=== PATIENT | male | born 1940 | race Caucasian/White ===

== ENCOUNTER 2016-09-08 11:00 | Outpatient (RCR) ==
[2013-07-25 18:13] VITALS: BMI 25.0
--- NOTE | 2016-08-26 10:54 | RS.OTEVAL ---
Subjective Date of Note: 08/26/16 Visit #: 1 Date of Evaluation: 08/26/16 Payer Source: MEDICARE Treatment Diagnosis: Left shoulder pain Treatment Side (optional): Left *Precautions: At risk for frozen shoulder Prior Level of Function.....Patient was independent with: ADL's, Self Care, Work /Vocation, Caregiving, Ambulation/Mobility, Community Integration/Access History of Condition/Mechanism of Injury: Pt reported he has been hurting since last November of 2015. He has had pain since November and was trying to play golf. Pt now has difficulty sleeping, getting in a comfortable position, and has difficulty with donning and doffing shirts, coats and carrying objects. Level of Function: Pt has difficulty due to pain and limits his activity at this time. Functional Limitations: Sleep, Self Care, ADL's, Reaching, Pushing, Pulling, Lifting, Carrying, Sitting, Community Access/Integration (Pt is in pain all of the time right now.) Medical History Smoking Status: Never smoker Pain Assessment - Pain Description Pain Description: Radiating, Sharp, Aching, Acute, Chronic Pain Location: Left shoulder: subscapularis, supraspinatus, posterior scapula, anterior humerus, pain from shoulder to elbow, Pain with external and internal rotation. Pain Description: aches, sharp, radiates Current Pain Intensity: 4 Worst Pain Intensity: 9 Functional Outcome Measures UE Functional Index: 36 - G Codes & Severity Modifier G Codes: Carrying moving and Handling objects. Patient rated himself at CJ however therapist believes patient presents with more impairments following evaluation. OT rates patient at CL Level at 60% Impaired. Source of G Code score: Current is CL By therapist 60% Impaired. Goal is CH Observation - Observation Inspection: Milde inflamation of posterior scapula Posture: Forward Head, Rounded Shoulders Handedness: Right Shoulder ROM: Right WFL's Shoulder Muscle Strength: Right WFL's - Left Shoulder ROM Left Shoulder Flexion: 80 (in supine) Left Shoulder Extension: 35 Left Shoulder Abduction: 30 (in supine) Left Shoulder Internal Rotation: 0 Left Shoulder External Rotation: 15 (Pain in anterior shoulder) Left Shoulder ROM Limitations: Soft Tissue Tightness, Muscle Weakness, Pain - Left Shoulder Strength Left Shoulder Flexion: 3- Fair- Left Shoulder Extension: 3- Fair- Left Shoulder Abduction: 2+ Poor+ Left Shoulder Adduction: 2+ Poor+ Left Shoulder External Rotation: 2+ Poor+ Left Shoulder Internal Rotation: 2 Poor Elbow ROM: Bilaterally WFL's Elbow Muscle Strength: Bilaterally WFL's - Left Elbow Strength Left Elbow Extension: 4 Good Left Elbow Flexion: 4 Good Left Forearm Pronation: 4- Good- Left Forearm Supination: 4- Good- - Right Elbow Strength Right Elbow Extension: 4+ Good + Right Elbow Flexion: 4+ Good + Right Forearm Pronation: 4+ Good + Right Forearm Supination: 4+ Good + Wrist ROM: Bilaterally WFL's Wrist Muscle Strength: Bilaterally WFL's Business Services Tech Strength Left Hand Business Services Tech Strength: 19 Right Hand Business Services Tech Strength: 51 Dynamometer Testing Position: 2nd Position Palpation Palpation Findings: Tenderness, Trigger Point, Muscle Guarding Sensation Right Upper Extremity: Intact/Normal Right Lower Extremity: Intact/Normal Additional Comments Additional Comments: Therapist not able to complete special testing for LUE shoulder due to the Lack of AROM and increased pain with movement. Modalities - Hot Pack/Cryotherapy Treatment: Cryotherapy Comments:: Ice massage to anterior shoulder placing patient in the beginning position of External rotation. Interventions - Exercise/Activities Exercise/Activities/Manual Therapy: Manual therapy 30 minutes, ice massage for 10 minutes HOME EXERCISE PROGRAM: ice massage to LUE shoulder, rest, and prednisone pack - Objective Findings Objective Findings:: Painful LUE shoulder limiting his AROM of LUE. - Charges Total Direct Minutes: 60 Total Treatment Time: 30 Procedures billed for this date of service:: Jinny mnea [place] 30 Assessment Assessment: Pt has symptoms of adhesive capsulitis. Pt is very limited in ext. Rotation and Int. Rotation and Abduction. Pt has pain with all positions. Patient Education: Education of diagnosis, Body/Joint mechanics, Home Exercise Program, Home Safety, Education of Plan of Care Rehab Potential: Good Problems/Comments: Increased pain and inflammation. Decreased AROM. Not always paying attention to his pain and limitations. Short Term Goals Goal #1: Pt to increase AROM of LUE by 50% Goal to be met by: 09/09/16 Goal #2: Pt to be independent with HEP. Goal to be met by: 09/09/16 Goal #3: Pt pain to decrease from 9 to 3 with AROM. Goal to be met by: 09/09/16 Goal #4: Pt to increase LUE shoulder flexion to 110 deg. Goal to be met by: 09/09/16 After School Driver Goals Goal #1: Pt to increase LUE AROM to be WFL. Goal to be met by: 10/14/16 Goal #2: Pt pain in LUE shoulder to be 0-1. Goal to be met by: 10/14/16 Goal #3: Pt to increase LUE shoulder flexion to be 140 deg. Goal to be met by: 10/14/16 Goal #4: Pt to be independent with HEP. Goal to be met by: 10/14/16 Plan - Treatment to be provided Procedures: Therapeutic Exercises, Therapeutic Activity, Neuromuscular Rehab, Manual Therapy, Massage, Patient Education Modalities: Cryotherapy Other:: Pt has a pacemaker. - Treatment Plan Frequency: 3 X week Duration: 6 weeks ORDER # VISITS AND/OR THROUGH DATE: October 14, 2016 - Treatment Code (1) Shoulder pain, left Comments: M25.512 (2) Stiffness of left shoulder joint Comments: M25.612 (3) Shoulder weakness Comments: M62.81
--- NOTE | 2016-08-27 15:52 | RS.OTDNOTE ---
Subjective Date of Note: 08/27/16 Visit #: 2 Date of Evaluation: 08/26/16 Payer Source: MEDICARE Treatment Diagnosis: Left shoulder pain Treatment Side (optional): Left *Precautions: At risk for frozen shoulder Prior Level of Function.....Patient was independent with: ADL's, Self Care, Work /Vocation, Caregiving, Ambulation/Mobility, Community Integration/Access History of Condition/Mechanism of Injury: Pt reported he has been hurting since last November of 2015. He has had pain since November and was trying to play golf. Pt now has difficulty sleeping, getting in a comfortable position, and has difficulty with donning and doffing shirts, coats and carrying objects. Level of Function: Pt has difficulty due to pain and limits his activity at this time. Functional Limitations: Sleep, Self Care, ADL's, Reaching, Pushing, Pulling, Lifting, Carrying, Sitting, Community Access/Integration (Pt is in pain all of the time right now.) Current Complaints/Gains: Pt states hx of UE pain/decreased ROM. States he enjoys playing golf but the pain limits his ability. Pain Assessment - Pain Description Pain Description: Radiating, Sharp, Aching, Acute, Chronic Pain Location: Left shoulder: subscapularis, supraspinatus, posterior scapula, anterior humerus, pain from shoulder to elbow, Pain with external and internal rotation. Pain Description: aches, sharp, radiates Modalities - Hot Pack/Cryotherapy Treatment: Cryotherapy (CP following therapy with pt ed on performing at home several times daily.) Interventions - Exercise/Activities Exercise/Activities/Manual Therapy: Manual therapy x 25+ mins in sitting and supine positions with PROM/gentle stretching. Pt ed and performed ISO x 4 directions, codmans ex (circles), and ed bar ex in supine position for shoulder flexion/extension, 10/ each. HOME EXERCISE PROGRAM: ice massage to LUE shoulder, rest, and prednisone pack - Objective Findings Objective Findings:: Painful LUE shoulder limiting his AROM of LUE. - Charges Total Direct Minutes: 52 Total Treatment Time: 62 Procedures billed for this date of service:: CP EX MT2 Assessment Patient Education: Education of diagnosis, Body/Joint mechanics, Home Exercise Program, Home Safety, Activity Modification, Education of Plan of Care Patient demonstrates compliance with HEP?: Yes Short Term Goals Goal #1: Pt to increase AROM of LUE by 50% Goal to be met by: 09/09/16 Progress towards goal: Progressing Goal #2: Pt to be independent with HEP. Goal to be met by: 09/09/16 Progress towards goal: Progressing Goal #3: Pt pain to decrease from 9 to 3 with AROM. Goal to be met by: 09/09/16 Progress towards goal: Progressing Goal #4: Pt to increase LUE shoulder flexion to 110 deg. Goal to be met by: 09/09/16 Progress towards goal: Progressing Penitentiary Goals Goal #1: Pt to increase LUE AROM to be WFL. Goal to be met by: 10/14/16 Progress towards goal: Progressing Goal #2: Pt pain in LUE shoulder to be 0-1. Goal to be met by: 10/14/16 Progress towards goal: Progressing Goal #3: Pt to increase LUE shoulder flexion to be 140 deg. Goal to be met by: 10/14/16 Progress towards goal: Progressing Goal #4: Pt to be independent with HEP. Goal to be met by: 10/14/16 Progress towards goal: Progressing Plan PLAN OF CARE EXPIRES ON:: 10/15/15 ORDER # VISITS AND/OR THROUGH DATE: October 14, 2016 PLAN: Continue Plan of Care Frequency: 3 X week Duration: 4 weeks
--- NOTE | 2016-08-30 14:01 | RS.OTDNOTE ---
Subjective Date of Note: 08/30/16 Visit #: 3 Date of Evaluation: 08/26/16 Payer Source: MEDICARE Surgery Performed?: No Treatment Diagnosis: Left shoulder pain Treatment Side (optional): Left *Precautions: At risk for frozen shoulder Prior Level of Function.....Patient was independent with: ADL's, Self Care, Work /Vocation, Caregiving, Ambulation/Mobility, Community Integration/Access History of Condition/Mechanism of Injury: Pt reported he has been hurting since last November of 2015. He has had pain since November and was trying to play golf. Pt now has difficulty sleeping, getting in a comfortable position, and has difficulty with donning and doffing shirts, coats and carrying objects. Level of Function: Pt has difficulty due to pain and limits his activity at this time. Functional Limitations: Sleep, Self Care, ADL's, Reaching, Pushing, Pulling, Lifting, Carrying, Sitting, Community Access/Integration (Pt is in pain all of the time right now.) Current Complaints/Gains: Pt reports good pain relief over the wknd and states good compliance with applying CP. Pain Assessment - Pain Description Pain Description: Radiating, Sharp, Aching, Acute, Chronic Pain Location: Left shoulder: subscapularis, supraspinatus, posterior scapula, anterior humerus, pain from shoulder to elbow, Pain with external and internal rotation. Pain Description: aches, sharp, radiates Current Pain Intensity: 2 Worst Pain Intensity: 5 Modalities - Hot Pack/Cryotherapy Treatment: Cryotherapy (CP following tx) Interventions - Exercise/Activities Exercise/Activities/Manual Therapy: Manual therapy x 20+ mins in sitting and supine positions with PROM/gentle stretching. Pt ed and performed ISO x 4 directions, codmans ex (circles), and ed bar ex in supine position for shoulder flexion/extension, 10/1 each. Green T-band ER/IR and retraction performed 10/1 each. HOME EXERCISE PROGRAM: ice massage to LUE shoulder, rest, and prednisone pack - Objective Findings Objective Findings:: Painful LUE shoulder limiting his AROM of LUE. - Charges Total Direct Minutes: 45 Total Treatment Time: 60 Procedures billed for this date of service:: CP EX2 MT Assessment Patient Education: Education of diagnosis, Body/Joint mechanics, Home Exercise Program, Home Safety, Activity Modification, Education of Plan of Care Patient demonstrates compliance with HEP?: Yes Short Term Goals Goal #1: Pt to increase AROM of LUE by 50% Goal to be met by: 09/09/16 Progress towards goal: Partially Met Goal #2: Pt to be independent with HEP. Goal to be met by: 09/09/16 Progress towards goal: Progressing Goal #3: Pt pain to decrease from 9 to 3 with AROM. Goal to be met by: 09/09/16 Progress towards goal: Partially Met Goal #4: Pt to increase LUE shoulder flexion to 110 deg. Goal to be met by: 09/09/16 Progress towards goal: Progressing Technical Consultant Goals Goal #1: Pt to increase LUE AROM to be WFL. Goal to be met by: 10/14/16 Progress towards goal: Progressing Goal #2: Pt pain in LUE shoulder to be 0-1. Goal to be met by: 10/14/16 Progress towards goal: Progressing Goal #3: Pt to increase LUE shoulder flexion to be 140 deg. Goal to be met by: 10/14/16 Progress towards goal: Progressing Goal #4: Pt to be independent with HEP. Goal to be met by: 10/14/16 Progress towards goal: Progressing Plan PLAN OF CARE EXPIRES ON:: 10/14/16 ORDER # VISITS AND/OR THROUGH DATE: October 14, 2016 PLAN: Continue Plan of Care Frequency: 3 X week Duration: 4 weeks
--- NOTE | 2016-09-01 11:06 | RS.OTDNOTE ---
Subjective Date of Note: 09/01/16 Visit #: 4 Date of Evaluation: 08/26/16 Payer Source: MEDICARE Surgery Performed?: No Treatment Diagnosis: Left shoulder pain Treatment Side (optional): Left *Precautions: At risk for frozen shoulder Prior Level of Function.....Patient was independent with: ADL's, Self Care, Work /Vocation, Caregiving, Ambulation/Mobility, Community Integration/Access History of Condition/Mechanism of Injury: Pt reported he has been hurting since last November of 2015. He has had pain since November and was trying to play golf. Pt now has difficulty sleeping, getting in a comfortable position, and has difficulty with donning and doffing shirts, coats and carrying objects. Level of Function: Pt has difficulty due to pain and limits his activity at this time. Functional Limitations: Sleep, Self Care, ADL's, Reaching, Pushing, Pulling, Lifting, Carrying, Sitting, Community Access/Integration (Pt is in pain all of the time right now.) Current Complaints/Gains: Pt states UE continues feeling better but has c/o increased pain in anterior shoulder with palpation/MT. States good compliance with HEP and applying CP. Pain Assessment - Pain Description Pain Description: Radiating, Sharp, Aching, Acute, Chronic Pain Location: Left shoulder: subscapularis, supraspinatus, posterior scapula, anterior humerus, pain from shoulder to elbow, Pain with external and internal rotation. Pain Description: aches, sharp, radiates Current Pain Intensity: 3 Worst Pain Intensity: 4 Modalities - Hot Pack/Cryotherapy Treatment: Cryotherapy (Ice massage performed along with MT to anterior shoulder ) Interventions - Exercise/Activities Exercise/Activities/Manual Therapy: Manual therapy x 20+ mins in sitting and supine positions with PROM/gentle stretching. Pt ed and performed ISO x 4 directions, codmans ex (circles), and ed bar ex in supine position for shoulder flexion/extension, 10/1 each. Green T-band ER/IR and retraction performed 10/1 each along with ball on the wall ex's. HOME EXERCISE PROGRAM: ice massage to LUE shoulder, codman's ex and A/AROM in supine position. - Objective Findings Objective Findings:: Painful LUE shoulder limiting his AROM of LUE. - Charges Total Direct Minutes: 50 Total Treatment Time: 50 Procedures billed for this date of service:: CP EX MT Assessment Patient Education: Education of diagnosis, Body/Joint mechanics, Home Exercise Program, Home Safety, Activity Modification, Education of Plan of Care Patient demonstrates compliance with HEP?: Yes Short Term Goals Goal #1: Pt to increase AROM of LUE by 50% Goal to be met by: 09/09/16 Progress towards goal: Partially Met Goal #2: Pt to be independent with HEP. Goal to be met by: 09/09/16 Progress towards goal: Partially Met Goal #3: Pt pain to decrease from 9 to 3 with AROM. Goal to be met by: 09/09/16 Progress towards goal: Partially Met Goal #4: Pt to increase LUE shoulder flexion to 110 deg. Goal to be met by: 09/09/16 Progress towards goal: Progressing Production Sampler Goals Goal #1: Pt to increase LUE AROM to be WFL. Goal to be met by: 10/14/16 Progress towards goal: Progressing Goal #2: Pt pain in LUE shoulder to be 0-1. Goal to be met by: 10/14/16 Progress towards goal: Progressing Goal #3: Pt to increase LUE shoulder flexion to be 140 deg. Goal to be met by: 10/14/16 Progress towards goal: Progressing Goal #4: Pt to be independent with HEP. Goal to be met by: 10/14/16 Progress towards goal: Progressing Plan PLAN OF CARE EXPIRES ON:: 10/14/16 ORDER # VISITS AND/OR THROUGH DATE: October 14, 2016 PLAN: Continue Plan of Care Frequency: 3 X week Duration: 3 weeks
--- NOTE | 2016-09-03 11:01 | RS.OTDNOTE ---
Subjective Date of Note: 09/03/16 Visit #: 5 Date of Evaluation: 08/26/16 Payer Source: MEDICARE Surgery Performed?: No Treatment Diagnosis: Left shoulder pain Treatment Side (optional): Left *Precautions: At risk for frozen shoulder Prior Level of Function.....Patient was independent with: ADL's, Self Care, Work /Vocation, Caregiving, Ambulation/Mobility, Community Integration/Access History of Condition/Mechanism of Injury: Pt reported he has been hurting since last November of 2015. He has had pain since November and was trying to play golf. Pt now has difficulty sleeping, getting in a comfortable position, and has difficulty with donning and doffing shirts, coats and carrying objects. Level of Function: Pt has difficulty due to pain and limits his activity at this time. Functional Limitations: Sleep, Self Care, ADL's, Reaching, Pushing, Pulling, Lifting, Carrying, Sitting, Community Access/Integration (Pt is in pain all of the time right now.) Current Complaints/Gains: Pt states UE "feeling good". States he was able to play golf yesterday and is hoping to play again. States pain with palpatation of anterior shoulder and during trigger point therapy. Pain Assessment - Pain Description Pain Description: Radiating, Sharp, Aching, Acute, Chronic Pain Location: Left shoulder: subscapularis, supraspinatus, posterior scapula, anterior humerus, pain from shoulder to elbow, Pain with external and internal rotation. Pain Description: aches, sharp, radiates Current Pain Intensity: 2 Worst Pain Intensity: 4-5 Modalities - Hot Pack/Cryotherapy Treatment: Cryotherapy Interventions - Exercise/Activities Exercise/Activities/Manual Therapy: Manual therapy x 20+ mins in sitting and supine positions with PROM/gentle stretching. Pt ed and performed ISO x 4 directions, codmans ex (circles), and ed bar ex in supine position for shoulder flexion/extension, 10/1 each. Green T-band ER/IR and retraction performed 10/1 each along with ball on the wall ex's. HOME EXERCISE PROGRAM: ice massage to LUE shoulder, codman's ex and A/AROM in supine position. - Objective Findings Objective Findings:: Painful LUE shoulder limiting his AROM of LUE. - Charges Total Direct Minutes: 50 Total Treatment Time: 60 Procedures billed for this date of service:: CP EX2 MT Assessment Patient Education: Education of diagnosis, Body/Joint mechanics, Home Exercise Program, Home Safety, Activity Modification, Education of Plan of Care Patient demonstrates compliance with HEP?: Yes Short Term Goals Goal #1: Pt to increase AROM of LUE by 50% Goal to be met by: 09/09/16 Progress towards goal: Met Goal #2: Pt to be independent with HEP. Goal to be met by: 09/09/16 Progress towards goal: Partially Met Goal #3: Pt pain to decrease from 9 to 3 with AROM. Goal to be met by: 09/09/16 Progress towards goal: Partially Met Goal #4: Pt to increase LUE shoulder flexion to 110 deg. Goal to be met by: 09/09/16 Progress towards goal: Met Senior Internal Auditor Goals Goal #1: Pt to increase LUE AROM to be WFL. Goal to be met by: 10/14/16 Progress towards goal: Progressing Goal #2: Pt pain in LUE shoulder to be 0-1. Goal to be met by: 10/14/16 Progress towards goal: Progressing Goal #3: Pt to increase LUE shoulder flexion to be 140 deg. Goal to be met by: 10/14/16 Progress towards goal: Progressing Goal #4: Pt to be independent with HEP. Goal to be met by: 10/14/16 Progress towards goal: Progressing Plan PLAN OF CARE EXPIRES ON:: 10/14/16 ORDER # VISITS AND/OR THROUGH DATE: October 14, 2016 PLAN: Continue Plan of Care Frequency: 3 X week Duration: 4 weeks
--- NOTE | 2016-09-06 09:29 | RS.OTDNOTE ---
Subjective Date of Note: 09/06/16 Visit #: 6 Date of Evaluation: 08/26/16 Payer Source: MEDICARE Surgery Performed?: No Treatment Diagnosis: Left shoulder pain Treatment Side (optional): Left *Precautions: At risk for frozen shoulder Prior Level of Function.....Patient was independent with: ADL's, Self Care, Work /Vocation, Caregiving, Ambulation/Mobility, Community Integration/Access History of Condition/Mechanism of Injury: Pt reported he has been hurting since last November of 2015. He has had pain since November and was trying to play golf. Pt now has difficulty sleeping, getting in a comfortable position, and has difficulty with donning and doffing shirts, coats and carrying objects. Level of Function: Pt has difficulty due to pain and limits his activity at this time. Functional Limitations: Sleep, Self Care, ADL's, Reaching, Pushing, Pulling, Lifting, Carrying, Sitting, Community Access/Integration (Pt is in pain all of the time right now.) Current Complaints/Gains: Pt reports increase of pain/stiffness and has several "tender points" to palpation this date. States he played golf Tue, Tue, and Tuesday this wknd. Pain Assessment - Pain Description Pain Description: Radiating, Sharp, Aching, Acute, Chronic Pain Location: Left shoulder: subscapularis, supraspinatus, posterior scapula, anterior humerus, pain from shoulder to elbow, Pain with external and internal rotation. Pain Description: aches, sharp, radiates Current Pain Intensity: 3-4 Worst Pain Intensity: 6+ Modalities - Hot Pack/Cryotherapy Treatment: Cryotherapy (Ice massage performed x 2 areas) Interventions - Exercise/Activities Exercise/Activities/Manual Therapy: Manual therapy x 20+ mins in sitting and supine positions with PROM/gentle stretching. Pt ed and performed ISO x 4 directions, codmans ex (circles), and ed bar ex in supine position for shoulder flexion/extension, 10/1 each. Green T-band ER/IR and retraction performed 10/1 each along with ball on the wall ex's. HOME EXERCISE PROGRAM: ice massage to LUE shoulder, codman's ex and A/AROM in supine position. - Objective Findings Objective Findings:: Painful LUE shoulder limiting his AROM of LUE. - Charges Total Direct Minutes: 50 Total Treatment Time: 50 Procedures billed for this date of service:: DAVID NESBITT MT Assessment Patient Education: Education of diagnosis, Body/Joint mechanics, Home Exercise Program, Home Safety, Activity Modification, Education of Plan of Care Patient demonstrates compliance with HEP?: Yes Short Term Goals Goal #1: Pt to increase AROM of LUE by 50% Goal to be met by: 09/09/16 Progress towards goal: Met Goal #2: Pt to be independent with HEP. Goal to be met by: 09/09/16 Progress towards goal: Partially Met Goal #3: Pt pain to decrease from 9 to 3 with AROM. Goal to be met by: 09/09/16 Progress towards goal: Partially Met Goal #4: Pt to increase LUE shoulder flexion to 110 deg. Goal to be met by: 09/09/16 Progress towards goal: Met Wall Taper Helper Goals Goal #1: Pt to increase LUE AROM to be WFL. Goal to be met by: 10/14/16 Progress towards goal: Progressing Goal #2: Pt pain in LUE shoulder to be 0-1. Goal to be met by: 10/14/16 Progress towards goal: Progressing Goal #3: Pt to increase LUE shoulder flexion to be 140 deg. Goal to be met by: 10/14/16 Progress towards goal: Progressing Goal #4: Pt to be independent with HEP. Goal to be met by: 10/14/16 Progress towards goal: Progressing Plan PLAN OF CARE EXPIRES ON:: 10/14/16 ORDER # VISITS AND/OR THROUGH DATE: October 14, 2016 PLAN: Continue Plan of Care Frequency: 3 X week Duration: 3 weeks
--- NOTE | 2016-09-08 15:47 | RS.OTDNOTE ---
Subjective Date of Note: 09/08/16 Visit #: 7 Date of Evaluation: 08/26/16 Payer Source: MEDICARE Surgery Performed?: No Treatment Diagnosis: Left shoulder pain Treatment Side (optional): Left *Precautions: At risk for frozen shoulder Prior Level of Function.....Patient was independent with: ADL's, Self Care, Work /Vocation, Caregiving, Ambulation/Mobility, Community Integration/Access History of Condition/Mechanism of Injury: Pt reported he has been hurting since last November of 2015. He has had pain since November and was trying to play golf. Pt now has difficulty sleeping, getting in a comfortable position, and has difficulty with donning and doffing shirts, coats and carrying objects. Level of Function: Pt has difficulty due to pain and limits his activity at this time. Functional Limitations: Sleep, Self Care, ADL's, Reaching, Pushing, Pulling, Lifting, Carrying, Sitting, Community Access/Integration (Pt is in pain all of the time right now.) Current Complaints/Gains: Pt reports increased pain and stiffness. States his rx of steroids is finished and believes that is the reason for increased pain. States pain and stiffness much better with theapy today and that the biofreeze helps. Pain Assessment - Pain Description Pain Description: Radiating, Sharp, Aching, Acute, Chronic Pain Location: Left shoulder: subscapularis, supraspinatus, posterior scapula, anterior humerus, pain from shoulder to elbow, Pain with external and internal rotation. Pain Description: aches, sharp, radiates Modalities - Hot Pack/Cryotherapy Treatment: Cryotherapy Interventions - Exercise/Activities Exercise/Activities/Manual Therapy: Manual therapy x 20+ mins in sitting and supine positions with PROM/gentle stretching. Pt ed and performed ISO x 4 directions, codmans ex (circles), and ed bar ex in supine position for shoulder flexion/extension, 10/1 each. Green T-band retraction performed / along with ball on the wall ex's and B UE blossom. HOME EXERCISE PROGRAM: ice massage to LUE shoulder, codman's ex and A/AROM in supine position. - Objective Findings Objective Findings:: Painful LUE shoulder limiting his AROM of LUE. - Charges Total Direct Minutes: 40 Total Treatment Time: 50 Procedures billed for this date of service:: PAULINA EX CP Assessment Patient Education: Education of diagnosis, Body/Joint mechanics, Home Exercise Program, Home Safety, Activity Modification, Education of Plan of Care Patient demonstrates compliance with HEP?: Yes Short Term Goals Goal #1: Pt to increase AROM of LUE by 50% Goal to be met by: 09/09/16 Progress towards goal: Met Goal #2: Pt to be independent with HEP. Goal to be met by: 09/09/16 Progress towards goal: Partially Met Goal #3: Pt pain to decrease from 9 to 3 with AROM. Goal to be met by: 09/09/16 Progress towards goal: Partially Met Goal #4: Pt to increase LUE shoulder flexion to 110 deg. Goal to be met by: 09/09/16 Progress towards goal: Met Chcf Goals Goal #1: Pt to increase LUE AROM to be WFL. Goal to be met by: 10/14/16 Progress towards goal: Progressing Goal #2: Pt pain in LUE shoulder to be 0-1. Goal to be met by: 10/14/16 Progress towards goal: Progressing Goal #3: Pt to increase LUE shoulder flexion to be 140 deg. Goal to be met by: 10/14/16 Progress towards goal: Progressing Goal #4: Pt to be independent with HEP. Goal to be met by: 10/14/16 Progress towards goal: Progressing Plan PLAN OF CARE EXPIRES ON:: 10/14/16 ORDER # VISITS AND/OR THROUGH DATE: October 14, 2016 PLAN: Continue Plan of Care Frequency: 3 X week Duration: 4 weeks
== END 2016-09-10 ==
PROVIDERS: ATTEND Internal Medicine
DX: M25.512 Pain in left shoulder (principal)

== ENCOUNTER 2016-10-05 08:15 | Outpatient (RCR) ==
[2013-07-25 18:13] VITALS: BMI 25.0
--- NOTE | 2016-09-20 11:26 | RS.OTDNOTE ---
Subjective Date of Note: 09/20/16 Visit #: 8 Date of Evaluation: 08/26/16 Payer Source: MEDICARE Surgery Performed?: No Treatment Diagnosis: Left shoulder pain Treatment Side (optional): Left *Precautions: At risk for frozen shoulder Prior Level of Function.....Patient was independent with: ADL's, Self Care, Work /Vocation, Caregiving, Ambulation/Mobility, Community Integration/Access History of Condition/Mechanism of Injury: Pt reported he has been hurting since last November of 2015. He has had pain since November and was trying to play golf. Pt now has difficulty sleeping, getting in a comfortable position, and has difficulty with donning and doffing shirts, coats and carrying objects. Level of Function: Pt has difficulty due to pain and limits his activity at this time. Functional Limitations: Sleep, Self Care, ADL's, Reaching, Pushing, Pulling, Lifting, Carrying, Sitting, Community Access/Integration (Pt is in pain all of the time right now.) Current Complaints/Gains: Pt reports increased c/o pain. States he was not able to swing his golf clubs well over the past wk (was out of town x 6 days for golf tournement). States he can tell his motion is decreased and has c/o "tender spots" with palpation. Pain Assessment - Pain Description Pain Location: Left shoulder: subscapularis, supraspinatus, posterior scapula, anterior humerus, pain from shoulder to elbow, Pain with external and internal rotation. Pain Description: aches, sharp, radiates Modalities - Hot Pack/Cryotherapy Treatment: Cryotherapy (CP x10 mins) Interventions - Exercise/Activities Exercise/Activities/Manual Therapy: Manual therapy x 20+ mins in sitting and supine positions with PROM/gentle stretching. Pt ed and performed ISO x 4 directions, codmans ex (circles), and ed bar ex in supine position for shoulder flexion/extension, 10/1 each. Green T-band retraction performed / along with ball on the wall ex's and B UE blossom. HOME EXERCISE PROGRAM: ice massage to LUE shoulder, codman's ex and A/AROM in supine position. - Objective Findings Objective Findings:: Painful LUE shoulder limiting his AROM of LUE. - Charges Total Direct Minutes: 50 Total Treatment Time: 60 Procedures billed for this date of service:: CP EX MT Assessment Patient Education: Education of diagnosis, Body/Joint mechanics, Home Exercise Program, Home Safety, Activity Modification, Education of Plan of Care Patient demonstrates compliance with HEP?: Yes Short Term Goals Goal #1: Pt to increase AROM of LUE by 50% Goal to be met by: 09/09/16 Progress towards goal: Met Goal #2: Pt to be independent with HEP. Goal to be met by: 09/09/16 Progress towards goal: Partially Met Goal #3: Pt pain to decrease from 9 to 3 with AROM. Goal to be met by: 09/09/16 Progress towards goal: Partially Met Goal #4: Pt to increase LUE shoulder flexion to 110 deg. Goal to be met by: 09/09/16 Progress towards goal: Met Vaccinator Goals Goal #1: Pt to increase LUE AROM to be WFL. Goal to be met by: 10/14/16 Progress towards goal: Progressing Goal #2: Pt pain in LUE shoulder to be 0-1. Goal to be met by: 10/14/16 Progress towards goal: Progressing Goal #3: Pt to increase LUE shoulder flexion to be 140 deg. Goal to be met by: 10/14/16 Progress towards goal: Progressing Goal #4: Pt to be independent with HEP. Goal to be met by: 10/14/16 Progress towards goal: Progressing Plan PLAN OF CARE EXPIRES ON:: 10/14/16 ORDER # VISITS AND/OR THROUGH DATE: October 14, 2016 PLAN: Continue Plan of Care Frequency: 3 X week Duration: 2 weeks
--- NOTE | 2016-09-21 09:34 | RS.OTPN ---
Subjective Date of Note: 09/21/16 Visit #: 9 Date of Evaluation: 08/26/16 Payer Source: MEDICARE Surgery Performed?: No Treatment Diagnosis: Left shoulder pain Treatment Side (optional): Left *Precautions: At risk for frozen shoulder Prior Level of Function.....Patient was independent with: ADL's, Self Care, Work /Vocation, Caregiving, Ambulation/Mobility, Community Integration/Access History of Condition/Mechanism of Injury: Pt reported he has been hurting since last November of 2015. He has had pain since November and was trying to play golf. Pt now has difficulty sleeping, getting in a comfortable position, and has difficulty with donning and doffing shirts, coats and carrying objects. Level of Function: Pt has difficulty due to pain and limits his activity at this time. Functional Limitations: Sleep, Self Care, ADL's, Reaching, Pushing, Pulling, Lifting, Carrying, Sitting, Community Access/Integration (Pt is in pain all of the time right now.) Current Complaints/Gains: Patient continues with pain in the LUE shoulder. Patient rates his pain at 7/10 when moving his LUE. At rest he does not have pain. Pain Assessment - Pain Description Pain Description: Burning, Aching Pain Location: Left shoulder: subscapularis, supraspinatus, posterior scapula, anterior humerus, pain from shoulder to elbow, Pain with external and internal rotation. Pain Description: aches, sharp, radiates Current Pain Intensity: 7/10 Worst Pain Intensity: 9/10 Functional Outcome Measures UE Functional Index: 65 - G Codes & Severity Modifier G Codes: CL current Impairment is 65% Source of G Code score: Carrying, Moving, and handling Observation - Observation Inspection: Patient's posture shows pain in the LUE shoulder. Patient has forward head and rounded shoulders. Posture: Forward Head, Rounded Shoulders Handedness: Right - Left Shoulder ROM Left Shoulder Flexion: 100 Left Shoulder Extension: 40 Left Shoulder Abduction: 45 Left Shoulder Horizontal Adduction: 20 (with pain) Left Shoulder Internal Rotation: 35 (with pain) Left Shoulder External Rotation: 30 (with pain) Left Shoulder ROM Limitations: Soft Tissue Tightness, Muscle Weakness, Pain - Left Shoulder Strength Left Shoulder Flexion: 3- Fair- Left Shoulder Extension: 3- Fair- Left Shoulder Abduction: 3- Fair- Left Shoulder Adduction: 3- Fair- Left Shoulder External Rotation: 3- Fair- Left Shoulder Internal Rotation: 3- Fair- Elbow ROM: Bilaterally WFL's Elbow Muscle Strength: Bilaterally WFL's Wrist ROM: Bilaterally WFL's Wrist Muscle Strength: Bilaterally WFL's Palpation Palpation Findings: Tenderness, Trigger Point, Muscle Guarding Sensation Right Upper Extremity: Intact/Normal Right Lower Extremity: Intact/Normal Modalities - Hot Pack/Cryotherapy Treatment: Cryotherapy Interventions - Exercise/Activities Exercise/Activities/Manual Therapy: OT assessing patients progress. Patient tolerated manual therapy to subscapularis, posterior scapula, teres minor/major , to decrease pain. Patient tolerate scapular release. Patient then tolerated 15 minutes of cold pack to LUE shoulder. HOME EXERCISE PROGRAM: Patient was educated regarding taking 3 weeks off of outside yard work, house work, and golfing due to increased symptoms of limited shoulder movement and increased pain. - Objective Findings Objective Findings:: Painful LUE shoulder limiting his AROM of LUE. - Charges Total Direct Minutes: 60 Total Treatment Time: 60 Procedures billed for this date of service:: EX, MT x 2, CP Short Term Goals Goal #1: Pt to increase AROM of LUE by 50% Goal to be met by: 09/09/16 Progress towards goal: Met Goal #2: Pt to be independent with HEP. Goal to be met by: 09/09/16 Progress towards goal: Partially Met Goal #3: Pt pain to decrease from 9 to 3 with AROM. Goal to be met by: 09/09/16 Progress towards goal: Partially Met Goal #4: Pt to increase LUE shoulder flexion to 110 deg. Goal to be met by: 09/09/16 Progress towards goal: Met Basket Filler Goals Goal #1: Pt to increase LUE AROM to be WFL. Goal to be met by: 10/14/16 Progress towards goal: Progressing Goal #2: Pt pain in LUE shoulder to be 0-1. Goal to be met by: 10/14/16 Progress towards goal: Progressing Goal #3: Pt to increase LUE shoulder flexion to be 140 deg. Goal to be met by: 10/14/16 Progress towards goal: Progressing Goal #4: Pt to be independent with HEP. Goal to be met by: 10/14/16 Progress towards goal: Progressing Plan PLAN OF CARE EXPIRES ON:: 10/14/16 ORDER # VISITS AND/OR THROUGH DATE: October 14, 2016 PLAN: Continue Plan of Care Frequency: 3 X week Duration: 4 weeks
--- NOTE | 2016-09-23 09:29 | RS.OTDNOTE ---
Subjective Date of Note: 09/23/16 Visit #: 10 Date of Evaluation: 08/26/16 Payer Source: MEDICARE Surgery Performed?: No Treatment Diagnosis: Left shoulder pain Treatment Side (optional): Left *Precautions: At risk for frozen shoulder Prior Level of Function.....Patient was independent with: ADL's, Self Care, Work /Vocation, Caregiving, Ambulation/Mobility, Community Integration/Access History of Condition/Mechanism of Injury: Pt reported he has been hurting since last November of 2015. He has had pain since November and was trying to play golf. Pt now has difficulty sleeping, getting in a comfortable position, and has difficulty with donning and doffing shirts, coats and carrying objects. Level of Function: Pt has difficulty due to pain and limits his activity at this time. Functional Limitations: Sleep, Self Care, ADL's, Reaching, Pushing, Pulling, Lifting, Carrying, Sitting, Community Access/Integration (Pt is in pain all of the time right now.) Current Complaints/Gains: Pt states he was able to get in to see Dr Win tinsley following OTR assessment and that he did get a cortisone shot. States good compliance with resting UE and placing thumb in pocket for protection. Pain Assessment - Pain Description Pain Description: Burning, Aching Pain Location: Left shoulder: subscapularis, supraspinatus, posterior scapula, anterior humerus, pain from shoulder to elbow, Pain with external and internal rotation. Pain Description: aches, sharp, radiates Current Pain Intensity: 0 Worst Pain Intensity: 7 Other comments regarding pain:: Pt has no c/o pain during rests. Modalities - Hot Pack/Cryotherapy Treatment: Cryotherapy (Ice massage performed along with MT) Interventions - Exercise/Activities Exercise/Activities/Manual Therapy: Pt in supine position for (L) UE PROM including shoulder flexion, add/abduction, scaption, and IR/ER. Pt also performed and ed on FF codmans ex for wknd along with alfonso CP several times daily. Manual therapy/trigger point therapy also performed to pt tolerance. HOME EXERCISE PROGRAM: Patient was educated regarding taking 3 weeks off of outside yard work, house work, and golfing due to increased symptoms of limited shoulder movement and increased pain. - Objective Findings Objective Findings:: Painful LUE shoulder limiting his AROM of LUE. - Charges Total Direct Minutes: 50 Total Treatment Time: 50 Procedures billed for this date of service:: EX MT CP Assessment Patient Education: Education of diagnosis, Body/Joint mechanics, Home Exercise Program, Home Safety, Activity Modification, Education of Plan of Care Patient demonstrates compliance with HEP?: Yes Short Term Goals Goal #1: Pt to increase AROM of LUE by 50% Goal to be met by: 09/09/16 Progress towards goal: Met Goal #2: Pt to be independent with HEP. Goal to be met by: 09/09/16 Progress towards goal: Partially Met Goal #3: Pt pain to decrease from 9 to 3 with AROM. Goal to be met by: 09/09/16 Progress towards goal: Partially Met Goal #4: Pt to increase LUE shoulder flexion to 110 deg. Goal to be met by: 09/09/16 Progress towards goal: Met Usp Goals Goal #1: Pt to increase LUE AROM to be WFL. Goal to be met by: 10/14/16 Progress towards goal: Progressing Goal #2: Pt pain in LUE shoulder to be 0-1. Goal to be met by: 10/14/16 Progress towards goal: Progressing Goal #3: Pt to increase LUE shoulder flexion to be 140 deg. Goal to be met by: 10/14/16 Progress towards goal: Progressing Goal #4: Pt to be independent with HEP. Goal to be met by: 10/14/16 Progress towards goal: Progressing Plan PLAN OF CARE EXPIRES ON:: 10/14/16 ORDER # VISITS AND/OR THROUGH DATE: October 14, 2016 Frequency: 2 X week Duration: 2 weeks
--- NOTE | 2016-09-28 08:57 | RS.OTDNOTE ---
Subjective Date of Note: 09/28/16 Visit #: 11 Date of Evaluation: 08/26/16 Payer Source: MEDICARE Surgery Performed?: No Treatment Diagnosis: Left shoulder pain Treatment Side (optional): Left *Precautions: At risk for frozen shoulder Prior Level of Function.....Patient was independent with: ADL's, Self Care, Work /Vocation, Caregiving, Ambulation/Mobility, Community Integration/Access History of Condition/Mechanism of Injury: Pt reported he has been hurting since last November of 2015. He has had pain since November and was trying to play golf. Pt now has difficulty sleeping, getting in a comfortable position, and has difficulty with donning and doffing shirts, coats and carrying objects. Level of Function: Pt has difficulty due to pain and limits his activity at this time. Functional Limitations: Sleep, Self Care, ADL's, Reaching, Pushing, Pulling, Lifting, Carrying, Sitting, Community Access/Integration (Pt is in pain all of the time right now.) Current Complaints/Gains: Pt states no c/o pain. States he feels he could do anything but states he knows to better. States he is going to purchase a B UE blossom today and he will perform at home. Pain Assessment - Pain Description Pain Location: Left shoulder: subscapularis, supraspinatus, posterior scapula, anterior humerus, pain from shoulder to elbow, Pain with external and internal rotation. Current Pain Intensity: 0 Worst Pain Intensity: 0 Other comments regarding pain:: Pt states 0 c/o pain following shot from MD last wk Modalities - Hot Pack/Cryotherapy Treatment: Hot Pack (HP x 15 mins), Cryotherapy Interventions - Exercise/Activities Exercise/Activities/Manual Therapy: Pt in supine position for (L) UE PROM including shoulder flexion, add/abduction, scaption, and IR/ER. Pt also performed and ed on FF codmans ex for wknd along with alfonso CP several times daily. Manual therapy/trigger point therapy also performed to pt tolerance and B UE blossom along with ISO 5/1 x 4 directions HOME EXERCISE PROGRAM: Patient was educated regarding taking 3 weeks off of outside yard work, house work, and golfing due to increased symptoms of limited shoulder movement and increased pain. - Objective Findings Objective Findings:: Painful LUE shoulder limiting his AROM of LUE. - Charges Total Direct Minutes: 20 Total Treatment Time: 58 Procedures billed for this date of service:: CP EX Assessment Patient Education: Education of diagnosis, Body/Joint mechanics, Home Exercise Program, Home Safety, Activity Modification, Education of Plan of Care Patient demonstrates compliance with HEP?: Yes Short Term Goals Goal #1: Pt to increase AROM of LUE by 50% Goal to be met by: 09/09/16 Progress towards goal: Met Goal #2: Pt to be independent with HEP. Goal to be met by: 09/09/16 Progress towards goal: Met Goal #3: Pt pain to decrease from 9 to 3 with AROM. Goal to be met by: 09/09/16 Progress towards goal: Met Goal #4: Pt to increase LUE shoulder flexion to 110 deg. Goal to be met by: 09/09/16 Progress towards goal: Met Certified Optician Goals Goal #1: Pt to increase LUE AROM to be WFL. Goal to be met by: 10/14/16 Progress towards goal: Partially Met Goal #2: Pt pain in LUE shoulder to be 0-1. Goal to be met by: 10/14/16 Progress towards goal: Partially Met Goal #3: Pt to increase LUE shoulder flexion to be 140 deg. Goal to be met by: 10/14/16 Progress towards goal: Partially Met Goal #4: Pt to be independent with HEP. Goal to be met by: 10/14/16 Progress towards goal: Partially Met Plan PLAN OF CARE EXPIRES ON:: 10/14/16 ORDER # VISITS AND/OR THROUGH DATE: October 14, 2016 PLAN: Plan for Discharge Frequency: 1 X week Duration: 1 week (Pt to return to therapy next wk to monitor pain/progress.)
--- NOTE | 2016-10-05 09:14 | RS.OTDNOTE ---
Subjective Date of Note: 10/05/16 Visit #: 12 Date of Evaluation: 08/26/16 Payer Source: MEDICARE Surgery Performed?: No Treatment Diagnosis: Left shoulder pain Treatment Side (optional): Left *Precautions: At risk for frozen shoulder Prior Level of Function.....Patient was independent with: ADL's, Self Care, Work /Vocation, Caregiving, Ambulation/Mobility, Community Integration/Access History of Condition/Mechanism of Injury: Pt reported he has been hurting since last November of 2015. He has had pain since November and was trying to play golf. Pt now has difficulty sleeping, getting in a comfortable position, and has difficulty with donning and doffing shirts, coats and carrying objects. Level of Function: Pt has difficulty due to pain and limits his activity at this time. Functional Limitations: Sleep, Self Care, ADL's, Reaching, Pushing, Pulling, Lifting, Carrying, Sitting, Community Access/Integration Current Complaints/Gains: Pt had been with-held from tx x 1 wk to see progress/ regression. Pt states good compliance with applying CP and performing codman's ex and B UE blossom system. Pt also reports he has played golf x 1 and along with landscaping tasks at home. Pain Assessment - Pain Description Pain Description: Burning, Aching Pain Location: Left shoulder: subscapularis, supraspinatus, posterior scapula, anterior humerus, pain from shoulder to elbow, Pain with external and internal rotation. Pain Description: aches, sharp, radiates Current Pain Intensity: 0 Worst Pain Intensity: 2-3 Modalities - Hot Pack/Cryotherapy Treatment: Hot Pack, Cryotherapy Interventions - Exercise/Activities Exercise/Activities/Manual Therapy: Pt in sitting position for (L) UE PROM including shoulder flexion, add/abduction, scaption, and IR/ER. Pt also performed and ed on FF codmans ex for HEP along with alfonso CP several times daily. Manual therapy/trigger point therapy also performed to pt tolerance with pt ed on use of tennis balls. B UE blossom along with ISO 10/1 x 4 directions. Pt progressed from yellow to red T-band for shoulder retraction ex' s. HOME EXERCISE PROGRAM: Patient was educated regarding taking 3 weeks off of outside yard work, house work, and golfing due to increased symptoms of limited shoulder movement and increased pain. - Objective Findings Objective Findings:: Pt pleased with progress. Agreeable to DC at this time. Pt I with HEP. - Charges Total Direct Minutes: 55 Total Treatment Time: 55 Procedures billed for this date of service:: CP EX2 Assessment Patient Education: Education of diagnosis, Body/Joint mechanics, Home Exercise Program, Home Safety, Activity Modification, Education of Plan of Care Patient demonstrates compliance with HEP?: Yes Short Term Goals Goal #1: Pt to increase AROM of LUE by 50% Goal to be met by: 09/09/16 Progress towards goal: Met Goal #2: Pt to be independent with HEP. Goal to be met by: 09/09/16 Progress towards goal: Met Goal #3: Pt pain to decrease from 9 to 3 with AROM. Goal to be met by: 09/09/16 Progress towards goal: Met Goal #4: Pt to increase LUE shoulder flexion to 110 deg. Goal to be met by: 09/09/16 Progress towards goal: Met Mcfp Goals Goal #1: Pt to increase LUE AROM to be WFL. Goal to be met by: 10/14/16 Progress towards goal: Met Goal #2: Pt pain in LUE shoulder to be 0-1. Goal to be met by: 10/14/16 Progress towards goal: Partially Met Comments: 0-3 Goal #3: Pt to increase LUE shoulder flexion to be 140 deg. Goal to be met by: 10/14/16 Progress towards goal: Met Goal #4: Pt to be independent with HEP. Goal to be met by: 10/14/16 Progress towards goal: Met Plan PLAN OF CARE EXPIRES ON:: 10/14/16 ORDER # VISITS AND/OR THROUGH DATE: October 14, 2016 PLAN: Plan for Discharge Frequency: DC Duration: DC
== END 2016-10-10 ==
PROVIDERS: ATTEND Internal Medicine
DX: M25.512 Pain in left shoulder (principal)

== ENCOUNTER 2017-12-27 06:25 | Outpatient (CLI) ==
[2013-07-25 18:13] VITALS: BMI 25.0
--- NOTE | 2017-12-27 09:18 | STRESSMOD ---
Date of Test: 12/27/17 Ordering Physician: DR. BASIA KILLIAN Occupation: RETIRED Reason for Exam: CAD W STENT, A-FIB, SOB, DYSLIPIDEMIA, PACEMAKER Height: 67" Weight: 162 LBS Current Medications: METOPROLOL, WARFARIN, CELEBREX, TEKTURNA, DEXILANT, ZETIA, CRESTOR, FLOMAX Resting EKG: PACEMAKER RHYTHM Target Heart Rate: 119/141 S-T SEGMENT STAGE MPH/GRADE HEART RATE BPM BLOOD PRESSURE mmhg RHYTHM +/- ELEVATION DEPRESSION SYMPTOMS,COMMENTS At Rest 60 122/80 PACEMAKER X NONE 1 1.7/0% 100 130/66 PACEMAKER X NONE 2 1.7/5% 100 138/60 PACEMAKER X NONE 3 1.7/10% 100 120/60 PACEMAKER X NONE 4 2.5/12% 5 3.4/14% Immediately After 100 PACEMAKER X FATIGUE Minutes Post Exercise 5:00 74 126/82 X FATIGUE Minutes Post Exercise DURATION OF EXERCISE: 10:01 MAXIMUM HEART RATE REACHED: 100 BPM REASON FOR TERMINATION: FATIGUE 98% OXYGEN SATURATION WITH EXERCISE ON ROOM AIR METS 7.0 INTERPRETATION: 1. INCONCLUSIVE FOR ISCHEMIC ST-T WAVE CHANGES 2. FEW PVC'S WITH EXERCISE 3. NO CHEST PAIN OR DISCOMFORT MTDD
--- NOTE | 2017-12-28 09:52 | ECHOSTRESS ---
Date of Exam: 12/27/17 Ordering Physician: DR. BASIA KILLIAN Reason for Echo: A-FIB, CAD WITH STENT, SOB, STRESS TEST--INCONCLUSIVE M-Mode Normal Adult Results LV Dimensions Normal Adult Results AoV Opening excursions >1.6 LVEDD-base- 3.5-5.8 Ao root dimensions 2.0-3.7 LVESD-base- 3.1-4.6 L. Atrium dimensions 1.9-3.8 Post. Wall thickness 0.8-1.1 IV septum (thickness) 0.7-1.2 Post. Wall excursion 0.72-1.3 Septal motion Systolic motion R. Ventricular cavity 1.5-2.0 LVEF 60% Paradoxical septal wall motion 2-D: NORMAL LEFT VENTRICULAR CONTRACTILITY--RESTING AND POST EXERCISE M-MODE: MV: AV: TV: PV: CHAMBER SIZE: WALL MOTION: NORMAL LEFT VENTRICULAR CONTRACTILITY--RESTING AND POST EXERCISE PERICARDIUM: INTERPRETATION: 1. NORMAL LEFT VENTRICULAR CONTRACTILITY--RESTING AND POST EXERCISE MTDD
--- NOTE | 2017-12-28 10:02 | ECHO2D ---
Date of Exam: 12/27/17 Ordering Physician: DR. BASIA KILLIAN Room #: OP Reason for Echo: A-FIB, DYSLIPIDEMIA, SOB, CAD WITH STENT M-Mode Normal Adult Results LV Dimensions Normal Adult Results AoV Opening excursions >1.6 >1.6 LVEDD-base- 3.5-5.8 5.0 Ao root dimensions 2.0-3.7 3.6 LVESD-base- 3.1-4.6 L. Atrium dimensions 1.9-3.8 6.0 Post. Wall thickness 0.8-1.1 1.5 IV septum (thickness) 0.7-1.2 1.5 Post. Wall excursion 0.72-1.3 NORMAL Septal motion NORMAL Systolic motion R. Ventricular cavity 1.5-2.0 NORMAL LVEF 60% 56% Paradoxical septal wall motion NORMAL 2-D : MITRAL VALVE ANNULUS CALCIFICATION--NORMAL LEFT VENTRICULAR CONTRACTILITY- -NO EFFUSION, NO THROMBUS--ENLARGED LEFT ATRIAL CAVITY COLOR FLOW: MODERATE MITRAL REGURGITATION/TRICUSPID REGURGITATION AND MILD AORTIC REGURGITATION M-MODE: MV: MITRAL VALVE ANNULUS CALCIFIED AV: NORMAL TV: NORMAL PV: CHAMBER SIZE: ENLARGED LEFT ATRIAL CAVITY WALL MOTION: NORMAL PERICARDIUM: NORMAL INTERPRETATION: 1. LEFT VENTRICULAR HYPERTROPHY WITH ENLARGED LEFT ATRIAL CAVITY 2. MODERATE MITRAL REGURGITATION/ TRICUSPID REGURGITATION AND MILD AORTIC REGURGITATION 3. NORMAL LEFT VENTRICULAR CONTRACTILITY 4. CALCIFIC MITRAL VALVE ANNULUS MTDD
== END 2017-12-27 06:26 | disposition home or self-care (01) ==
LOC: CAR 06:25
PROVIDERS: ATTEND Internal Medicine
DX: I48.91 Unspecified atrial fibrillation (principal); R06.02 Shortness of breath; I25.10 Atherosclerotic heart disease of native coronary artery without angina pectoris; Z95.5 Presence of coronary angioplasty implant and graft
CPT/HCPCS: 93005; 93010

== ENCOUNTER 2018-08-17 07:49 | Outpatient (CLI) ==
[2013-07-25 18:13] VITALS: BMI 25.0
--- NOTE | 2018-08-17 13:16 | CT ---
EXAM: CT lumbar spine without contrast. HISTORY: Back pain COMPARISON: CT lumbar spine 05/15/2014 TECHNIQUE: Serial axial images of the spine were obtained from the lower thoracic spine through the pelvis without contrast. These were viewed in multiple planes. FINDINGS: Vertebral bodies demonstrate no acute compression fracture. Scattered anterior and pressroom foreman ior disc osteophytes. There is moderate multilevel facet arthropathy. 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 The transverse and posterior processes are unremarkable. There is no lytic or blastic lesion. L1-L2: There is mild facet arthropathy and posterior disc osteophytes with no central or neural zehra inal narrowing. L2-L3: Posterior disc osteophyte and facet arthropathy with no central or neural foraminal narrowing. L3-L4: Posterior disc osteophyte and facet arthropathy with mild right neural foraminal narrowing. L4-L5: Broad-based disc bulge and facet arthropathy with moderate central and bilateral neural forami nal narrowing. L5-S1: Broad-based disc bulge and facet arthropathy with moderate bilateral neural foraminal narrowin g. Limited views of the soft tissues demonstrate diverticulosis. There is moderate to severe atheroscle rotic disease. There is low attenuation lesion in the left kidney measuring approximately 3 cm in di ameter with Hounsfield units suggestive of a cyst. IMPRESSION: 1. No acute compression fracture or subluxation. 2. Central and bilateral neural foraminal narrowing are noted at L4-L5 and L5-S1 which is not signif icantly changed from 2013 and are considered moderate. If further evaluation is clinically indicated , MRI may be obtained. 3. Diverticulosis without diverticulitis with severe atherosclerotic disease and low attenuation les ion in the left kidney suggestive of a cyst.
== END 2018-08-17 07:50 | disposition home or self-care (01) ==
LOC: RAD 07:49
PROVIDERS: ATTEND Internal Medicine
DX: M54.9 Dorsalgia, unspecified (principal)

== ENCOUNTER 2022-06-26 11:42 | Inpatient (IN) ==
[2022-06-26] MEDS ORDERED: ROCEPHIN 1 GM/50 ML D5W 1 GM/50 ML BAG IV ONE (11:55)
--- NOTE | 2022-06-26 12:20 | ED.PDOC ---
General ED Provider: Dr. LARRY RIVAS Chief Complaint: Weakness Stated Complaint: feeling weak since yesterday with chills Time Seen by Provider: 06/26/22 11:57 Mode of Arrival: Walk-In Information Source: Patient Exam Limitations: No limitations Primary Care Provider: BASIA ANDERSON MD Nursing and Triage Documentation Reviewed and Agree: Yes Does patient meet sepsis criteria?: No System Inflammatory Response Syndrome: Not Applicable Sepsis Protocol: For patient's 13 years and over: Temp is 96.8 and below OR 101 and greater Pulse >90 BPM Resp >20/minute Acutely Altered Mental Status Are patient's symptoms suggestive of a new infection, such as: -Pneumonia -Skin, Soft Tissue -Endocarditis -UTI -Bone, Joint Infection -Implantable Device -Acute Abdominal Infection -Wound Infection -Meningitis -Blood Stream Catheter Infection -Unknown Miscellaneous Complaint Exam Febrile Illness/Adult Complaint/Exam Onset/Duration: 24 hrfs Symptoms Are: Still present Timing: Constant Episodes Lasting: Hours Initial Severity: Mild Current Severity: Moderate Aggravating: Reports None Alleviating: Reports None Associated Signs and Symptoms: Reports Cough and Chills Current Antibiotic Use: No Differential Diagnoses: Bacteremia, Pneumonia, Sepsis and Viremia Quality Indicator For Non-Traumatic Chest Pain/Syncope: EKG Performed Review of Systems Review Of Systems Constitutional: Reports Chills and Weakness Eyes: Reports No symptoms Ears, Nose, Mouth, Throat: Reports No symptoms Respiratory: Reports No symptoms Cardiac: Reports No symptoms GI: Reports No symptoms : Reports No symptoms Musculoskeletal: Reports No symptoms Skin: Reports No symptoms Neurological: Reports No symptoms Endocrine: Reports No symptoms Hematologic/Lymphatic: Reports No symptoms All Other Systems: Reviewed and Negative [facility] Social History Smoking and tobacco status: Never smoker Physical Exam Physical Exam Appearance: Reports Ill-appearing Ill-appearing: Mild Pain Distress: None Eyes: Reports CHAYO, EOMI and Conjunctiva clear ENT: Reports Ears normal, Nose normal and Oropharynx normal Neck: Supple Respiratory: Reports Airway patent, Breath sounds clear and Breath sounds equal Cardiovascular: Reports RRR, Pulses normal, No rub and No murmur GI/: Reports Soft, Nontender, No masses and Bowel sounds normal Musculoskeletal: Reports Normal strength, ROM intact, No edema and No calf tenderness Skin: Reports Warm, Dry and Normal color Neurological: Reports Sensation intact, Motor intact, Reflexes intact, Cranial nerves intact, Alert and Oriented Psychiatric: Reports Affect appropriate, Mood appropriate and Anxious Interpretation Radiology Interpretation Radiology Interpretation By: Radiologist Radiology Results: Positive Exam Interpreted: CT Scan EKG Interpretation Time of EKG #1: 13:17 Rate: Normal Rhythm: Other Ectopy: None [place]: NL ST Segment: Normal Interpretation: paced rythym Physician Notification Case Discussed Physician Notified: dr anderson Time of Notification: 14:41 Critical Care Note Critical Care Note Total Critical Care Time (mins): 0 Course Course Hematology/Chemistry: 06/26/22 12:11 06/26/22 12:11 Orders, Labs, Meds: Lab Review 06/26/22 06/26/22 06/26/22 12:10 12:10 12:11 WBC 17.62 H RBC 4.50 L Hgb 14.2 Hct 43.0 MCV 95.6 H MCH 31.6 H MCHC 33.0 RDW Coeff of Bonnie 14.2 Plt Count 196 Immature Gran % (Auto) 0.6 Neut % (Auto) 90.1 H Lymph % (Auto) 3.9 L [place] % (Auto) 5.0 Eos % (Auto) 0.2 Baso % (Auto) 0.2 Neut # (Auto) 15.9 H Lymph # (Auto) 0.7 [place] # (Auto) 0.9 Eos # (Auto) 0.0 Baso # (Auto) 0.0 Immature Gran # (Auto) 0.1 ESR 12 PT INR Sodium Potassium Chloride Carbon Dioxide Anion Gap BUN Creatinine Estimated GFR (MDRD) BUN/Creatinine Ratio Glucose Lactic Acid Calcium Total Bilirubin AST ALT Alkaline Phosphatase Total Protein Albumin Globulin Albumin/Globulin Ratio Procalcitonin Urine Color Urine Clarity Urine pH Ur Specific [place] Urine Protein Urine Glucose (UA) Urine Ketones Urine Blood Urine Nitrite Urine Bilirubin Urine Urobilinogen Ur Leukocyte Esterase Urine Microscopic WBC Ur Squamous Epith Cells Urine Bacteria Influ A Molecular Assay Negative by naat Influ B Molecular Assay Negative by naat SARS CoV-2 RNA Rapid FAIZA Negative 06/26/22 06/26/22 06/26/22 12:11 12:11 12:11 WBC RBC Hgb Hct MCV MCH MCHC RDW Coeff of Bonnie Plt Count Immature Gran % (Auto) Neut % (Auto) Lymph % (Auto) [place] % (Auto) Eos % (Auto) Baso % (Auto) Neut # (Auto) Lymph # (Auto) [place] # (Auto) Eos # (Auto) Baso # (Auto) Immature Gran # (Auto) ESR PT INR Sodium 138.4 Potassium 4.00 Chloride 104.9 Carbon Dioxide 27.1 Anion Gap 10.40 BUN 14.2 Creatinine 0.92 Estimated GFR (MDRD) 79.00 BUN/Creatinine Ratio 15.43 Glucose 135.9 H Lactic Acid 1.96 Calcium 9.07 Total Bilirubin 1.24 AST 20.7 ALT 13.4 Alkaline Phosphatase 106.3 Total Protein 7.00 Albumin 3.87 Globulin 3.13 Albumin/Globulin Ratio 1.23 Procalcitonin 0.17 H Urine Color Urine Clarity Urine pH Ur Specific [place] Urine Protein Urine Glucose (UA) Urine Ketones Urine Blood Urine Nitrite Urine Bilirubin Urine Urobilinogen Ur Leukocyte Esterase Urine Microscopic WBC Ur Squamous Epith Cells Urine Bacteria Influ A Molecular Assay Influ B Molecular Assay SARS CoV-2 RNA Rapid FAIZA 06/26/22 06/26/22 12:11 14:25 WBC RBC Hgb Hct MCV MCH MCHC RDW Coeff of Bonnie Plt Count Immature Gran % (Auto) Neut % (Auto) Lymph % (Auto) [place] % (Auto) Eos % (Auto) Baso % (Auto) Neut # (Auto) Lymph # (Auto) [place] # (Auto) Eos # (Auto) Baso # (Auto) Immature Gran # (Auto) ESR PT 19.9 H INR 1.97 Sodium Potassium Chloride Carbon Dioxide Anion Gap BUN Creatinine Estimated GFR (MDRD) BUN/Creatinine Ratio Glucose Lactic Acid Calcium Total Bilirubin AST ALT Alkaline Phosphatase Total Protein Albumin Globulin Albumin/Globulin Ratio Procalcitonin Urine Color Yellow Urine Clarity Clear Urine pH 5.0 Ur Specific [place] >=1.030 Urine Protein 1+ H Urine Glucose (UA) Negative Urine Ketones Negative Urine Blood Negative Urine Nitrite Negative Urine Bilirubin 1+ H Urine Urobilinogen 2.0 H Ur Leukocyte Esterase Trace H Urine Microscopic WBC 5-10 Ur Squamous Epith Cells 2-5 Urine Bacteria Trace Influ A Molecular Assay Influ B Molecular Assay SARS CoV-2 RNA Rapid FAIZA Orders Category Date Time Status EKG-(ED ONLY) Stat CARDIO 06/26/22 11:53 Completed ED [employer] AUDITOR APPLIED .ONCE EMERGENCY 06/26/22 11:53 Active ED IV/MEDIPORT/POWERPORT .ONCE EMERGENCY 06/26/22 11:53 Active BLOOD CULTURE (ED ONLY) Stat LAB 06/26/22 12:11 Received CBC W/ AUTO DIFF Stat LAB 06/26/22 12:11 Completed COMPREHENSIVE METABOLIC PANEL Stat LAB 06/26/22 12:11 Completed ESR Stat LAB 06/26/22 12:11 Completed FLU A/B MOLECULAR Stat LAB 06/26/22 12:10 Completed LACTIC ACID Stat LAB 06/26/22 12:11 Completed MOLECULAR GROUP A STREP Stat LAB 06/26/22 12:10 Completed PROCALCITONIN Stat LAB 06/26/22 12:11 Completed PT WITH INR Stat LAB 06/26/22 12:11 Completed SARS COV-2 RNA RAPID FAIZA Stat LAB 06/26/22 12:10 Completed URINALYSIS C & S IF INDICATED Stat LAB 06/26/22 14:25 Completed URINE CULTURE Stat LAB 06/26/22 14:25 Received 0.9 % Sodium Chloride [Saline Flush] MEDS 06/26/22 11:53 Active 1 syr IVF PRN PRN Ceftriaxone/D5w 1 gm Premix [Rocephin 1 gm/50 ml D5w] MEDS 06/26/22 11:55 Discontinued 1 gm in [address] ABDOMEN/PELVIS WO CONTRAST Stat RADS 06/26/22 11:[address] CHEST W/O CONTRAST Stat RADS 06/26/22 11:53 Completed Medications Generic Name Dose Route Start Last Admin Trade Name Freq PRN Reason Stop Dose Admin Sodium Chloride 1 syr 06/26/22 11:53 06/26/22 12:27 0.9% Sodium Chloride 10 Ml Disp.Syrin IVF 1 syr PRN PRN Administration To flush IV Discontinued Medications Generic Name Dose Route Start Last Admin Trade Name Freq PRN Reason Stop Dose Admin CEFTRIAXONE/D5W 1 GM PREMIX 1 gm in 50 mls @ 75 mls/hr 06/26/22 11:55 06/26/22 12:27 Rocephin 1 Gm/50 Ml D5w IV 06/26/22 12:34 75 mls/hr ONCE ONE Administration Vital Signs: Temp Pulse Resp BP Pulse Ox 06/26/22 11:58 98.0 F 66 23 H 140/65 97 06/26/22 11:42 99 F 65 18 154/88 H 96 Discharge Plan Discharge Patient Disposition: ADMITTED INPATIENT Discharge Problem: Fever, Weakness Prescriptions: No Action celecoxib [Celebrex] 200 MG capsule 200 mg PO DAILY metoprolol succinate 100 MG tablet extended release 24 hr 100 mg PO DAILY ezetimibe [Zetia] 10 MG tablet 10 mg PO DAILY rosuvastatin [Crestor] 10 MG tablet 10 mg PO DAILY [place] HCT 1 EACH tablet 1 ea PO DAILY dexlansoprazole [Dexilant] 60 MG capsule,biphase delayed releas 60 mg PO DAILY oxycodone-acetaminophen 1 TAB tablet 1 tab PO Q6H PRN (Reason: PAIN) ferrous sulfate 324 MG tablet,delayed release (DR/EC) 65 mg PO DAILY ondansetron 4 mg tablet,disintegrating 4 mg PO Q8H PRN (Reason: nausea and vomiting) Qty: 10 0RF warfarin 4 mg Tablet 4 mg PO DAILY trazodone 50 mg tablet 50 mg PO BID tamsulosin 0.4 mg capsule 0.4 mg PO DAILY levocetirizine 5 mg tablet 5 mg PO DAILY Did you review [place] FREEZING MACHINE OPERATOR for ALL controlled substances?: Not Applicable ED Provider: LARRY PULIDO Condition: Stable Physician Progress Note: []
[2022-06-26 12:22] LABS: BASOPHILS % (AUTO) 0.2 % (0.0-3.0); EOSINOPHILS % (AUTO) 0.2 % (0.0-7.0); HEMOGLOBIN 14.2 g/dl (14.0-18.0); IMMATURE GRANULOCYTE # (AUTO) 0.1 (0.0-1.0); IMMATURE GRANULOCYTE % (AUTO) 0.6 % (0.0-5.0); LYMPHOCYTES # (AUTO) 0.7 K/uL (0.60-3.4); LYMPHOCYTES % (AUTO) 3.9 (10.0-50.0); MEAN CORPUSCULAR HEMOGLOBIN 31.6 pg (27.0-31.0); MEAN CORPUSCULAR VOLUME 95.6 fl (80.0-94.0); MONOCYTES # (AUTO) 0.9 K/uL (0.4-2.0); NEUTROPHILS # (AUTO) 15.9 K/ul (2.0-6.9); NEUTROPHILS % (AUTO) 90.1 % (42.2-75.2); PLATELET COUNT 196 10^3/uL (140-440); RDW COEFFICIENT OF VARIATION 14.2 % (11.6-14.8); WHITE BLOOD COUNT 17.62 K/ul (4.2-10.2)
[2022-06-26 12:42] LABS: MOLECULAR FLU A NEGATIVE BY NAAT (NEGATIVE); MOLECULAR FLU B NEGATIVE BY NAAT (NEGATIVE)
[2022-06-26 12:53] LABS: ALANINE AMINOTRANSFERASE 13.4 U/L (0-50); ALBUMIN 3.87 g/dL (3.5-5.0); ALKALINE PHOSPHATASE 106.3 U/L (56-119); ASPARTATE AMINO TRANSFERASE 20.7 U/L (17-59); BILIRUBIN,TOTAL 1.24 mg/dL (0.2-1.3); BLOOD UREA NITROGEN 14.2 mg/dL (9-20); CALCIUM 9.07 mg/dL (8.4-10.2); CARBON DIOXIDE 27.1 mmol/L (22-30.0); CHLORIDE 104.9 mmol/L (98-107); CREATININE 0.92 mg/dL (0.60-1.10); ERYTHROCYTE SEDIMENTATION RATE 12 mm/hr (0-15); GLUCOSE 135.9 mg/dL (74-106); SODIUM 138.4 mmol/L (134.5-145)
[2022-06-26 12:59] LABS: SARS COV-2 RNA RAPID NAAT NEGATIVE (NEGATIVE)
[2022-06-26 13:17] LABS: PROTHROMBIN TIME 19.9 SEC (9.3-11.0)
--- NOTE | 2022-06-26 14:14 | CT ---
EXAM: CT abdomen and pelvis without contrast. DATE: 06/26/2022 COMPARISON: 06/10/2022 HISTORY: Fever and chills. TECHNIQUE: A helical scan of the abdomen and pelvis was performed without IV contrast. FINDINGS: Lung bases: There are persistent moderate bilateral pleural effusions with dense consolidation involv ing dependent lower lobes bilaterally. Pleural-based calcifications are again noted. There is four- chamber cardiac enlargement but the organ is incompletely visualized. Musculoskeletal: There is a probable bone island in the lateral left sixth rib. Degenerative changes are present in the lumbar spine. No acute osseous abnormality. Abdomen/Pelvis: The spleen and liver have a uniform attenuation. The gallbladder is distended but wi thout calculi or visible inflammatory changes. The stomach, pancreas and adrenal glands are normal. The kidneys have a normal morphology within the fluid attenuation cyst in the upper pole left kidney . No calculi or hydronephrosis. There are subcentimeter retroperitoneal and mesenteric lymph nodes. There is heavy calcification of abdominal aorta with probable hemodynamically significant stenoses in the common iliac arterial systems bilaterally. The small bowel is normal. There is colonic diver ticulosis without visible inflammatory changes. Pelvic sidewall and bladder are normal. There are d ystrophic calcifications in the prostate gland. There is no free pelvic fluid. The rectum and ingui nal regions are normal. Impression: No acute findings and no significant change from 06/10/2022. Moderate bilateral pleural effusions with associated dense consolidation involving the dependent lower lobes bilaterally. Colonic diverticulosis without diverticulitis. Extensive ASVD with probable hemodynamically significant stenoses involving the common iliac arterial systems bilaterally. If further evaluation is needed then a CT abdominal aortic angiogram lower extremity ru noff could be performed. All CT scans are performed using dose optimization techniques as appropriate to the performed exam an d include at least one of the following: Automated exposure control, adjustment of the mA and/or kV according t o size, and the use of iterative reconstruction technique.
--- NOTE | 2022-06-26 14:22 | CT ---
EXAM: CT chest WITHOUT CONTRAST HISTORY: Cough TECHNIQUE: CT acquisition of the chest without IV contrast administration. CT dose reduction techniq ues performed: Yes. Coronal and sagittal reconstructions were performed. COMPARISON: CT chest 2013 FINDINGS: Mild cardiomegaly. Trace pericardial effusion.. Multivessel coronary artery calcific atherosclerosi s. Left-sided cardiac conduction device. 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 Large calcified plaque along the right diaphragmatic pleura which could be related to asbestos exposure or prior hemothorax. Multiple cysts in both lungs again demonstrated. Moderate size right greater than left pleural effusions. Bibasilar subsegmental atelectasis. Tracheobronchial tree is clear. Exaggerated kyphotic angulation of the thoracic spine. Prior cholecystectomy. Bilateral noé al cysts. Impression: Coronary artery disease and mild cardiomegaly. 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 Large calcified plaque along the right diaphragmatic pleura due to asbestos exposure or prior hemotho rax. Moderate right greater left pleural effusions which may be on the basis of asbestos exposure or reduc ed cardiac function. All CT scans are performed using dose optimization techniques as appropriate to the performed exam an d include at least one of the following: Automated exposure control, adjustment of the mA and/or kV according t o size, and the use of iterative reconstruction technique.
[2022-06-26 14:33] LABS: BILIRUBIN,URINE 1+ (NEGATIVE); CLARITY,URINE Clear (CLEAR); COLOR,URINE Yellow (YELLOW); GLUCOSE, URINE (UA) Negative (NEGATIVE); KETONES,URINE Negative (NEGATIVE); LEUKOCYTE ESTERASE ,URINE Trace (NEGATIVE); NITRITE,URINE Negative (NEGATIVE); PROTEIN,URINE 1+ (NEGATIVE); URINE, BLOOD Negative (NEGATIVE)
[2022-06-26 14:37] LABS: BACTERIA,URINE TRACE (NOT PRESENT)
[2022-06-26] MEDS ORDERED: TYLENOL PO PRN (14:43)
[2022-06-26] MEDS ORDERED: ZOFRAN ODT PO PRN (14:47)
[2022-06-26] MEDS ORDERED: PERCOCET 5-325 PO PRN (14:47)
[2022-06-26 15:39] VITALS: BMI 25.2
[2022-06-26] MEDS: DOXY-100 100 MG in SODIUM CHLORIDE 100ML 100 ML IV SCH (20:11)
[2022-06-26] MEDS: DESYREL PO SCH (20:11)
[2022-06-27 05:14] LABS: BASOPHILS % (AUTO) 0.2 % (0.0-3.0); EOSINOPHILS % (AUTO) 0.2 % (0.0-7.0); HEMATOCRIT 38.9 % (42.0-52.0); HEMOGLOBIN 12.8 g/dl (14.0-18.0); IMMATURE GRANULOCYTE % (AUTO) 0.2 % (0.0-5.0); LYMPHOCYTES % (AUTO) 10.7 (10.0-50.0); MEAN CORPUSCULAR HEMOGLOBIN 31.1 pg (27.0-31.0); MEAN CORPUSCULAR HGB CONC 32.9 (31.8-35.4); MEAN CORPUSCULAR VOLUME 94.6 fl (80.0-94.0); MONOCYTES # (AUTO) 0.9 K/uL (0.4-2.0); NEUTROPHILS # (AUTO) 7.4 K/ul (2.0-6.9); NEUTROPHILS % (AUTO) 78.7 % (42.2-75.2); PLATELET COUNT 160 10^3/uL (140-440); RDW COEFFICIENT OF VARIATION 14.2 % (11.6-14.8); RED BLOOD COUNT 4.11 10^6/ul (4.70-6.10); WHITE BLOOD COUNT 9.34 K/ul (4.2-10.2)
[2022-06-27 05:24] LABS: ALANINE AMINOTRANSFERASE 9.6 U/L (0-50); ALBUMIN 3.14 g/dL (3.5-5.0); ALKALINE PHOSPHATASE 93.3 U/L (56-119); BILIRUBIN,TOTAL 1.05 mg/dL (0.2-1.3); BLOOD UREA NITROGEN 13.1 mg/dL (9-20); CALCIUM 8.68 mg/dL (8.4-10.2); CHLORIDE 106.2 mmol/L (98-107); CREATININE 0.74 mg/dL (0.60-1.10); GLUCOSE 102.7 mg/dL (74-106); POTASSIUM 3.82 mmol/L (3.5-5.1); SODIUM 135.8 mmol/L (134.5-145); TOTAL PROTEIN 6.08 g/dL (6.3-8.2)
[2022-06-27] MEDS: PROTONIX PO SCH (06:09)
[2022-06-27] MEDS: DESYREL PO SCH ×2 (08:35→20:44)
[2022-06-27] MEDS: TOPROL XL PO SCH (08:35)
[2022-06-27] MEDS: ZETIA PO SCH (08:35)
[2022-06-27] MEDS: HYDROCHLOROTHIAZIDE PO SCH (08:36)
[2022-06-27] MEDS: FLOMAX PO SCH (08:36)
[2022-06-27] MEDS: ROCEPHIN 1 GM/50 ML D5W 1 GM/50 ML BAG IV SCH (08:36)
[2022-06-27] MEDS: CLARITIN PO SCH (08:37)
[2022-06-27] MEDS ORDERED: FERROUS SULFATE PO SCH (09:00)
[2022-06-27] MEDS ORDERED: CRESTOR PO SCH (09:00)
[2022-06-27] MEDS ORDERED: CELEBREX PO SCH (09:00)
[2022-06-27] MEDS: TEKTURNA PO SCH (09:29)
[2022-06-27] MEDS: DOXY-100 100 MG in SODIUM CHLORIDE 100ML 100 ML IV SCH ×2 (09:47→20:44)
[2022-06-27 15:11] LABS: PROTHROMBIN TIME 21.8 SEC (9.3-11.0)
[2022-06-27] MEDS: COUMADIN PO SCH (17:30)
[2022-06-28] MEDS: PROTONIX PO SCH (05:35)
[2022-06-28 05:38] LABS: BASOPHILS % (AUTO) 0.4 % (0.0-3.0); EOSINOPHILS # (AUTO) 0.1 K/ul (0.0-0.7); EOSINOPHILS % (AUTO) 0.9 % (0.0-7.0); HEMATOCRIT 38.2 % (42.0-52.0); HEMOGLOBIN 12.8 g/dl (14.0-18.0); IMMATURE GRANULOCYTE % (AUTO) 0.4 % (0.0-5.0); LYMPHOCYTES % (AUTO) 12.4 (10.0-50.0); MEAN CORPUSCULAR HEMOGLOBIN 31.8 pg (27.0-31.0); MEAN CORPUSCULAR HGB CONC 33.5 (31.8-35.4); MEAN CORPUSCULAR VOLUME 94.8 fl (80.0-94.0); MONOCYTES # (AUTO) 1.1 K/uL (0.4-2.0); MONOCYTES % (AUTO) 12.8 (0-10); NEUTROPHILS % (AUTO) 73.1 % (42.2-75.2); PLATELET COUNT 156 10^3/uL (140-440); RDW COEFFICIENT OF VARIATION 13.9 % (11.6-14.8); RED BLOOD COUNT 4.03 10^6/ul (4.70-6.10); WHITE BLOOD COUNT 8.23 K/ul (4.2-10.2)
[2022-06-28 05:56] LABS: ALANINE AMINOTRANSFERASE 9.9 U/L (0-50); ALBUMIN 3.1 g/dL (3.5-5.0); ALKALINE PHOSPHATASE 93.6 U/L (56-119); ASPARTATE AMINO TRANSFERASE 17.1 U/L (17-59); BILIRUBIN,TOTAL 0.87 mg/dL (0.2-1.3); BLOOD UREA NITROGEN 13.9 mg/dL (9-20); CALCIUM 8.5 mg/dL (8.4-10.2); CARBON DIOXIDE 27.3 mmol/L (22-30.0); CHLORIDE 103.2 mmol/L (98-107); CREATININE 0.81 mg/dL (0.60-1.10); GLUCOSE 102.4 mg/dL (74-106); POTASSIUM 3.63 mmol/L (3.5-5.1); SODIUM 136.1 mmol/L (134.5-145)
[2022-06-28 06:21] LABS: PROTHROMBIN TIME 18.9 SEC (9.3-11.0)
[2022-06-28] MEDS: HYDROCHLOROTHIAZIDE PO SCH (09:03)
[2022-06-28] MEDS: ZETIA PO SCH (09:04)
[2022-06-28] MEDS: FLOMAX PO SCH (09:04)
[2022-06-28] MEDS: TOPROL XL PO SCH (09:04)
[2022-06-28] MEDS: CLARITIN PO SCH (09:04)
[2022-06-28] MEDS: TEKTURNA PO SCH (09:05)
[2022-06-28] MEDS: ROCEPHIN 1 GM/50 ML D5W 1 GM/50 ML BAG IV SCH (09:06)
--- NOTE | 2022-06-28 10:00 | PCM.PROG ---
Attending Provider: ATTENDING PROVIDER: Dr. BASIA KILLIAN MD This patient is seen with Catrachita Menendez, Nurse Practitioner. DATE OF SERVICE: 06/28/22 SUBJECTIVE: This 81 year old /WHITE M was hospitalized 06/26/22. The patient is resting comfortably. He is alert but still with some slight confusion. He has been eating well. He is still having some incontinence. White count within normal limits today. REVIEW OF SYSTEMS: CONSTITUTIONAL: Weakness. No night sweats. No malaise, lethargy. No fever or chills. HEENT: Eyes: No visual changes. No eye pain. No eye discharge. ENT: No runny nose. No epistaxis. No sinus pain. No odynophagia. No congestion. RESPIRATORY: No cough, no congestion. No hemoptysis. No shortness of breath. CARDIOVASCULAR: No angina symptoms. No CHF symptoms. No atypical chest pain for CAD. No palpitations. No orthopnea.. GASTROINTESTINAL: No abdominal pain. No nausea or vomiting. No diarrhea or constipation. No hematemesis. No hematochezia. GENITOURINARY: No urgency. No frequency. No dysuria. No hematuria. No obstructive symptoms. No discharge. No pain. No significant abnormal bleeding. MUSCULOSKELETAL: No musculoskeletal pain; no joint swelling. NEUROLOGICAL: Awake, alert, some confusion. No headache. No neck pain. No syncope. No seizures. No dizziness. PSYCHIATRIC: Not anxious. No depression. No suicidal thoughts. No homicidal thoughts. SKIN: No rash. No lesions. No wounds. ENDOCRINE: No unexplained weight loss. No weight gain. HEMATOLOGIC/LYMPHATIC: No anemia. No purpura. No petechiae. No prolonged or excessive bleeding. No palpable lymph nodes. PHYSICAL EXAMINATION: GENERAL: The patient is awake, alert and oriented, lying/sitting in bed in no distress. VITAL SIGNS: Temperature 97.1 F, Pulse 75, Respiratory Rate 18, BP 142/80, Pulse Ox 96% HEENT: Head normocephalic, atraumatic. Eyes: Extraocular muscles are intact. Pupils are equal, round and reactive to light and accommodation. Ears: No lesions. Nose appeared normal. Throat: No exudate or erythema. NECK: Supple. No JVD, no carotid bruit. No lymphadenopathy or thyromegaly. LUNGS: Diminished breath sounds. Clear to auscultation. Percussion note normal. Chest symmetrical. HEART: S1, S2, no S3. Grade 1 murmur. No cyanosis or clubbing. No ascites. Pulses: Dorsalis pedis and posterior tibial pulses +1 to +2 both sides. ABDOMEN: Soft. Non-tender. Bowel sounds active. No CVA tenderness. No mass felt. EXTREMITIES: No edema. Full range of motion of all extremities, equal. NEUROLOGIC: No focal deficit. Cranial nerves II through XII are grossly intact. No headache. No double vision. SKIN: Not dry. Intact. Turgor-normal. LYMPHATIC: No palpable lymph nodes/no lymphedema. MUSCULOSKELETAL: Normal joints with no swelling. Muscle tone is normal. LAB REVIEW: 06/28/22 05:03 06/28/22 05:03 06/28/22 05:03: Sodium 136.1, Potassium 3.63, Chloride 103.2, Carbon Dioxide 27.3, Anion Gap 9.23, BUN 13.9, Creatinine 0.81, Estimated GFR (MDRD) 91.00, BUN/Creatinine Ratio 17.16, Glucose 102.4, Calcium 8.50, Total Bilirubin 0.87, AST 17.1, ALT 9.9, Alkaline Phosphatase 93.6, Total Protein 6.00 L, Albumin 3.10 L, Globulin 2.90, Albumin/Globulin Ratio 1.06 06/28/22 05:03: PT 18.9 H, INR 1.88 06/28/22 05:03: WBC 8.23, RBC 4.03 L, Hgb 12.8 L, Hct 38.2 L, MCV 94.8 H, MCH 31.8 H, MCHC 33.5, RDW Coeff of Bonnie 13.9, Plt Count 156, Immature Gran % (Auto) 0.4, Neut % (Auto) 73.1, Lymph % (Auto) 12.4, [place] % (Auto) 12.8 H, Eos % (Auto) 0.9, Baso % (Auto) 0.4, Neut # (Auto) 6.0, Lymph # (Auto) 1.0, [place] # (Auto) 1.1, Eos # (Auto) 0.1, Baso # (Auto) 0.0, Immature Gran # (Auto) 0.0 06/27/22 04:36: PT 21.8 H, INR 1.88 ASSESSMENT: Please see below. 1. Sepsis 2. Generalized weakness 3. Hypertension 4. History of recurrent falls PLAN: 1. Continue Doxycycline and Rocephin. 2. INR okay today. 3. Trazodone one at bedtime. Plan and coordination of the patient's care discussed in the presence of Crt and nurse. CONDITION: Stable SCRIBED BY: FIDEL ROMERO Supervisor Hard Candy scribed while in presence of service performed by Dr. Killian/Catrachita Menendez APRN on 06/28/22 ([id number])
[2022-06-28] MEDS: DOXY-100 100 MG in SODIUM CHLORIDE 100ML 100 ML IV SCH ×2 (10:23→20:18)
[2022-06-28] MEDS ORDERED: LASIX IVP ONE (12:33)
[2022-06-28] MEDS ORDERED: ZOFRAN 4 MG/2 ML IVP PRN (12:42)
--- NOTE | 2022-06-28 13:26 | CT ---
EXAM: CT Head with and without contrast. HISTORY: Dizziness, confusion. COMPARISON: None. TECHNIQUE: Multiple axial images of the brain were obtained from the skull base through the vertex p rior to and following intravenous administration of 100 mL Omnipaque 350, low osmolar. Multiplanar r eformats were provided. FINDINGS: There is no intracranial hemorrhage or extraaxial collection. The schultz-white differentiat ion is maintained without evidence for acute large vascular territory infarction. There are areas of periventricular and subcortical white matter low attenuation. No areas of abnormal enhancement are identified. The cortical sulci and cerebral ventricles are symmetrically enlarged. The basal cister ns are well visualized. There is no hydrocephalus, mass effect, or midline shift. The paranasal sin uses and mastoid air cells are clear. The calvarium is intact. IMPRESSION: 1. No acute intracranial abnormality. 2. Chronic small vessel ischemic changes and atrophy. All CT scans are performed using dose optimization techniques as appropriate to the performed exam an d include at least one of the following: Automated exposure control, adjustment of the mA and/or kV according t o size, and the use of iterative reconstruction technique.
--- NOTE | 2022-06-28 13:52 | US ---
EXAM: Carotid ultrasound HISTORY: Dizziness and confusion COMPARISON: None TECHNIQUE: Carotid ultrasound was performed using Duplex imaging with greyscale, color doppler, spec tral doppler imaging performed. FINDINGS: Right carotid: There is atherosclerotic plaque in the common carotid and bulb/internal carotid arter y. Peak systolic velocity measurement in the right internal carotid artery is 0.59 meters per second . End-diastolic velocity measurement in the right internal carotid artery is 0.13 meters per second. Right internal to common carotid artery peak systolic velocity ratio is 0.9. Flow in the right nathalia tebral artery is antegrade. Left carotid: There is atherosclerotic plaque in the common carotid and bulb/internal carotid artery . Peak systolic velocity measurement in the left internal carotid artery is 0.61 meters per second. End-diastolic velocity measurement in the left internal carotid artery is 0.12 meters per second. L eft internal to common carotid artery peak systolic velocity ratio measures 0.7. Flow in the left ve rtebral artery is antegrade. IMPRESSION: 1. Right internal carotid: Peak systolic velocity corresponds with mild (less than 50%) stenosis 2. Left internal carotid: Peak systolic velocity corresponds with mild (less than 50%) stenosis
--- NOTE | 2022-06-28 14:44 | PN ---
DATE OF SERVICE: 06/26/22 SUBJECTIVE: 81 year old white male hospitalized with complaints of having chills, fever, weakness, fatigue, tired feeling, confusion with progression of symptoms over 24 hours. The patient;s friend called me and patient was advised to go to the emergency room. for exam and he seemed to be dehydrated. and has systolic murmur as usual. Lungs has decreased breath sounds. Patient has 1-2+ pitting edema. S3 was noted and no JVD. No evidence of any CHF. No ascites. He was oriented to person and place and time. He was alert but sleepy. Vitals were stable. Patient's lab tests were negative except for WBC count of 17,000, UA is more or less negative with trace leukocyte esterace. REVIEW OF SYSTEMS: CONSTITUTIONAL: No night sweats. No fatigue, malaise, lethargy. No fever or chills. HEENT: Eyes: No visual changes. No eye pain. No eye discharge. ENT: No runny nose. No epistaxis. No sinus pain. No sore throat. No odynophagia. No congestion. RESPIRATORY: No cough, no congestion. No hemoptysis. No shortness of breath. CARDIOVASCULAR: No angina symptoms. No CHF symptoms. No atypical chest pain for CAD. No palpitations. No PND. No orthopnea. GASTROINTESTINAL: No abdominal pain. No nausea or vomiting. No diarrhea or constipation. No hematemesis. No hematochezia. GENITOURINARY: No urgency. No frequency. No dysuria. No hematuria. No obstructive symptoms. No discharge. No pain. No significant abnormal bleeding. MUSCULOSKELETAL: No musculoskeletal pain; no joint swelling. NEUROLOGICAL: Moves all extremities. No focal neurological deficit noted. No headache. No neck pain. No syncope. No seizures. No dizziness. PSYCHIATRIC: Not anxious. No depression. No suicidal thoughts. No homicidal thoughts. SKIN: No rash. No lesions. No wounds. ENDOCRINE: No unexplained weight loss. No weight gain. HEMATOLOGIC/LYMPHATIC: No anemia. No purpura. No petechiae. No prolonged or excessive bleeding. No palpable lymph nodes. PHYSICAL EXAMINATION: GENERAL: The patient is in no distress. HEENT: Head normocephalic, atraumatic. Eyes: Extraocular muscles are intact. Pupils are equal, round and reactive to light and accommodation. Ears: No lesions. Nose appeared normal. Throat: No exudate or erythema. NECK: Supple. No JVD, no carotid bruit. No lymphadenopathy or thyromegaly. LUNGS: Decreased breath sounds. Percussion note normal. Chest symmetrical. HEART: Noted S3. No murmurs. No cyanosis or clubbing. No ascites. Pulses: Dorsalis pedis and posterior tibial pulses +1 to +2 bilaterally. ABDOMEN: Soft. Nontender. Bowel sounds active. No CVA tenderness. No mass felt. EXTREMITIES: 1-2+ pitting edema. Full range of motion of all extremities, equal. NEUROLOGIC: No focal deficit. Cranial nerves II through XII are grossly intact. No headache. No double vision. SKIN: Not dry. Intact. Turgor - normal. LYMPHATIC: No palpable lymph nodes/no lymphedema. MUSCULOSKELETAL: Normal joints with no swelling. Muscle tone is normal. PLAN: Admit patient. Treat with Doxycycline and Rocephin. Sepsis work up is negative. TIME SPENT: More than 30 minutes. Plan and coordination of the patient's care discussed in the presence of nurse. CHRISS
[2022-06-28] MEDS: COUMADIN PO SCH (17:08)
[2022-06-28] MEDS ORDERED: DESYREL PO SCH (21:00)
[2022-06-29 05:04] VITALS: BP 151/84; TEMP 96.5
[2022-06-29 05:04] LABS: BASOPHILS % (AUTO) 0.4 % (0.0-3.0); EOSINOPHILS # (AUTO) 0.1 K/ul (0.0-0.7); HEMATOCRIT 41.4 % (42.0-52.0); IMMATURE GRANULOCYTE % (AUTO) 0.1 % (0.0-5.0); LYMPHOCYTES % (AUTO) 12.1 (10.0-50.0); MEAN CORPUSCULAR HEMOGLOBIN 31.5 pg (27.0-31.0); MEAN CORPUSCULAR HGB CONC 33.8 (31.8-35.4); MEAN CORPUSCULAR VOLUME 93.2 fl (80.0-94.0); MONOCYTES # (AUTO) 0.9 K/uL (0.4-2.0); MONOCYTES % (AUTO) 11.5 (0-10); NEUTROPHILS # (AUTO) 5.9 K/ul (2.0-6.9); NEUTROPHILS % (AUTO) 74.9 % (42.2-75.2); PLATELET COUNT 166 10^3/uL (140-440); RDW COEFFICIENT OF VARIATION 13.7 % (11.6-14.8); RED BLOOD COUNT 4.44 10^6/ul (4.70-6.10); WHITE BLOOD COUNT 7.82 K/ul (4.2-10.2)
[2022-06-29 05:15] LABS: ALBUMIN 3.37 g/dL (3.5-5.0); ALKALINE PHOSPHATASE 112.2 U/L (56-119); BILIRUBIN,TOTAL 0.66 mg/dL (0.2-1.3); BLOOD UREA NITROGEN 14.6 mg/dL (9-20); CALCIUM 8.64 mg/dL (8.4-10.2); CARBON DIOXIDE 28.4 mmol/L (22-30.0); CHLORIDE 99.2 mmol/L (98-107); CREATININE 0.86 mg/dL (0.60-1.10); GLUCOSE 101.9 mg/dL (74-106); POTASSIUM 3.4 mmol/L (3.5-5.1); SODIUM 134.9 mmol/L (134.5-145); TOTAL PROTEIN 6.32 g/dL (6.3-8.2)
[2022-06-29] MEDS: PROTONIX PO SCH (05:39)
[2022-06-29] MEDS ORDERED: DESYREL PO PRN (08:33)
[2022-06-29] MEDS ORDERED: ATIVAN PO ONE (08:34)
[2022-06-29] MEDS: CLARITIN PO SCH (08:46)
[2022-06-29] MEDS: HYDROCHLOROTHIAZIDE PO SCH (08:46)
[2022-06-29] MEDS: FLOMAX PO SCH (08:46)
[2022-06-29] MEDS: TOPROL XL PO SCH (08:46)
[2022-06-29] MEDS: ZETIA PO SCH (08:47)
[2022-06-29 08:48] LABS: PROTHROMBIN TIME 17.9 SEC (9.3-11.0)
[2022-06-29] MEDS: TEKTURNA PO SCH (08:48)
[2022-06-29] MEDS ORDERED: K-DUR PO SCH (09:00)
[2022-06-29] MEDS ORDERED: LIBRAX 5/2.5 MG PO SCH (09:00)
[2022-06-29] MEDS: ROCEPHIN 1 GM/50 ML D5W 1 GM/50 ML BAG IV SCH (09:20)
--- NOTE | 2022-06-29 09:35 | PCM.PROG ---
Attending Provider: ATTENDING PROVIDER: Dr. BASIA KILLIAN MD This patient is seen with Catrachita Menendez, Nurse Practitioner. DATE OF SERVICE: 06/29/22 SUBJECTIVE: This 81 year old /WHITE M was hospitalized 06/26/22. The patient is resting comfortably. He is still somewhat confused and is adamant about going home today. He doesn't understand the severity of his condition. Sensitivity of blood culture pending. He did not sleep well but improved after holding Trazodone, will allow him 50 mg tonight 1-2 tabs. REVIEW OF SYSTEMS: CONSTITUTIONAL: Weakness. No night sweats. No fatigue, malaise, lethargy. No fever or chills. HEENT: Eyes: No visual changes. No eye pain. No eye discharge. ENT: No runny nose. No epistaxis. No sinus pain. No odynophagia. No congestion. RESPIRATORY: No cough, no congestion. No hemoptysis. No shortness of breath. CARDIOVASCULAR: No angina symptoms. No CHF symptoms. No atypical chest pain for CAD. No palpitations. No orthopnea.. GASTROINTESTINAL: No abdominal pain. No nausea or vomiting. No diarrhea or constipation. No hematemesis. No hematochezia. GENITOURINARY: No urgency. No frequency. No dysuria. No hematuria. No obstructive symptoms. No discharge. No pain. No significant abnormal bleeding. MUSCULOSKELETAL: No musculoskeletal pain; no joint swelling. NEUROLOGICAL: Awake, alert, confused. No headache. No neck pain. No syncope. No seizures. No dizziness. PSYCHIATRIC: Not anxious. No depression. No suicidal thoughts. No homicidal thoughts. SKIN: No rash. No lesions. No wounds. ENDOCRINE: No unexplained weight loss. No weight gain. HEMATOLOGIC/LYMPHATIC: No anemia. No purpura. No petechiae. No prolonged or excessive bleeding. No palpable lymph nodes. PHYSICAL EXAMINATION: GENERAL: The patient is awake, alert and oriented to person and place - not time, lying/sitting in bed in no distress. VITAL SIGNS: Temperature 96.5 F, Pulse 63, Respiratory Rate 18, BP 151/84, Pulse Ox 96% HEENT: Head normocephalic, atraumatic. Eyes: Extraocular muscles are intact. Pupils are equal, round and reactive to light and accommodation. Ears: No lesions. Nose appeared normal. Throat: No exudate or erythema. NECK: Supple. No JVD, no carotid bruit. No lymphadenopathy or thyromegaly. LUNGS: Clear to auscultation. Percussion note normal. Chest symmetrical. HEART: S1, S2, no S3. Grade 1 murmur. Regular rhythm. No cyanosis or clubbing. No ascites. Pulses: Dorsalis pedis and posterior tibial pulses +1 to +2 both sides. ABDOMEN: Soft. Non-tender. Bowel sounds active. No CVA tenderness. No mass felt. EXTREMITIES: No edema. Full range of motion of all extremities, equal. NEUROLOGIC: No focal deficit. Cranial nerves II through XII are grossly intact. No headache. No double vision. SKIN: Not dry. Intact. Turgor-normal. LYMPHATIC: No palpable lymph nodes/no lymphedema. MUSCULOSKELETAL: Normal joints with no swelling. Muscle tone is normal. LAB REVIEW: 06/29/22 04:47 06/29/22 04:47 06/29/22 04:47: Sodium 134.9, Potassium 3.40 L, Chloride 99.2, Carbon Dioxide 28.4, Anion Gap 10.70, BUN 14.6, Creatinine 0.86, Estimated GFR (MDRD) 85.00, BUN/Creatinine Ratio 16.97, Glucose 101.9, Calcium 8.64, Total Bilirubin 0.66, AST 22.0, ALT 12.0, Alkaline Phosphatase 112.2, Total Protein 6.32, Albumin 3.37 L, Globulin 2.95, Albumin/Globulin Ratio 1.14 06/29/22 04:47: WBC 7.82, RBC 4.44 L, Hgb 14.0, Hct 41.4 L, MCV 93.2, MCH 31.5 H , MCHC 33.8, RDW Coeff of Bonnie 13.7, Plt Count 166, Immature Gran % (Auto) 0.1, Neut % (Auto) 74.9, Lymph % (Auto) 12.1, Dickinson % (Auto) 11.5 H, Eos % (Auto) 1.0, Baso % (Auto) 0.4, Neut # (Auto) 5.9, Lymph # (Auto) 1.0, Dickinson # (Auto) 0.9, Eos # (Auto) 0.1, Baso # (Auto) 0.0, Immature Gran # (Auto) 0.0 ASSESSMENT: Please see below. 1. Sepsis 2. Gram positive cocci 3. Confusion 4. CT of brain and carotids normal 5. Anxiety 6. Generalized weakness 7. Hypokalemia 8. Underlying atrial fibrillation PLAN: 1. Potassium 20 mg daily. 2. Ativan 0.5 mg this morning and may repeat if needed. 3. Daily INR. Plan and coordination of the patient's care discussed in the presence of Gas Plant Specialist and nurse. CONDITION: Stable SCRIBED BY: FIDEL ROMERO [employer] scribed while in presence of service performed by Dr. Killian/Catrachita Menendez APRN on 06/29/22 ([id number])
--- NOTE | 2022-06-29 09:52 | PN ---
DATE OF SERVICE: 06/27/22 SUBJECTIVE: 81-year-old white male hospitalized with fever, weakness. The patient's condition has improved. He is feeling better. He seems to be more alert, still confused at times. REVIEW OF SYSTEMS: CONSTITUTIONAL: Mild weakness. No night sweats. No fatigue, malaise, lethargy. No fever or chills. HEENT: Eyes: No visual changes. No eye pain. No eye discharge. ENT: No runny nose. No epistaxis. No sinus pain. No sore throat. No odynophagia. No congestion. RESPIRATORY: No cough, no congestion. No hemoptysis. No shortness of breath. CARDIOVASCULAR: No angina symptoms. No CHF symptoms. No atypical chest pain for CAD. No palpitations. No PND. No orthopnea. GASTROINTESTINAL: Improved appetite. No abdominal pain. No nausea or vomiting. No diarrhea or constipation. No hematemesis. No hematochezia. GENITOURINARY: No urgency. No frequency. No dysuria. No hematuria. No obstructive symptoms. No discharge. No pain. No significant abnormal bleeding. MUSCULOSKELETAL: Weakness. NEUROLOGICAL: No headache. No neck pain. No syncope. No seizures. No dizziness. PSYCHIATRIC: Not anxious. No depression. No suicidal thoughts. No homicidal thoughts. SKIN: No rash. No lesions. No wounds. ENDOCRINE: No unexplained weight loss. No weight gain. HEMATOLOGIC/LYMPHATIC: No anemia. No purpura. No petechiae. No prolonged or excessive bleeding. No palpable lymph nodes. PHYSICAL EXAMINATION: VITAL SIGNS: Temperature 97.7, pulse 62, respiratory rate 18, blood pressure 128/65, pulse ox 98%. HEENT: Head normocephalic, atraumatic. Eyes: Extraocular muscles are intact. Pupils are equal, round and reactive to light and accommodation. Ears: No lesions. Nose appeared normal. Throat: No exudate or erythema. NECK: Supple. No JVD, no carotid bruit. No lymphadenopathy or thyromegaly. LUNGS: Decreased breath sounds. Clear to auscultation. Percussion note normal. Chest symmetrical. HEART: S1, S2, no S3. No murmurs. No cyanosis or clubbing. No ascites. Pulses: Dorsalis pedis and posterior tibial pulses +1 to +2 bilaterally. ABDOMEN: Soft. Nontender. Bowel sounds active. No CVA tenderness. No mass felt. EXTREMITIES: No edema. Full range of motion of all extremities, equal. NEUROLOGIC: No focal deficit. Cranial nerves II through XII are grossly intact. No headache. No double vision. SKIN: Not dry. Intact. Turgor - normal. LYMPHATIC: No palpable lymph nodes/no lymphedema. MUSCULOSKELETAL: Normal joints with no swelling. Muscle tone is normal. LABS: Hemoglobin 7.8, hematocrit 38, WBC 9,300, normal differential. Creatinine 0.7, BUN 13, potassium 3.8. ASSESSMENT: 1. Fever, weakness, possible septicemia with blood cultures growing unidentified organism yet. 2. Confusion likely from fever and septicemia. 3. Dehydration. PLAN: 1. Continue IV antibiotics 2. Continue telemetry. Condition improving. Hydration status is improved. Mental status somewhat better. TIME SPENT: More than 30 minutes. Plan and coordination of the patient's care discussed in the presence of nurse. CHRISS
[2022-06-29] MEDS: DOXY-100 100 MG in SODIUM CHLORIDE 100ML 100 ML IV SCH (10:19)
--- NOTE | 2022-06-29 14:44 | HP ---
DATE OF SERVICE: 06/26/22 REASON FOR HOSPITALIZATION/HISTORY OF PRESENT ILLNESS: 81-year-old white male seen in the emergency room. The patient's neighbor called and said the patient has been confused, weak, unable to eat and maybe running fever. Condition has been like this for the past few days and he hasn't been well and hasn't been eating much at all. The patient in the emergency room was somewhat confused, unable to answer the question in detail but denied any chest pain. PAST MEDICAL/SURGICAL HISTORY: History of pacemaker Atrial fibrillation Coronary artery disease with sent Status post gastrectomy History of reflux Hypertension Dyslipidemia DJD spine management with pain management REVIEW OF SYSTEMS: CONSTITUTIONAL: Weakness and fatigue. No night sweats. No malaise, lethargy. No fever or chills. HEENT: Eyes: No visual changes. No eye pain. No eye discharge. ENT: No runny nose. No epistaxis. No sinus pain. No sore throat. No odynophagia. No ear pain. No congestion. RESPIRATORY: No cough, no congestion. No hemoptysis. No shortness of breath. CARDIOVASCULAR: No angina symptoms. No CHF symptoms. No atypical chest pain for CAD. No palpitations. No PND. No orthopnea. GASTROINTESTINAL: Appetite hasn't been that good, maybe mild nausea. No abdominal pain. No vomiting. No diarrhea or constipation. No hematemesis. No hematochezia. GENITOURINARY: No urgency. No frequency. No dysuria. No hematuria. No obstructive symptoms. No discharge. No pain. No significant abnormal bleeding. MUSCULOSKELETAL: Weakness. Able to ambulate. No musculoskeletal pain. No joint swelling. No arthritis. NEUROLOGICAL: No headache. No neck pain. No syncope. No seizures. No dizziness. PSYCHIATRIC: Not anxious. No depression. No suicidal thoughts. No homicidal thoughts. SKIN: No rash. No lesions. No wounds. ENDOCRINE: No unexplained weight loss. No weight gain. HEMATOLOGIC/LYMPHATIC: No anemia. No purpura. No petechiae. No prolonged or excessive bleeding. No palpable lymph nodes. PERSONAL/FAMILY/SOCIAL HISTORY: The patient lives alone, . Nonsmoker. He chews tobacco. No alcohol abuse. Does activities of daily living, drives car. MEDICATIONS: Ferrous Sulfate 324 mg p.o. daily Celebrex one daily Dexilant one daily Zetia 10 mg daily Metoprolol 100 mg daily Rosuvastatin 10 mg p.o. daily Oxycodone 5/325 q.6 p.r.n. Zofran for vomiting Tamsulosin 0.4 p.o. daily Trazodone 50 mg 1 to 2 tablet at night Warfarin 4 mg p.o. daily ALLERGIES: NKDA PHYSICAL EXAMINATION: GENERAL: The patient seems to be alert, but confused, sleepy. Recognized me. Not oriented to place or time. VITAL SIGNS: Temperature 97, pulse 64, respiratory rate 18, BP 130/70, pulse ox 98% on room air. HEENT: Head normocephalic, atraumatic. Eyes: Extraocular muscles are intact. Pupils are equal, round and reactive to light and accommodation. Ears: No lesions. Nose appeared normal. Throat: No exudate or erythema. NECK: Supple. No JVD, no carotid bruit. No lymphadenopathy or thyromegaly. LUNGS: Seems to be clear with a few dry crepitation at the bases. Percussion note normal. Chest symmetrical. HEART: S1, S2, no S3. Grade 2 to 3/6 systolic murmur at the apex going to the axilla, seems to be going to left sternal border. No cyanosis or clubbing. No ascites. Pulses: Dorsalis pedis and posterior tibial pulses +1 bilaterally. ABDOMEN: Soft. Nontender. Bowel sounds active. No CVA tenderness. No mass felt. EXTREMITIES: +1 to +2 pitting edema. Full range of motion of all extremities, equal. NEUROLOGIC: No focal deficit. Cranial nerves II through XII are grossly intact. No headache, no double vision or headache. SKIN: Looks dry. Intact. Turgor - normal. LYMPHATIC: No palpable lymph nodes/no lymphedema. MUSCULOSKELETAL: Normal joints with no swelling. Muscle tone is normal. LABS: ESR normal. GFR 79 cc/min, hemoglobin 14, hematocrit 43, WBC 17,000 with shift to the left. Calcitonin 0.17. INR 1.97. Protime 19. EKG pacemaker rhythm. ASSESSMENT: 1. History of fever, confusion, leukocytosis likely urinary tract infection or could be septicemia. 2. Dehydration. 3. Atrial fibrillation with pacemaker. 4. Coronary artery disease with stent. 5. Status post gastrectomy with chronic anemia. 6. Generalized osteoarthritis. 7. DJD spine with pain management. 8. Mental status - rule out CVA. PLAN: 1. Admit the patient. 2. Routine telemetry orders. 3. Continue pain medications. The patient has never had any history of drug abuse or taking the medication if it is not needed. He has been followed by Pain Management for a number of years with frequent blood check up. 4. Will start the patient on Rocephin and Doxycycline. 5. IV fluids - watch for fluid overload. CONDITION: Stable. Prognosis guarded. The patient is DNR. TIME SPENT: More than 70 minutes. MTDD
--- NOTE | 2022-06-30 14:41 | PN ---
DATE OF SERVICE: 06/29/22 SUBJECTIVE: The patient was seen and examined after the nurse practitioner had seen him. He insists on going home. He had an echocardiogram done which showed moderate mitral regurgitation, moderate aortic regurgitation and LV contracility, LVH, enlarged LA cavity. No thrombus/thrombi noted. No echogenic areas or endocarditis noted. No effusion. The patient has called me two to three times in the morning and says he has to go home. He is oriented to time, place and person. He talked about the game between [employer] and [employer] that was played and he enjoyed it, talked about me moving to the new office and what I am going to like about it. Discussed a lot of other matters pertaining to the present tense. The patient was very pleasant but insisted that he is going to sign out AMA - against medical advice. He is not discharged. Explained to him about the need to stay in the hospital for getting strength, able to walk. His nutrition needs to be improved. He needs some more antibiotics, possibility of septicemia that probably has come either from urinary tract infection and/or unknown source. His WBC count close to normal. He is febrile. There is no PND, no orthopnea. No palpitation. He is otherwise stable. The patient has total of 6 to 7 cats and dogs. Immediately after long discussion he decided to sign out against medical advice. The patient is given instructions not to take Tekturna for his blood pressure, don't take Celebrex antiinflammatory and don't take Trazodone for sleep. He is advised not to take Oxycodone if it is not needed. I will see him back on morning, that is the day after tomorrow at 10 a.m. Tuesday my office is closed. PROGNOSIS: Guarded. TIME SPENT: More than 30 minutes. Plan and coordination of the patient's care discussed in the presence of nurse. CHRISS
--- NOTE | 2022-06-30 14:48 | PN ---
DATE OF SERVICE: 06/28/22 SUBJECTIVE: 81-year-old white male hospitalized with fever, septicemia. The patient's condition has improved. He is still confused but is alert. He is up and about with some help. CT scan negative for acute event. Carotid scan less than 50%. Condition is stable. The patient was seen and examined with the nurse practitioner. Continue Rocephin and Doxycycline. TIME SPENT: More than 30 minutes. Plan and coordination of the patient's care discussed in the presence of nurse. CHRISS
--- NOTE | 2022-07-01 07:16 | ECHO2D ---
Date of Exam: 06/29/2022 Ordering Physician: DR. BASIA KILLIAN Room #: 103 Reason for Echo: CAD, MITRAL REGURGITATION, FEVER M-Mode Normal Adult Results LV Dimensions Normal Adult Results AoV Opening excursions >1.6 >1.6 LVEDD-base- 3.5-5.8 5.0 Ao root dimensions 2.0-3.7 3.4 LVESD-base- 3.1-4.6 L. Atrium dimensions 1.9-3.8 6.0 Post. Wall thickness 0.8-1.1 1.3 IV septum (thickness) 0.7-1.2 1.4 Post. Wall excursion 0.72-1.3 NORMAL Septal motion NORMAL Systolic motion R. Ventricular cavity 1.5-2.0 NORMAL LVEF 60% 50% Paradoxical septal wall motion NORMAL 2-D : 2-D M Mode Echocardiogram was performed using apical four chamber and left parasternal long and short axis views. Mitral, tricuspid and aortic valves appear to be normal. Contractility of the left ventricle seems to be normal, so is the cavity size. ENLARGED LEFT ATRIAL CAVITY. Aortic root appears to be normal. There is no pericardial effusion. There is no thrombus noted in the left ventricle or left atrial cavity. COLOR FLOW: MODERATE MITRAL REGURGITATION AND AORTIC REGURGITATION M-MODE: MV: NORMAL AV: CALCIFIC LEAFLETS, NO STENOSIS TV: NORMAL PV: NORMAL CHAMBER SIZE: ENLARGED LEFT ATRIAL CAVITY WALL MOTION: NORMAL PERICARDIUM: NORMAL INTERPRETATION: 1. LEFT VENTRICLE HYPERTROPHY (MODERATE) 2. ENLARGED LEFT ATRIAL CAVITY 3. NORMAL LEFT VENTRICLE CONTRACTILITY AND NORMAL LEFT VENTRICLE SIZE 4. MODERATE MITRAL REGURGITATION AND AORTIC REGURGITATION UNCHANGED 12/2017 [facility]
--- NOTE | 2022-07-06 15:18 | DS ---
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 MEDICATIONS AT DISCHARGE: Patient signed out against medical advice HOSPITAL COURSE: Patient was hospitalized with weakness and confusion. The patient had septicemia that caused his confusion, sleepiness and deterioration of his medical status. He is living by himself. He was noted to have all these problems by his neighbor and brought to the emergency room on my request. The patient was treated with IV Levaquin and Doxycycline. Culture grew positive cocci and later on it was identified. The patient was on the right antibiotics and doing better. He was well hydrated and decided after a few days he decided to sign out against medical advice. He was oriented to time, place and person. He knew what he was doing - his main reason, I think was he has 6-7 cats and dogs. He was worried about them and in fact he brought a chihuahua in the hospital and stayed with him for nearly 2-3 hours. The chihuahua was spotted by the nurse and sent back. His condition at the time of discharge was stable but he needed a few more days of IV therapy and physical therapy which he declined. TIME SPENT: More than 60 minutes. CHRISS
--- NOTE | 2022-07-06 15:20 | PN ---
06/26/22 LEVEL 5 06/27/22 INTERMEDIATE 06/28/22 INTERMEDIATE 06/29/22 DISCHARGE MTDD
== END 2022-06-29 12:55 | disposition left against medical advice (07) | DRG 814 ==
LOC: ED 11:42 → MEDSURG A 14:48
PROVIDERS: ADMIT Internal Medicine; ATTEND Internal Medicine
DX: Z51.81 Encounter for therapeutic drug level monitoring; D64.9 Anemia, unspecified; Z79.01 Long term (current) use of anticoagulants; K91.1 Postgastric surgery syndromes; I73.9 Peripheral vascular disease, unspecified; F41.9 Anxiety disorder, unspecified; E78.5 Hyperlipidemia, unspecified; I10 Essential (primary) hypertension; A40.8 Other streptococcal sepsis; Z95.0 Presence of cardiac pacemaker; K21.9 Gastro-esophageal reflux disease without esophagitis; M51.36 Other intervertebral disc degeneration, lumbar region; E86.0 Dehydration; M15.9 Polyosteoarthritis, unspecified; Z79.899 Other long term (current) drug therapy; N39.0 Urinary tract infection, site not specified; R41.0 Disorientation, unspecified; E87.6 Hypokalemia; I48.91 Unspecified atrial fibrillation; R50.9 Fever, unspecified; I25.10 Atherosclerotic heart disease of native coronary artery without angina pectoris; Z90.3 Acquired absence of stomach [part of]; Z20.822 Contact with and (suspected) exposure to COVID-19; R53.1 Weakness; D72.829 Elevated white blood cell count, unspecified; R29.6 Repeated falls

== ENCOUNTER 2022-07-11 21:06 | Inpatient (IN) ==
--- NOTE | 2022-07-11 21:10 | ED.PDOC ---
General ED Provider: Dr. ARMANI DANG MD Chief Complaint: Diarrhea Stated Complaint: Patient recently discharged from hospital after having been treated for Strep septicemia. He presents now with a one day history of lower abdominal pain, diarrhea and hematochezia. Denies fever, chills, urinary tract symptoms, nausea, emesis Time Seen by Provider: 07/11/22 21:09 Primary Care Provider: BASIA KILLIAN MD Nursing and Triage Documentation Reviewed and Agree: Yes Does patient meet sepsis criteria?: No System Inflammatory Response Syndrome: Not Applicable Sepsis Protocol: For patient's 13 years and over: Temp is 96.8 and below OR 101 and greater Pulse >90 BPM Resp >20/minute Acutely Altered Mental Status Are patient's symptoms suggestive of a new infection, such as: -Pneumonia -Skin, Soft Tissue -Endocarditis -UTI -Bone, Joint Infection -Implantable Device -Acute Abdominal Infection -Wound Infection -Meningitis -Blood Stream Catheter Infection -Unknown Review of Systems Review Of Systems Constitutional: Reports Weakness Eyes: Reports No symptoms Ears, Nose, Mouth, Throat: Reports No symptoms Respiratory: Reports No symptoms Cardiac: Reports No symptoms GI: Reports Abdominal pain, Blood streaked bowels and Diarrhea : Reports No symptoms Musculoskeletal: Reports No symptoms Skin: Reports No symptoms Neurological: Reports No symptoms Endocrine: Reports No symptoms Hematologic/Lymphatic: Reports No symptoms All Other Systems: Reviewed and Negative [facility] Medical History (Updated 07/11/22 @ 22:34 by ARMANI DANG MD) Arthritis Hypertension Pacemaker Family History FATHER Hypertension Mother Hypertension Social History Smoking and tobacco status: Never smoker Smokeless tobacco user: chewing tobacco and snuff Quit status: not considering quitting Alcohol intake: former Physical Exam Physical Exam Appearance: Reports Ill-appearing, Thin and Other (Patient alert and in NAD. ) Ill-appearing: Moderate Pain Distress: Mild Eyes: Reports Not Examined ENT: Reports Nose normal, Oropharynx normal and Dry mucosa Neck: Supple Respiratory: Reports Airway patent, Breath sounds clear and Breath sounds equal Cardiovascular: Reports RRR, No rub and No murmur GI/: Reports Other (Abdomen mildly to moderately distended, firm and quite tender in both lower quadrants with guarding. Patient passing blood stained diarrhea.) Musculoskeletal: Reports Normal strength and No edema Skin: Reports Warm and Dry Neurological: Reports Alert and Oriented Psychiatric: Reports Affect appropriate and Mood appropriate Interpretation Radiology Interpretation Radiology Interpretation By: Radiologist Exam Interpreted: CT Scan (pancolitis without perforation, bilateral pleural effusions, cardiomegaly, pulmonary edema) Critical Care Note Critical Care Note Total Critical Care Time (mins): 0 Course Course Hematology/Chemistry: 07/11/22 21:30 07/11/22 21:30 Orders, Labs, Meds: Lab Review 07/11/22 07/11/22 07/11/22 21:30 21:30 21:30 WBC 20.35 H RBC 4.73 Hgb 14.7 Hct 44.2 MCV 93.4 MCH 31.1 H MCHC 33.3 RDW Coeff of Bonnie 14.2 Plt Count 202 Immature Gran % (Auto) 0.4 Neut % (Auto) 91.1 H Lymph % (Auto) 3.1 L [place] % (Auto) 5.3 Eos % (Auto) 0.0 Baso % (Auto) 0.1 Neut # (Auto) 18.5 H Lymph # (Auto) 0.6 [place] # (Auto) 1.1 Eos # (Auto) 0.0 Baso # (Auto) 0.0 Immature Gran # (Auto) 0.1 PT 13.0 H INR 1.26 Sodium 138.2 Potassium 3.54 Chloride 103.3 Carbon Dioxide 26.4 Anion Gap 12.04 BUN 16.2 Creatinine 0.96 Estimated GFR (MDRD) 75.00 BUN/Creatinine Ratio 16.87 Glucose 145.3 H Calcium 9.05 Total Bilirubin 1.60 H AST 32.1 ALT 19.0 Alkaline Phosphatase 87.7 Total Protein 7.00 Albumin 3.86 Globulin 3.14 Albumin/Globulin Ratio 1.22 Orders Category Date Time Status NPO REMINDER: IMAGING ONCE CARE 07/11/22 21:24 Completed Saline Lock [ED IV/MEDIPORT/POWERPORT] .ONCE EMERGENCY 07/11/22 21:23 Active CBC W/ AUTO DIFF Stat LAB 07/11/22 21:30 Completed CMP [COMPREHENSIVE METABOLIC PANEL] Stat LAB 07/11/22 21:30 Completed PT WITH INR Stat LAB 07/11/22 21:30 Completed SARS COV-2 RNA RAPID FAIZA Stat LAB 07/11/22 21:50 Received URINALYSIS C & S IF INDICATED Stat LAB 07/11/22 21:25 Uncollected c-diff [C. DIFFICILE] Routine LAB 07/11/22 21:25 Uncollected 0.9 % Sodium Chloride [Saline Flush] MEDS 07/11/22 21:23 Active 1 syr IVF PRN PRN Metronidazole/Sodium Chloride [Flagyl 500 mg/100 ml] MEDS 07/11/22 22:13 Active 500 mg in 100 ml IV ONCE Morphine Sulfate [Morphine 4 mg/ml Syringe] MEDS 07/11/22 21:23 Discontinued 4 mg IVP ONCE STA Sodium Chloride 0.9% [Sodium Chloride] 1,000 ml MEDS 07/11/22 21:23 Discontinu ed IV BOLUS CT ABDOMEN/PELVIS W CONTRAST Stat RADS 07/11/22 21:23 Completed Medications Generic Name Dose Route Start Last Admin Trade Name Freq PRN Reason Stop Dose Admin Metronidazole 500 mg in 100 mls @ 100 mls/hr 07/11/22 22:13 07/11/22 22:19 Flagyl 500 Mg/100 Ml IV 07/11/22 23:12 100 mls/hr ONCE ONE Administration Sodium Chloride 1 syr 07/11/22 21:23 0.9% Sodium Chloride 10 Ml Disp.Syrin IVF PRN PRN To flush IV Discontinued Medications Generic Name Dose Route Start Last Admin Trade Name Freq PRN Reason Stop Dose Admin Sodium Chloride 1,000 mls @ 1,000 mls/hr 07/11/22 21:23 07/11/22 21:48 Sodium Chloride IV 07/11/22 22:22 1,000 mls/hr BOLUS STA Administration Morphine Sulfate 4 mg 07/11/22 21:23 07/11/22 21:48 Morphine Sulfate 4 Mg/Ml Syringe IVP 07/11/22 21:24 4 mg ONCE STA Administration Vital Signs: Temp Pulse Resp BP Pulse Ox 07/11/22 21:12 98.0 F 68 18 170/92 H 94 L Discharge Plan Discharge Patient Disposition: ADMITTED INPATIENT Discharge Problem: Infectious colitis Prescriptions: No Action metoprolol succinate 100 MG tablet extended release 24 hr 100 mg PO DAILY ezetimibe [Zetia] 10 MG tablet 10 mg PO DAILY rosuvastatin [Crestor] 10 MG tablet 10 mg PO DAILY dexlansoprazole [Dexilant] 60 MG capsule,biphase delayed releas 60 mg PO DAILY warfarin 4 mg Tablet 4 mg PO DAILY tamsulosin 0.4 mg capsule 0.4 mg PO DAILY levocetirizine 5 mg tablet 5 mg PO DAILY pantoprazole 40 mg tablet,delayed release (DR/EC) 40 mg PO DAILY nitroglycerin 0.4 mg Tablet, Sublingual 0.4 mg sublingual PRN PRN (Reason: Angina) chlordiazepoxide-clidinium [Librax (with clidinium)] 5-2.5 mg Capsule 1 cap PO DAILY Did you review [place] [employer] for ALL controlled substances?: Not Applicable ED Provider: ARMANI DANG Condition: Serious Physician Progress Note: []
[2022-07-11] MEDS ORDERED: MORPHINE 4 MG/ML SYRINGE IVP STA (21:23)
[2022-07-11] MEDS ORDERED: SODIUM CHLORIDE 1,000 ML IV STA (21:23)
[2022-07-11 21:37] LABS: BASOPHILS % (AUTO) 0.1 % (0.0-3.0); HEMATOCRIT 44.2 % (42.0-52.0); HEMOGLOBIN 14.7 g/dl (14.0-18.0); IMMATURE GRANULOCYTE # (AUTO) 0.1 (0.0-1.0); IMMATURE GRANULOCYTE % (AUTO) 0.4 % (0.0-5.0); LYMPHOCYTES # (AUTO) 0.6 K/uL (0.60-3.4); LYMPHOCYTES % (AUTO) 3.1 (10.0-50.0); MEAN CORPUSCULAR HEMOGLOBIN 31.1 pg (27.0-31.0); MEAN CORPUSCULAR HGB CONC 33.3 (31.8-35.4); MEAN CORPUSCULAR VOLUME 93.4 fl (80.0-94.0); MONOCYTES # (AUTO) 1.1 K/uL (0.4-2.0); MONOCYTES % (AUTO) 5.3 (0-10); NEUTROPHILS # (AUTO) 18.5 K/ul (2.0-6.9); NEUTROPHILS % (AUTO) 91.1 % (42.2-75.2); PLATELET COUNT 202 10^3/uL (140-440); RDW COEFFICIENT OF VARIATION 14.2 % (11.6-14.8); RED BLOOD COUNT 4.73 10^6/ul (4.70-6.10); WHITE BLOOD COUNT 20.35 K/ul (4.2-10.2)
[2022-07-11 21:48] LABS: ALBUMIN 3.86 g/dL (3.5-5.0); ALKALINE PHOSPHATASE 87.7 U/L (56-119); ASPARTATE AMINO TRANSFERASE 32.1 U/L (17-59); BILIRUBIN,TOTAL 1.6 mg/dL (0.2-1.3); BLOOD UREA NITROGEN 16.2 mg/dL (9-20); CALCIUM 9.05 mg/dL (8.4-10.2); CARBON DIOXIDE 26.4 mmol/L (22-30.0); CHLORIDE 103.3 mmol/L (98-107); CREATININE 0.96 mg/dL (0.60-1.10); GLUCOSE 145.3 mg/dL (74-106); POTASSIUM 3.54 mmol/L (3.5-5.1); SODIUM 138.2 mmol/L (134.5-145)
[2022-07-11] MEDS ORDERED: FLAGYL 500 MG/100 ML 500 MG/100 ML BAG IV ONE (22:13)
--- NOTE | 2022-07-11 22:25 | CT ---
EXAM: CT of the abdomen pelvis with contrast History: Lower abdominal pain, hematochezia. Comparison: CT abdomen pelvis 06/26/2022 Technique: Multiplanar CT images through the abdomen pelvis were obtained following administration o f IV contrast Findings: Heart is enlarged. There is edema within the lungs and bilateral pleural effusions. No ac sun'aq osseous abnormalities. No gallstones identified by CT. Calcified pleural plaques are seen. Subtle nodular surface contour of the liver. Spleen is unremarkable. Pancreas and adrenal glands ar e within normal limits. 3 cm cyst within the superior pole of the left kidney which may contain a fe w septations. The right kidney is unremarkable. No abdominal aortic aneurysm. Bladder is not well distended. Prominent prostate. There is graff colonic wall thickening with mucosal enhancement, most notable at the rectal region. Small volume ascites. No pathologically enlarged lymph nodes. Impression: 1. Pancolitis. Etiology is most likely infectious or inflammatory. 2. Possible cirrhosis. 3. Minimally complicated or complex cyst within the superior pole of the left kidney. Recommend non emergent renal ultrasound. 4. Colonic diverticulosis. 5. Cardiomegaly with pulmonary edema and bilateral pleural effusions. 6. Small volume ascites and mesenteric edema All CT scans are performed using dose optimization techniques as appropriate to the performed exam an d include at least one of the following: Automated exposure control, adjustment of the mA and/or kV according t o size, and the use of iterative reconstruction technique.
[2022-07-11 22:32] LABS: SARS COV-2 RNA RAPID NAAT NEGATIVE (NEGATIVE)
--- NOTE | 2022-07-11 22:39 | PCM ---
Chief Complaint Chief Complaint: bloody diarrhea, abdominal pain History of Present Illness History of Present Illness: Patient presents with a one day history of lower abdominal pain and bloody diarrhea. CT scan shows pancolitis. Patient recently received IV antibiotics for Strep septicemia. Review of Systems Constitutional: Reports Weakness and Loss of appetite Eyes: Reports No symptoms Ears: Reports No symptoms Nose: Reports No symptoms Throat: Reports No symptoms Mouth: Reports No symptoms Respiratory: Reports No symptoms Cardiovascular: Reports No symptoms Gastrointestinal: Reports Abdominal pain, Diarrhea and Hematochezia Genitourinary: Reports No symptoms Neurological: Reports No symptoms Musculoskeletal: Reports No symptoms Skin: Reports No symptoms Immunology: Reports No symptoms Hematology: Reports No symptoms Endocrine: Reports No symptoms Psychiatric: Reports No symptoms Habits: Reports Tobacco use Allergies Allergies Allergy/AdvReac Type Severity Reaction Status Date / Time No Known Allergies Allergy Verified 07/11/22 21:15 [facility] Medical History (Updated 07/11/22 @ 22:34 by ARMANI DANG MD) Arthritis Hypertension Pacemaker Family History FATHER Hypertension Mother Hypertension Social History Smoking and tobacco status: Never smoker Smokeless tobacco user: chewing tobacco and snuff Quit status: not considering quitting Alcohol intake: former Medications Medications: Medications Generic Name Dose Route Start Last Admin Trade Name Freq PRN Reason Stop Dose Admin Metronidazole 500 mg in 100 mls @ 100 mls/hr 07/11/22 22:13 07/11/22 22:19 Flagyl 500 Mg/100 Ml IV 07/11/22 23:12 100 mls/hr ONCE ONE Administration Sodium Chloride 1 syr 07/11/22 21:23 0.9% Sodium Chloride 10 Ml Disp.Syrin IVF PRN PRN To flush IV Body Composition Height: 5 ft 7 in Weight: 70.76 kg Body Mass Index (BMI): 24.4 Vital Signs Temperature: 98.0 F Pulse Rate: 68 Respiratory Rate: 18 Blood Pressure: 170/92 O2 Sat by Pulse Oximetry: 94 Physical Examination Appearance: Reports Ill-appearing, No pain distress, Thin and Other (Pleasant, somewhat confused elderly male who is in NAD. ) Ill-appearing: Moderate Pain Distress: None Eyes: Reports Not Examined ENT: Reports Nose normal, Oropharynx normal and Dry mucosa Neck: Supple Respiratory: Reports Airway patent, Breath sounds clear and Breath sounds equal Cardiovascular: Reports RRR, No rub and No murmur GI/: Reports Other (Abdomen with mild to moderate distention. Firm and moderately tender in both lower quadrants with guarding. No peritoneal signs. ) Musculoskeletal: Reports Normal strength, ROM intact and No edema Skin: Reports Warm, Dry and Normal color Neurological: Reports Alert Psychiatric: Reports Affect appropriate and Mood appropriate Lab/Tests/Diagnostic Imaging Lab/Tests/Diagnostic Imaging: Lab Review 07/11/22 07/11/22 07/11/22 21:30 21:30 21:30 WBC 20.35 H RBC 4.73 Hgb 14.7 Hct 44.2 MCV 93.4 MCH 31.1 H MCHC 33.3 RDW Coeff of Bonnie 14.2 Plt Count 202 Immature Gran % (Auto) 0.4 Neut % (Auto) 91.1 H Lymph % (Auto) 3.1 L [place] % (Auto) 5.3 Eos % (Auto) 0.0 Baso % (Auto) 0.1 Neut # (Auto) 18.5 H Lymph # (Auto) 0.6 [place] # (Auto) 1.1 Eos # (Auto) 0.0 Baso # (Auto) 0.0 Immature Gran # (Auto) 0.1 PT 13.0 H INR 1.26 Sodium 138.2 Potassium 3.54 Chloride 103.3 Carbon Dioxide 26.4 Anion Gap 12.04 BUN 16.2 Creatinine 0.96 Estimated GFR (MDRD) 75.00 BUN/Creatinine Ratio 16.87 Glucose 145.3 H Calcium 9.05 Total Bilirubin 1.60 H AST 32.1 ALT 19.0 Alkaline Phosphatase 87.7 Total Protein 7.00 Albumin 3.86 Globulin 3.14 Albumin/Globulin Ratio 1.22 SARS CoV-2 RNA Rapid FAIZA 07/11/22 21:50 WBC RBC Hgb Hct MCV MCH MCHC RDW Coeff of Bonnie Plt Count Immature Gran % (Auto) Neut % (Auto) Lymph % (Auto) [place] % (Auto) Eos % (Auto) Baso % (Auto) Neut # (Auto) Lymph # (Auto) [place] # (Auto) Eos # (Auto) Baso # (Auto) Immature Gran # (Auto) PT INR Sodium Potassium Chloride Carbon Dioxide Anion Gap BUN Creatinine Estimated GFR (MDRD) BUN/Creatinine Ratio Glucose Calcium Total Bilirubin AST ALT Alkaline Phosphatase Total Protein Albumin Globulin Albumin/Globulin Ratio SARS CoV-2 RNA Rapid FAIZA Negative Orders Category Date Time Status NPO REMINDER: IMAGING ONCE CARE 07/11/22 21:24 Completed Saline Lock [ED IV/MEDIPORT/POWERPORT] .ONCE EMERGENCY 07/11/22 21:23 Active CBC W/ AUTO DIFF Stat LAB 07/11/22 21:30 Completed CMP [COMPREHENSIVE METABOLIC PANEL] Stat LAB 07/11/22 21:30 Completed PT WITH INR Stat LAB 07/11/22 21:30 Completed SARS COV-2 RNA RAPID FAIZA Stat LAB 07/11/22 21:50 Completed URINALYSIS C & S IF INDICATED Stat LAB 07/11/22 21:25 Uncollected c-diff [C. DIFFICILE] Routine LAB 07/11/22 21:25 Uncollected 0.9 % Sodium Chloride [Saline Flush] MEDS 07/11/22 21:23 Active 1 syr IVF PRN PRN Metronidazole/Sodium Chloride [Flagyl 500 mg/100 ml] MEDS 07/11/22 22:13 Active 500 mg in 100 ml IV ONCE Morphine Sulfate [Morphine 4 mg/ml Syringe] MEDS 07/11/22 21:23 Discontinued 4 mg IVP ONCE STA Sodium Chloride 0.9% [Sodium Chloride] 1,000 ml MEDS 07/11/22 21:[address] ABDOMEN/PELVIS W CONTRAST Stat RADS 07/11/22 21:23 Completed Medications Generic Name Dose Route Start Last Admin Trade Name Freq PRN Reason Stop Dose Admin Metronidazole 500 mg in 100 mls @ 100 mls/hr 07/11/22 22:13 07/11/22 22:19 Flagyl 500 Mg/100 Ml IV 07/11/22 23:12 100 mls/hr ONCE ONE Administration Sodium Chloride 1 syr 07/11/22 21:23 0.9% Sodium Chloride 10 Ml Disp.Syrin IVF PRN PRN To flush IV Discontinued Medications Generic Name Dose Route Start Last Admin Trade Name Freq PRN Reason Stop Dose Admin Sodium Chloride 1,000 mls @ 1,000 mls/hr 07/11/22 21:23 07/11/22 21:48 Sodium Chloride IV 07/11/22 22:22 1,000 mls/hr BOLUS STA Administration Morphine Sulfate 4 mg 07/11/22 21:23 07/11/22 21:48 Morphine Sulfate 4 Mg/Ml Syringe IVP 07/11/22 21:24 4 mg ONCE STA Administration Assessment (1) Infectious colitis: Status: Acute Code(s): A09 - Infectious gastroenteritis and colitis, unspecified SNOMED Code(s): 68204518 Plan Plan: Patient admitted for IV fluid hydration and IV flagyl for infectious colitis;presumed C. diff.
[2022-07-11] MEDS ORDERED: NITROSTAT SL PRN (22:44)
[2022-07-11] MEDS ORDERED: ZOFRAN 4 MG/2 ML IVP PRN (22:44)
[2022-07-11] MEDS: SODIUM CHLORIDE 0.9%-KCL 20 MEQ 1,000 ML IV SCH (23:22)
[2022-07-11] MEDS ORDERED: COUMADIN PO SCH (23:30)
[2022-07-11 23:42] VITALS: BMI 24.3
[2022-07-12] MEDS ORDERED: NITROSTAT SL PRN (00:03)
[2022-07-12 01:58] LABS: BILIRUBIN,URINE Negative (NEGATIVE); CLARITY,URINE Clear (CLEAR); COLOR,URINE Yellow (YELLOW); GLUCOSE, URINE (UA) Negative (NEGATIVE); KETONES,URINE Negative (NEGATIVE); LEUKOCYTE ESTERASE ,URINE Negative (NEGATIVE); NITRITE,URINE Negative (NEGATIVE); PROTEIN,URINE 1+ (NEGATIVE); URINE, BLOOD Trace-intact (NEGATIVE); UROBILINOGEN,URINE 0.2 (0.2)
[2022-07-12] MEDS: MORPHINE 4 MG/ML SYRINGE IVP PRN ×2 (02:13→08:27)
[2022-07-12] MEDS: FLAGYL 500 MG/100 ML 500 MG/100 ML BAG IV SCH ×3 (05:09→20:08)
[2022-07-12 05:10] LABS: BASOPHILS % (AUTO) 0.1 % (0.0-3.0); HEMATOCRIT 36.9 % (42.0-52.0); HEMOGLOBIN 12.4 g/dl (14.0-18.0); IMMATURE GRANULOCYTE # (AUTO) 0.1 (0.0-1.0); IMMATURE GRANULOCYTE % (AUTO) 0.5 % (0.0-5.0); LYMPHOCYTES # (AUTO) 0.7 K/uL (0.60-3.4); LYMPHOCYTES % (AUTO) 4.4 (10.0-50.0); MEAN CORPUSCULAR HEMOGLOBIN 31.7 pg (27.0-31.0); MEAN CORPUSCULAR HGB CONC 33.6 (31.8-35.4); MEAN CORPUSCULAR VOLUME 94.4 fl (80.0-94.0); MONOCYTES # (AUTO) 1.1 K/uL (0.4-2.0); MONOCYTES % (AUTO) 7.2 (0-10); NEUTROPHILS # (AUTO) 13.5 K/ul (2.0-6.9); NEUTROPHILS % (AUTO) 87.8 % (42.2-75.2); PLATELET COUNT 172 10^3/uL (140-440); RDW COEFFICIENT OF VARIATION 14.4 % (11.6-14.8); RED BLOOD COUNT 3.91 10^6/ul (4.70-6.10); WHITE BLOOD COUNT 15.34 K/ul (4.2-10.2)
[2022-07-12 05:21] LABS: PROTHROMBIN TIME 13.8 SEC (9.3-11.0)
[2022-07-12 05:24] LABS: ALANINE AMINOTRANSFERASE 14.6 U/L (0-50); ALBUMIN 3.08 g/dL (3.5-5.0); ALKALINE PHOSPHATASE 67.3 U/L (56-119); ASPARTATE AMINO TRANSFERASE 22.9 U/L (17-59); BILIRUBIN,TOTAL 1.26 mg/dL (0.2-1.3); BLOOD UREA NITROGEN 14.7 mg/dL (9-20); CALCIUM 8.48 mg/dL (8.4-10.2); CARBON DIOXIDE 25.7 mmol/L (22-30.0); CHLORIDE 104.7 mmol/L (98-107); CREATININE 0.86 mg/dL (0.60-1.10); GLUCOSE 138.6 mg/dL (74-106); POTASSIUM 3.28 mmol/L (3.5-5.1); SODIUM 136.5 mmol/L (134.5-145); TOTAL PROTEIN 5.9 g/dL (6.3-8.2)
[2022-07-12] MEDS: TOPROL XL PO SCH (08:24)
[2022-07-12] MEDS: LIBRAX 5/2.5 MG PO SCH (08:25)
[2022-07-12] MEDS: PROTONIX PO SCH (08:25)
[2022-07-12] MEDS: FLOMAX PO SCH (08:25)
[2022-07-12] MEDS ORDERED: LIBRAX 5/2.5 MG PO SCH (09:00)
[2022-07-12] MEDS ORDERED: PROTONIX PO SCH (09:00)
[2022-07-12] MEDS ORDERED: TOPROL XL PO SCH (09:00)
[2022-07-12] MEDS ORDERED: FLOMAX PO SCH (09:00)
--- NOTE | 2022-07-12 10:14 | PCM.PROG ---
Date Seen by Provider: 07/12/22 Time Seen by Provider: 10:11 Subjective: dx. colitis and diarrhea, pt c/o mod lower abdominal pain Objective: Vitals: T=97.8 F, P=64, R=18, EQ=034/68, SPO2=96 HEENT: []conjunctiva clear Neck: []supple Lungs: [] no respiratory distress CVS: [] Abdomen: []nondistended Extremities: [] Neurological: []alert and oriented Skin: []pink Lab/Tests/Diagnostic Imaging: [] K+ 3.2, wbc 15, c. diff. neg (1) Infectious colitis: Status: Acute Code(s): A09 - Infectious gastroenteritis and colitis, unspecified SNOMED Code(s): 19734999 Plan: continue flagyl, add levaquin, stop morphine, start dilaudid, continue iv ns w/ 20kcl at 100cc/hr
[2022-07-12] MEDS: SODIUM CHLORIDE 0.9%-KCL 20 MEQ 1,000 ML IV SCH ×3 (10:21→23:20)
[2022-07-12] MEDS ORDERED: LEVAQUIN 500 MG/100 ML D5W 500 MG/100 ML BAG IV SCH (10:30)
[2022-07-12] MEDS: DILAUDID 1 MG/ML SYRINGE IVP PRN ×3 (11:11→23:19)
[2022-07-12] MEDS: LEVAQUIN 750 MG/150 ML D5W 750 MG/150 ML BAG IV SCH (11:11)
--- NOTE | 2022-07-12 15:59 | RS.PTINEVL ---
Subjective - Patient information Date of Evaluation: 07/12/22 Usual Living Arrangement: Alone Living Arrangement Comments: has a sitter and son lives close Home Environment: House (has stairs, but he doesn't use them) Medical History: Hypertension, Arthritis Medical History Comments:: Pacemaker Subjective Information/ Patient Comments:: Mr. Lindsay states he does not use an assistive device. States he would use it if he had one at home. He is very pleasant and appreciative. - Level of function Prior to this admission, the patient could do the following:: Independent ADL's, Independent Ambulation Abilities prior to this admission: Has a sitter to help him at home. Current Equipment Used at Home: none, but states he could benefit from a walker or cane. [employer] service to start Tuesday Interventions - Objective Patient Orientation: Person, Place, Time, Situation Current Interventions: IV's Range of Motion - ROM Right Upper Extremity AROM: WFL's Left Upper Extremity AROM: WFL's Right Lower Extremity AROM: WFL's Left Lower Extremity AROM: WFL's Muscle Strength - Muscle Strength Right Lower Extremity Strength: Mild Weakness Left Lower Extremity Strength: Mild Weakness Balance - Sitting Balance and Reactions Static Sitting Balance: Good Dynamic Sitting Balance: Good - Standing Balance and Reactions Static Standing Balance: Fair (+) Dynamic Standing Balance: Fair (+) Functional Mobility - Bed Mobility Scooting: Supervision, CGA Supine to Sit: CGA, 1 person assist, Verbal Cues, Tactile Cues Sit to Supine: CGA, 1 person assist - Transfers Sit to Stand: CGA, Min Assist Stand to Sit: CGA, Verbal Cues, Tactile Cues Stand Pivot Transfers: CGA, Min Assist, Verbal Cues, Tactile Cues Comments:: Patient requires verbal cues to keep walker with him while he turns around completely before sitting down. Also verbal cues to reach back for the bed prior to sitting down. - Safety Awareness Safety Awareness: Fair LINA INDEX SCORE: NA Ambulation - Ambulation Weight Bearing Status: FWB Assistive Device Used: Rolling Walker Distance: 150 feet Assistance needed with Ambulation: CGA, Verbal Cues Quality of Ambulation: Requires assistance guiding the walker on straight path and turning. Verbal cues to look up while he is walking. Gait Deviations: Narrow Based gait, Forward posture, Short stride Factors Affecting Ambulation: Decreased Safety Treatment time - Time with patient Length of Evaluation: 16 mins Total treatment time: 32 Assessment - Assessment Problem List:: Decreased level of function, Requires training/education, Decreased safety/Risk of falls Rehab Potential: Good Further Therapy Indicated?: Yes Candidate for Swing Bed for Therapy Services?: Patient is at a high level of function. Anticipate skilled therapy indicated for just 1-2 days for safety with rolling walker with transfers and ambulation. Evaluation Complexity: HISTORY: Medium (OA, HTN, Pacemaker), EXAM OF BODY SYSTEMS: Low, CLINICAL PRESENTATION: Low, CLINICAL DECISION MAKING: Low Patient's Goal(s): His goal is to return home. Skilled Nursing Goals GOAL #1: Bed mobility with SBA-Independent. Goal to be met by: 07/14/22 GOAL #2: All transfers with SBA and good safety with RW. Goal to be met by: 07/14/22 GOAL #3: Amb with RW household distances with good safety SBA-Independent. Goal to be met by: 07/14/22 Plan Plan of Care: Self-Care/Home Management (safety training with Rolling walker) Frequency of Treatment: 1-2 X day, as tolerated Duration of Treatment: 2 days Anticipated Discharge Destination: Home Treatment Diagnosis (ICD 10 Codes): R26.2 difficulty walking, Z91.81 At risk for falls Has the Physician been added for Co-signature?: Yes
[2022-07-12] MEDS: COUMADIN PO SCH (16:50)
--- NOTE | 2022-07-12 16:55 | RS.OTINEVL ---
Subjective - Patient information Date of Evaluation: 07/12/22 Date of Arrival on Unit: 07/11/22 Diagnosis: Pancolitis, ABD pain, diarrhea PRECAUTIONS: Diarrhea Usual Living Arrangement: Alone Living Arrangement Comments: has a sitter and son lives close Home Environment: House (has stairs, but he doesn't use them) Medical History: Hypertension, Arthritis Medical History Comments:: Pacemaker Subjective Information/ Patient Comments:: "Let's go walk." - Level of function Prior to this admission, the patient could do the following:: Independent ADL's, Independent Ambulation Abilities prior to this admission: Pt was living alone and independent at home. Pt did not have anyone helping him. Current Level of Function: Partially Dependent Current Equipment Used at Home: none, but states he could benefit from a walker or cane. [employer] service to start Tuesday Pain Assessment - Pain Pain Aggravating Factors: Changing Position, Standing, Walking Pain Alleviating Factors: Medication Interventions - Objective Patient Orientation: Person, Place, Situation Current Interventions: IV's, Oxygen Observation: Pt does not know exactly when he has soiled himself. Pt is able to reach his shoes and put them on his feet. Pt requires assistance with personal hygiene. Pt appears weak from having diarrhea. Pt is very thankful for therapy and help. Interventions - ROM Right Upper Extremity AROM: Slight limitation Left Upper Extremity AROM: Slight limitation - Strength Right Upper Extremity Strength: Mild Weakness Left Upper Extremity Strength: Mild Weakness - Sensation Right Upper Extremity Sensation: Intact/Normal Left Upper Extremity Sensation: Intact/Normal Balance - Sitting Balance Static Sitting Balance: Good Dynamic Sitting Balance: Good - Standing Balance Static Standing Balance: Fair Dynamic Standing Balance: Fair ADL Skills - Self Feeding Self Feeding: Independent - Grooming Comments:: Pt using the weighted spoon, fork and knife to help with self feeding. Pt has tremors of BUE. The RUE is worse than the LUE. - Bathing Bathing UE: CGA Bathing LE: CGA Bathing Set-up: Shower - Dressing Dressing UE: CGA Dressing LE: CGA - Toilet Management Toilet Hygiene: Max Assist, 1 person assist Toilet Clothing Management: Max Assist, 1 person assist Functional Mobility - Bed Mobility Rolling R/L: Independent Scooting: Max Assist Supine to Sit: Independent Sit to Supine: CGA - Transfers Sit to Stand: CGA Stand to Sit: CGA Stand Pivot Transfers: Min Assist - Ambulation Weight Bearing Status: FWB Assistive Device Used: Rolling Walker Assistance needed with Ambulation: CGA, 1 person assist LINA INDEX SCORE: . Additional Treatment Performed - Time with patient Length of Evaluation: 25 Total treatment time: 14 Activities Do you enjoy playing games?: Yes Would you be interested in leaving your room for activities?: Yes Would you enjoy group activities?: Yes Do you have difficulty with your vision?: Yes Patient Interests:: Watching Television, Visiting/Socializing Patient Education Patient Education: Education of diagnosis, Home Exercise Program, Education of Plan of Care Teaching Recipient: Patient Teaching Methods: Discussion, Demonstration Assessment Problem List:: Decreased level of function, Requires training/education, Decreased safety/Risk of falls, Weakness Rehab Potential: Good Further Therapy Indicated?: Yes Evaluation Complexity: HISTORY: Medium, EXAM OF BODY SYSTEMS: Medium, CLINICAL DECISION MAKING: Medium Patient's Goal(s): To get stronger and go home and maybe come for outpatient therapy. Short Term Goals - Goals GOAL 1: Pt to be Sup for sink level ADLs. Goal to be met by: 07/15/22 GOAL 2: Pt to increase dyn. std. bal. to Fair+. Goal to be met by: 07/15/22 GOAL 3: Pt to tolerate 15 minutes of activity with rests PRN. Goal to be met by: 07/15/22 GOAL 4: Pt to be independent with toileting and clothing management. Goal to be met by: 07/15/22 Labor/Excavator Goals GOAL 1: Pt to increase (I) of ADLs to (I). Goal to be met by: 07/19/22 GOAL 2: Pt to increase dyn. std. bal. to G-. Goal to be met by: 07/19/22 GOAL 3: Pt to increase activity tolerance to 20 minutes with rests PRN. Goal to be met by: 07/19/22 Plan Plan of Care: Therapeutic EX, Therapeutic Activity, Self-Care/Home Management Frequency of Treatment: 1-2 X day, as tolerated Duration of Treatment: 1 Week Anticipated Discharge Destination: Home Treatment Diagnosis (ICD 10 Codes): Weakness R53.1 Has the Physician been added for Co-signature?: Yes
[2022-07-12] MEDS ORDERED: COUMADIN PO SCH (17:00)
[2022-07-12] MEDS ORDERED: DECADRON IM ONE (19:36)
[2022-07-13] MEDS: FLAGYL 500 MG/100 ML 500 MG/100 ML BAG IV SCH ×3 (04:09→20:26)
[2022-07-13 05:17] LABS: HEMATOCRIT 36.8 % (42.0-52.0); HEMOGLOBIN 12.1 g/dl (14.0-18.0); MEAN CORPUSCULAR HEMOGLOBIN 31.3 pg (27.0-31.0); MEAN CORPUSCULAR HGB CONC 32.9 (31.8-35.4); MEAN CORPUSCULAR VOLUME 95.1 fl (80.0-94.0); PLATELET COUNT 149 10^3/uL (140-440); RDW COEFFICIENT OF VARIATION 14.3 % (11.6-14.8); RED BLOOD COUNT 3.87 10^6/ul (4.70-6.10); WHITE BLOOD COUNT 12.59 K/ul (4.2-10.2)
[2022-07-13 05:29] LABS: PROTHROMBIN TIME 14.8 SEC (9.3-11.0)
[2022-07-13 05:34] LABS: ALBUMIN 3.13 g/dL (3.5-5.0); ALKALINE PHOSPHATASE 85.9 U/L (56-119); ASPARTATE AMINO TRANSFERASE 34.9 U/L (17-59); BILIRUBIN,TOTAL 0.72 mg/dL (0.2-1.3); BLOOD UREA NITROGEN 20.9 mg/dL (9-20); CALCIUM 8.58 mg/dL (8.4-10.2); CARBON DIOXIDE 22.6 mmol/L (22-30.0); CHLORIDE 105.5 mmol/L (98-107); CREATININE 0.95 mg/dL (0.60-1.10); GLUCOSE 139.7 mg/dL (74-106); POTASSIUM 4.48 mmol/L (3.5-5.1); SODIUM 132.5 mmol/L (134.5-145); TOTAL PROTEIN 6.07 g/dL (6.3-8.2)
[2022-07-13 05:39] LABS: ANISOCYTOSIS NOT PRESENT (NOT PRESENT)
[2022-07-13] MEDS: PROTONIX PO SCH (05:39)
[2022-07-13] MEDS: SODIUM CHLORIDE 0.9%-KCL 20 MEQ 1,000 ML IV SCH ×3 (06:30→17:06)
--- NOTE | 2022-07-13 08:19 | PCM.PROG ---
Date Seen by Provider: 07/13/22 Time Seen by Provider: 08:16 Subjective: dx. colitis pt improved, asking less for pain meds Objective: Vitals: T=97.5 F, P=67, R=16, AN=432/69, SPO2=96 HEENT: []conjunctiva clear Neck: []supple Lungs: [] clear CVS: []rrr Abdomen: []soft, no rebound Extremities: []warm and dry Neurological: []alert and oriented Skin: []pink Lab/Tests/Diagnostic Imaging: [] wbc 12.5 (1) Infectious colitis: Status: Acute Code(s): A09 - Infectious gastroenteritis and colitis, unspecified SNOMED Code(s): 78494076 Plan: increased levaquin to 750 qd, continue flagyl and iv ns
[2022-07-13] MEDS: LEVAQUIN 750 MG/150 ML D5W 750 MG/150 ML BAG IV SCH (08:38)
[2022-07-13] MEDS: LIBRAX 5/2.5 MG PO SCH (08:38)
[2022-07-13] MEDS: TOPROL XL PO SCH (08:38)
[2022-07-13] MEDS: FLOMAX PO SCH (08:38)
[2022-07-13] MEDS: COUMADIN PO SCH (17:36)
[2022-07-14] MEDS: SODIUM CHLORIDE 0.9%-KCL 20 MEQ 1,000 ML IV SCH (01:29)
[2022-07-14] MEDS: DILAUDID 1 MG/ML SYRINGE IVP PRN (02:14)
[2022-07-14] MEDS: FLAGYL 500 MG/100 ML 500 MG/100 ML BAG IV SCH ×3 (05:29→20:08)
[2022-07-14] MEDS: PROTONIX PO SCH (05:43)
[2022-07-14] MEDS: FLOMAX PO SCH (08:14)
[2022-07-14] MEDS: TOPROL XL PO SCH (08:15)
[2022-07-14] MEDS: LEVAQUIN 750 MG/150 ML D5W 750 MG/150 ML BAG IV SCH (08:15)
[2022-07-14] MEDS: LIBRAX 5/2.5 MG PO SCH (08:15)
[2022-07-14] MEDS ORDERED: NORCO 7.5-325 PO PRN (09:15)
[2022-07-14] MEDS ORDERED: BENADRYL PO PRN (09:17)
[2022-07-14 09:18] LABS: BASOPHILS % (AUTO) 0.2 % (0.0-3.0); HEMATOCRIT 37.5 % (42.0-52.0); HEMOGLOBIN 12.7 g/dl (14.0-18.0); IMMATURE GRANULOCYTE % (AUTO) 0.3 % (0.0-5.0); LYMPHOCYTES # (AUTO) 0.7 K/uL (0.60-3.4); LYMPHOCYTES % (AUTO) 6.3 (10.0-50.0); MEAN CORPUSCULAR HEMOGLOBIN 31.7 pg (27.0-31.0); MEAN CORPUSCULAR HGB CONC 33.9 (31.8-35.4); MEAN CORPUSCULAR VOLUME 93.5 fl (80.0-94.0); MONOCYTES # (AUTO) 0.7 K/uL (0.4-2.0); MONOCYTES % (AUTO) 6.5 (0-10); NEUTROPHILS # (AUTO) 8.9 K/ul (2.0-6.9); NEUTROPHILS % (AUTO) 86.7 % (42.2-75.2); PLATELET COUNT 160 10^3/uL (140-440); RED BLOOD COUNT 4.01 10^6/ul (4.70-6.10); WHITE BLOOD COUNT 10.24 K/ul (4.2-10.2)
--- NOTE | 2022-07-14 09:22 | PCM.PROG ---
Date Seen by Provider: 07/14/22 Time Seen by Provider: 08:50 Subjective: Patient tolerating oral intake. Appetite fair. Still complains of lower abdominal pain. Incontinent of small brown colored stools;no blood. Objective: Vitals: T=97.8 F, P=83, R=18, LR=495/71, SPO2=95 Patient appears comfortable. In good spirits. HEENT: [] Neck: [] Lungs: [] Chest clear. BS equal. CVS: [] RRR Abdomen: [] Less distended and softer. Mild bilateral lower quadrant tenderness. Extremities: [] Neurological: [] Skin: [] Lab/Tests/Diagnostic Imaging: [] (1) Infectious colitis: Status: Acute Code(s): A09 - Infectious gastroenteritis and colitis, unspecified SNOMED Code(s): 09226630 Assessment: Steady progress. Plan: Increase activity. DC IV fluids. DC dilaudid. [place] 7.5mg Q6hr PRN.
[2022-07-14 09:28] LABS: ALANINE AMINOTRANSFERASE 24.5 U/L (0-50); ALBUMIN 3.53 g/dL (3.5-5.0); ALKALINE PHOSPHATASE 79.8 U/L (56-119); ASPARTATE AMINO TRANSFERASE 40.3 U/L (17-59); BILIRUBIN,TOTAL 0.77 mg/dL (0.2-1.3); BLOOD UREA NITROGEN 21.8 mg/dL (9-20); CALCIUM 8.77 mg/dL (8.4-10.2); CARBON DIOXIDE 22.3 mmol/L (22-30.0); CHLORIDE 104.9 mmol/L (98-107); CREATININE 0.97 mg/dL (0.60-1.10); GLUCOSE 132.5 mg/dL (74-106); POTASSIUM 4.29 mmol/L (3.5-5.1); SODIUM 133.3 mmol/L (134.5-145); TOTAL PROTEIN 6.58 g/dL (6.3-8.2)
[2022-07-14] MEDS ORDERED: DECADRON IM ONE (14:39)
--- NOTE | 2022-07-14 16:41 | CT ---
EXAM: CT ABDOMEN/PELVIS WITHOUT AND WITH CONTRAST HISTORY: Hematochezia and abdominal pain COMPARISON: CT abdomen/pelvis from 07/11/2022 TECHNIQUE: Multi-slice postcontrast transaxial helical images are acquired through the abdomen and p [place] with coronal and sagittal reconstructed images. All CT scans are performed using dose optimi zation techniques as appropriate to the performed exam and includes at least one of the following: A utomated exposure control, adjustment of the mA and/or kV according to size, and the use of iterative reconstruction technique. CONTRAST: 100 ml Omnipaque 350 IV FINDINGS: Lung bases: Moderate pleural effusions layer dependently. Bilateral pleural calcifications are unch anged. The heart is moderately enlarged. A pacemaker lead ends in the right ventricle. No signific ant pericardial effusion. There are dependent densities in the lungs. Liver: Normal. Gallbladder/bilary tree: There is pericholecystic fluid. No biliary dilatation. Pancreas: Normal. Adrenal glands: Normal. Spleen: Normal. Kidneys: Simple acquired renal cysts bilaterally. No nephrolithiasis or hydronephrosis. Retroperitoneum: The abdominal aorta is atherosclerotic. The iliac arteries are densely atheroscler otic. No retraction lymphadenopathy or hematomas. Peritoneum: No free air. A small volume of ascites is noted diffusely. Bowel: Diverticula arise from the sigmoid colon without CT evidence of diverticulitis. No intestina l distension. There is mural thickening of the distal sigmoid colon and rectum suggesting colitis an d proctitis. No pneumatosis or portal venous gas. There are surgical clips around the gastric fundus suggesting previous fundoplication. Pelvis: The nonopacified bladder is grossly normal. Addominal wall/bones: Diffuse body wall edema is noted. No significant body wall hernias. No suspi cious bone lesions or acute osseous abnormalities. IMPRESSION: Probable congestive heart failure with moderate pleural effusions, cardiomegaly, pacemaker, and diffu se body wall edema. Ascites may also be related. Bibasilar atelectasis and/or pneumonia. Small volume of ascites. Colonic diverticulosis without CT evidence of diverticulitis. Suggestion of colitis and proctitis. Recommend follow-up to resolution as underlying malignancy tylor ot be excluded. This is probably infectious or inflammatory in etiology. An ischemic etiology canno t be excluded. . All CT scans are performed using dose optimization techniques as appropriate to the performed exam an d include at least one of the following: Automated exposure control, adjustment of the mA and/or kV according t o size, and the use of iterative reconstruction technique.
[2022-07-14] MEDS: COUMADIN PO SCH (17:48)
[2022-07-14] MEDS: LASIX IVP SCH (17:57)
[2022-07-15 05:08] VITALS: BP 124/66; TEMP 97.6
[2022-07-15] MEDS: FLAGYL 500 MG/100 ML 500 MG/100 ML BAG IV SCH (05:27)
[2022-07-15 05:32] LABS: HEMATOCRIT 36.5 % (42.0-52.0); HEMOGLOBIN 12.6 g/dl (14.0-18.0); IMMATURE GRANULOCYTE % (AUTO) 0.6 % (0.0-5.0); LYMPHOCYTES # (AUTO) 0.6 K/uL (0.60-3.4); LYMPHOCYTES % (AUTO) 12.4 (10.0-50.0); MEAN CORPUSCULAR HEMOGLOBIN 31.4 pg (27.0-31.0); MEAN CORPUSCULAR HGB CONC 34.5 (31.8-35.4); MONOCYTES # (AUTO) 0.3 K/uL (0.4-2.0); MONOCYTES % (AUTO) 5.1 (0-10); NEUTROPHILS # (AUTO) 4.2 K/ul (2.0-6.9); NEUTROPHILS % (AUTO) 81.9 % (42.2-75.2); PLATELET COUNT 150 10^3/uL (140-440); RDW COEFFICIENT OF VARIATION 13.8 % (11.6-14.8); RED BLOOD COUNT 4.01 10^6/ul (4.70-6.10); WHITE BLOOD COUNT 5.09 K/ul (4.2-10.2)
[2022-07-15] MEDS: PROTONIX PO SCH (05:32)
[2022-07-15 05:44] LABS: ALANINE AMINOTRANSFERASE 23.2 U/L (0-50); ALBUMIN 3.04 g/dL (3.5-5.0); ASPARTATE AMINO TRANSFERASE 38.2 U/L (17-59); BILIRUBIN,TOTAL 0.65 mg/dL (0.2-1.3); BLOOD UREA NITROGEN 21.1 mg/dL (9-20); CALCIUM 8.62 mg/dL (8.4-10.2); CARBON DIOXIDE 25.6 mmol/L (22-30.0); CHLORIDE 103.8 mmol/L (98-107); CREATININE 0.91 mg/dL (0.60-1.10); GLUCOSE 115.5 mg/dL (74-106); POTASSIUM 3.65 mmol/L (3.5-5.1); SODIUM 134.6 mmol/L (134.5-145); TOTAL PROTEIN 5.62 g/dL (6.3-8.2)
[2022-07-15] MEDS: LASIX IVP SCH (05:52)
[2022-07-15 07:38] LABS: PROTHROMBIN TIME 21.3 SEC (9.3-11.0)
[2022-07-15] MEDS: FLOMAX PO SCH (08:44)
[2022-07-15] MEDS: LIBRAX 5/2.5 MG PO SCH (08:44)
[2022-07-15] MEDS: LEVAQUIN 750 MG/150 ML D5W 750 MG/150 ML BAG IV SCH (08:45)
[2022-07-15] MEDS: TOPROL XL PO SCH (08:45)
--- NOTE | 2022-07-15 09:21 | PCM.DC ---
Final Diagnosis: dx. colitis 40min spent on discharge summary Physical Exam Appearance: Well-appearing Ill-appearing: None Pain Distress: None Eyes: Conjunctiva clear ENT: Oropharynx normal Neck: Supple Respiratory: Airway patent Cardiovascular: RRR GI/: Soft and Nontender Musculoskeletal: ROM intact Skin: Warm and Dry Neurological: Alert and Oriented Psychiatric: Affect appropriate (1) Infectious colitis: Status: Acute Code(s): A09 - Infectious gastroenteritis and colitis, unspecified SNOMED Code(s): 71061822 Reason for Hospitalization: abdominal pain Prognosis/Condition at Discharge: good Medications at Discharge: flagyl and levaquin and home meds Lab/Diagnostics: wbc 5.0 Education Provided to Patient and Family: pain management clinic Follow-ups: see Dr Walden Discharge Disposition: Home Hospital Course: pt improved, gi panel show E coli, historically sensitive to flouroquinolones Plan: script to continue oral levaquin and flagyl
== END 2022-07-15 10:21 | disposition home or self-care (01) | DRG 391 ==
LOC: ED 21:06 → MEDSURG A 22:38
PROVIDERS: ADMIT Surgery; ATTEND Surgery
DX: R42 Dizziness and giddiness; R26.89 Other abnormalities of gait and mobility; G89.29 Other chronic pain; A41.1 Sepsis due to other specified staphylococcus; I51.7 Cardiomegaly; Z79.01 Long term (current) use of anticoagulants; M62.81 Muscle weakness (generalized); I10 Essential (primary) hypertension; Z95.0 Presence of cardiac pacemaker; Z20.822 Contact with and (suspected) exposure to COVID-19; E87.6 Hypokalemia; A09 Infectious gastroenteritis and colitis, unspecified; K57.30 Diverticulosis of large intestine without perforation or abscess without bleeding; M43.6 Torticollis; J81.0 Acute pulmonary edema; Z79.899 Other long term (current) drug therapy; N17.8 Other acute kidney failure; N28.1 Cyst of kidney, acquired

== ENCOUNTER 2022-07-20 20:41 | Inpatient (IN) ==
--- NOTE | 2022-07-20 21:19 | ED.PDOC ---
General ED Provider: Dr. ANSON DEMPSEY Chief Complaint: Extremity Pain/Injury Stated Complaint: Patient is an 81 year old male who comes to the Er with lower abdominal pain and leg pain and swelling for about 2 weeks. Denies any chest pain or shortness of breath. Time Seen by Provider: 07/20/22 21:11 Mode of Arrival: Walk-In Information Source: Patient Primary Care Provider: BASIA KILLIAN MD Nursing and Triage Documentation Reviewed and Agree: Yes Does patient meet sepsis criteria?: No System Inflammatory Response Syndrome: Not Applicable Sepsis Protocol: For patient's 13 years and over: Temp is 96.8 and below OR 101 and greater Pulse >90 BPM Resp >20/minute Acutely Altered Mental Status Are patient's symptoms suggestive of a new infection, such as: -Pneumonia -Skin, Soft Tissue -Endocarditis -UTI -Bone, Joint Infection -Implantable Device -Acute Abdominal Infection -Wound Infection -Meningitis -Blood Stream Catheter Infection -Unknown GI Complaint Exam Abdominal Pain Complaint/Exam Onset: Gradual Duration: 2 weeks Symptoms Are: Still present Timing: Constant Initial Severity: Mild Current Severity: Moderate Location of Pain: Diffuse Character: Reports Dull Aggravating: Reports None Alleviating: Reports None Associated Signs and Symptoms: Reports Back pain (but is chronic ) AAA Risk Factors: Reports None Cardiac Risk Factors: Reports None Testicular Torsion Risk Factors: Reports None Surgical Obstruction Risk Factors: Reports None Related Surgical History: Reports Bowel Resection (many years ago ) Abdominal Findings: Present Abdominal distention (mild ), McBurney's Point tender and Other (Gaudring ) Male Body Picture: 1. tenderness with guarding Differential Diagnoses: Bowel Obstruction, Constipation, Pancreatitis, Ureteral Stone and UTI Review of Systems Review Of Systems Constitutional: Reports No symptoms Cardiac: Reports Edema GI: Reports Abdominal pain Neurological: Reports Anxiety All Other Systems: Reviewed and Negative [facility] Medical History (Updated 07/21/22 @ 20:46 by ANSON DEMPSEY MD) Arthritis Congestive heart disease Hypertension Pacemaker Family History FATHER Hypertension Mother Hypertension Social History Smoking and tobacco status: Never smoker Smokeless tobacco user: chewing tobacco and snuff Quit status: not considering quitting Alcohol intake: former Physical Exam Physical Exam Appearance: Reports Ill-appearing Ill-appearing: Mild Pain Distress: Mild Eyes: Reports CHAYO, EOMI and Conjunctiva clear ENT: Reports Nose normal and Oropharynx normal Neck: Supple Respiratory: Reports Airway patent and Breath sounds clear Cardiovascular: Reports RRR, Pulses normal and No rub GI/: Reports Soft, Bowel sounds normal and Tender Musculoskeletal: Reports Normal strength, ROM intact and Edema (3 + pitting ) Skin: Reports Warm, Dry and Normal color Neurological: Reports Motor intact, Alert and Oriented Psychiatric: Reports Anxious Physician Notification Case Discussed Physician Notified: Dr Killian Time of Notification: 23:50 (Admit to Hospitalist. WIll follow ) Critical Care Note Critical Care Note Total Critical Care Time (mins): 0 Course Course Hematology/Chemistry: 07/21/22 04:51 07/21/22 04:51 Orders, Labs, Meds: Lab Review 07/20/22 07/20/22 07/20/22 21:30 21:30 21:30 WBC 10.50 H RBC 4.35 L Hgb 13.7 L Hct 40.0 L MCV 92.0 MCH 31.5 H MCHC 34.3 RDW Coeff of Bonnie 15.0 H Plt Count 174 Immature Gran % (Auto) 0.6 Neut % (Auto) 77.4 H Lymph % (Auto) 9.5 L [place] % (Auto) 11.5 H Eos % (Auto) 0.9 Baso % (Auto) 0.1 Neut # (Auto) 8.1 H Lymph # (Auto) 1.0 [place] # (Auto) 1.2 Eos # (Auto) 0.1 Baso # (Auto) 0.0 Immature Gran # (Auto) 0.1 PT INR Puncture Site Rbrach Base Excess 6.5 H O2 Saturation 97.2 ABG pH 7.55 H* ABG pCO2 33.0 L ABG pO2 80.0 L ABG HCO3 28.9 H ABG Total CO2 29.9 H Kevan Test Pos Hemoglobin 1.3 Oxyhemoglobin 94.9 L Carboxyhemoglobin 2.0 H Total Hemoglobin 14.1 Sodium 136.0 Potassium 3.60 Chloride 101.8 Carbon Dioxide 30.8 H Anion Gap 7.00 BUN 14.2 Creatinine 0.74 Estimated GFR (MDRD) 101.00 BUN/Creatinine Ratio 19.18 Glucose 138.6 H Calcium 8.43 Total Bilirubin 0.73 AST 27.1 ALT 18.4 Alkaline Phosphatase 95.7 Total Creatine Kinase 22.5 L Troponin I 0.285 H NT-Pro-B Natriuret Pep 5360.000 H Total Protein 6.28 L Albumin 3.47 L Globulin 2.81 Albumin/Globulin Ratio 1.23 SARS CoV-2 RNA Rapid FAIZA 07/20/22 07/20/22 21:30 22:15 WBC RBC Hgb Hct MCV MCH MCHC RDW Coeff of Bonnie Plt Count Immature Gran % (Auto) Neut % (Auto) Lymph % (Auto) [place] % (Auto) Eos % (Auto) Baso % (Auto) Neut # (Auto) Lymph # (Auto) [place] # (Auto) Eos # (Auto) Baso # (Auto) Immature Gran # (Auto) PT 12.1 H INR 1.17 Puncture Site Base Excess O2 Saturation ABG pH ABG pCO2 ABG pO2 ABG HCO3 ABG Total CO2 Kevan Test Hemoglobin Oxyhemoglobin Carboxyhemoglobin Total Hemoglobin Sodium Potassium Chloride Carbon Dioxide Anion Gap BUN Creatinine Estimated GFR (MDRD) BUN/Creatinine Ratio Glucose Calcium Total Bilirubin AST ALT Alkaline Phosphatase Total Creatine Kinase Troponin I NT-Pro-B Natriuret Pep Total Protein Albumin Globulin Albumin/Globulin Ratio SARS CoV-2 RNA Rapid FAIZA Negative Orders Category Date Time Status ADMIT PATIENT INPATIENT .TO [facility] (MONITORED BED) ADMISSION 07/21/22 00:31 Active ABG DRAW REQUEST Stat CARDIO 07/20/22 21:13 Completed EKG-(ED ONLY) Stat CARDIO 07/20/22 21:11 Completed ACTIVITY .Up With Assistance CARE 07/21/22 00:31 Active INTAKE & OUTPUT Q8HR CARE 07/21/22 00:31 Active NPO REMINDER: IMAGING ONCE CARE 07/20/22 22:20 Completed NPO REMINDER: IMAGING ONCE CARE 07/20/22 23:54 Completed TELEMETRY MONITORING TELE CARE 07/21/22 00:31 Active VITAL SIGNS Q4HR CARE 07/21/22 00:32 Active ED CLOTH PRINTER HELPER APPLIED .ONCE EMERGENCY 07/20/22 21:11 Active ABG COOX Stat LAB 07/20/22 21:30 Completed CBC W/ AUTO DIFF DAILY@0600 LAB 07/21/22 04:51 Completed CBC W/ AUTO DIFF DAILY@0600 LAB 07/22/22 06:00 Ordered CBC W/ AUTO DIFF Stat LAB 07/20/22 21:30 Completed COMPREHENSIVE METABOLIC PANEL DAILY@0600 LAB 07/21/22 04:51 Completed COMPREHENSIVE METABOLIC PANEL DAILY@0600 LAB 07/22/22 06:00 Ordered COMPREHENSIVE METABOLIC PANEL Stat LAB 07/20/22 21:30 Completed CREATINE KINASE Stat LAB 07/20/22 21:30 Completed NT-PROBNP Stat LAB 07/20/22 21:30 Completed PT WITH INR Stat LAB 07/20/22 21:30 Completed SARS COV-2 RNA RAPID FAIZA Stat LAB 07/20/22 22:15 Completed TROPONIN I Stat LAB 07/20/22 21:30 Completed Atorvastatin Calcium [Lipitor] MEDS 07/21/22 09:00 Active 40 mg PO DAILY Enoxaparin Sodium [Lovenox] MEDS 07/21/22 09:00 Active 40 mg SUBCUT DAILY Ezetimibe [Zetia] MEDS 07/21/22 09:00 Active 10 mg PO DAILY Fluticasone Propionate [Flonase] MEDS 07/21/22 09:00 Active 2 spray WINDY DAILY Furosemide [Lasix] MEDS 07/21/22 06:30 Discontinued 40 mg IVP QDAC Lidocaine [Lidoderm Patch 5%] MEDS 07/22/22 09:00 Active 1 patch TP DAILY PRN Morphine Sulfate [Morphine 2 mg/ml Syringe] MEDS 07/20/22 22:53 Discontinued 2 mg IVP ONCE ONE Morphine Sulfate [Morphine 2 mg/ml Syringe] MEDS 07/21/22 00:35 Active 2 mg IVP Q4H PRN Nitroglycerin [Nitrostat] MEDS 07/21/22 00:35 Active 0.4 mg SL PRN PRN Ondansetron HCl/Pf [Zofran 4 mg/2 ml] MEDS 07/20/22 22:53 Discontinued 4 mg IVP ONCE STA Ondansetron HCl/Pf [Zofran 4 mg/2 ml] MEDS 07/21/22 00:31 Active 4 mg IVP Q6H PRN Oxycodone-Acetaminophe 7.5-325 [Percocet 7.5-325] MEDS 07/21/22 00:35 Discontinued 1 tab PO USEASDIRECTD PRN Pantoprazole Sodium [Protonix] MEDS 07/21/22 09:00 Active 40 mg PO QDAC Tamsulosin HCl [Flomax] MEDS 07/21/22 09:00 Active 0.4 mg PO DAILY Trazodone HCl [Desyrel] MEDS 07/21/22 01:00 Discontinued 50 mg PO USEASDIRECTD levocetirizine MEDS 07/21/22 09:00 Discontinued 5 mg PO DAILY RESUSCITATION STATUS Routine OTHERS 07/21/22 00:[address] ABDOMEN/PELVIS W CONTRAST Stat RADS 07/20/22 22:[address] ABDOMEN/PELVIS WO CONTRAST Stat RADS 07/20/22 21:[address] CHEST W/O CONTRAST Stat RADS 07/20/22 21:11 Completed Medications Generic Name Dose Route Start Last Admin Trade Name Freq PRN Reason Stop Dose Admin Aspirin 81 mg 07/22/22 08:30 Aspirin 81 Mg Tablet. PO DAILYWM DOROTHY Atorvastatin Calcium 40 mg 07/21/22 09:00 07/21/22 09:48 Atorvastatin Calcium 20 Mg Tablet PO 40 mg DAILY DOROTHY Administration Ezetimibe 10 mg 07/21/22 09:00 07/21/22 09:48 Ezetimibe 10 Mg Tablet PO 10 mg DAILY DOROTHY Administration Enoxaparin Sodium 40 mg 07/21/22 09:00 07/21/22 09:51 Enoxaparin Sodium 40 Mg/0.4 Ml Syr SUBCUT 40 mg DAILY DOROTHY Administration Fluticasone Propionate 2 spray 07/21/22 09:00 07/21/22 09:50 Fluticasone Propionate 16 Gm Nasal Ellis WINDY 2 spray DAILY DOROTHY Administration Furosemide 40 mg 07/22/22 06:30 Furosemide Inj 40 Mg/4 Ml Vial IVP QDAC DOROTHY Levofloxacin/Dextrose 750 mg in 150 mls @ 100 mls/hr 07/21/22 10:00 07/21/22 10:03 Levaquin 750 Mg/150 Ml D5w IV 07/24/22 09:59 100 mls/hr DAILY DOROTHY Administration Lidocaine 1 patch 07/22/22 09:00 Lidocaine 5% Patch TP DAILY PRN Pain Loratadine 10 mg 07/21/22 09:00 07/21/22 09:49 Loratadine 10 Mg Tablet PO 10 mg DAILY DOROTHY Administration Morphine Sulfate 2 mg 07/21/22 00:35 Morphine Sulfate 2 Mg/Ml Syringe IVP Q4H PRN Severe Pain Nitroglycerin 0.4 mg 07/21/22 00:35 Nitroglycerin 0.4 Mg Tab.Subl SL PRN PRN chest pain Ondansetron HCl 4 mg 07/21/22 00:31 Ondansetron Hcl/Pf 4 Mg/2 Ml Sdv IVP Q6H PRN Nausea / Vomiting Oxycodone/Acetaminophen 1 tab 07/21/22 01:34 07/21/22 10:17 Oxycodone/Acetaminophen 7.5/325 Mg Tablet PO 1 tab Q6H PRN Administration moderate pain Pantoprazole Sodium 40 mg 07/21/22 09:00 07/21/22 09:49 Pantoprazole Sodium 40 Mg Tablet.Dr PO 40 mg QDAC DOROTHY Administration Potassium Chloride 20 meq 07/21/22 08:30 07/21/22 09:48 Potassium Chloride 20 Meq Tab PO 20 meq DAILYWM DOROTHY Administration Sodium Chloride 1 syr 07/21/22 05:00 07/21/22 13:45 0.9% Sodium Chloride 10 Ml Disp.Syrin IVF 1 syr Q8HR DOROTHY Administration Tamsulosin HCl 0.4 mg 07/21/22 09:00 07/21/22 09:49 Tamsulosin Hcl 0.4 Mg Cap.Er.24h PO 0.4 mg DAILY DOROTHY Administration Trazodone HCl 50 mg 07/21/22 21:00 Trazodone Hcl 50 Mg Tablet PO BEDTIME DOROTHY Discontinued Medications Generic Name Dose Route Start Last Admin Trade Name Freq PRN Reason Stop Dose Admin Aspirin 324 mg 07/21/22 09:44 07/21/22 10:01 Aspirin 81 Mg Tab.Chew PO 07/21/22 09:45 324 mg ONCE ONE Administration Furosemide 40 mg 07/21/22 06:30 07/21/22 05:46 Furosemide Inj 20 Mg/2 Ml Vial IVP 40 mg QDAC DOROTHY Administration Morphine Sulfate 2 mg 07/20/22 22:53 07/20/22 23:11 Morphine Sulfate 2 Mg/Ml Syringe IVP 07/20/22 22:54 2 mg ONCE ONE Administration Non-Formulary Medication 5 mg 07/21/22 09:00 Levocetirizine PO DAILY DOROTHY Ondansetron HCl 4 mg 07/20/22 22:53 07/20/22 23:12 Ondansetron Hcl/Pf 4 Mg/2 Ml Sdv IVP 07/20/22 22:54 4 mg ONCE STA Administration Oxycodone/Acetaminophen 1 tab 07/21/22 00:35 Oxycodone/Acetaminophen 7.5/325 Mg Tablet PO USEASDIRECTD PRN moderate pain Trazodone HCl 50 mg 07/21/22 01:00 Trazodone Hcl 50 Mg Tablet PO USEASDIRECTD DOROTHY Vital Signs: Temp Pulse Resp BP Pulse Ox 07/20/22 20:44 97.8 F 61 16 161/84 H 94 L Discharge Plan Discharge Patient Disposition: ADMITTED INPATIENT Discharge Problem: Abdominal pain, Elevated troponin, Edema, CHF (congestive heart failure) ED Provider: ANOSN DEMPSEY Condition: Stable Physician Progress Note: []
[2022-07-20 21:35] LABS: BASOPHILS % (AUTO) 0.1 % (0.0-3.0); EOSINOPHILS # (AUTO) 0.1 K/ul (0.0-0.7); EOSINOPHILS % (AUTO) 0.9 % (0.0-7.0); HEMOGLOBIN 13.7 g/dl (14.0-18.0); IMMATURE GRANULOCYTE # (AUTO) 0.1 (0.0-1.0); IMMATURE GRANULOCYTE % (AUTO) 0.6 % (0.0-5.0); LYMPHOCYTES % (AUTO) 9.5 (10.0-50.0); MEAN CORPUSCULAR HEMOGLOBIN 31.5 pg (27.0-31.0); MEAN CORPUSCULAR HGB CONC 34.3 (31.8-35.4); MONOCYTES # (AUTO) 1.2 K/uL (0.4-2.0); MONOCYTES % (AUTO) 11.5 (0-10); NEUTROPHILS # (AUTO) 8.1 K/ul (2.0-6.9); NEUTROPHILS % (AUTO) 77.4 % (42.2-75.2); PLATELET COUNT 174 10^3/uL (140-440); RED BLOOD COUNT 4.35 10^6/ul (4.70-6.10)
[2022-07-20 21:49] LABS: ALANINE AMINOTRANSFERASE 18.4 U/L (0-50); ALBUMIN 3.47 g/dL (3.5-5.0); ALKALINE PHOSPHATASE 95.7 U/L (56-119); ASPARTATE AMINO TRANSFERASE 27.1 U/L (17-59); BILIRUBIN,TOTAL 0.73 mg/dL (0.2-1.3); BLOOD UREA NITROGEN 14.2 mg/dL (9-20); CALCIUM 8.43 mg/dL (8.4-10.2); CARBON DIOXIDE 30.8 mmol/L (22-30.0); CHLORIDE 101.8 mmol/L (98-107); CREATINE KINASE 22.5 U/L (55-170); CREATININE 0.74 mg/dL (0.60-1.10); GLUCOSE 138.6 mg/dL (74-106); POTASSIUM 3.6 mmol/L (3.5-5.1); TOTAL PROTEIN 6.28 g/dL (6.3-8.2)
--- NOTE | 2022-07-20 21:54 | CT ---
EXAM: CHEST CT WITHOUT CONTRAST HISTORY: Abdominal pain TECHNIQUE: CT acquisition of the chest from the thoracic inlet to the upper abdomen without IV contra st administration. CT Dose Reduction Techniques Performed: Yes COMPARISON: 06/26/2022 CT chest FINDINGS: Lines, Tubes, Devices: None. Lung Parenchyma and Airways: Central airways are patent without endobronchial lesion. bibasilar patchy lung opacities. No suspicious pulmonary nodule. mild emphysema. Pleural Space: Stable small to moderate bilateral layering pleural effusion. Pleural calcification i s present bilaterally. No pneumothorax. Thoracic Inlet, Mediastinum, and Lashay: Thyroid gland is normal. No lymphadenopathy. Heart, Vessels, and Pericardium: -Ascending aorta is static measuring 3.2 cm with mild atherosclerotic calcifications. -Main pulmonary artery is mildly dilated measuring 3.4 cm. -Heart chambers are enlarged. -No significant valvular calcifications. -mild coronary artery calcifications, however exam is not optimized for evaluation. -No pericardial effusion or thickening. Bones and Soft Tissues: Visualized bones are within normal limits. Chest wall soft tissues are withi n normal limits. Upper Abdomen: Renal cysts. Cholecystectomy clips. IMPRESSION: Stable small to moderate bilateral pleural effusions with adjacent atelectasis and/or pneumonia. Mild emphysema. 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 Stable cardiomegaly and findings suggestive of pulmonary artery hypertension. All CT scans are performed using dose optimization techniques as appropriate to the performed exam an d include at least one of the following: Automated exposure control, adjustment of the mA and/or kV according t o size, and the use of iterative reconstruction technique.
[2022-07-20 22:00] LABS: TROPONIN I 0.285 ng/ml (0.0000-0.120)
[2022-07-20 22:01] LABS: ABG O2 HGB 94.9 % (95-100); BEecf 6.5 (-2.0-3.0); HCO3 28.9 (21-28); MetHb 1.3 (0-1.5); TCO2 29.9 (19-24); sO2 97.2 % (94-98); tHb 14.1 g/dl (11.7-17.4)
--- NOTE | 2022-07-20 22:07 | CT ---
EXAM: CT of the abdomen and pelvis without contrast. TECHNIQUE: CT of the abdomen and pelvis was performed without the use of contrast. Multiplanar refo rmats were performed. HISTORY: Abdominal pain. Leg swelling. COMPARISON: To 07/02/2022 FINDINGS: Evaluation of solid organs and blood vessels is suboptimal without the benefit of contrast. Imaged lower thorax: Bilateral pleural effusions. Cardiomegaly. There is bronchiectasis as well as peribronchial cuffing and numerous small bulla. Liver: No acute findings Gallbladder/Bile Ducts: No biliary dilation. The gallbladder is decompressed which is the wall is kendall ewhat thickened appearance. Trace of fluid not excluded in the gallbladder fossa. Spleen: Unremarkable. Pancreas: Pancreas is atrophied. Adrenals: Unremarkable. Kidneys/Ureters: There are renal cysts bilaterally. Calcification seen in the region of the kidneys appear to be vascular. No obstructive changes are evident. Bowel/mesentery/peritoneum: Fecal retention is present. The appendix is not seen. No Kayden cecal inf lammatory change. There is some wall thickening and pericolonic haziness in the region of the rectosi gmoid junction which may reflect proctitis/colitis. Similar finding seen on previous exam. There is diverticulosis of the left colon and sigmoid colon without evidence of diverticulitis. Retroperitoneum/vessels: No aortic aneurysm. No adenopathy. Pelvis: Bladder is partially decompressed. There are fluid-filled loops of small bowel anterior to t he pelvis. No obvious obstruction. Bones/body wall: Degenerative changes are present in the lumbar spine hips and pelvis. IMPRESSION: 1. Decompressed gallbladder with trace of fluid in the gallbladder fossa. 2. Persistent pleural effusions and cardiomegaly which may reflect failure. 3. Peribronchial cuffing/edema and bronchiectasis also noted. 4. Pleural plaque is present along the diaphragms right greater than left compatible with prior inhal ational exposure. Prior pleurodesis might cause a similar appearance. 5. Diverticulosis. 6. . Rectal edema and mild wall thickening which may reflect inflammatory change/proctitis. No sign ificant change from previous. 7. Multifocal degenerative change spine hips and pelvis. 8. Atherosclerosis All CT scans are performed using dose optimization techniques as appropriate to the performed exam an d includes at least one of the following: Automated exposure control, adjustment of the mA and/or kV according to size, and the use of iterative reconstruction technique. All CT scans are performed using dose optimization techniques as appropriate to the performed exam an d include at least one of the following: Automated exposure control, adjustment of the mA and/or kV according t o size, and the use of iterative reconstruction technique.
[2022-07-20 22:11] LABS: ABG PH 7.55 (7.35-7.45)
[2022-07-20 22:49] LABS: SARS COV-2 RNA RAPID NAAT NEGATIVE (NEGATIVE)
[2022-07-20 22:51] LABS: PROTHROMBIN TIME 12.1 SEC (9.3-11.0)
[2022-07-20] MEDS ORDERED: ZOFRAN 4 MG/2 ML IVP STA (22:53)
[2022-07-20] MEDS ORDERED: MORPHINE 2 MG/ML SYRINGE IVP ONE (22:53)
--- NOTE | 2022-07-20 23:32 | CT ---
EXAM: CT of the abdomen and pelvis with IV contrast. HISTORY: Abdominal pain. PROCEDURE: After the intravenous injection of contrast contiguous axial CT images of the abdomen and pelvis were obtained with coronal and sagittal reformats. All CT scans are performed using dose opt imization techniques as appropriate to a performed exam including the following: Automated exposure c ontrol, Adjustment of the mA and/or kV according to patient size, Use of iterative reconstruction tamiko hnique. FINDINGS: Comparison made with CT of 07/20/2022 (2114). There are moderate layering bilateral pleura l effusions. There are bilateral infiltrates and consolidation, consistent with pneumonia. There ar e bilateral calcified pleural plaques. The heart is enlarged. The liver, gallbladder, pancreas, spl een and adrenal glands are normal in appearance. There are bilateral renal cysts. There are vascula r calcifications in the kidneys. The abdominal aorta is within normal limits in size. There are ath erosclerotic calcifications in the major arteries of the abdomen and pelvis. There are multiple loop s of mildly distended air and fluid-filled small bowel measuring up to 3.3 cm in diameter. No transi tion point identified. The appendix is not visualized. There is fecal stasis in the colon. There i s diverticulosis of the colon with no evidence of diverticulitis. There is bowel wall thickening in the rectum measuring up to 1.2 cm with minimal adjacent edema, consistent with proctitis. No free fl uid or free air in the abdomen or pelvis. The bladder is minimally filled which limits the evaluatio n. The seminal vesicles and prostate gland are unremarkable. There are degenerative changes in the spine. Impression: Nonspecific small bowel distension as described. The differential diagnosis includes ile us, enteritis and early/partial obstruction. Proctitis as described. Colonic fecal stasis. Colonic diverticulosis without diverticulitis. Atherosclerotic vascular disease. Moderate bilateral pleural effusions. Bilateral pneumonia as described. Bilateral calcified pleural plaques. Cardiomegaly. All CT scans are performed using dose optimization techniques as appropriate to the performed exam an d include at least one of the following: Automated exposure control, adjustment of the mA and/or kV according t o size, and the use of iterative reconstruction technique.
[2022-07-21] MEDS ORDERED: ZOFRAN 4 MG/2 ML IVP PRN (00:31)
[2022-07-21] MEDS ORDERED: NITROSTAT SL PRN (00:35)
[2022-07-21] MEDS ORDERED: MORPHINE 2 MG/ML SYRINGE IVP PRN (00:35)
[2022-07-21] MEDS ORDERED: PERCOCET 7.5-325 PO PRN (00:35)
[2022-07-21] MEDS ORDERED: DESYREL PO SCH (01:00)
[2022-07-21 02:56] VITALS: BMI 23.6
[2022-07-21 05:10] LABS: BASOPHILS % (AUTO) 0.1 % (0.0-3.0); EOSINOPHILS # (AUTO) 0.1 K/ul (0.0-0.7); EOSINOPHILS % (AUTO) 1.1 % (0.0-7.0); HEMATOCRIT 36.7 % (42.0-52.0); HEMOGLOBIN 12.3 g/dl (14.0-18.0); IMMATURE GRANULOCYTE % (AUTO) 0.4 % (0.0-5.0); LYMPHOCYTES # (AUTO) 1.1 K/uL (0.60-3.4); LYMPHOCYTES % (AUTO) 10.6 (10.0-50.0); MEAN CORPUSCULAR HEMOGLOBIN 31.1 pg (27.0-31.0); MEAN CORPUSCULAR HGB CONC 33.5 (31.8-35.4); MEAN CORPUSCULAR VOLUME 92.9 fl (80.0-94.0); MONOCYTES # (AUTO) 1.3 K/uL (0.4-2.0); MONOCYTES % (AUTO) 12.3 (0-10); NEUTROPHILS # (AUTO) 7.9 K/ul (2.0-6.9); NEUTROPHILS % (AUTO) 75.5 % (42.2-75.2); PLATELET COUNT 162 10^3/uL (140-440); RDW COEFFICIENT OF VARIATION 14.9 % (11.6-14.8); RED BLOOD COUNT 3.95 10^6/ul (4.70-6.10); WHITE BLOOD COUNT 10.42 K/ul (4.2-10.2)
[2022-07-21 05:23] LABS: ALANINE AMINOTRANSFERASE 16.3 U/L (0-50); ALBUMIN 2.93 g/dL (3.5-5.0); ALKALINE PHOSPHATASE 91.5 U/L (56-119); ASPARTATE AMINO TRANSFERASE 25.3 U/L (17-59); BILIRUBIN,TOTAL 0.69 mg/dL (0.2-1.3); BLOOD UREA NITROGEN 13.9 mg/dL (9-20); CALCIUM 7.99 mg/dL (8.4-10.2); CARBON DIOXIDE 28.2 mmol/L (22-30.0); CHLORIDE 103.2 mmol/L (98-107); CREATININE 0.67 mg/dL (0.60-1.10); GLUCOSE 106.8 mg/dL (74-106); POTASSIUM 3.49 mmol/L (3.5-5.1); SODIUM 133.2 mmol/L (134.5-145); TOTAL PROTEIN 5.62 g/dL (6.3-8.2)
[2022-07-21] MEDS ORDERED: LASIX IVP SCH (06:30)
[2022-07-21 07:53] LABS: PROTHROMBIN TIME 11.7 SEC (9.3-11.0)
[2022-07-21] MEDS ORDERED: NON-FORMULARY MEDICATION (Levocetirizine 5 mg tablet) PO SCH (09:00)
[2022-07-21] MEDS ORDERED: ASPIRIN CHEWABLE PO ONE (09:44)
[2022-07-21] MEDS: ZETIA PO SCH (09:48)
[2022-07-21] MEDS: LIPITOR PO SCH (09:48)
[2022-07-21] MEDS: K-DUR PO SCH (09:48)
[2022-07-21] MEDS: PROTONIX PO SCH (09:49)
[2022-07-21] MEDS: CLARITIN PO SCH (09:49)
[2022-07-21] MEDS: FLOMAX PO SCH (09:49)
[2022-07-21] MEDS: FLONASE NAS SCH (09:50)
[2022-07-21] MEDS: LOVENOX SUBCUT SCH (09:51)
--- NOTE | 2022-07-21 09:57 | PCM.PROG ---
Date Seen by Provider: 07/21/22 Time Seen by Provider: 09:51 Subjective: dx. elevated troponin, partial sbo no c/o chest pain Objective: Vitals: T=97.6 F, P=62, R=18, IL=516/52, SPO2=97 HEENT: []conjunctiva clear Neck: []supple Lungs: [] no respiratory distress CVS: []rrr Abdomen: []nondistended Extremities: []warm and dry Neurological: []alert and oriented Skin: []pink Lab/Tests/Diagnostic Imaging: [] repeat troponin 0.3, ekg v paced 62, Plan: clear liquid diet as tolerated, daily aspirin, levaquin for pleural effusions and supplement oxygen for relative hypoxia, lasix for pleural effusions, I's and O's, attempt transfer for partial sbo and rectal edema care to Dr Pickard at 19:00
[2022-07-21] MEDS: LEVAQUIN 750 MG/150 ML D5W 750 MG/150 ML BAG IV SCH (10:03)
[2022-07-21] MEDS: PERCOCET 7.5-325 PO PRN ×2 (10:17→21:04)
[2022-07-21] MEDS: DESYREL PO SCH (21:04)
[2022-07-21] MEDS ORDERED: DECADRON 4 MG in SODIUM CHLORIDE 50 ML IV ONE (22:44)
[2022-07-21] MEDS ORDERED: DULCOLAX PO ONE (22:46)
[2022-07-21] MEDS ORDERED: ALDACTONE PO STA (22:52)
[2022-07-21] MEDS ORDERED: DECADRON ONE (23:08)
[2022-07-22 05:32] LABS: BASOPHILS % (AUTO) 0.1 % (0.0-3.0); EOSINOPHILS % (AUTO) 0.2 % (0.0-7.0); HEMATOCRIT 37.7 % (42.0-52.0); HEMOGLOBIN 12.7 g/dl (14.0-18.0); IMMATURE GRANULOCYTE # (AUTO) 0.1 (0.0-1.0); IMMATURE GRANULOCYTE % (AUTO) 0.7 % (0.0-5.0); LYMPHOCYTES # (AUTO) 0.4 K/uL (0.60-3.4); LYMPHOCYTES % (AUTO) 4.2 (10.0-50.0); MEAN CORPUSCULAR HGB CONC 33.7 (31.8-35.4); MONOCYTES # (AUTO) 0.2 K/uL (0.4-2.0); MONOCYTES % (AUTO) 1.9 (0-10); NEUTROPHILS # (AUTO) 9.9 K/ul (2.0-6.9); NEUTROPHILS % (AUTO) 92.9 % (42.2-75.2); PLATELET COUNT 159 10^3/uL (140-440); RDW COEFFICIENT OF VARIATION 14.6 % (11.6-14.8)
[2022-07-22 05:45] LABS: ALANINE AMINOTRANSFERASE 16.2 U/L (0-50); ALBUMIN 3.03 g/dL (3.5-5.0); ALKALINE PHOSPHATASE 73.6 U/L (56-119); ASPARTATE AMINO TRANSFERASE 25.7 U/L (17-59); BILIRUBIN,TOTAL 1.05 mg/dL (0.2-1.3); BLOOD UREA NITROGEN 14.2 mg/dL (9-20); CALCIUM 8.26 mg/dL (8.4-10.2); CARBON DIOXIDE 30.7 mmol/L (22-30.0); CREATININE 0.68 mg/dL (0.60-1.10); GLUCOSE 136.7 mg/dL (74-106); SODIUM 131.3 mmol/L (134.5-145); TOTAL PROTEIN 5.76 g/dL (6.3-8.2)
[2022-07-22 05:55] LABS: TROPONIN I 0.242 ng/ml (0.0000-0.120)
[2022-07-22 06:00] LABS: CREATINE KINASE < 20.0 U/L (55-170)
[2022-07-22] MEDS: LASIX IVP SCH (06:17)
[2022-07-22] MEDS: PROTONIX PO SCH (06:17)
[2022-07-22] MEDS: DULCOLAX RC SCH ×2 (06:17→08:45)
[2022-07-22] MEDS ORDERED: COUMADIN PO ONE ×3 (08:17→17:00)
[2022-07-22] MEDS ORDERED: ASPIRIN EC PO SCH (08:30)
[2022-07-22] MEDS: CLARITIN PO SCH (09:21)
[2022-07-22] MEDS: FLONASE NAS SCH (09:21)
[2022-07-22] MEDS: LEVAQUIN 750 MG/150 ML D5W 750 MG/150 ML BAG IV SCH (09:21)
[2022-07-22] MEDS: LIDODERM PATCH 5% TP PRN (09:21)
[2022-07-22] MEDS: LOVENOX SUBCUT SCH (09:21)
[2022-07-22] MEDS: FLOMAX PO SCH (09:22)
[2022-07-22] MEDS: K-DUR PO SCH (09:22)
[2022-07-22] MEDS: ZETIA PO SCH (09:22)
[2022-07-22] MEDS: LIPITOR PO SCH (09:22)
[2022-07-22 12:37] LABS: BILIRUBIN,URINE Negative (NEGATIVE); CLARITY,URINE Clear (CLEAR); COLOR,URINE Yellow (YELLOW); GLUCOSE, URINE (UA) Negative (NEGATIVE); KETONES,URINE Negative (NEGATIVE); LEUKOCYTE ESTERASE ,URINE Negative (NEGATIVE); NITRITE,URINE Negative (NEGATIVE); PROTEIN,URINE Negative (NEGATIVE); URINE, BLOOD Trace-intact (NEGATIVE); UROBILINOGEN,URINE 0.2 (0.2)
[2022-07-22 13:01] LABS: AMORPHOUS SEDIMENT,UR TRACE (NOT PRESENT); BACTERIA,URINE TRACE (NOT PRESENT); SQUAMOUS EPITHELIAL CELL,UR 0-2 (0-5)
[2022-07-22] MEDS: DESYREL PO SCH (20:20)
[2022-07-22] MEDS: TYLENOL PO PRN (20:20)
[2022-07-23] MEDS: LASIX IVP SCH (05:36)
[2022-07-23] MEDS: LEVAQUIN PO SCH (05:36)
[2022-07-23] MEDS: PROTONIX PO SCH (05:36)
[2022-07-23 05:53] LABS: BASOPHILS % (AUTO) 0.1 % (0.0-3.0); EOSINOPHILS % (AUTO) 0.1 % (0.0-7.0); HEMATOCRIT 35.6 % (42.0-52.0); IMMATURE GRANULOCYTE # (AUTO) 0.1 (0.0-1.0); IMMATURE GRANULOCYTE % (AUTO) 0.5 % (0.0-5.0); LYMPHOCYTES # (AUTO) 0.6 K/uL (0.60-3.4); LYMPHOCYTES % (AUTO) 6.4 (10.0-50.0); MEAN CORPUSCULAR HEMOGLOBIN 31.2 pg (27.0-31.0); MEAN CORPUSCULAR HGB CONC 33.7 (31.8-35.4); MEAN CORPUSCULAR VOLUME 92.5 fl (80.0-94.0); MONOCYTES # (AUTO) 0.7 K/uL (0.4-2.0); MONOCYTES % (AUTO) 7.2 (0-10); NEUTROPHILS # (AUTO) 8.5 K/ul (2.0-6.9); NEUTROPHILS % (AUTO) 85.7 % (42.2-75.2); PLATELET COUNT 175 10^3/uL (140-440); RDW COEFFICIENT OF VARIATION 14.6 % (11.6-14.8); RED BLOOD COUNT 3.85 10^6/ul (4.70-6.10); WHITE BLOOD COUNT 9.89 K/ul (4.2-10.2)
[2022-07-23 06:02] LABS: PROTHROMBIN TIME 11.8 SEC (9.3-11.0)
[2022-07-23 06:11] LABS: ALANINE AMINOTRANSFERASE 17.5 U/L (0-50); ALBUMIN 2.87 g/dL (3.5-5.0); ALKALINE PHOSPHATASE 68.6 U/L (56-119); ASPARTATE AMINO TRANSFERASE 29.2 U/L (17-59); BILIRUBIN,TOTAL 0.57 mg/dL (0.2-1.3); BLOOD UREA NITROGEN 20.1 mg/dL (9-20); CALCIUM 8.2 mg/dL (8.4-10.2); CARBON DIOXIDE 29.9 mmol/L (22-30.0); CREATININE 0.72 mg/dL (0.60-1.10); GLUCOSE 145.7 mg/dL (74-106); POTASSIUM 4.19 mmol/L (3.5-5.1); SODIUM 132.2 mmol/L (134.5-145); TOTAL PROTEIN 5.53 g/dL (6.3-8.2)
[2022-07-23] MEDS: ZETIA PO SCH (09:39)
[2022-07-23] MEDS: DULCOLAX RC SCH (09:39)
[2022-07-23] MEDS: LIPITOR PO SCH (09:39)
[2022-07-23] MEDS: CLARITIN PO SCH (09:39)
[2022-07-23] MEDS: FLOMAX PO SCH (09:39)
[2022-07-23] MEDS: AMITIZA PO SCH ×2 (09:39→20:23)
[2022-07-23] MEDS: FLONASE NAS SCH (09:40)
[2022-07-23] MEDS ORDERED: COUMADIN PO ONE (17:00)
[2022-07-23] MEDS: COUMADIN PO SCH (17:09)
[2022-07-23] MEDS: DESYREL PO SCH (20:23)
[2022-07-23] MEDS: TYLENOL PO PRN (22:19)
[2022-07-23] MEDS ORDERED: BENADRYL PO STA (22:44)
[2022-07-23] MEDS ORDERED: VISTARIL PO ONE (22:45)
[2022-07-24 05:27] LABS: BASOPHILS % (AUTO) 0.2 % (0.0-3.0); EOSINOPHILS % (AUTO) 0.2 % (0.0-7.0); HEMOGLOBIN 13.6 g/dl (14.0-18.0); IMMATURE GRANULOCYTE # (AUTO) 0.1 (0.0-1.0); IMMATURE GRANULOCYTE % (AUTO) 0.5 % (0.0-5.0); LYMPHOCYTES # (AUTO) 0.8 K/uL (0.60-3.4); LYMPHOCYTES % (AUTO) 6.3 (10.0-50.0); MEAN CORPUSCULAR HEMOGLOBIN 30.7 pg (27.0-31.0); MEAN CORPUSCULAR HGB CONC 33.2 (31.8-35.4); MEAN CORPUSCULAR VOLUME 92.6 fl (80.0-94.0); MONOCYTES # (AUTO) 1.2 K/uL (0.4-2.0); MONOCYTES % (AUTO) 9.4 (0-10); NEUTROPHILS % (AUTO) 83.4 % (42.2-75.2); PLATELET COUNT 217 10^3/uL (140-440); RDW COEFFICIENT OF VARIATION 14.5 % (11.6-14.8); RED BLOOD COUNT 4.43 10^6/ul (4.70-6.10); WHITE BLOOD COUNT 13.13 K/ul (4.2-10.2)
[2022-07-24] MEDS: PROTONIX PO SCH (05:43)
[2022-07-24] MEDS: LEVAQUIN PO SCH (05:43)
[2022-07-24] MEDS: LASIX IVP SCH (05:52)
[2022-07-24 05:54] LABS: ALANINE AMINOTRANSFERASE 23.1 U/L (0-50); ALBUMIN 3.11 g/dL (3.5-5.0); ALKALINE PHOSPHATASE 73.7 U/L (56-119); ASPARTATE AMINO TRANSFERASE 42.4 U/L (17-59); BILIRUBIN,TOTAL 0.85 mg/dL (0.2-1.3); BLOOD UREA NITROGEN 18.8 mg/dL (9-20); CALCIUM 8.16 mg/dL (8.4-10.2); CARBON DIOXIDE 29.1 mmol/L (22-30.0); CHLORIDE 101.9 mmol/L (98-107); CREATININE 0.79 mg/dL (0.60-1.10); GLUCOSE 89.3 mg/dL (74-106); POTASSIUM 3.87 mmol/L (3.5-5.1); SODIUM 134.9 mmol/L (134.5-145); TOTAL PROTEIN 6.11 g/dL (6.3-8.2)
[2022-07-24 06:06] LABS: PROTHROMBIN TIME 14.9 SEC (9.3-11.0)
[2022-07-24] MEDS: CLARITIN PO SCH (08:33)
[2022-07-24] MEDS: LIPITOR PO SCH (08:33)
[2022-07-24] MEDS: FLOMAX PO SCH ×2 (08:33→20:41)
[2022-07-24] MEDS: AMITIZA PO SCH ×2 (08:33→20:41)
[2022-07-24] MEDS: ZETIA PO SCH (08:33)
[2022-07-24] MEDS: DULCOLAX RC SCH (08:33)
[2022-07-24] MEDS: FLONASE NAS SCH (08:34)
--- NOTE | 2022-07-24 10:11 | CONS ---
DATE OF CONSULTATION: 07/21/22 REASON FOR CONSULTATION: Positive troponin and cardiac evaluation HISTORY OF PRESENT ILLNESS: 81 year old white male who was hospitalized on 07/20/22 with abdominal pain. Besides that the patient was also had positive troponin chronically elevated for the last 2-3 days with practically no symptoms of coronary insufficiency. Patient's CT scan of the abdomen and pelvis was quite consistent with the possibility of CHF with fluid retention. On admission the patient had 3+ pitting edema. Patient has stopped taking all medications. REVIEW OF SYSTEMS: CONSTITUTIONAL: Weakness and fatigue. HEENT: Eyes: No visual changes. No eye pain. No eye discharge. ENT: No sinus drainage. No epistaxis. No sinus pain. No sore throat. No odynophagia. No ear pain. No congestion. RESPIRATORY: No cough, no congestion. No hemoptysis. No shortness of breath. CARDIOVASCULAR: No PND, no orthopnea. No chest pain. GASTROINTESTINAL: No abdominal pain. No nausea or vomiting. No diarrhea or constipation. No hematemesis. No hematochezia. GENITOURINARY: Appetite has been improving. No urgency. No frequency. No dysuria. No hematuria. No obstructive symptoms. No discharge. No pain. No significant abnormal bleeding. MUSCULOSKELETAL: No musculoskeletal pain. No joint swelling. NEUROLOGICAL: Confused. Especially noted that he gets more confused after taking his Percocet. PSYCHIATRIC: Not anxious. No depression. No suicidal thoughts. No homicidal thoughts. SKIN: No rash. No lesions. No wounds. ENDOCRINE: No unexplained weight loss. No weight gain. HEMATOLOGIC/LYMPHATIC: No anemia. No purpura. No petechiae. No prolonged or excessive bleeding. No palpable lymph nodes. PHYSICAL EXAMINATION: GENERAL: The patient is oriented to person, place and time. VITAL SIGNS: Temperature 98.4, pulse 70, respiratory rate 15, blood pressure 120/70, oxygen saturation 94% on room air. HEENT: Head normocephalic, atraumatic. Eyes: Extraocular muscles are intact. Pupils are equal, round and reactive to light and accommodation. Ears: No lesions. Nose appeared normal. Throat: No exudate or erythema. NECK: Supple. No JVD, no carotid bruit. No lymphadenopathy or thyromegaly. LUNGS: Decreased breath sounds bilaterally. Practically absent breath sounds . HEART: S1, S2, no S3. Grade 2/6 systolic murmur going. No cyanosis or clubbing. No ascites. Pulses: Dorsalis pedis and posterior tibial pulses +1 to +2 bilaterally. ABDOMEN: Soft. Nontender. Bowel sounds active. No CVA tenderness. No mass felt. EXTREMITIES: Trace to 1+ pitting edema. Full range of motion of all extremities, equal. NEUROLOGIC: No focal deficit. Cranial nerves II through XII are grossly intact. No headache, no double vision or headache. SKIN: Not dry. Intact. Turgor - normal. LYMPHATIC: No palpable lymph nodes/no lymphedema. MUSCULOSKELETAL: Normal joints with no swelling. Muscle tone is normal. ABG done yesterday showed PO2 of 80 with PCO2 of 33, PH 7.55 with 97% saturation on room air. ProBNP was 5,360. Hemoglobin 12.7, hematocrit 37, creatinine 0.6, BUN 14. ASSESSMENT: 1. Elevation of troponin, no evidence of acute KS by EKG or by history. No chest pain. 2. History of coronary artery disease with stent 3. CHF with history of mitral regurg 4. Pacemaker placement for sick sinus syndrome 5. History of dyslipidemia 6. Peripheral artery disease 7. Dementia 8. History of e coli pancolitis two weeks ago treated with Levaquin and Flagyl, possibility of partial bowel obstruction RECOMMENDATIONS: Pertaining to cardiovascular status. 1. Decadron 25 mg PO now and BID 2. Continue IV Lasix 40 mg daily 3. Elevate legs 4. Cut down on salt intake 5. Was explained that his cooperation and normal mental status is required so that he can take his medication on a regular basis. Advised strongly to stop all the narcotics. Patient is agreeable. Patient says that he doesn't have pain anywhere. We will discontinue all pain medicine except two Tylenol for pain PRN. 6. Patient has fecal stasis in the colon - give two Dulcolax tablets and at 4 o'clock in the morning and Dulcolax suppository Thank you for the referral and will follow. CHRISS
[2022-07-24] MEDS: COUMADIN PO SCH (17:45)
[2022-07-25 04:53] LABS: BASOPHILS % (AUTO) 0.3 % (0.0-3.0); EOSINOPHILS # (AUTO) 0.1 K/ul (0.0-0.7); EOSINOPHILS % (AUTO) 0.6 % (0.0-7.0); HEMATOCRIT 40.9 % (42.0-52.0); IMMATURE GRANULOCYTE % (AUTO) 0.3 % (0.0-5.0); LYMPHOCYTES # (AUTO) 0.8 K/uL (0.60-3.4); LYMPHOCYTES % (AUTO) 6.2 (10.0-50.0); MEAN CORPUSCULAR HEMOGLOBIN 31.4 pg (27.0-31.0); MEAN CORPUSCULAR HGB CONC 34.2 (31.8-35.4); MEAN CORPUSCULAR VOLUME 91.7 fl (80.0-94.0); MONOCYTES # (AUTO) 1.2 K/uL (0.4-2.0); MONOCYTES % (AUTO) 8.7 (0-10); NEUTROPHILS # (AUTO) 11.3 K/ul (2.0-6.9); NEUTROPHILS % (AUTO) 83.9 % (42.2-75.2); PLATELET COUNT 229 10^3/uL (140-440); RDW COEFFICIENT OF VARIATION 14.6 % (11.6-14.8); RED BLOOD COUNT 4.46 10^6/ul (4.70-6.10)
[2022-07-25 05:02] LABS: PROTHROMBIN TIME 20.7 SEC (9.3-11.0)
[2022-07-25 05:05] LABS: ALANINE AMINOTRANSFERASE 22.5 U/L (0-50); ALBUMIN 3.15 g/dL (3.5-5.0); ALKALINE PHOSPHATASE 76.8 U/L (56-119); ASPARTATE AMINO TRANSFERASE 35.6 U/L (17-59); BILIRUBIN,TOTAL 0.97 mg/dL (0.2-1.3); BLOOD UREA NITROGEN 16.1 mg/dL (9-20); CALCIUM 8.23 mg/dL (8.4-10.2); CARBON DIOXIDE 30.2 mmol/L (22-30.0); CHLORIDE 101.4 mmol/L (98-107); CREATININE 0.82 mg/dL (0.60-1.10); GLUCOSE 94.3 mg/dL (74-106); POTASSIUM 3.49 mmol/L (3.5-5.1); SODIUM 135.4 mmol/L (134.5-145); TOTAL PROTEIN 5.92 g/dL (6.3-8.2)
[2022-07-25] MEDS: PROTONIX PO SCH (05:48)
[2022-07-25] MEDS: LASIX IVP SCH (05:51)
[2022-07-25] MEDS: LIPITOR PO SCH (08:35)
[2022-07-25] MEDS: ZETIA PO SCH (08:35)
[2022-07-25] MEDS: FLOMAX PO SCH ×2 (08:35→20:00)
[2022-07-25] MEDS: FLONASE NAS SCH (08:36)
[2022-07-25] MEDS: DULCOLAX RC SCH (08:37)
[2022-07-25] MEDS: AMITIZA PO SCH ×2 (09:26→20:00)
[2022-07-25] MEDS: K-DUR PO SCH ×2 (10:42→17:46)
--- NOTE | 2022-07-25 11:26 | CT ---
EXAM: CT OF THE HEAD WITH INTRAVENOUS CONTRAST COMPARISON: CT of the head without then with intravenous contrast 06/28/2022. HISTORY: Confusion. TECHNIQUE: CT images of the head were obtained following the intravenous administration of 100 mL of Omnipaque 350. Axial reconstructions with sagittal and coronal reformats were provided. There is a set of images labeled as "without contrast" though contrast is seen throughout the blood vessels on that sequence. Submitted images are limited by patient motion artifact. FINDINGS: There is prominence of the ventricles and sulci consistent with moderate cortical volume l oss. Decreased attenuation throughout the periventricular/deep white matter suggesting chronic seque la of microvascular ischemic disease without significant interval change. Parsons-white differentiation is grossly unremarkable. No focal enhancing intracranial mass identified. There is limited assessm ent for acute intracranial hemorrhage due to the presence of intravenous contrast though without mass effect or shift of midline. No extra-axial collections are identified. Limited assessment of the i ntracranial vessels on the basis of this non angiographic study though with grossly unremarkable appe arance and unchanged appearance of the blood vessels as compared to prior CT. Scattered vascular dasha cifications. No calvarial fracture. Mild mucosal thickening throughout the visualized sinuses. IMPRESSION: No acute intracranial abnormality. Limited assessment for the presence of acute intracr anial hemorrhage due to the presence of intravenous contrast without mass effect or shift of midline. Correlate clinically for the presence of ongoing/localizing neurological deficits. Overall limited assessment blood vessels on the basis of this motion limited/non angiographic study a s described. No enhancing mass identified. Moderate cortical volume loss. Chronic sequela of microvascular ischemic disease. Additional chronic / degenerative changes as detailed above. All CT scans are performed using dose optimization techniques as appropriate to the performed exam an d include at least one of the following: Automated exposure control, adjustment of the mA and/or kV according t o size, and the use of iterative reconstruction technique.
--- NOTE | 2022-07-25 13:23 | PN ---
DATE OF SERVICE: 07/23/22 SUBJECTIVE: 81 year old white male hospitalized with possibility of small bowel obstruction, abdominal pain with problems of CHF and bilateral pleural effusion. He also had 3+ pitting edema. The patient is feeling a lot better. His appetite seems to have improved. He has more strength walking around in the room. REVIEW OF SYSTEMS: CONSTITUTIONAL: No night sweats. No fatigue, malaise, lethargy. No fever or chills. HEENT: Eyes: No visual changes. No eye pain. No eye discharge. ENT: No runny nose. No epistaxis. No sinus pain. No sore throat. No odynophagia. No congestion. RESPIRATORY: Breathing is a lot better. No cough, no congestion. No hemoptysis. No shortness of breath. CARDIOVASCULAR: No angina symptoms. No CHF symptoms. No atypical chest pain for CAD. No palpitations. No PND. No orthopnea. GASTROINTESTINAL: Appetite improved. No abdominal pain. No nausea or vomiting. No diarrhea or constipation. No hematemesis. No hematochezia. GENITOURINARY: No urgency. No frequency. No dysuria. No hematuria. No obstructive symptoms. No discharge. No pain. No significant abnormal bleeding. MUSCULOSKELETAL: No musculoskeletal pain; no joint swelling. NEUROLOGICAL: No headache. No neck pain. No syncope. No seizures. No dizziness. PSYCHIATRIC: Not anxious. No depression. No suicidal thoughts. No homicidal thoughts. SKIN: No rash. No lesions. No wounds. ENDOCRINE: No unexplained weight loss. No weight gain. HEMATOLOGIC/LYMPHATIC: No anemia. No purpura. No petechiae. No prolonged or excessive bleeding. No palpable lymph nodes. PHYSICAL EXAMINATION: GENERAL: The patient is oriented to time, place and person. Mental status has improved since he has been taken off narcotics. VITAL SIGNS: Temperature 96.8, pulse 60, respiratory rate 18, blood pressure 120/45, pulse ox 95%. HEENT: Head normocephalic, atraumatic. Eyes: Extraocular muscles are intact. Pupils are equal, round and reactive to light and accommodation. Ears: No lesions. Nose appeared normal. Throat: No exudate or erythema. NECK: Supple. No JVD, no carotid bruit. No lymphadenopathy or thyromegaly. LUNGS: Decreased breath sounds but good entry. Percussion note normal. Chest symmetrical. HEART: S1, S2, no S3. No murmurs. No cyanosis or clubbing. No ascites. Pulses: Dorsalis pedis and posterior tibial pulses +1 to +2 bilaterally. ABDOMEN: Soft. Nontender. Bowel sounds active. No CVA tenderness. No mass felt. EXTREMITIES: No edema. Full range of motion of all extremities, equal. NEUROLOGIC: No focal deficit. Cranial nerves II through XII are grossly intact. No headache. No double vision. SKIN: Not dry. Intact. Turgor - normal. LYMPHATIC: No palpable lymph nodes/no lymphedema. MUSCULOSKELETAL: Normal joints with no swelling. Muscle tone is normal. LABS: Hemoglobin 12, hematocrit 35, WBC 9,800, normal differential, creatinine 0.7, BUN 20, potassium 4.1 ASSESSMENT: 1. Small bowel obstruction, has resolved. Patient had a good bowel movement. Appetite has improved. 2. Colitis which was present two weeks ago has resolved. 3. CHF seems to be under control, no fluid overload noted. 4. Mental status seems to have improved PLAN: 1. Called Dr. France's office, case repairer called and she is going to have a return call from the nurse. We are going to tell them to stop his narcotics and continue to have shots in his back if he wants to. 2. Patient was strongly advised not to use narcotics at all. 3. Nutrition and diet discussed. TIME SPENT: More than 35 minutes. Plan and coordination of the patient's care discussed in the presence of nurse. CHRISS
--- NOTE | 2022-07-25 14:29 | CONS ---
DATE OF CONSULTATION: 07/22/22 81 year old white male hospitalized on 07/20/22 with abdominal pain. The patient has possible small bowel obstruction or just severe constipation with fecal stasis. The patient's abdominal pain practically has resolved. The patient had a good bowel movement last night after her was given Dulcolax and Dulcolax suppository. The patient says that he is breathing a lot better and has been passing a lot of urine. Patient's mental status is clear and feeling better. He didn't sleep last night. He is more alert. We talked about his narcotics and advised to discontinue and he is agreeable. He complained about he might not be able to drive if he stays in this kind of mental status which is very likely made worse by narcotics and he agreed to that. I explained to him that patient has congestive heart failure and he needs to take his water pill on a regular basis. REVIEW OF SYSTEMS: CONSTITUTIONAL: No night sweats. No fatigue, malaise, lethargy. No fever or chills. HEENT: Eyes: No visual changes. No eye pain. No eye discharge. ENT: No sinus drainage. No epistaxis. No sinus pain. No sore throat. No odynophagia. No ear pain. No congestion. RESPIRATORY: No cough, no congestion. No hemoptysis. No shortness of breath. CARDIOVASCULAR: No angina symptoms. No CHF symptoms. No atypical chest pain for CAD. No palpitations. No orthopnea. GASTROINTESTINAL: Appetite has improved. He had a good breakfast this morning. No abdominal pain. No nausea or vomiting. No diarrhea or constipation. No hematemesis. No hematochezia. GENITOURINARY: No urgency. No frequency. No dysuria. No hematuria. No obstructive symptoms. No discharge. No pain. No significant abnormal bleeding. MUSCULOSKELETAL: No musculoskeletal pain. No joint swelling. NEUROLOGICAL: No headache. No neck pain. No syncope. No seizures. No dizziness. PSYCHIATRIC: Not anxious. No depression. No suicidal thoughts. No homicidal thoughts. SKIN: No rash. No lesions. No wounds. ENDOCRINE: No unexplained weight loss. No weight gain. HEMATOLOGIC/LYMPHATIC: No anemia. No purpura. No petechiae. No prolonged or excessive bleeding. No palpable lymph nodes. PHYSICAL EXAMINATION: GENERAL: Oriented to time, place and person. VITAL SIGNS: HEENT: Head normocephalic, atraumatic. Eyes: Extraocular muscles are intact. Pupils are equal, round and reactive to light and accommodation. Ears: No lesions. Nose appeared normal. Throat: No exudate or erythema. NECK: Supple. No JVD, no carotid bruit. No lymphadenopathy or thyromegaly. LUNGS: Good air entry bilaterally. Percussion note normal. Chest symmetrical. HEART: S1, S2 . Grade 2/6 systolic murmur going to the axilla. . No cyanosis or clubbing. No ascites. Pulses: Dorsalis pedis and posterior tibial pulses +1 to +2 bilaterally. ABDOMEN: Soft. Nontender. Bowel sounds active. No CVA tenderness. No mass felt. EXTREMITIES: Trace edema. Full range of motion of all extremities, equal. NEUROLOGIC: No focal deficit. Cranial nerves II through XII are grossly intact. No headache, no double vision or headache. SKIN: Not dry. Intact. Turgor - normal. LYMPHATIC: No palpable lymph nodes/no lymphedema. MUSCULOSKELETAL: Normal joints with no swelling. Muscle tone is normal. LABS: Hemoglobin 12, hematocrit 37, WBC 10,000, normal differential, creatinine 0.6, BUN 14, potassium 4.6 ASSESSMENT: 1. Troponin positive with negative CK-MB. I don't think it has anything to do with his cardiac 2. History of coronary artery disease with stent placement, no evidence of any coronary insufficiency or ischemia 3. Pacemaker seems to be working properly 4. Partial bowel obstruction, questionable seems to have resolve with normal bowel movement and normal appetite. 5. Main problem is noncompliance. Patient doesn't have anybody at home to take care of him and give him medicine. Patient has declined with nobody in the house. He is being helped by some ladies, his neighbors and some of his golfing buddies. RECOMMENDATIONS: 1. Continue Lasix and Aldactone 2. Elevate the legs daily 3. Patient was given 1 cc of Decadron yesterday 4. Advised to discontinue narcotics for good 5. Patient is going to be restarted on Coumadin and continue Lovenox. Patient's condition is improving. Patient was recommended to assisted living or penitentiary type of placement for at least 2-3 weeks until he gets stable. He is going to think about it. Patient was seen in consultation on 07/21/22 Patient was transferred to my service on 07/22/22 CHRISS
--- NOTE | 2022-07-25 14:31 | PN ---
07/21/22 CONSULT 07/22/22 EXTENSIVE PATIENT TRANSFERRED TO DR. KILLIAN ON 07/22/22 [facility]
[2022-07-25] MEDS: COUMADIN PO SCH (17:46)
[2022-07-26] MEDS: LIDODERM PATCH 5% TP PRN (04:54)
[2022-07-26 05:04] VITALS: BP 128/62; TEMP 98
[2022-07-26 05:36] LABS: BASOPHILS % (AUTO) 0.3 % (0.0-3.0); EOSINOPHILS # (AUTO) 0.1 K/ul (0.0-0.7); EOSINOPHILS % (AUTO) 0.7 % (0.0-7.0); HEMATOCRIT 40.7 % (42.0-52.0); HEMOGLOBIN 13.7 g/dl (14.0-18.0); IMMATURE GRANULOCYTE # (AUTO) 0.1 (0.0-1.0); IMMATURE GRANULOCYTE % (AUTO) 0.4 % (0.0-5.0); LYMPHOCYTES # (AUTO) 1.2 K/uL (0.60-3.4); LYMPHOCYTES % (AUTO) 8.8 (10.0-50.0); MEAN CORPUSCULAR HEMOGLOBIN 30.6 pg (27.0-31.0); MEAN CORPUSCULAR HGB CONC 33.7 (31.8-35.4); MEAN CORPUSCULAR VOLUME 90.8 fl (80.0-94.0); MONOCYTES # (AUTO) 1.3 K/uL (0.4-2.0); MONOCYTES % (AUTO) 9.7 (0-10); NEUTROPHILS # (AUTO) 10.8 K/ul (2.0-6.9); NEUTROPHILS % (AUTO) 80.1 % (42.2-75.2); PLATELET COUNT 236 10^3/uL (140-440); RDW COEFFICIENT OF VARIATION 14.5 % (11.6-14.8); RED BLOOD COUNT 4.48 10^6/ul (4.70-6.10); WHITE BLOOD COUNT 13.46 K/ul (4.2-10.2)
[2022-07-26] MEDS: PROTONIX PO SCH (05:41)
[2022-07-26 05:46] LABS: PROTHROMBIN TIME 21.1 SEC (9.3-11.0)
[2022-07-26 05:53] LABS: ALANINE AMINOTRANSFERASE 27.6 U/L (0-50); ALBUMIN 3.33 g/dL (3.5-5.0); ALKALINE PHOSPHATASE 93.7 U/L (56-119); ASPARTATE AMINO TRANSFERASE 40.5 U/L (17-59); BILIRUBIN,TOTAL 0.78 mg/dL (0.2-1.3); BLOOD UREA NITROGEN 17.7 mg/dL (9-20); CALCIUM 8.31 mg/dL (8.4-10.2); CARBON DIOXIDE 29.3 mmol/L (22-30.0); CHLORIDE 100.5 mmol/L (98-107); CREATININE 0.88 mg/dL (0.60-1.10); GLUCOSE 101.6 mg/dL (74-106); POTASSIUM 3.66 mmol/L (3.5-5.1); SODIUM 134.2 mmol/L (134.5-145); TOTAL PROTEIN 6.18 g/dL (6.3-8.2)
[2022-07-26 06:20] LABS: THYROID STIMULATING HORMONE 3.09 uIU/L (0.465-4.68)
[2022-07-26] MEDS ORDERED: LASIX TAB PO SCH (06:30)
[2022-07-26] MEDS: AMITIZA PO SCH (09:22)
[2022-07-26] MEDS: LIPITOR PO SCH (09:23)
[2022-07-26] MEDS: ZETIA PO SCH (09:23)
[2022-07-26] MEDS: K-DUR PO SCH (09:23)
[2022-07-26] MEDS: FLOMAX PO SCH (09:23)
[2022-07-26] MEDS: FLONASE NAS SCH (09:24)
[2022-07-26] MEDS: DULCOLAX RC SCH (09:26)
--- NOTE | 2022-07-26 09:47 | DI ---
EXAM: CHEST RADIOGRAPH TECHNIQUE: Two views. Frontal and lateral. HISTORY: Follow-up COMPARISON: 06/10/2022 FINDINGS: There are small bilateral pleural effusions. There is minimal right basilar subsegmental atelectasis . Left-sided pacer is present. The heart size is normal. Osseaous structures are unremarkable IMPRESSION: 1. Small bilateral pleural effusions
--- NOTE | 2022-07-26 10:05 | PCM.PROG ---
Attending Provider: ATTENDING PROVIDER: Dr. BASIA KILLIAN MD This patient is seen with Catrachita Menendez, Nurse Practitioner. DATE OF SERVICE: 07/23/22 SUBJECTIVE: This 81 year old /WHITE M was hospitalized 07/21/22. The patient is resting comfortably. He has not had any complaints of pain. Discontinued the pain medication yesterday as we felt it was contributing to his change in mental status. He has had significant output with IV Lasix. Oxygen saturation is good. He has not had any complaints of pain. Decreased his pain medication yesterday as we felt it was contributing to his change in mental status. Shortness of breath seems better. INR still 1.14 today. REVIEW OF SYSTEMS: CONSTITUTIONAL: Weakness. No night sweats. No fatigue, malaise, lethargy. No fever or chills. HEENT: Eyes: No visual changes. No eye pain. No eye discharge. ENT: No runny nose. No epistaxis. No sinus pain. No odynophagia. No congestion. RESPIRATORY: No cough, no congestion. No hemoptysis. No shortness of breath. CARDIOVASCULAR: No angina symptoms. No CHF symptoms. No atypical chest pain for CAD. No palpitations. No orthopnea.. GASTROINTESTINAL: No abdominal pain. No nausea or vomiting. No diarrhea or constipation. No hematemesis. No hematochezia. GENITOURINARY: No urgency. No frequency. No dysuria. No hematuria. No obstructive symptoms. No discharge. No pain. No significant abnormal bleeding. MUSCULOSKELETAL: No musculoskeletal pain; no joint swelling. NEUROLOGICAL: Intermittent confusion. No headache. No neck pain. No syncope. No seizures. No dizziness. PSYCHIATRIC: Not anxious. No depression. No suicidal thoughts. No homicidal thoughts. SKIN: No rash. No lesions. No wounds. ENDOCRINE: No unexplained weight loss. No weight gain. HEMATOLOGIC/LYMPHATIC: No anemia. No purpura. No petechiae. No prolonged or excessive bleeding. No palpable lymph nodes. PHYSICAL EXAMINATION: GENERAL: The patient is awake, alert and oriented, lying/sitting in bed in no distress. VITAL SIGNS: Temperature 96.8 F, Pulse 60, Respiratory Rate 18, BP 121/45, Pulse Ox 95% HEENT: Head normocephalic, atraumatic. Eyes: Extraocular muscles are intact. Pupils are equal, round and reactive to light and accommodation. Ears: No lesions. Nose appeared normal. Throat: No exudate or erythema. NECK: Supple. No JVD, no carotid bruit. No lymphadenopathy or thyromegaly. LUNGS: Diminished breath sounds. Clear to auscultation. Percussion note normal. Chest symmetrical. HEART: S1, S2, no S3. Grade I murmur. No cyanosis or clubbing. No ascites. Pulses: Dorsalis pedis and posterior tibial pulses +1 to +2 both sides. ABDOMEN: Soft. Non-tender. Bowel sounds active. No CVA tenderness. No mass felt. EXTREMITIES: No edema. Full range of motion of all extremities, equal. NEUROLOGIC: No focal deficit. Cranial nerves II through XII are grossly intact. No headache. No double vision. SKIN: Not dry. Intact. Turgor-normal. LYMPHATIC: No palpable lymph nodes/no lymphedema. MUSCULOSKELETAL: Normal joints with no swelling. Muscle tone is normal. LAB REVIEW: 07/23/22 04:54 07/23/22 04:54 07/23/22 04:54: PT 11.8 H, INR 1.14 07/23/22 04:54: Sodium 132.2 L, Potassium 4.19, Chloride 98.0, Carbon Dioxide 29.9, Anion Gap 8.49, BUN 20.1 H, Creatinine 0.72, Estimated GFR (MDRD) 104.00, BUN/Creatinine Ratio 27.91, Glucose 145.7 H, Calcium 8.20 L, Total Bilirubin 0.57, AST 29.2, ALT 17.5, Alkaline Phosphatase 68.6, Total Protein 5.53 L, Albumin 2.87 L, Globulin 2.66, Albumin/Globulin Ratio 1.07 07/23/22 04:54: WBC 9.89, RBC 3.85 L, Hgb 12.0 L, Hct 35.6 L, MCV 92.5, MCH 31.2 H, MCHC 33.7, RDW Coeff of Bonnie 14.6, Plt Count 175, Immature Gran % (Auto) 0.5, Neut % (Auto) 85.7 H, Lymph % (Auto) 6.4 L, Falls % (Auto) 7.2, Eos % (Auto) 0.1, Baso % (Auto) 0.1, Neut # (Auto) 8.5 H, Lymph # (Auto) 0.6, Falls # (Auto) 0.7, Eos # (Auto) 0.0, Baso # (Auto) 0.0, Immature Gran # (Auto) 0.1 07/22/22 12:19: Urine Color Yellow, Urine Clarity Clear, Urine pH 6.0, Ur Specific [place] 1.015, Urine Protein Negative, Urine Glucose (UA) Negative, Urine Ketones Negative, Urine Blood Trace-intact H, Urine Nitrite Negative, Urine Bilirubin Negative, Urine Urobilinogen 0.2, Ur Leukocyte Esterase Negative, Urine Microscopic RBC 2-5, Urine Microscopic WBC 2-5, Ur Squamous Epith Cells 0-2, Amorphous Sediment Trace, Urine Bacteria Trace 07/22/22 05:04: Free T4 1.02 07/22/22 05:04: PT 12.0 H, INR 1.16 07/22/22 05:01: Thyroxine (T4) 5.5 ASSESSMENT: Please see below. 1. Troponin positive with negative CK-MB. I don't think it has anything to do with his cardiac. 2. History of coronary artery disease with stent placement, no evidence of any coronary insufficiency or ischemia. 3. Pacemaker seems to be working properly. 4. Partial bowel obstruction, questionable seems to have resolve with normal bowel movement and normal appetite. 5. Main problem is noncompliance. Patient doesn't have anybody at home to take care of him and give him medicine. Patient has declined with nobody in the house. He is being helped by some ladies, his neighbors and some of his golfing buddies. PLAN: 1. Give Coumadin 8 mg total today. 2. Amitiza today and tomorrow 24 mcg b.i.d. DOROTHY Plan and coordination of the patient's care discussed in the presence of Monogram And Letter Paster and nurse. CONDITION: Stable TIME SPENT: 35 MINUTES SCRIBED BY: FIDEL ROMERO Historic Preservationist scribed while in presence of service performed by Catrachita Menendez APRN on 07/23/22 ([id number])
--- NOTE | 2022-07-27 06:53 | DS ---
DATE OF SERVICE: 07/26/22 FINAL DIAGNOSIS: 1. ABDOMINAL PAIN, CONSTIPATION 2. CONGESTIVE HEART FAILURE 3. CONFUSION INTERMITTENT, CLEARED UP AFTER HE WAS OFF ANTIBIOTICS 4. HISTORY OF PANCOLITIS, E.COLI TWO WEEKS AGO 5. NONCOMPLIANT OF MEDICATIONS, FOLLOWUP THE LAST 2 TO 3 MONTHS 6. CORONARY ARTERY DISEASE WITH HISTORY OF STENT 20 YEARS AGO 7. PACEMAKER 8. ATRIAL FIBRILLATION UNDERLYING RHYTHM, PACEMAKER 9. DYSLIPIDEMIA 10. HISTORY OF HYPERTENSION 11. 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 STATUS POST GASTRECTOMY, BOWEL LEVEL NORMAL 13. TOBACCO CHEWING DISCHARGE INSTRUCTIONS: Followup appointment: Instructed to come back in 5 to [address] Walden's office on 08/03/22 at 1 p.m. Should you have any questions or need to reschedule this you can contact their office at [phone]. They have moved to their new location at [address] [place] [address]. The patient is going to be followed by [facility] who will check his medications also. Weigh daily. [employer] to deliver a Rollator. The patient's pain management center was notified about discontinuing his narcotic because of his mental status change lately which has been made worse by narcotics. The patient has been off narcotics three days prior to discharge with practically no problems. MEDICATIONS AT DISCHARGE: Aldactone 25 mg twice a day Lasix 40 mg p.o. q.a.m. K-tab 20 mEq p.o. daily Dexilant 60 mg p.o. q.a.m. Flomax 0.4 daily Simvastatin 10 mg daily Librax p.r.n. as before Losartan 25 mg p.o. daily He is advised to discontinue his sinus pills, Pantoprazole, Zetia, Trazodone and all pain medications. NEW MEDICATIONS: Aldactone 25 mg p.o. twice daily to rid excess fluid Lasix 40 mg p.o. in a.m. to rid excess fluid K-tab (potassium) 20 mEq by mouth daily to replace potassium Cozaar 25 mg p.o. daily to help keep blood pressure down DISCONTINUED MEDICATIONS: Stop Claritin, Stop Trazodone, Stop Protonix, Stop Zetia, Stop Levocetrizine, Stop Metronidazole. ONLY TAKE MEDICATIONS ORDERED BY M.D. CALL MD. OFFICE IF DO NOT AGREE OR ANY QUESTIONS. DIET INSTRUCTIONS: Regular with at least 60 ounces of fluids daily. ACTIVITY: Up with assist of one and rollator HOSPITAL COURSE: 81-year-old white male hospitalized on 07/21/22 with lower abdominal pain. The patient had a third CT scan in the last 15 days which did not show any acute findings. There was possibility of maybe partial small bowel obstruction. He had fecal stasis noted in the intestine. During the stay in the hospital, the patient was given medication to move his bowels which was successful after 2 to 3 days. Other problem the patient had was 3+ pitting edema with generalized anasarca which could be a combination of CHF and also having low protein and albumin because of the patient's poor nutritional status in the last couple of weeks. He has been recently treated for pancolitis, grew E.coli and was treated with Levaquin and Flagyl. The patient's BM has been regular the last couple of days prior to discharge. He has been taken off all the pain medications. Mental status has improved the last 2 to 3 days. He was oriented to time, place and person throughout for the past 2 to 3 days. He has been up and about going to the bathroom on his own. Edema has practically resolved. There is no pitting edema. Lungs had good air entry, no evidence of CHF at time of discharge. The patient's echo was done 2 months ago with normal LV ejection fraction with moderate mitral regurgitation. Medication has been Lasix, Aldactone, potassium supplements along with Losartan which would act as an unloading agent. The patient weighed 157 lbs a week ago and on discharge he weighed 142, lost nearly 15 lbs during hospital stay. The patient has no symptoms of CHF or coronary insufficiency, symptoms of withdrawal from pain medications discussed with him. CHF discussed with him. He is going to be followed by home health care. I am going to follow him in 5 to 7 days. LABS: On discharge hemoglobin 13.7, hematocrit 40, WBC 13,000, normal differential. Creatinine 0.8, BUN 17, potassium 3.6, pro-BNP on admission close to 5,000 now is 2580. INR 2.06 07/25/22. Creatinine 0.8, BUN 17, potassium 3.6. TIME SPENT: More than 60 minutes. cc: Dr. Román M.D. [facility] [address] [place] [id number] CHRISS
--- NOTE | 2022-07-27 06:56 | PN ---
CODING FOR BILLING 07/21/22 LEVEL 5 ADMIT 07/22/22 EXTENSIVE 07/23/22 EXTENSIVE 07/24/22 EXTENSIVE 07/25/22 INTERMEDIATE 07/26/22 FINAL DAY = D IN DISCHARGE MTDD
--- NOTE | 2022-07-27 14:22 | PN ---
DATE OF SERVICE: 07/24/22 SUBJECTIVE: 81 year old white male hospitalized with possibility of small bowel obstruction and abdominal pain. The abdominal pain has resolved. He had abdominal pain lower quadrant until the evening for a couple of hours, then after that it subsided on its own. The patient had a bowel movement and is passing gas. REVIEW OF SYSTEMS: CONSTITUTIONAL: Mild fatigue but not weakness. HEENT: Eyes: No visual changes. No eye pain. No eye discharge. ENT: No runny nose. No epistaxis. No sinus pain. No sore throat. No odynophagia. No congestion. RESPIRATORY: No cough, no congestion. CARDIOVASCULAR: No angina symptoms. No CHF symptoms. No atypical chest pain for CAD. No palpitations. No PND. No orthopnea. GASTROINTESTINAL: Appetite has improved. Mild to moderate abdominal pain at night, last night went away on its own. BM regular now. GENITOURINARY: No urgency. No frequency. No dysuria. No hematuria. No obstructive symptoms. No discharge. No pain. No significant abnormal bleeding. MUSCULOSKELETAL: No musculoskeletal pain; no joint swelling. NEUROLOGICAL: No headache. No neck pain. No syncope. No seizures. No dizziness. PSYCHIATRIC: Not anxious. No depression. No suicidal thoughts. No homicidal thoughts. SKIN: No rash. No lesions. No wounds. ENDOCRINE: No unexplained weight loss. No weight gain. HEMATOLOGIC/LYMPHATIC: No anemia. No purpura. No petechiae. No prolonged or excessive bleeding. No palpable lymph nodes. PHYSICAL EXAMINATION: GENERAL: The patient is oriented to time, place and person. His mental status has improved after stopping narcotics. VITAL SIGNS: Temperature 98.1, pulse 63, respiratory rate 18, blood pressure 137/64, pulse ox 96% HEENT: Head normocephalic, atraumatic. Eyes: Extraocular muscles are intact. Pupils are equal, round and reactive to light and accommodation. Ears: No lesions. Nose appeared normal. Throat: No exudate or erythema. NECK: Supple. No JVD, no carotid bruit. No lymphadenopathy or thyromegaly. LUNGS: Clear to auscultation. Percussion note normal. Chest symmetrical. HEART: S1, S2, no S3. No murmurs. No cyanosis or clubbing. No ascites. Pulses: Dorsalis pedis and posterior tibial pulses +1 to +2 bilaterally. ABDOMEN: Soft. Nontender. Bowel sounds active. No CVA tenderness. No mass felt. EXTREMITIES: No edema. Full range of motion of all extremities, equal. NEUROLOGIC: No focal deficit. Cranial nerves II through XII are grossly intact. No headache. No double vision. SKIN: Not dry. Intact. Turgor - normal. LYMPHATIC: No palpable lymph nodes/no lymphedema. MUSCULOSKELETAL: Normal joints with no swelling. Muscle tone is normal. LABS: Hemoglobin 13.6, hematocrit 41, WBC 13,000, normal differential, creatinine 0.7, BUN 18, potassium 3.8 It needs to be noted that patient has lost 13-14 lbs according to the patient, he weight 157 lbs at pain management in April. He told me this morning he weighed 144 lbs. ASSESSMENT: 1. Intermittent lower abdominal pain, etiology unknown. Could be from ischemic bowel syndrome and intermittent colic, could be secondary to fecal stasis. In any case, the patient's abdomen was completely flat, nontender. 2. His leg edema has completely resolved. PLAN: 1. Discontinue Loratadine, Levaquin, Trazodone . 2. Patient has urinary incontinence and will increase Flomax to 0.4 twice a day Condition: Stable TIME SPENT: More than 35 minutes. Plan and coordination of the patient's care discussed in the presence of nurse. CHRISS
--- NOTE | 2022-07-27 14:36 | PN ---
DATE OF SERVICE: 07/25/22 SUBJECTIVE: 81 year old white male hospitalized with abdominal pain and possible partial small bowel obstruction. In any case, the patient has normal bowel movements, no more abdominal pain for the past two days. He is up and about on his own going to the bathroom. REVIEW OF SYSTEMS: CONSTITUTIONAL: No night sweats. No fatigue, malaise, lethargy. No fever or chills. HEENT: Eyes: No visual changes. No eye pain. No eye discharge. ENT: No runny nose. No epistaxis. No sinus pain. No sore throat. No odynophagia. No congestion. RESPIRATORY: No cough, no congestion. No hemoptysis. No shortness of breath. CARDIOVASCULAR: No angina symptoms. No CHF symptoms. No atypical chest pain for CAD. No palpitations. No PND. No orthopnea. GASTROINTESTINAL: Appetite seems to be improving. No abdominal pain. No nausea or vomiting. No diarrhea or constipation. No hematemesis. No hematochezia. GENITOURINARY: No urgency. No frequency. No dysuria. No hematuria. No obstructive symptoms. No discharge. No pain. No significant abnormal bleeding. MUSCULOSKELETAL: No musculoskeletal pain; no joint swelling. NEUROLOGICAL: No headache. No neck pain. No syncope. No seizures. No dizziness. PSYCHIATRIC: Not anxious. No depression. No suicidal thoughts. No homicidal thoughts. SKIN: No rash. No lesions. No wounds. ENDOCRINE: No unexplained weight loss. No weight gain. HEMATOLOGIC/LYMPHATIC: No anemia. No purpura. No petechiae. No prolonged or excessive bleeding. No palpable lymph nodes. PHYSICAL EXAMINATION: GENERAL: The patient is oriented to time, place and person. VITAL SIGNS: Temperature 98, pulse 70, respiratory rate 16, blood pressure 115/67, pulse ox 95% HEENT: Head normocephalic, atraumatic. Eyes: Extraocular muscles are intact. Pupils are equal, round and reactive to light and accommodation. Ears: No lesions. Nose appeared normal. Throat: No exudate or erythema. NECK: Supple. No JVD, no carotid bruit. No lymphadenopathy or thyromegaly. LUNGS: Decreased breath sounds with good air entry. Percussion note normal. Chest symmetrical. HEART: S1, S2, no S3. No murmurs. No cyanosis or clubbing. No ascites. Pulses: Dorsalis pedis and posterior tibial pulses +1 to +2 bilaterally. ABDOMEN: Soft. Nontender. Bowel sounds active. No CVA tenderness. No mass felt. EXTREMITIES: No edema. Full range of motion of all extremities, equal. NEUROLOGIC: No focal deficit. Cranial nerves II through XII are grossly intact. No headache. No double vision. SKIN: Not dry. Intact. Turgor - normal. LYMPHATIC: No palpable lymph nodes/no lymphedema. MUSCULOSKELETAL: Normal joints with no swelling. Muscle tone is normal. LABS: Hemoglobin 14, hematocrit 40.9, WBC 13,000, normal differential, creatinine 0.8, BUN 16, potassium 3.4 ASSESSMENT: 1. Abdominal pain seems to have resolved, likely from constipation 2. Patient could have ischemic bowel syndrome. 3. Patient has peripheral arterial disease which is significant. 4. Hypokalemia. PLAN: 1. Keep potassium supplements K-tab 20 mEq twice a day 2. Convert Lasix to PO 40 mg PO daily 3. Continue Aldactone Patient has lost a total of 14 lbs ever since 07/23/22 that is two days after his admission. In any case, the patient's fluid retention status has completely resolved. His legs are now skinny and no edema noted. He is to continue all the treatment as before. The patient has been taken off several medications and again discussed about it. The patient is going to be going home on Dexilant, Rosuvastatin, Tamsulosin which has been raised to twice a day, Warfarin, Pantoprazole, Lasix and Aldactone. He was advised to discontinue all the pain medicine and he is agreeable. Pain Management has already been called. Will do CT scan with contrast . Condition; Improved . TIME SPENT: More than 35 minutes. Plan and coordination of the patient's care discussed in the presence of nurse. CHRISS
== END 2022-07-26 14:45 | disposition home health service (06) | DRG 392 ==
LOC: ED 20:41 → MEDSURG A 07-21 00:43
PROVIDERS: ADMIT Emergency Medicine Emergency Medical Services; ATTEND Internal Medicine
DX: Z90.3 Acquired absence of stomach [part of]; I48.91 Unspecified atrial fibrillation; K59.00 Constipation, unspecified; R77.8 Other specified abnormalities of plasma proteins; Z95.0 Presence of cardiac pacemaker; F41.9 Anxiety disorder, unspecified; I50.9 Heart failure, unspecified; E78.5 Hyperlipidemia, unspecified; I73.9 Peripheral vascular disease, unspecified; Z20.822 Contact with and (suspected) exposure to COVID-19; Z79.899 Other long term (current) drug therapy; K56.600 Partial intestinal obstruction, unspecified as to cause; E87.6 Hypokalemia; Z51.81 Encounter for therapeutic drug level monitoring; R60.0 Localized edema; F17.200 Nicotine dependence, unspecified, uncomplicated; I11.0 Hypertensive heart disease with heart failure; R10.9 Unspecified abdominal pain; I25.10 Atherosclerotic heart disease of native coronary artery without angina pectoris; Z87.19 Personal history of other diseases of the digestive system; M51.36 Other intervertebral disc degeneration, lumbar region; R06.02 Shortness of breath; M54.50 Low back pain, unspecified; Z79.01 Long term (current) use of anticoagulants; R41.0 Disorientation, unspecified

== ENCOUNTER 2022-07-29 16:32 | Inpatient (IN) ==
--- NOTE | 2022-07-29 17:55 | ED.PDOC ---
General ED Provider: Dr. ANSON DEMPSEY Chief Complaint: Altered Mental Status Stated Complaint: patient has been in and out of the hospital with multiple medical problems including colitis, chronic back pain, CHF discharged 3 days ago. Then today he called EMS with complaints of back pain and family states he has been more confused. Time Seen by Provider: 07/29/22 16:34 Mode of Arrival: Ambulance Information Source: Patient and EMT Primary Care Provider: BASIA WALDEN MD Nursing and Triage Documentation Reviewed and Agree: Yes Does patient meet sepsis criteria?: No System Inflammatory Response Syndrome: Not Applicable Sepsis Protocol: For patient's 13 years and over: Temp is 96.8 and below OR 101 and greater Pulse >90 BPM Resp >20/minute Acutely Altered Mental Status Are patient's symptoms suggestive of a new infection, such as: -Pneumonia -Skin, Soft Tissue -Endocarditis -UTI -Bone, Joint Infection -Implantable Device -Acute Abdominal Infection -Wound Infection -Meningitis -Blood Stream Catheter Infection -Unknown Review of Systems Review Of Systems Constitutional: Reports No symptoms GI: Reports Abdominal pain (intermitent non now ) Musculoskeletal: Reports Back pain Neurological: Reports Anxiety and Cognitive dysfunction (Memory imparement ) All Other Systems: Reviewed and Negative [facility] Medical History (Updated 07/29/22 @ 18:05 by ANSON DEMPSEY MD) Afib Arthritis BPH (benign prostatic hyperplasia) Bursitis of left shoulder CKD (chronic kidney disease), stage II Congestive heart disease Degenerative joint disease of spine Dyslipidemia Erectile dysfunction GERD (gastroesophageal reflux disease) H/O septic shock Hypertension Mitral regurgitation Pacemaker PAD (peripheral artery disease) Presence of stent in coronary artery in patient with coronary artery disease Shoulder pain, left Shoulder weakness Vitamin B12 deficiency WPW (Ywnty-Rxsoqglub-Vaqjc syndrome) Family History FATHER Hypertension Mother Hypertension Social History Smoking and tobacco status: Never smoker Smokeless tobacco user: chewing tobacco and snuff Quit status: not considering quitting Alcohol intake: former Surgical History (Updated 07/23/22 @ 11:50 by JAZMYNE MERRITT, RN) S/P partial glossectomy Physical Exam Physical Exam Appearance: Reports Well-appearing Ill-appearing: None Pain Distress: Moderate Eyes: Reports CHAYO, EOMI and Conjunctiva clear ENT: Reports Nose normal and Oropharynx normal Neck: Supple Respiratory: Reports Airway patent, Breath sounds clear and Breath sounds equal Cardiovascular: Reports RRR, Pulses normal and No rub GI/: Reports Soft and Nontender Musculoskeletal: Reports Normal strength, ROM intact and No edema Skin: Reports Warm, Dry and Normal color Neurological: Reports Motor intact, Alert and Oriented (x1) Psychiatric: Reports Anxious and Depressed Interpretation EKG Interpretation Time of EKG #1: 18:20 Rate: Normal Rhythm: Other (Ventricular paced ) Ectopy: None [place]: Left ST Segment: Normal Interpretation: Ventricular Paced EKG Comparison: No significant changes Physician Notification Case Discussed Physician Notified: Dr Walden Time of Notification: 18:01 (Admit to arauz for weakness, Severe back pain, Debility, Self care deficite.) Critical Care Note Critical Care Note Total Critical Care Time (mins): 0 Course Course Hematology/Chemistry: 07/29/22 18:13 07/29/22 18:13 Orders, Labs, Meds: Lab Review 07/29/22 07/29/22 07/29/22 18:05 18:05 18:08 WBC RBC Hgb Hct MCV MCH MCHC RDW Coeff of Bonnie Plt Count Immature Gran % (Auto) Neut % (Auto) Lymph % (Auto) [place] % (Auto) Eos % (Auto) Baso % (Auto) Neut # (Auto) Lymph # (Auto) [place] # (Auto) Eos # (Auto) Baso # (Auto) Immature Gran # (Auto) PT INR Puncture Site Rbrach Base Excess 2.6 O2 Saturation 98.0 ABG pH 7.49 H ABG pCO2 34.0 L ABG pO2 96.0 ABG HCO3 25.9 ABG Total CO2 26.9 H Kevan Test N Hemoglobin 1.5 Oxyhemoglobin 95.2 Carboxyhemoglobin 2.2 H Total Hemoglobin 14.2 FiO2 % 21.0 Sodium Potassium Chloride Carbon Dioxide Anion Gap BUN Creatinine Estimated GFR (MDRD) BUN/Creatinine Ratio Glucose Calcium Total Bilirubin AST ALT Alkaline Phosphatase Ammonia Troponin I Total Protein Albumin Globulin Albumin/Globulin Ratio Urine Color Yellow Urine Clarity Clear Urine pH 5.0 Ur Specific Everly 1.015 Urine Protein Negative Urine Glucose (UA) Negative Urine Ketones Negative Urine Blood Negative Urine Nitrite Negative Urine Bilirubin Negative Urine Urobilinogen 0.2 Ur Leukocyte Esterase Negative SARS CoV-2 RNA Rapid FAIZA Negative 07/29/22 07/29/2223 18:13 18:13 18:13 WBC 9.05 RBC 4.47 L Hgb 13.9 L Hct 41.7 L MCV 93.3 MCH 31.1 H MCHC 33.3 RDW Coeff of Bonnie 14.2 Plt Count 228 Immature Gran % (Auto) 0.3 Neut % (Auto) 74.4 Lymph % (Auto) 10.2 Forsyth % (Auto) 14.1 H Eos % (Auto) 0.4 Baso % (Auto) 0.6 Neut # (Auto) 6.7 Lymph # (Auto) 0.9 Forsyth # (Auto) 1.3 Eos # (Auto) 0.0 Baso # (Auto) 0.1 Immature Gran # (Auto) 0.0 PT 19.8 H INR 1.96 Puncture Site Base Excess O2 Saturation ABG pH ABG pCO2 ABG pO2 ABG HCO3 ABG Total CO2 Kevan Test Hemoglobin Oxyhemoglobin Carboxyhemoglobin Total Hemoglobin FiO2 % Sodium 134.1 L Potassium 3.94 Chloride 99.6 Carbon Dioxide 30.3 H Anion Gap 8.14 BUN 30.0 H Creatinine 1.10 Estimated GFR (MDRD) 64.00 BUN/Creatinine Ratio 27.27 Glucose 129.7 H Calcium 8.38 L Total Bilirubin 0.91 AST 74.7 H ALT 55.1 H Alkaline Phosphatase 91.9 Ammonia Troponin I 0.077 Total Protein 6.88 Albumin 3.65 Globulin 3.23 Albumin/Globulin Ratio 1.13 Urine Color Urine Clarity Urine pH Ur Specific Everly Urine Protein Urine Glucose (UA) Urine Ketones Urine Blood Urine Nitrite Urine Bilirubin Urine Urobilinogen Ur Leukocyte Esterase SARS CoV-2 RNA Rapid FAIZA 07/29/22 18:13 WBC RBC Hgb Hct MCV MCH MCHC RDW Coeff of Bonnie Plt Count Immature Gran % (Auto) Neut % (Auto) Lymph % (Auto) [place] % (Auto) Eos % (Auto) Baso % (Auto) Neut # (Auto) Lymph # (Auto) [place] # (Auto) Eos # (Auto) Baso # (Auto) Immature Gran # (Auto) PT INR Puncture Site Base Excess O2 Saturation ABG pH ABG pCO2 ABG pO2 ABG HCO3 ABG Total CO2 Kevan Test Hemoglobin Oxyhemoglobin Carboxyhemoglobin Total Hemoglobin FiO2 % Sodium Potassium Chloride Carbon Dioxide Anion Gap BUN Creatinine Estimated GFR (MDRD) BUN/Creatinine Ratio Glucose Calcium Total Bilirubin AST ALT Alkaline Phosphatase Ammonia < 8.7 L Troponin I Total Protein Albumin Globulin Albumin/Globulin Ratio Urine Color Urine Clarity Urine pH Ur Specific Everly Urine Protein Urine Glucose (UA) Urine Ketones Urine Blood Urine Nitrite Urine Bilirubin Urine Urobilinogen Ur Leukocyte Esterase SARS CoV-2 RNA Rapid FAIZA Orders Category Date Time Status ABG DRAW REQUEST Stat CARDIO 07/29/22 18:00 Completed EKG-(ED ONLY) Stat CARDIO 07/29/22 17:58 Completed ABG COOX Stat LAB 07/29/22 18:08 Completed AMMONIA Stat LAB 07/29/22 18:13 Completed CBC W/ AUTO DIFF Stat LAB 07/29/22 18:13 Completed CMP [COMPREHENSIVE METABOLIC PANEL] Stat LAB 07/29/22 18:13 Completed PT WITH INR Stat LAB 07/29/22 18:13 Completed SARS COV-2 RNA RAPID FAIZA Stat LAB 07/29/22 18:05 Completed TROPONIN I Stat LAB 07/29/22 18:13 Completed UA [URINALYSIS C & S IF INDICATED] Stat LAB 07/29/22 18:05 Completed Dexamethasone Sod Phosphate [Decadron] MEDS 07/29/22 17:58 Discontinued 4 mg IM ONCE STA Ketorolac Tromethamine [Toradol] MEDS 07/29/22 17:58 Discontinued 15 mg IVP ONCE STA Medications Generic Name Dose Route Start Last Admin Trade Name Freq PRN Reason Stop Dose Admin Acetaminophen 650 mg 07/29/22 19:44 Acetaminophen 325 Mg Tablet PO Q4H PRN Fever and Mild Pain Chlordiazepoxide/Clidinium 1 cap 07/30/22 09:00 Chlordiazepoxide/Clidinium 5/2.5 Mg Capsule PO DAILY [facility] Dexamethasone Sodium Phosphate 6 mg 07/30/22 09:00 Dexamethasone Sod Phos 10 Mg/Ml Inj IVP DAILY DOROTHY Furosemide 40 mg 07/30/22 09:00 Furosemide 40 Mg Tablet PO QAM [facility] Losartan Potassium 25 mg 07/30/22 09:00 Losartan Potassium 25 Mg Tablet PO DAILY [facility] Metoprolol Succinate 100 mg 07/30/22 09:00 Metoprolol Succinate 50 Mg Tab.Er.24h PO DAILY DOROTHY Nitroglycerin 0.4 mg 07/29/22 19:50 Nitroglycerin 0.4 Mg Tab.Subl SL PRN PRN Angina Ondansetron HCl 4 mg 07/29/22 19:44 Ondansetron Hcl/Pf 4 Mg/2 Ml Sdv IVP Q6H PRN Nausea / Vomiting Pantoprazole Sodium 40 mg 07/30/22 09:00 Pantoprazole Sodium 40 Mg Tablet.Dr PO DAILY [facility] Potassium Chloride 20 meq 07/30/22 09:00 Potassium Chloride 20 Meq Tab PO DAILY [facility] Rosuvastatin Calcium 10 mg 07/30/22 09:00 Rosuvastatin Calcium 10 Mg Tablet PO DAILY [facility] Spironolactone 25 mg 07/29/22 21:00 Spironolactone 25 Mg Tablet PO BID [facility] Tamsulosin HCl 0.4 mg 07/30/22 09:00 Tamsulosin Hcl 0.4 Mg Cap.Er.24h PO DAILY [facility] Warfarin Sodium 4 mg 07/30/22 09:00 Warfarin Sodium 2 Mg Tablet PO DAILY [facility] Discontinued Medications Generic Name Dose Route Start Last Admin Trade Name Freq PRN Reason Stop Dose Admin Dexamethasone Sodium Phosphate 4 mg 07/29/22 17:58 07/29/22 18:25 Dexamethasone Sod Phos 4 Mg/Ml Inj IM 07/29/22 17:59 4 mg ONCE STA Administration Ketorolac Tromethamine 15 mg 07/29/22 17:58 07/29/22 18:25 Ketorolac Tromethamine 15 Mg/Ml Vial IVP 07/29/22 17:59 15 mg ONCE STA Administration Non-Formulary Medication 60 mg 07/30/22 09:00 Dexlansoprazole [Dexilant] PO DAILY [facility] Vital Signs: Temp Pulse Resp BP Pulse Ox 07/29/22 16:34 98.0 F 74 18 120/60 99 Discharge Plan Discharge Patient Disposition: ADMITTED INPATIENT Discharge Problem: Self-care deficit in patient living alone, Back pain, Weakness of both legs, Confusion state ED Provider: ANSON DEMPSEY Condition: Fair Physician Progress Note: []
[2022-07-29] MEDS ORDERED: DECADRON IM STA (17:58)
[2022-07-29] MEDS ORDERED: TORADOL IVP STA (17:58)
[2022-07-29 18:18] LABS: BASOPHILS # (AUTO) 0.1 K/uL (0-0.2); BASOPHILS % (AUTO) 0.6 % (0.0-3.0); EOSINOPHILS % (AUTO) 0.4 % (0.0-7.0); HEMATOCRIT 41.7 % (42.0-52.0); HEMOGLOBIN 13.9 g/dl (14.0-18.0); IMMATURE GRANULOCYTE % (AUTO) 0.3 % (0.0-5.0); LYMPHOCYTES # (AUTO) 0.9 K/uL (0.60-3.4); LYMPHOCYTES % (AUTO) 10.2 (10.0-50.0); MEAN CORPUSCULAR HEMOGLOBIN 31.1 pg (27.0-31.0); MEAN CORPUSCULAR HGB CONC 33.3 (31.8-35.4); MEAN CORPUSCULAR VOLUME 93.3 fl (80.0-94.0); MONOCYTES # (AUTO) 1.3 K/uL (0.4-2.0); MONOCYTES % (AUTO) 14.1 (0-10); NEUTROPHILS # (AUTO) 6.7 K/ul (2.0-6.9); NEUTROPHILS % (AUTO) 74.4 % (42.2-75.2); PLATELET COUNT 228 10^3/uL (140-440); RDW COEFFICIENT OF VARIATION 14.2 % (11.6-14.8); RED BLOOD COUNT 4.47 10^6/ul (4.70-6.10); WHITE BLOOD COUNT 9.05 K/ul (4.2-10.2)
[2022-07-29 18:19] LABS: ABG O2 HGB 95.2 % (95-100); ABG PH 7.49 (7.35-7.45); BEecf 2.6 (-2.0-3.0); COHb 2.2 (0.5-1.5); HCO3 25.9 (21-28); MetHb 1.5 (0-1.5); TCO2 26.9 (19-24); tHb 14.2 g/dl (11.7-17.4)
[2022-07-29 18:28] LABS: PROTHROMBIN TIME 19.8 SEC (9.3-11.0)
[2022-07-29 18:32] LABS: ALANINE AMINOTRANSFERASE 55.1 U/L (0-50); ALBUMIN 3.65 g/dL (3.5-5.0); ALKALINE PHOSPHATASE 91.9 U/L (56-119); ASPARTATE AMINO TRANSFERASE 74.7 U/L (17-59); BILIRUBIN,TOTAL 0.91 mg/dL (0.2-1.3); CALCIUM 8.38 mg/dL (8.4-10.2); CARBON DIOXIDE 30.3 mmol/L (22-30.0); CHLORIDE 99.6 mmol/L (98-107); CREATININE 1.1 mg/dL (0.60-1.10); GLUCOSE 129.7 mg/dL (74-106); POTASSIUM 3.94 mmol/L (3.5-5.1); SODIUM 134.1 mmol/L (134.5-145); TOTAL PROTEIN 6.88 g/dL (6.3-8.2)
[2022-07-29 18:40] LABS: BILIRUBIN,URINE Negative (NEGATIVE); CLARITY,URINE Clear (CLEAR); COLOR,URINE Yellow (YELLOW); GLUCOSE, URINE (UA) Negative (NEGATIVE); KETONES,URINE Negative (NEGATIVE); LEUKOCYTE ESTERASE ,URINE Negative (NEGATIVE); NITRITE,URINE Negative (NEGATIVE); PROTEIN,URINE Negative (NEGATIVE); URINE, BLOOD Negative (NEGATIVE); UROBILINOGEN,URINE 0.2 (0.2)
[2022-07-29 18:43] LABS: TROPONIN I 0.077 ng/ml (0.0000-0.120)
[2022-07-29 18:49] LABS: SARS COV-2 RNA RAPID NAAT NEGATIVE (NEGATIVE)
[2022-07-29] MEDS ORDERED: ZOFRAN 4 MG/2 ML IVP PRN (19:44)
[2022-07-29] MEDS ORDERED: TYLENOL PO PRN (19:44)
[2022-07-29] MEDS ORDERED: NITROSTAT SL PRN (19:50)
[2022-07-29 21:56] VITALS: BMI 21.7
[2022-07-29] MEDS: ALDACTONE PO SCH (22:16)
[2022-07-30] MEDS ORDERED: ATROPINE SULFATE PFS IVP PRN (04:53)
[2022-07-30 05:04] LABS: BASOPHILS % (AUTO) 0.1 % (0.0-3.0); HEMATOCRIT 42.8 % (42.0-52.0); HEMOGLOBIN 14.3 g/dl (14.0-18.0); IMMATURE GRANULOCYTE % (AUTO) 0.4 % (0.0-5.0); LYMPHOCYTES # (AUTO) 0.6 K/uL (0.60-3.4); LYMPHOCYTES % (AUTO) 8.9 (10.0-50.0); MEAN CORPUSCULAR HEMOGLOBIN 30.7 pg (27.0-31.0); MEAN CORPUSCULAR HGB CONC 33.4 (31.8-35.4); MEAN CORPUSCULAR VOLUME 91.8 fl (80.0-94.0); MONOCYTES # (AUTO) 0.2 K/uL (0.4-2.0); MONOCYTES % (AUTO) 3.5 (0-10); NEUTROPHILS % (AUTO) 87.1 % (42.2-75.2); PLATELET COUNT 238 10^3/uL (140-440); RDW COEFFICIENT OF VARIATION 13.9 % (11.6-14.8); RED BLOOD COUNT 4.66 10^6/ul (4.70-6.10); WHITE BLOOD COUNT 6.86 K/ul (4.2-10.2)
[2022-07-30 05:28] LABS: BLOOD UREA NITROGEN 33.6 mg/dL (9-20); CALCIUM 8.84 mg/dL (8.4-10.2); CARBON DIOXIDE 24.7 mmol/L (22-30.0); CHLORIDE 102.6 mmol/L (98-107); CREATININE 0.9 mg/dL (0.60-1.10); GLUCOSE 147.6 mg/dL (74-106); POTASSIUM 4.95 mmol/L (3.5-5.1); SODIUM 134.2 mmol/L (134.5-145)
[2022-07-30 05:32] LABS: CREATINE KINASE < 20.0 U/L (55-170)
--- NOTE | 2022-07-30 07:15 | DI ---
EXAM: CHEST RADIOGRAPH TECHNIQUE: Single frontal chest radiograph. HISTORY: Shortness of breath. COMPARISON: 07/26/2022 FINDINGS: Multiple calcified granulomas are noted. There is improved aeration to the lung bases with resolutio n of effusions. Cardiomegaly with left-sided pacer. The osseous structures are unremarkable. IMPRESSION: 1. Resolution of bilateral effusions. No new abnormality.
[2022-07-30] MEDS ORDERED: [UNRECOGNIZED DRUG - OTHER] PO SCH (09:00)
[2022-07-30] MEDS ORDERED: DEXLANSOPRAZOLE 60 MG PO SCH (09:00)
[2022-07-30] MEDS: K-DUR PO SCH (09:04)
[2022-07-30] MEDS: LIBRAX 5/2.5 MG PO SCH (09:04)
[2022-07-30] MEDS: PROTONIX PO SCH (09:04)
[2022-07-30] MEDS: ALDACTONE PO SCH ×2 (09:04→20:46)
[2022-07-30] MEDS: COZAAR PO SCH (09:04)
[2022-07-30] MEDS: FLOMAX PO SCH (09:04)
[2022-07-30] MEDS: TOPROL XL PO SCH (09:04)
[2022-07-30] MEDS: CRESTOR PO SCH (09:05)
[2022-07-30] MEDS: LASIX TAB PO SCH (09:05)
[2022-07-30] MEDS: DECADRON IVP SCH (09:30)
[2022-07-30] MEDS: ARICEPT PO SCH (12:16)
[2022-07-30 13:12] LABS: CREATINE KINASE < 20.0 U/L (55-170)
[2022-07-30 13:20] LABS: TROPONIN I 0.055 ng/ml (0.0000-0.120)
--- NOTE | 2022-07-30 15:44 | US ---
EXAM: LOWER EXTREMITY VASCULAR ULTRASOUND WITH DOPPLER IMAGING, BILATERAL HISTORY: Bilateral leg pain. Claudication that interferes significantly with the patient's lifestyle . TECHNIQUE: Parsons-scale with color Doppler and spectral Doppler was performed of the bilateral lower ex tremity arteries. Images were obtained and stored in a permanent archive. COMPARISON: None. FINDINGS: RIGHT LOWER EXTREMITY: Common femoral artery: PSV: 113 cm/s. Superficial femoral artery- Proximal: PSV: 86 cm/s. Superficial femoral artery- Distal: PSV: 114 cm/s. Popliteal artery: PSV: 62 cm/s. Posterior tibial artery: PSV: 146 cm/s. Anterior tibial artery: PSV: 8.0 cm/s. Dorsalis pedis artery: PSV: 4.8 cm/s. Waveforms: Common femoral artery: Monophasic. Superficial femoral artery- Proximal: Monophasic. Superficial femoral artery- Distal: Monophasic. Popliteal artery: Monophasic. Posterior tibial artery: Monophasic. Anterior tibial artery: Monophasic. Dorsalis pedis artery: Monophasic. LEFT LOWER EXTREMITY: Common femoral artery: PSV: 54 cm/s. Superficial femoral artery- Proximal: PSV: 54 cm/s. Superficial femoral artery- Distal: PSV: 47 cm/s. Popliteal artery: PSV: 48 cm/s. Posterior tibial artery: PSV: 36 cm/s. Anterior tibial artery: PSV: 6.4 cm/s. Dorsalis pedis artery: PSV: 8.0 cm/s. Waveforms: Common femoral artery: Monophasic. Superficial femoral artery- Proximal: Monophasic. Superficial femoral artery- Distal: Monophasic. Popliteal artery: Monophasic. Posterior tibial artery: Monophasic. Anterior tibial artery: Monophasic. Dorsalis pedis artery: Monophasic. IMPRESSION: 1. Bilaterally. 2. 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
[2022-07-30] MEDS: COUMADIN PO SCH (17:11)
[2022-07-30] MEDS: NAMENDA PO SCH (20:47)
[2022-07-31 05:36] LABS: BASOPHILS % (AUTO) 0.1 % (0.0-3.0); HEMATOCRIT 39.7 % (42.0-52.0); HEMOGLOBIN 13.9 g/dl (14.0-18.0); IMMATURE GRANULOCYTE # (AUTO) 0.1 (0.0-1.0); IMMATURE GRANULOCYTE % (AUTO) 0.4 % (0.0-5.0); LYMPHOCYTES # (AUTO) 0.7 K/uL (0.60-3.4); LYMPHOCYTES % (AUTO) 5.2 (10.0-50.0); MEAN CORPUSCULAR HEMOGLOBIN 31.7 pg (27.0-31.0); MEAN CORPUSCULAR VOLUME 90.6 fl (80.0-94.0); MONOCYTES # (AUTO) 0.9 K/uL (0.4-2.0); MONOCYTES % (AUTO) 6.7 (0-10); NEUTROPHILS # (AUTO) 11.1 K/ul (2.0-6.9); NEUTROPHILS % (AUTO) 87.6 % (42.2-75.2); PLATELET COUNT 263 10^3/uL (140-440); RDW COEFFICIENT OF VARIATION 13.3 % (11.6-14.8); RED BLOOD COUNT 4.38 10^6/ul (4.70-6.10); WHITE BLOOD COUNT 12.66 K/ul (4.2-10.2)
[2022-07-31 05:48] LABS: BLOOD UREA NITROGEN 46.5 mg/dL (9-20); CALCIUM 8.63 mg/dL (8.4-10.2); CHLORIDE 101.1 mmol/L (98-107); CREATININE 1.01 mg/dL (0.60-1.10); GLUCOSE 135.2 mg/dL (74-106); POTASSIUM 4.67 mmol/L (3.5-5.1); SODIUM 131.5 mmol/L (134.5-145)
[2022-07-31] MEDS: PROTONIX PO SCH (05:50)
[2022-07-31] MEDS: LASIX TAB PO SCH (05:50)
[2022-07-31] MEDS: DECADRON IVP SCH (08:57)
[2022-07-31] MEDS: K-DUR PO SCH (08:58)
[2022-07-31] MEDS: CRESTOR PO SCH (08:58)
[2022-07-31] MEDS: ARICEPT PO SCH (08:58)
[2022-07-31] MEDS: LIBRAX 5/2.5 MG PO SCH (08:58)
[2022-07-31] MEDS: FLOMAX PO SCH ×2 (08:58→20:35)
[2022-07-31] MEDS: ALDACTONE PO SCH (08:58)
[2022-07-31] MEDS: TOPROL XL PO SCH (08:59)
[2022-07-31] MEDS: COZAAR PO SCH (08:59)
[2022-07-31] MEDS: DEXTROSE 5%-1/2NS IV SOLUTION 1,000 ML IV SCH (09:47)
--- NOTE | 2022-07-31 11:21 | HP ---
DATE OF SERVICE: 07/29/22 REASON FOR HOSPITALIZATION: Altered mental status Weakness Inability to get up HISTORY OF PRESENT ILLNESS: 81 year old white male who was just discharged from the hospital a few days ago. He was admitted with abdominal pain and CHF. The patient's condition improved and he was discharged home. He called 911 because he was not able to move his legs. When the EMT's arrived he said that he called because he was having pain and noted to be confused. The patient had full labs done which showed mild dehydration and he was noted to be confused but alert. 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 HEENT: Eyes: No visual changes. No eye pain. No eye discharge. ENT: No runny nose. No epistaxis. No sinus pain. No sore throat. No odynophagia. No ear pain. No congestion. RESPIRATORY: Shortness of breath on exertion. CARDIOVASCULAR: No angina symptoms. No CHF symptoms. No atypical chest pain for CAD. No palpitations. No PND. No orthopnea. GASTROINTESTINAL: Appetite seems to be better but not able to eat the way he should because he is not able to cook for himself. No abdominal pain. No nausea or vomiting. No diarrhea or constipation. No hematemesis. No hematochezia. GENITOURINARY: Incontinence of urine. MUSCULOSKELETAL: No musculoskeletal pain. No joint swelling. No arthritis. NEUROLOGICAL: Confused. PSYCHIATRIC: Not anxious. No depression. No suicidal thoughts. No homicidal thoughts. SKIN: No rash. No lesions. No wounds. ENDOCRINE: No unexplained weight loss. No weight gain. HEMATOLOGIC/LYMPHATIC: No anemia. No purpura. No petechiae. No prolonged or excessive bleeding. No palpable lymph nodes. PERSONAL/FAMILY/SOCIAL HISTORY: Patient is and lives by himself. He uses tobacco. No history of smoking. He drinks socially. He usually tries to do all activities of daily living but lately he hasn't been able to do it and neighbors are helping him take care of his meals except for one meal comes from [employer]. MEDICATIONS: Lasix 40 mg PO Q a.m. Aldactone 25 PO twice a day Losartan 25 PO daily Metoprolol 50 BID Nitro glycerin PRN Pantoprazole 40 PO Q a.m. K tab 20 mEq PO daily Rosuvastatin 10 mg PO daily Tamsulosin 0.4 PO daily Coumadin 4 mg PO daily ALLERGIES: None PHYSICAL EXAMINATION: GENERAL: The patient is oriented to person and place. VITAL SIGNS: Temperature 98, pulse 74, respiratory rate 18, blood pressure 120/60, pulse ox 99% on room air. HEENT: Head normocephalic, atraumatic. Eyes: Extraocular muscles are intact. Pupils are equal, round and reactive to light and accommodation. Ears: No lesions. Nose appeared normal. Throat: No exudate or erythema. NECK: Supple. No JVD, no carotid bruit. No lymphadenopathy or thyromegaly. LUNGS: Clear to auscultation. HEART: S1, S2.. Grade 2/6 systolic murmur. No cyanosis or clubbing. No ascites. Pulses: Dorsalis pedis and posterior tibial pulses +1 to +2 bilaterally. ABDOMEN: Soft. Nontender. Bowel sounds active. No ascites. . EXTREMITIES: No pedal edema. Pedal pulses bilaterally. Pigmentation on both legs . NEUROLOGIC: No focal deficit. Cranial nerves II through XII are grossly intact. No headache, no double vision or headache. NON [employer]IC[employer]ED [employer]: Normal. MENTAL STATUS: Normal. SKIN: Dry. Intact. Turgor - normal. LYMPHATIC: No palpable lymph nodes/no lymphedema. MUSCULOSKELETAL: Normal joints with no swelling. Muscle tone is normal. LABS: Creatinine 1.1, BUN 30, hemoglobin 13.9, hematocrit 441, WBC 9,000, normal differential, UA normal. ABG's PO2 96, PCO2 34, PH 7.49 with 98% saturation on room air. Amonia level normal. Chest x-ray showed no effusion. ASSESSMENT: 1. Mental confusion, likely dementia which seems to be worsening 2. Dehydration 3. CHF with fluid retention, resolved, lost 15-16 lbs in past 2-3 weeks during past hospitalization 4. History of pancolitis with e. coli which has resolved ---- syndrome with diarrhea off and on 5. Status post gastrectomy and colectomy 6. Coronary heart disease with stent 1998 and pacemaker placement 7. Atrial fib, on Coumadin 8. Peripheral arterial disease 9. Hypertension 10. Dyslipidemia 11. History of WPW syndrome 12. Esophageal reflux disease 13. BPH 14. Osteoarthritis 15. 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 Hospitalize the patient 2. Push oral fluids 3. Telemetry 4. Start patient on Aricept and Namenda 5. Recent CT scan of the head was negative on last hospitalization 6. Vascular studies 7. Advised patient to be in the long term. Patient has agreed to that. Patient is going to need physical therapy as he is extremely weak. CONDITION: Stable TIME SPENT: More than 75 minutes. MTDD
[2022-07-31] MEDS: COUMADIN PO SCH (17:06)
[2022-07-31] MEDS: NAMENDA PO SCH (20:35)
[2022-08-01] MEDS: DEXTROSE 5%-1/2NS IV SOLUTION 1,000 ML IV SCH (05:03)
[2022-08-01] MEDS: PROTONIX PO SCH (05:41)
[2022-08-01] MEDS: LASIX TAB PO SCH (05:41)
[2022-08-01 05:50] LABS: ALANINE AMINOTRANSFERASE 181.2 U/L (0-50); ALBUMIN 3.29 g/dL (3.5-5.0); ALKALINE PHOSPHATASE 104.7 U/L (56-119); ASPARTATE AMINO TRANSFERASE 159.4 U/L (17-59); BILIRUBIN,TOTAL 0.47 mg/dL (0.2-1.3); BLOOD UREA NITROGEN 51.1 mg/dL (9-20); CALCIUM 8.72 mg/dL (8.4-10.2); CARBON DIOXIDE 25.3 mmol/L (22-30.0); CHLORIDE 100.7 mmol/L (98-107); CREATININE 0.83 mg/dL (0.60-1.10); GLUCOSE 135.4 mg/dL (74-106); POTASSIUM 5.09 mmol/L (3.5-5.1); SODIUM 129.1 mmol/L (134.5-145); TOTAL PROTEIN 6.38 g/dL (6.3-8.2)
[2022-08-01 05:55] LABS: PROTHROMBIN TIME 31.5 SEC (9.3-11.0)
[2022-08-01 06:09] LABS: BASOPHILS % (AUTO) 0.1 % (0.0-3.0); HEMATOCRIT 41.3 % (42.0-52.0); HEMOGLOBIN 14.1 g/dl (14.0-18.0); IMMATURE GRANULOCYTE # (AUTO) 0.1 (0.0-1.0); IMMATURE GRANULOCYTE % (AUTO) 0.6 % (0.0-5.0); LYMPHOCYTES # (AUTO) 0.7 K/uL (0.60-3.4); LYMPHOCYTES % (AUTO) 5.3 (10.0-50.0); MEAN CORPUSCULAR HEMOGLOBIN 30.8 pg (27.0-31.0); MEAN CORPUSCULAR HGB CONC 34.1 (31.8-35.4); MEAN CORPUSCULAR VOLUME 90.2 fl (80.0-94.0); MONOCYTES # (AUTO) 0.8 K/uL (0.4-2.0); MONOCYTES % (AUTO) 5.8 (0-10); NEUTROPHILS # (AUTO) 11.9 K/ul (2.0-6.9); NEUTROPHILS % (AUTO) 88.2 % (42.2-75.2); PLATELET COUNT 274 10^3/uL (140-440); RDW COEFFICIENT OF VARIATION 13.3 % (11.6-14.8); RED BLOOD COUNT 4.58 10^6/ul (4.70-6.10); WHITE BLOOD COUNT 13.48 K/ul (4.2-10.2)
[2022-08-01] MEDS ORDERED: LASIX TAB PO SCH (06:30)
[2022-08-01] MEDS ORDERED: ALDACTONE PO SCH (09:00)
[2022-08-01] MEDS: K-DUR PO SCH (09:53)
[2022-08-01] MEDS: TOPROL XL PO SCH (09:53)
[2022-08-01] MEDS: ARICEPT PO SCH (09:53)
[2022-08-01] MEDS: CRESTOR PO SCH (09:53)
[2022-08-01] MEDS: LIBRAX 5/2.5 MG PO SCH (09:53)
[2022-08-01] MEDS: FLOMAX PO SCH ×2 (09:53→20:24)
[2022-08-01] MEDS: COZAAR PO SCH (09:54)
[2022-08-01] MEDS: DECADRON IVP SCH (09:54)
[2022-08-01] MEDS: LEXAPRO PO SCH (20:23)
[2022-08-01] MEDS: NAMENDA PO SCH (20:23)
[2022-08-02] MEDS: PROTONIX PO SCH (05:54)
[2022-08-02] MEDS: LASIX TAB PO SCH (05:54)
[2022-08-02 06:12] LABS: BASOPHILS % (AUTO) 0.1 % (0.0-3.0); HEMATOCRIT 41.1 % (42.0-52.0); HEMOGLOBIN 14.3 g/dl (14.0-18.0); IMMATURE GRANULOCYTE # (AUTO) 0.1 (0.0-1.0); IMMATURE GRANULOCYTE % (AUTO) 0.7 % (0.0-5.0); LYMPHOCYTES # (AUTO) 0.9 K/uL (0.60-3.4); LYMPHOCYTES % (AUTO) 6.5 (10.0-50.0); MEAN CORPUSCULAR HEMOGLOBIN 31.1 pg (27.0-31.0); MEAN CORPUSCULAR HGB CONC 34.8 (31.8-35.4); MEAN CORPUSCULAR VOLUME 89.3 fl (80.0-94.0); MONOCYTES # (AUTO) 1.1 K/uL (0.4-2.0); MONOCYTES % (AUTO) 8.1 (0-10); NEUTROPHILS # (AUTO) 11.2 K/ul (2.0-6.9); NEUTROPHILS % (AUTO) 84.6 % (42.2-75.2); PLATELET COUNT 290 10^3/uL (140-440); RDW COEFFICIENT OF VARIATION 13.4 % (11.6-14.8); WHITE BLOOD COUNT 13.28 K/ul (4.2-10.2)
[2022-08-02 06:23] LABS: PROTHROMBIN TIME 29.4 SEC (9.3-11.0)
[2022-08-02 06:25] LABS: ALANINE AMINOTRANSFERASE 232.3 U/L (0-50); ALBUMIN 3.42 g/dL (3.5-5.0); ALKALINE PHOSPHATASE 103.6 U/L (56-119); ASPARTATE AMINO TRANSFERASE 171.7 U/L (17-59); BILIRUBIN,TOTAL 0.56 mg/dL (0.2-1.3); BLOOD UREA NITROGEN 56.5 mg/dL (9-20); CALCIUM 8.84 mg/dL (8.4-10.2); CARBON DIOXIDE 25.6 mmol/L (22-30.0); CHLORIDE 98.6 mmol/L (98-107); CREATININE 0.91 mg/dL (0.60-1.10); GLUCOSE 114.3 mg/dL (74-106); POTASSIUM 5.41 mmol/L (3.5-5.1); SODIUM 129.1 mmol/L (134.5-145); TOTAL PROTEIN 6.54 g/dL (6.3-8.2)
[2022-08-02 09:08] LABS: ALBUMIN 3.35 g/dL (3.5-5.0); ALKALINE PHOSPHATASE 102.2 U/L (56-119); ASPARTATE AMINO TRANSFERASE 172.8 U/L (17-59); BILIRUBIN,TOTAL 0.5 mg/dL (0.2-1.3); BLOOD UREA NITROGEN 56.7 mg/dL (9-20); CALCIUM 8.89 mg/dL (8.4-10.2); CARBON DIOXIDE 24.5 mmol/L (22-30.0); CHLORIDE 99.9 mmol/L (98-107); CREATININE 0.88 mg/dL (0.60-1.10); GLUCOSE 115.6 mg/dL (74-106); POTASSIUM 5.45 mmol/L (3.5-5.1); SODIUM 127.6 mmol/L (134.5-145); TOTAL PROTEIN 6.44 g/dL (6.3-8.2)
--- NOTE | 2022-08-02 09:09 | PCM.PROG ---
Attending Provider: ATTENDING PROVIDER: Dr. BASIA KILLIAN MD This patient is seen with Catrachita Menendez, Nurse Practitioner. DATE OF SERVICE: 08/02/22 SUBJECTIVE: This 81 year old /WHITE M was hospitalized 07/29/22. The patient is resting comfortably. BUN and potassium elevated this morning, unsure if this was a lab error. Will repeat CMP. Blood pressure is low 101/47. REVIEW OF SYSTEMS: CONSTITUTIONAL: Weakness. Intermittent confusion. No night sweats. No fatigue, malaise, lethargy. No fever or chills. HEENT: Eyes: No visual changes. No eye pain. No eye discharge. ENT: No runny nose. No epistaxis. No sinus pain. No odynophagia. No congestion. RESPIRATORY: No cough, no congestion. No hemoptysis. No shortness of breath. CARDIOVASCULAR: No angina symptoms. No CHF symptoms. No atypical chest pain for CAD. No palpitations. No orthopnea.. GASTROINTESTINAL: No abdominal pain. No nausea or vomiting. No diarrhea or constipation. No hematemesis. No hematochezia. GENITOURINARY: No urgency. No frequency. No dysuria. No hematuria. No obstructive symptoms. No discharge. No pain. No significant abnormal bleeding. MUSCULOSKELETAL: No musculoskeletal pain; no joint swelling. NEUROLOGICAL: Intermittent confusion. No headache. No neck pain. No syncope. No seizures. No dizziness. PSYCHIATRIC: Not anxious. No depression. No suicidal thoughts. No homicidal thoughts. SKIN: No rash. No lesions. No wounds. ENDOCRINE: No unexplained weight loss. No weight gain. HEMATOLOGIC/LYMPHATIC: No anemia. No purpura. No petechiae. No prolonged or excessive bleeding. No palpable lymph nodes. PHYSICAL EXAMINATION: GENERAL: The patient is awake, intermittent confusion, lying/sitting in bed in no distress. VITAL SIGNS: Temperature 96.3 F, Pulse 63, Respiratory Rate 18, BP 101/47, Pulse Ox 98% HEENT: Head normocephalic, atraumatic. Eyes: Extraocular muscles are intact. Pupils are equal, round and reactive to light and accommodation. Ears: No lesions. Nose appeared normal. Throat: No exudate or erythema. NECK: Supple. No JVD, no carotid bruit. No lymphadenopathy or thyromegaly. LUNGS: Diminished breath sounds. Clear to auscultation. Percussion note normal. Chest symmetrical. HEART: S1, S2, no S3. No murmurs. No cyanosis or clubbing. No ascites. Pulses: Dorsalis pedis and posterior tibial pulses +1 to +2 both sides. ABDOMEN: Soft. Non-tender. Bowel sounds active. No CVA tenderness. No mass felt. EXTREMITIES: No edema. Full range of motion of all extremities, equal. NEUROLOGIC: No focal deficit. Cranial nerves II through XII are grossly intact. No headache. No double vision. SKIN: Not dry. Intact. Turgor-normal. LYMPHATIC: No palpable lymph nodes/no lymphedema. MUSCULOSKELETAL: Normal joints with no swelling. Muscle tone is normal. LAB REVIEW: 08/02/22 05:53 08/02/22 05:53 08/02/22 05:53: PT 29.4 H, INR 2.98 08/02/22 05:53: Sodium 129.1 L, Potassium 5.41 H, Chloride 98.6, Carbon Dioxide 25.6, Anion Gap 10.31, BUN 56.5 H, Creatinine 0.91, Estimated GFR (MDRD) 80.00, BUN/Creatinine Ratio 62.08, Glucose 114.3 H, Calcium 8.84, Total Bilirubin 0.56, AST 171.7 H, ALT 232.3 H D, Alkaline Phosphatase 103.6, Total Protein 6.54, Albumin 3.42 L, Globulin 3.12, Albumin/Globulin Ratio 1.09 08/02/22 05:53: WBC 13.28 H, RBC 4.60 L, Hgb 14.3, Hct 41.1 L, MCV 89.3, MCH 31.1 H, MCHC 34.8, RDW Coeff of Bonnie 13.4, Plt Count 290, Immature Gran % (Auto) 0.7, Neut % (Auto) 84.6 H, Lymph % (Auto) 6.5 L, Kenton % (Auto) 8.1, Eos % (Auto) 0.0, Baso % (Auto) 0.1, Neut # (Auto) 11.2 H, Lymph # (Auto) 0.9, Kenton # (Auto) 1.1, Eos # (Auto) 0.0, Baso # (Auto) 0.0, Immature Gran # (Auto) 0.1 ASSESSMENT: Please see below. 1. Change in mental status. 2. Generalized weakness. 3. Hyperkalemia. 4. Renal azotemia. 5. Hypotension. PLAN: 1. Hold potassium 2. Hold Aldactone 3. Hold Metoprolol this a.m. 4. Hold Coumadin. 5. Repeat CMP - call Catrachita with results. Plan and coordination of the patient's care discussed in the presence of Rn Advanced and nurse. CONDITION: Stable TIME SPENT: 35 MINUTES SCRIBED BY: Willis GREENE scribed while in presence of service performed by Catrachita Menendez APRN on 08/02/22 ([id number])
[2022-08-02] MEDS: COZAAR PO SCH (09:18)
[2022-08-02] MEDS: FLOMAX PO SCH ×2 (09:18→20:49)
[2022-08-02] MEDS: CRESTOR PO SCH (09:18)
[2022-08-02] MEDS: LIBRAX 5/2.5 MG PO SCH (09:18)
[2022-08-02] MEDS: ARICEPT PO SCH (09:18)
[2022-08-02] MEDS: K-DUR PO SCH (09:21)
[2022-08-02] MEDS: DECADRON IVP SCH (11:01)
[2022-08-02 11:02] LABS: ALANINE AMINOTRANSFERASE 236.7 U/L (0-50); ALBUMIN 3.49 g/dL (3.5-5.0); ALKALINE PHOSPHATASE 98.9 U/L (56-119); ASPARTATE AMINO TRANSFERASE 160.7 U/L (17-59); BILIRUBIN,TOTAL 0.6 mg/dL (0.2-1.3); BLOOD UREA NITROGEN 57.5 mg/dL (9-20); CALCIUM 8.9 mg/dL (8.4-10.2); CARBON DIOXIDE 26.1 mmol/L (22-30.0); CHLORIDE 98.9 mmol/L (98-107); CREATININE 0.97 mg/dL (0.60-1.10); GLUCOSE 100.7 mg/dL (74-106); POTASSIUM 5.56 mmol/L (3.5-5.1); SODIUM 128.6 mmol/L (134.5-145); TOTAL PROTEIN 6.59 g/dL (6.3-8.2)
--- NOTE | 2022-08-02 11:36 | PN ---
DATE OF SERVICE: 07/30/22 SUBJECTIVE: [id number] male hospitalized with confusion, weakness and dehydration. The patient's condition has improved overnight to some extent. At the present time, he is oriented to time, place and person. He says he is feeling weak with inability to walk. According to him his condition deteriorated a couple of days ago with some back problems. The patient has sciatica, also has peripheral arterial disease. REVIEW OF SYSTEMS: CONSTITUTIONAL: No night sweats. No fatigue, malaise, lethargy. No fever or chills. HEENT: Eyes: No visual changes. No eye pain. No eye discharge. ENT: No runny nose. No epistaxis. No sinus pain. No sore throat. No odynophagia. No congestion. RESPIRATORY: No cough, no congestion. No hemoptysis. No shortness of breath. CARDIOVASCULAR: No angina symptoms. No CHF symptoms. No atypical chest pain for CAD. No palpitations. No PND. No orthopnea. GASTROINTESTINAL: Appetite - says he feels like having lunch early, is hungry. Denies abdominal pain. No nausea or vomiting. No diarrhea or constipation. No hematemesis. No hematochezia. GENITOURINARY: No urgency. No frequency. No dysuria. No hematuria. No obstructive symptoms. No discharge. No pain. No significant abnormal bleeding. MUSCULOSKELETAL: Weakness of the legs. Back pain, mild to moderate. NEUROLOGICAL: No headache. No neck pain. No syncope. No seizures. No dizziness. PSYCHIATRIC: Not anxious. No depression. No suicidal thoughts. No homicidal thoughts. SKIN: No rash. No lesions. No wounds. ENDOCRINE: No unexplained weight loss. No weight gain. HEMATOLOGIC/LYMPHATIC: No anemia. No purpura. No petechiae. No prolonged or excessive bleeding. No palpable lymph nodes. PHYSICAL EXAMINATION: VITAL SIGNS: Temperature 98.4, pulse 70, respiratory rate 16, BP 130/70, pulse ox 98% on room air. HEENT: Head normocephalic, atraumatic. Eyes: Extraocular muscles are intact. Pupils are equal, round and reactive to light and accommodation. Ears: No lesions. Nose appeared normal. Throat: No exudate or erythema. NECK: Supple. No JVD, no carotid bruit. No lymphadenopathy or thyromegaly. LUNGS: Clear to auscultation. Percussion note normal. Chest symmetrical. HEART: S1, S2, no S3. Grade II/ systolic murmur going into axilla. No cyanosis or clubbing. No ascites. Pulses: Dorsalis pedis and posterior tibial pulses +1 to +2 bilaterally. ABDOMEN: Soft. Nontender. Bowel sounds active. No CVA tenderness. No mass felt. EXTREMITIES: No pedal edema. Pulses very feeble bilaterally posterior tibial. Pigmentation of the skin noted from chronic edema. Full range of motion of all extremities, equal. NEUROLOGIC: No focal deficit. Cranial nerves II through XII are grossly intact. No headache. No double vision. SKIN: Not dry. Intact. Turgor - normal. LYMPHATIC: No palpable lymph nodes/no lymphedema. MUSCULOSKELETAL: Normal joints with no swelling. Muscle tone is normal. ASSESSMENT: 1. Confusion with dementia off and on. At the present time, the patient's mental status is clear. 2. Mild dehydration. 3. Noncompliance of medications likely from forgetfulness and living by himself. 4. Nutritional status has declined lately likely because the patient is living alone and depending upon what is brought by the neighbors. 5. The patient also has a pacemaker placement. 6. Coronary artery disease with stent. 7. Peripheral arterial disease. 8. Status post back surgery. 9. Status post gastrectomy. 10. Status post colectomy. PLAN: 1. Put the patient on multiple high protein meals for dumping syndrome. 2. Telemetry. 3. Push oral fluids. 4. Continue to monitor. 5. CBC, CMP. 6. Pacemaker capturing and functioning well. 7. As explained above the nutrition and need for physical therapy. He is to go to the [facility] for 2 to 3 weeks for physical therapy. The patient is agreeable. Will proceed toward putting the patient in the longterm. CONDITION: Stable. TIME SPENT: More than 35 minutes. Plan and coordination of the patient's care discussed in the presence of nurse. CHRISS
[2022-08-02] MEDS ORDERED: KAYEXALATE SUSP PO ONE (11:37)
--- NOTE | 2022-08-02 11:47 | PN ---
DATE OF SERVICE: 07/31/22 SUBJECTIVE: 81-year-old white male hospitalized with altered mental status, weakness, dehydration. The patient's condition seems to have improved. He says he is feeling better, a little more stronger. The appetite seems to have improved. REVIEW OF SYSTEMS: CONSTITUTIONAL: Weakness. No night sweats. No fatigue, malaise, lethargy. No fever or chills. HEENT: Eyes: No visual changes. No eye pain. No eye discharge. ENT: No runny nose. No epistaxis. No sinus pain. No sore throat. No odynophagia. No congestion. RESPIRATORY: No cough, no congestion. No hemoptysis. No shortness of breath. CARDIOVASCULAR: No angina symptoms. No CHF symptoms. No atypical chest pain for CAD. No palpitations. No PND. No orthopnea. GASTROINTESTINAL: No abdominal pain. No nausea or vomiting. No diarrhea or constipation. No hematemesis. No hematochezia. GENITOURINARY: No urgency. No frequency. No dysuria. No hematuria. No obstructive symptoms. No discharge. No pain. No significant abnormal bleeding. MUSCULOSKELETAL: No musculoskeletal pain; no joint swelling. NEUROLOGICAL: No headache. No neck pain. No syncope. No seizures. No dizziness. PSYCHIATRIC: Not anxious. No depression. No suicidal thoughts. No homicidal thoughts. SKIN: No rash. No lesions. No wounds. ENDOCRINE: No unexplained weight loss. No weight gain. HEMATOLOGIC/LYMPHATIC: No anemia. No purpura. No petechiae. No prolonged or excessive bleeding. No palpable lymph nodes. PHYSICAL EXAMINATION: GENERAL: The patient is oriented to time, place and person, lying/sitting in bed in no distress. VITAL SIGNS: Temperature 96.4, pulse 60, respiratory rate 16, BP 100/40, pulse ox 98% on room air. HEENT: Head normocephalic, atraumatic. Eyes: Extraocular muscles are intact. Pupils are equal, round and reactive to light and accommodation. Ears: No lesions. Nose appeared normal. Throat: No exudate or erythema. NECK: Supple. No JVD, no carotid bruit. No lymphadenopathy or thyromegaly. LUNGS: Decreased breath sounds but clear to auscultation. Percussion note normal. Chest symmetrical. HEART: S1, S2, Grade II/ systolic murmur going to axilla. No cyanosis or clubbing. No ascites. Pulses: Dorsalis pedis and posterior tibial pulses +1 to +2 bilaterally. ABDOMEN: Soft. Nontender. Bowel sounds active. No CVA tenderness. No mass felt. EXTREMITIES: No edema. Feeble pulses. Full range of motion of all extremities, equal. NEUROLOGIC: No focal deficit. Cranial nerves II through XII are grossly intact. No headache. No double vision. SKIN: Not dry. Intact. Turgor - normal. LYMPHATIC: No palpable lymph nodes/no lymphedema. MUSCULOSKELETAL: Normal joints with no swelling. Muscle tone is normal. ASSESSMENT: 1. Mental status seems to have improved. He is oriented to time, place and person. [facility]. 2. Dehydration still persists by Creatinine 1.01, BUN 46. 3. History of CHF with fluid retention resolved. 4. Coronary artery disease with stent more than 20 years ago. 5. Pacemaker seems to be capturing and functioning well. PLAN: 1. Give IV fluids 1000 cc D5 1/2 NS at 50 cc/hr rate. 2. Advised the patient to drink fluids. 3. The patient is on small meals, multiple high protein. 4. Increase Flomax to .4 twice a day because of evidence of urine. 5. Decrease Lasix to 20 mg p.o. daily. 6. Decrease the Aldactone to 25 mg one a day. 7. Will start Aricept 5 mg p.o. q.a.m. and 10 mg Namenda one at night. His condition is otherwise stable. TIME SPENT: More than 35 minutes. Plan and coordination of the patient's care discussed in the presence of nurse. CHRISS
[2022-08-02] MEDS: SODIUM CHLORIDE 1,000 ML IV SCH (11:54)
--- NOTE | 2022-08-02 13:39 | PN ---
DATE OF SERVICE: 08/01/22 SUBJECTIVE: 81-year-old white male hospitalized with altered mental status and dehydration. The patient's condition seems to have improved to some extent. As usual, right now he is oriented to time, place and person planning to go to the [facility]. REVIEW OF SYSTEMS: CONSTITUTIONAL: No night sweats. No fatigue, malaise, lethargy. No fever or chills. HEENT: Eyes: No visual changes. No eye pain. No eye discharge. ENT: No runny nose. No epistaxis. No sinus pain. No sore throat. No odynophagia. No congestion. RESPIRATORY: No cough, no congestion. No hemoptysis. No shortness of breath. CARDIOVASCULAR: No angina symptoms. No CHF symptoms. No atypical chest pain for CAD. No palpitations. No PND. No orthopnea. GASTROINTESTINAL: Appetite has improved some. No abdominal pain. No nausea or vomiting. No diarrhea or constipation. No hematemesis. No hematochezia. GENITOURINARY: No urgency. No frequency. No dysuria. No hematuria. No obstructive symptoms. No discharge. No pain. No significant abnormal bleeding. MUSCULOSKELETAL: Legs are weak. No musculoskeletal pain; no joint swelling. NEUROLOGICAL: No headache. No neck pain. No syncope. No seizures. No dizziness. PSYCHIATRIC: Not anxious. No depression. No suicidal thoughts. No homicidal thoughts. SKIN: No rash. No lesions. No wounds. ENDOCRINE: No unexplained weight loss. No weight gain. HEMATOLOGIC/LYMPHATIC: No anemia. No purpura. No petechiae. No prolonged or excessive bleeding. No palpable lymph nodes. PHYSICAL EXAMINATION: VITAL SIGNS: Temperature 97.1, pulse 60, respiratory rate 18, blood pressure 90/60, pulse ox 97% on room air. HEENT: Head normocephalic, atraumatic. Eyes: Extraocular muscles are intact. Pupils are equal, round and reactive to light and accommodation. Ears: No lesions. Nose appeared normal. Throat: No exudate or erythema. NECK: Supple. No JVD, no carotid bruit. No lymphadenopathy or thyromegaly. LUNGS: Good air entry. Clear to auscultation. Percussion note normal. Chest symmetrical. HEART: S1, S2, Grade II/ systolic murmur going to the axilla. No cyanosis or clubbing. No ascites. Pulses: Dorsalis pedis and posterior tibial pulses +1 to +2 bilaterally. ABDOMEN: Soft. Nontender. Bowel sounds active. No CVA tenderness. No mass felt. EXTREMITIES: Dark pigmentation in the leg. Feeble pulses. Full range of motion of all extremities, equal. NEUROLOGIC: No focal deficit. Cranial nerves II through XII are grossly intact. No headache. No double vision. SKIN: Not dry. Intact. Turgor - normal. LYMPHATIC: No palpable lymph nodes/no lymphedema. MUSCULOSKELETAL: Normal joints with no swelling. Muscle tone is normal. LABS: Hemoglobin 14.1, hematocrit 41, WBC 13,000, normal differential. Creatinine 0.8, BUN 51, potassium 5. ASSESSMENT: 1. Mental status altered but seems to be somewhat better. Confusion comes and goes. Confusion of very recent memory. The patient is on Namenda and Aricept. 2. Mild depression. The patient is on Lexapro today, started on 5 mg p.o. q.a.m. 3. CHF/fluid overload seems to have resolved. 4. Dehydration with increase in BUN and creatinine from aggressive diuretic therapy. We have already backed off from Lasix and Aldactone. IV fluids 50 cc an hour has been given. Encouraged the patient to eat. 5. Pacemaker - capturing and functioning well. 6. Coronary artery disease - stable. PLAN: 1. As mentioned above. 2. Continue Aricept. 3. Namenda. 4. Lexapro. 5. Lasix. 6. Aldactone both in decreasing dose. 7. The patient is to be up and about. 8. Cardiac markers negative. 9. Telemetry shows pacemaker capturing and sensing well. 10. INR is more than 3. Will hold the Coumadin until INR goes below 2. 11. The patient has been started on Namenda and Aricept for dementia. 12. For depression - Lexapro. 13. Coumadin to be held until INR is less than 2. 14. The patient is waiting to stabilize for [facility] treatment. TIME SPENT: Extensive - 50 minutes Plan and coordination of the patient's care discussed in the presence of nurse. CHRISS
[2022-08-02] MEDS: LEXAPRO PO SCH (20:49)
[2022-08-02] MEDS: NAMENDA PO SCH (20:50)
[2022-08-03] MEDS: SODIUM CHLORIDE 1,000 ML IV SCH ×2 (03:56→21:22)
[2022-08-03] MEDS: PROTONIX PO SCH (05:36)
[2022-08-03 05:38] LABS: BASOPHILS % (AUTO) 0.1 % (0.0-3.0); EOSINOPHILS % (AUTO) 0.1 % (0.0-7.0); HEMATOCRIT 41.3 % (42.0-52.0); IMMATURE GRANULOCYTE # (AUTO) 0.1 (0.0-1.0); IMMATURE GRANULOCYTE % (AUTO) 0.6 % (0.0-5.0); LYMPHOCYTES # (AUTO) 0.8 K/uL (0.60-3.4); LYMPHOCYTES % (AUTO) 8.1 (10.0-50.0); MEAN CORPUSCULAR HEMOGLOBIN 30.6 pg (27.0-31.0); MEAN CORPUSCULAR HGB CONC 33.9 (31.8-35.4); MEAN CORPUSCULAR VOLUME 90.2 fl (80.0-94.0); MONOCYTES # (AUTO) 0.8 K/uL (0.4-2.0); MONOCYTES % (AUTO) 7.7 (0-10); NEUTROPHILS # (AUTO) 8.7 K/ul (2.0-6.9); NEUTROPHILS % (AUTO) 83.4 % (42.2-75.2); PLATELET COUNT 292 10^3/uL (140-440); RDW COEFFICIENT OF VARIATION 13.3 % (11.6-14.8); RED BLOOD COUNT 4.58 10^6/ul (4.70-6.10); WHITE BLOOD COUNT 10.41 K/ul (4.2-10.2)
[2022-08-03 05:47] LABS: PROTHROMBIN TIME 20.6 SEC (9.3-11.0)
[2022-08-03 05:51] LABS: ALANINE AMINOTRANSFERASE 209.8 U/L (0-50); ALBUMIN 3.36 g/dL (3.5-5.0); ASPARTATE AMINO TRANSFERASE 116.7 U/L (17-59); BILIRUBIN,TOTAL 0.55 mg/dL (0.2-1.3); CALCIUM 8.71 mg/dL (8.4-10.2); CARBON DIOXIDE 26.6 mmol/L (22-30.0); CHLORIDE 99.9 mmol/L (98-107); CREATININE 0.98 mg/dL (0.60-1.10); GLUCOSE 126.5 mg/dL (74-106); POTASSIUM 4.88 mmol/L (3.5-5.1); SODIUM 130.7 mmol/L (134.5-145); TOTAL PROTEIN 6.28 g/dL (6.3-8.2)
[2022-08-03 06:00] LABS: BLOOD UREA NITROGEN 61.7 mg/dL (9-20)
[2022-08-03] MEDS: ARICEPT PO SCH (09:21)
[2022-08-03] MEDS: FLOMAX PO SCH ×2 (09:21→21:20)
[2022-08-03] MEDS: CRESTOR PO SCH (09:21)
[2022-08-03] MEDS: COZAAR PO SCH (09:21)
[2022-08-03] MEDS: LIBRAX 5/2.5 MG PO SCH (09:22)
[2022-08-03] MEDS: PREDNISONE PO SCH (09:22)
--- NOTE | 2022-08-03 09:41 | PCM.PROG ---
Attending Provider: ATTENDING PROVIDER: Dr. BASIA KILLIAN MD This patient is seen with Catrachita Menendez, Nurse Practitioner. DATE OF SERVICE: 08/03/22 SUBJECTIVE: This 81 year old /WHITE M was hospitalized 07/29/22. The patient is resting comfortably. Confusion is better. The patient received Kayexylate yesterday. Potassium is normal. BUN slightly elevated still despite IV fluids and discontinuation of IV diuretics. He is ready for placement at skilled nursing as soon as renal status improves. REVIEW OF SYSTEMS: CONSTITUTIONAL: Intermittent confusion, weakness No night sweats. No fatigue, malaise, lethargy. No fever or chills. HEENT: Eyes: No visual changes. No eye pain. No eye discharge. ENT: No runny nose. No epistaxis. No sinus pain. No odynophagia. No congestion. RESPIRATORY: No cough, no congestion. No hemoptysis. No shortness of breath. CARDIOVASCULAR: No angina symptoms. No CHF symptoms. No atypical chest pain for CAD. No palpitations. No orthopnea.. GASTROINTESTINAL: Loss of appetite. No abdominal pain. No nausea or vomiting. No diarrhea or constipation. No hematemesis. No hematochezia. GENITOURINARY: No urgency. No frequency. No dysuria. No hematuria. No obstructive symptoms. No discharge. No pain. No significant abnormal bleeding. MUSCULOSKELETAL: No musculoskeletal pain; no joint swelling. NEUROLOGICAL: Awake, alert, confusion. No headache. No neck pain. No syncope. No seizures. No dizziness. PSYCHIATRIC: Not anxious. No depression. No suicidal thoughts. No homicidal thoughts. SKIN: No rash. No lesions. No wounds. ENDOCRINE: No unexplained weight loss. No weight gain. HEMATOLOGIC/LYMPHATIC: No anemia. No purpura. No petechiae. No prolonged or excessive bleeding. No palpable lymph nodes. PHYSICAL EXAMINATION: GENERAL: The patient is awake, alert and oriented to person and place, lying/sitting in bed in no distress. VITAL SIGNS: Temperature 97.1 F, Pulse 75, Respiratory Rate 18, BP 121/65, Pulse Ox 97% HEENT: Head normocephalic, atraumatic. Eyes: Extraocular muscles are intact. Pupils are equal, round and reactive to light and accommodation. Ears: No lesions. Nose appeared normal. Throat: No exudate or erythema. NECK: Supple. No JVD, no carotid bruit. No lymphadenopathy or thyromegaly. LUNGS: Diminished breath sounds. Clear to auscultation. Percussion note normal. Chest symmetrical. HEART: S1, S2, no S3. No murmurs. No cyanosis or clubbing. No ascites. Pulses: Dorsalis pedis and posterior tibial pulses +1 to +2 both sides. ABDOMEN: Soft. Non-tender. Bowel sounds active. No CVA tenderness. No mass felt. EXTREMITIES: No edema. Full range of motion of all extremities, equal. NEUROLOGIC: No focal deficit. Cranial nerves II through XII are grossly intact. No headache. No double vision. SKIN: Not dry. Intact. Turgor-normal. LYMPHATIC: No palpable lymph nodes/no lymphedema. MUSCULOSKELETAL: Normal joints with no swelling. Muscle tone is normal. LAB REVIEW: 08/03/22 05:22 08/03/22 05:22 08/03/22 05:22: Sodium 130.7 L, Potassium 4.88, Chloride 99.9, Carbon Dioxide 26.6, Anion Gap 9.08, BUN 61.7 H*, Creatinine 0.98, Estimated GFR (MDRD) 73.00, BUN/Creatinine Ratio 62.95, Glucose 126.5 H, Calcium 8.71, Total Bilirubin 0.55, AST 116.7 H D, ALT 209.8 H, Alkaline Phosphatase 93.0, Total Protein 6.28 L, Al bumin 3.36 L, Globulin 2.92, Albumin/Globulin Ratio 1.15 08/03/22 05:22: WBC 10.41 H, RBC 4.58 L, Hgb 14.0, Hct 41.3 L, MCV 90.2, MCH 30.6, MCHC 33.9, RDW Coeff of Bonnie 13.3, Plt Count 292, Immature Gran % (Auto) 0 .6, Neut % (Auto) 83.4 H, Lymph % (Auto) 8.1 L, [place] % (Auto) 7.7, Eos % (Auto) 0.1, Baso % (Auto) 0.1, Neut # (Auto) 8.7 H, Lymph # (Auto) 0.8, [place] # (Auto) 0.8, Eos # (Auto) 0.0, Baso # (Auto) 0.0, Immature Gran # (Auto) 0.1 08/03/22 05:22: PT 20.6 H D, INR 2.05 08/02/22 10:34: Sodium 128.6 L, Potassium 5.56 H, Chloride 98.9, Carbon Dioxide 26.1, Anion Gap 9.16, BUN 57.5 H, Creatinine 0.97, Estimated GFR (MDRD) 74.00, BUN/Creatinine Ratio 59.27, Glucose 100.7, Calcium 8.90, Total Bilirubin 0.60, AST 160.7 H, ALT 236.7 H, Alkaline Phosphatase 98.9, Total Protein 6.59, Albumin 3.49 L, Globulin 3.10, Albumin/Globulin Ratio 1.12 08/02/22 05:53: Sodium 127.6 L, Potassium 5.45 H, Chloride 99.9, Carbon Dioxide 24.5, Anion Gap 8.65, BUN 56.7 H, Creatinine 0.88, Estimated GFR (MDRD) 83.00, BUN/Creatinine Ratio 64.43, Glucose 115.6 H, Calcium 8.89, Total Bilirubin 0.50, AST 172.8 H, ALT 235.0 H, Alkaline Phosphatase 102.2, Total Protein 6.44, Albumin 3.35 L, Globulin 3.09, Albumin/Globulin Ratio 1.08 ASSESSMENT: Please see below. 1. Renal azotemia 2. Generalized weakness 3. Hyponatremia PLAN: 1. Discontinue Decadron 2. Prednisone 10 mg p.o. daily 3. Discontinue potassium 4. Restart Coumadin 5. Continue IV fluids Plan and coordination of the patient's care discussed in the presence of Divisional Merchandising Manager and nurse. TIME SPENT: 35 MINUTES CONDITION: Stable SCRIBED BY: Willis GREENE scribed while in presence of service performed by Catrachita Menendez APRN on 08/03/22 ([id number])
--- NOTE | 2022-08-03 15:39 | PN ---
DATE OF SERVICE: 08/02/22 SUBJECTIVE: The patient was seen and examined with the nurse practitioner. The patient was admitted with change in mental status, weakness. His present problems are hyponatremia and hyperkalemia. The patient is going to be taken off Lasix and Aldactone completely and to be given IV 1000 cc NS at 60 cc/hr and Kayexylate. He is waiting to go to assisted. TIME SPENT: More than 35 minutes. Plan and coordination of the patient's care discussed in the presence of nurse. CHRISS
[2022-08-03] MEDS: COUMADIN PO SCH (17:27)
[2022-08-03] MEDS: NAMENDA PO SCH (21:20)
[2022-08-03] MEDS: LEXAPRO PO SCH (21:21)
[2022-08-04] MEDS: PROTONIX PO SCH (05:50)
[2022-08-04 06:53] LABS: BASOPHILS % (AUTO) 0.1 % (0.0-3.0); EOSINOPHILS % (AUTO) 0.3 % (0.0-7.0); HEMOGLOBIN 13.6 g/dl (14.0-18.0); IMMATURE GRANULOCYTE # (AUTO) 0.1 (0.0-1.0); IMMATURE GRANULOCYTE % (AUTO) 0.5 % (0.0-5.0); LYMPHOCYTES # (AUTO) 0.9 K/uL (0.60-3.4); LYMPHOCYTES % (AUTO) 7.6 (10.0-50.0); MEAN CORPUSCULAR HEMOGLOBIN 30.7 pg (27.0-31.0); MEAN CORPUSCULAR VOLUME 90.3 fl (80.0-94.0); MONOCYTES # (AUTO) 1.3 K/uL (0.4-2.0); MONOCYTES % (AUTO) 10.7 (0-10); NEUTROPHILS # (AUTO) 9.5 K/ul (2.0-6.9); NEUTROPHILS % (AUTO) 80.8 % (42.2-75.2); PLATELET COUNT 279 10^3/uL (140-440); RDW COEFFICIENT OF VARIATION 13.5 % (11.6-14.8); RED BLOOD COUNT 4.43 10^6/ul (4.70-6.10); WHITE BLOOD COUNT 11.74 K/ul (4.2-10.2)
[2022-08-04 07:05] LABS: ALANINE AMINOTRANSFERASE 184.9 U/L (0-50); ALBUMIN 2.93 g/dL (3.5-5.0); ALKALINE PHOSPHATASE 81.7 U/L (56-119); ASPARTATE AMINO TRANSFERASE 97.7 U/L (17-59); BILIRUBIN,TOTAL 0.56 mg/dL (0.2-1.3); BLOOD UREA NITROGEN 52.2 mg/dL (9-20); CALCIUM 8.06 mg/dL (8.4-10.2); CARBON DIOXIDE 22.8 mmol/L (22-30.0); CHLORIDE 105.6 mmol/L (98-107); CREATININE 0.77 mg/dL (0.60-1.10); GLUCOSE 88.9 mg/dL (74-106); POTASSIUM 4.24 mmol/L (3.5-5.1); SODIUM 132.3 mmol/L (134.5-145); TOTAL PROTEIN 5.65 g/dL (6.3-8.2)
[2022-08-04] MEDS: FLOMAX PO SCH ×2 (08:53→20:28)
[2022-08-04] MEDS: CRESTOR PO SCH (08:53)
[2022-08-04] MEDS: PREDNISONE PO SCH (08:54)
[2022-08-04] MEDS: LIBRAX 5/2.5 MG PO SCH (08:54)
[2022-08-04] MEDS: COZAAR PO SCH (08:54)
[2022-08-04] MEDS: ARICEPT PO SCH (08:54)
[2022-08-04] MEDS: SODIUM CHLORIDE 1,000 ML IV SCH (14:11)
[2022-08-04] MEDS: COUMADIN PO SCH (16:44)
[2022-08-04] MEDS: NAMENDA PO SCH (20:28)
[2022-08-04] MEDS: LEXAPRO PO SCH (20:28)
[2022-08-04 21:02] VITALS: TEMP 97.3
[2022-08-05 05:20] VITALS: BP 119/64
[2022-08-05] MEDS: PROTONIX PO SCH (05:35)
[2022-08-05] MEDS: SODIUM CHLORIDE 1,000 ML IV SCH (05:36)
[2022-08-05 05:55] LABS: BASOPHILS % (AUTO) 0.1 % (0.0-3.0); EOSINOPHILS % (AUTO) 0.2 % (0.0-7.0); HEMATOCRIT 38.3 % (42.0-52.0); IMMATURE GRANULOCYTE # (AUTO) 0.1 (0.0-1.0); IMMATURE GRANULOCYTE % (AUTO) 0.6 % (0.0-5.0); LYMPHOCYTES % (AUTO) 5.2 (10.0-50.0); MEAN CORPUSCULAR HGB CONC 33.9 (31.8-35.4); MEAN CORPUSCULAR VOLUME 91.2 fl (80.0-94.0); MONOCYTES % (AUTO) 10.8 (0-10); NEUTROPHILS # (AUTO) 15.3 K/ul (2.0-6.9); NEUTROPHILS % (AUTO) 83.1 % (42.2-75.2); PLATELET COUNT 251 10^3/uL (140-440); RDW COEFFICIENT OF VARIATION 13.4 % (11.6-14.8); WHITE BLOOD COUNT 18.42 K/ul (4.2-10.2)
[2022-08-05 06:09] LABS: PROTHROMBIN TIME 21.4 SEC (9.3-11.0)
[2022-08-05 06:11] LABS: ALANINE AMINOTRANSFERASE 151.9 U/L (0-50); ALBUMIN 2.86 g/dL (3.5-5.0); ALKALINE PHOSPHATASE 92.5 U/L (56-119); ASPARTATE AMINO TRANSFERASE 66.6 U/L (17-59); BILIRUBIN,TOTAL 0.54 mg/dL (0.2-1.3); BLOOD UREA NITROGEN 47.3 mg/dL (9-20); CALCIUM 8.01 mg/dL (8.4-10.2); CARBON DIOXIDE 26.4 mmol/L (22-30.0); CHLORIDE 105.1 mmol/L (98-107); CREATININE 0.88 mg/dL (0.60-1.10); GLUCOSE 97.2 mg/dL (74-106); POTASSIUM 4.57 mmol/L (3.5-5.1); SODIUM 132.3 mmol/L (134.5-145); TOTAL PROTEIN 5.51 g/dL (6.3-8.2)
[2022-08-05] MEDS: FLOMAX PO SCH (09:18)
[2022-08-05] MEDS: CRESTOR PO SCH (09:18)
[2022-08-05] MEDS: LIBRAX 5/2.5 MG PO SCH (09:19)
[2022-08-05] MEDS: COZAAR PO SCH (09:19)
[2022-08-05] MEDS: ARICEPT PO SCH (09:19)
[2022-08-05] MEDS: PREDNISONE PO SCH (09:19)
--- NOTE | 2022-08-05 09:40 | PCM.PROG ---
Attending Provider: ATTENDING PROVIDER: Dr. BASIA KILLIAN MD This patient is seen with Catrachita Menendez, Nurse Practitioner. DATE OF SERVICE: 08/05/22 SUBJECTIVE: This 81 year old /WHITE M was hospitalized 07/29/22. The patient is resting comfortably in bed. INR 2.1 today. The patient is ready to be discharged to [place] and is still agreeable to go. BUN improving. Liver enzymes improving. Denies pain. He is alert and oriented. Will possible discharge today or tomorrow. REVIEW OF SYSTEMS: CONSTITUTIONAL: Weakness. No night sweats. No fatigue, malaise, lethargy. No fever or chills. HEENT: Eyes: No visual changes. No eye pain. No eye discharge. ENT: No runny n ose. No epistaxis. No sinus pain. No odynophagia. No congestion. RESPIRATORY: No cough, no congestion. No hemoptysis. No shortness of breath. CARDIOVASCULAR: No angina symptoms. No CHF symptoms. No atypical chest pain for CAD. No palpitations. No orthopnea.. GASTROINTESTINAL: No abdominal pain. No nausea or vomiting. No diarrhea or constipation. No hematemesis. No hematochezia. GENITOURINARY: No urgency. No frequency. No dysuria. No hematuria. No obstructive symptoms. No discharge. No pain. No significant abnormal bleeding. MUSCULOSKELETAL: Leg pain. No joint swelling. NEUROLOGICAL: Awake, alert, oriented to time, place and person. No headache. No neck pain. No syncope. No seizures. No dizziness. PSYCHIATRIC: Not anxious. No depression. No suicidal thoughts. No homicidal thoughts. SKIN: No rash. No lesions. No wounds. ENDOCRINE: No unexplained weight loss. No weight gain. HEMATOLOGIC/LYMPHATIC: No anemia. No purpura. No petechiae. No prolonged or excessive bleeding. No palpable lymph nodes. PHYSICAL EXAMINATION: GENERAL: The patient is awake, alert and oriented, lying/sitting in bed in no distress. VITAL SIGNS: Temperature 97.3 F, Pulse 67, Respiratory Rate 15, BP 119/64, Pulse Ox 97% HEENT: Head normocephalic, atraumatic. Eyes: Extraocular muscles are intact. Pupils are equal, round and reactive to light and accommodation. Ears: No lesions. Nose appeared normal. Throat: No exudate or erythema. NECK: Supple. No JVD, no carotid bruit. No lymphadenopathy or thyromegaly. LUNGS: Diminished breath sounds. Clear to auscultation. Percussion note normal. Chest symmetrical. HEART: S1, S2, no S3. No murmurs. No cyanosis or clubbing. No ascites. Pulses: Dorsalis pedis and posterior tibial pulses +1 to +2 both sides. ABDOMEN: Soft. Non-tender. Bowel sounds active. No CVA tenderness. No mass felt. EXTREMITIES: No edema. Full range of motion of all extremities, equal. NEUROLOGIC: No focal deficit. Cranial nerves II through XII are grossly intact. No headache. No double vision. SKIN: Not dry. Intact. Turgor-normal. LYMPHATIC: No palpable lymph nodes/no lymphedema. MUSCULOSKELETAL: Normal joints with no swelling. Muscle tone is normal. LAB REVIEW: 08/05/22 05:41 08/05/22 05:41 08/05/22 05:41: Sodium 132.3 L, Potassium 4.57, Chloride 105.1, Carbon Dioxide 26.4, Anion Gap 5.37, BUN 47.3 H, Creatinine 0.88, Estimated GFR (MDRD) 83.00, BUN/Creatinine Ratio 53.75, Glucose 97.2, Calcium 8.01 L, Total Bilirubin 0.54, AST 66.6 H D, ALT 151.9 H D, Alkaline Phosphatase 92.5, Total Protein 5.51 L, Albumin 2.86 L, Globulin 2.65, Albumin/Globulin Ratio 1.07 08/05/22 05:41: WBC 18.42 H D, RBC 4.20 L, Hgb 13.0 L, Hct 38.3 L, MCV 91.2, MCH 31.0, MCHC 33.9, RDW Coeff of Bonnie 13.4, Plt Count 251, Immature Gran % (Auto) 0.6, Neut % (Auto) 83.1 H, Lymph % (Auto) 5.2 L, [place] % (Auto) 10.8 H, Eos % (Auto) 0.2, Baso % (Auto) 0.1, Neut # (Auto) 15.3 H, Lymph # (Auto) 1.0, [place] # (Auto) 2.0, Eos # (Auto) 0.0, Baso # (Auto) 0.0, Immature Gran # (Auto) 0.1 08/05/22 05:41: PT 21.4 H, INR 2.14 ASSESSMENT: Please see below. 1. Renal azotemia 2. Generalized weakness 3. Hyponatremia PLAN: 1. Possible discharge today to [facility]. 2. Prednisone 10 mg daily times 3 days. 3. All medications to continue. 4. The patient should not receive pain medication other than Tylenol. 5. Do not give Lasix, Aldactone or potassium. 6. CBC and CMP in one week. 7. Resume Coumadin. 8. INR in one week. Plan and coordination of the patient's care discussed in the presence of Appliance Tester and nurse. CONDITION: Stable TIME SPENT: 35 MINUTES SCRIBED BY: Willis GREENE scribed while in presence of service performed by Catrachita Menendez APRN on 08/05/22 ([id number])
--- NOTE | 2022-08-05 14:24 | PN ---
DATE OF SERVICE: 08/03/22 SUBJECTIVE: The patient was seen and examined with the nurse practitioner. The patient's BUN and creatinine is still staying up. He is on IV fluids for the last 2 to 3 days, slow IV fluids not to overload him. His sodium has improved. Potassium is practically normal. The patient is still sleepy, seems to be oriented to time, place and person. TIME SPENT: More than 35 minutes. Plan and coordination of the patient's care discussed in the presence of nurse. CHRISS
--- NOTE | 2022-08-05 15:10 | PN ---
DATE OF SERVICE: 08/04/22 SUBJECTIVE: 81-year-old white male hospitalized with change in mental status along with dehydration, weakness. The patient's condition is improved. The patient's sodium is much better, potassium is back to normal. BUN is going down. First time it is from 61 yesterday down to 53. PHYSICAL EXAMINATION: GENERAL: The patient seems to be more alert but sleepy, oriented to time, place and person. HEENT: Head normocephalic, atraumatic. Eyes: Extraocular muscles are intact. Pupils are equal, round and reactive to light and accommodation. Ears: No lesions. Nose appeared normal. Throat: No exudate or erythema. NECK: Supple. No JVD, no carotid bruit. No lymphadenopathy or thyromegaly. LUNGS: Decreased breath sounds but clear to auscultation. Percussion note normal. Chest symmetrical. HEART: S1, S2, no S3. No murmurs. No cyanosis or clubbing. No ascites. Pulses: Dorsalis pedis and posterior tibial pulses +1 to +2 bilaterally. ABDOMEN: Soft. Nontender. Bowel sounds active. No CVA tenderness. No mass felt. EXTREMITIES: No edema noted. Full range of motion of all extremities, equal. NEUROLOGIC: No focal deficit. Cranial nerves II through XII are grossly intact. No headache. No double vision. SKIN: Not dry. Intact. Turgor - normal. LYMPHATIC: No palpable lymph nodes/no lymphedema. MUSCULOSKELETAL: Normal joints with no swelling. Muscle tone is normal. ASSESSMENT: 1. Mental status has improved some but still the patient has dementia. 2. Weakness - the patient is still sleepy, hasn't walked any. PLAN: 1. The patient is going to be discharged to the [facility] very likely tomorrow and he will go through physical therapy, PT/OT. 2. The patient needs to improve his nutritional status. His appetite seems to have improved. CONDITION: Otherwise stable. The patient is DNR. TIME SPENT: More than 35 minutes. Plan and coordination of the patient's care discussed in the presence of nurse. CHRISS
--- NOTE | 2022-08-06 06:35 | DS ---
DATE OF SERVICE: 08/05/22 FINAL DIAGNOSIS: 1. MENTAL CONFUSION LIKELY FROM DEMENTIA 2. DEHYDRATION RESOLVED 3. HISTORY OF FLUID RETENTION, GAINED 5 LBS IN THE PAST 6 WEEKS 4. HISTORY OF PANCOLITIS WITH E.COLI, RESOLVED 5. STATUS POST GASTRECTOMY AND COLECTOMY 6. GASTRECTOMY WAS DONE BECAUSE OF GI BLEED 7. CORONARY ARTERY DISEASE WITH STENT 1998 8. PACEMAKER PLACEMENT 9. ATRIAL FIBRILLATION, UNDERLYING RHYTHM 10. PERIPHERAL ARTERIAL DISEASE 11. HYPERTENSION 12. 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 GASTROESOPHAGEAL REFLUX DISEASE 15. TOBACCO CHEWING 16. BPH 17. GENERALIZED SEVERE OSTEOARTHRITIS STATUS POST BACK SURGERY BY PAIN MANAGEMENT The patient has declined any GI workup in the way of EGD or colonoscopy. The patient is DNR. DISCHARGE INSTRUCTIONS: Discharge to [facility] today per Dr. Walden/Catrachita Menendez NP. LABS: INR next Tuesday and after that every four weekly. CMP next Tuesday after that q.two monthly. T4, TSH every 6 months. On discharge hemoglobin 13, hematocrit 38, WBC 18,000, normal differential. Creatinine 0.8, BUN 47, potassium 4.5. MEDICATIONS AT DISCHARGE: Dexilant 60 mg p.o. daily Metoprolol 100 mg p.o. daily Rosuvastatin 10 mg p.o. daily Tamsulosin 0.4 p.o. daily Coumadin 4 mg p.o. daily Nitroglycerin p.r.n. sublingual for chest pain Lasix 20 mg p.o. daily Losartan 25 mg p.o. daily K-Tab 10 mEq p.o. daily Aricept 5 mg p.o.q.a.m Namenda 10 mg p.o. at night Lexapro 10 mg p.o. q.a.m. NEW PRESCRIPTIONS: Aricept 5 mg p.o. daily Lexapro 10 mg p.o. daily Lasix 20 mg p.o. daily Namenda 10 mg p.o. q.p.m. Potassium Chloride 10 mEq p.o. daily Prednisone 10 mg p.o. daily DISCONTINUED MEDICATIONS: Furosemide (Lasix) 40 mg p.o. q.a.m. Potassium Chloride (K-Tab) 20 mEq p.o. daily Aldactone 25 mg p.o. b.i.d. DIET INSTRUCTIONS: Regular, limit salt, small meals with Boost supplement. ACTIVITY: May participate in activites. Fall precautions. SMOKING: N/A DISEASE SPECIFIC EDUCATION: Diet Activity Medications HOSPITAL COURSE: 81-year-old white male hospitalized because of change in the mental status with inability to walk. The patient's condition has deteriorated in the past two months to the point where he has been frequently hospitalized from medical problems but the common thing is mental confusion. The patient lives by himself with the help of neighbors. The patient's mental status improved, his hydration improved. He required some IV fluids during the stay in the hospital because the patient had some electrolyte imbalance likely with Lasix and Aldactone combination. On discharge his potassium and sodium were practically normal. Dehydration status has improved. his appetite has improved. His mental status had improved. Agreed to go to the senior living for PT/OT. The patient is forgetful of recent events. His cardiovascular status is stable. Last echo done a few months ago showed LV contractility, LVH, enlarged LA cavity and moderate mitral regurgitation. TIME SPENT: 70 minutes MTDD
--- NOTE | 2022-08-06 06:37 | PN ---
CODING FOR BILLING 07/29/22 LEVEL 5 THE REST WERE INTERMEDIATE, SOME WERE EXTENSIVE. 08/05/22 DISCHARGE MTDD
== END 2022-08-05 14:35 | DRG 556 ==
LOC: ED 16:32 → MEDSURG A 19:01
PROVIDERS: ADMIT Internal Medicine; ATTEND Internal Medicine
DX: Z95.0 Presence of cardiac pacemaker; R29.898 Other symptoms and signs involving the musculoskeletal system; Z51.81 Encounter for therapeutic drug level monitoring; K21.9 Gastro-esophageal reflux disease without esophagitis; E86.0 Dehydration; I25.10 Atherosclerotic heart disease of native coronary artery without angina pectoris; Z60.2 Problems related to living alone; I95.9 Hypotension, unspecified; Z95.5 Presence of coronary angioplasty implant and graft; E78.5 Hyperlipidemia, unspecified; E63.9 Nutritional deficiency, unspecified; E87.1 Hypo-osmolality and hyponatremia; E87.70 Fluid overload, unspecified; E87.5 Hyperkalemia; Z79.01 Long term (current) use of anticoagulants; I50.9 Heart failure, unspecified; R79.89 Other specified abnormal findings of blood chemistry; I48.91 Unspecified atrial fibrillation; Z79.899 Other long term (current) drug therapy; M54.9 Dorsalgia, unspecified; I11.0 Hypertensive heart disease with heart failure; F32.A Depression, unspecified; M19.90 Unspecified osteoarthritis, unspecified site; I73.9 Peripheral vascular disease, unspecified; F44.89 Other dissociative and conversion disorders; Z90.3 Acquired absence of stomach [part of]

== ENCOUNTER 2022-09-02 12:20 | Inpatient (IN) ==
[2022-09-02] MEDS ORDERED: SODIUM CHLORIDE 1,000 ML IV STA ×2 (12:41→13:42)
--- NOTE | 2022-09-02 12:46 | ED.PDOC ---
General ED Provider: Dr. NU ARDON MD Chief Complaint: Abnormal Labs Stated Complaint: NH pt presents w/ hx abnormal labs and generalized weakness today, no fever, no injury, poor historian, no rash, hx pacer, ckd, htn, dnr Time Seen by Provider: 09/02/22 12:35 Mode of Arrival: Ambulance Information Source: Patient, Halfway and EMT Primary Care Provider: BASIA WALDEN MD Nursing and Triage Documentation Reviewed and Agree: Yes Does patient meet sepsis criteria?: No System Inflammatory Response Syndrome: Not Applicable Sepsis Protocol: For patient's 13 years and over: Temp is 96.8 and below OR 101 and greater Pulse >90 BPM Resp >20/minute Acutely Altered Mental Status Are patient's symptoms suggestive of a new infection, such as: -Pneumonia -Skin, Soft Tissue -Endocarditis -UTI -Bone, Joint Infection -Implantable Device -Acute Abdominal Infection -Wound Infection -Meningitis -Blood Stream Catheter Infection -Unknown Review of Systems Review Of Systems Constitutional: Reports Malaise; Denies Fever Eyes: Denies Vision change Ears, Nose, Mouth, Throat: Denies Throat pain Respiratory: Reports Short of air; Denies Cough or Stridor Cardiac: Denies Chest pain GI: Denies Abdominal pain or Vomiting : Denies Burning Musculoskeletal: Denies Neck pain Skin: Denies Rash or Cyanosis Neurological: Reports Cognitive dysfunction All Other Systems: Other [facility] Medical History (Updated 09/02/22 @ 14:31 by NU ARDON MD) Afib Arthritis BPH (benign prostatic hyperplasia) Bursitis of left shoulder CKD (chronic kidney disease), stage II Congestive heart disease Degenerative joint disease of spine Dyslipidemia Erectile dysfunction GERD (gastroesophageal reflux disease) H/O septic shock Hypertension Mitral regurgitation Pacemaker PAD (peripheral artery disease) Presence of stent in coronary artery in patient with coronary artery disease Shoulder pain, left Shoulder weakness Vitamin B12 deficiency WPW (Lqzzf-Httzoxzcu-Txkws syndrome) Family History FATHER Hypertension Mother Hypertension Social History Smoking and tobacco status: Never smoker Smokeless tobacco user: chewing tobacco and snuff Quit status: not considering quitting Alcohol intake: former Surgical History (Updated 07/23/22 @ 11:50 by JAZMYNE MERRITT, RN) S/P partial glossectomy Physical Exam Physical Exam Appearance: Reports Ill-appearing Ill-appearing: Mild Pain Distress: None Eyes: Reports CHAYO, EOMI and Conjunctiva clear ENT: Reports Oropharynx normal Neck: Supple Respiratory: Reports Airway patent, Breath sounds clear and Breath sounds equal Cardiovascular: Reports RRR GI/: Reports Soft and Nontender Musculoskeletal: Reports No edema Skin: Reports Warm and Dry Neurological: Reports Cranial nerves intact and Alert Psychiatric: Reports Affect appropriate Interpretation Radiology Interpretation Radiology Interpretation By: Radiologist Exam Interpreted: CXR Xray Comments: +infil of left lower lobe EKG Interpretation Time of EKG #1: 14:29 Interpretation: V paced 64 Critical Care Note Critical Care Note Total Critical Care Time (mins): 0 Course Course Hematology/Chemistry: 09/02/22 12:54 09/02/22 12:54 Orders, Labs, Meds: Lab Review 09/02/22 09/02/22 09/02/22 12:54 12:54 12:54 WBC 15.32 H RBC 3.45 L Hgb 10.6 L Hct 31.0 L MCV 89.9 MCH 30.7 MCHC 34.2 RDW Coeff of Bonnie 14.3 Plt Count 292 Immature Gran % (Auto) 0.4 Neut % (Auto) 84.0 H Lymph % (Auto) 6.7 L [place] % (Auto) 8.7 Eos % (Auto) 0.1 Baso % (Auto) 0.1 Neut # (Auto) 12.9 H Lymph # (Auto) 1.0 [place] # (Auto) 1.3 Eos # (Auto) 0.0 Baso # (Auto) 0.0 Immature Gran # (Auto) 0.1 PT 22.7 H INR 2.27 Sodium 131.0 L Potassium 3.85 Chloride 100.8 Carbon Dioxide 26.4 Anion Gap 7.65 BUN 26.2 H Creatinine 1.00 Estimated GFR (MDRD) 71.00 BUN/Creatinine Ratio 26.20 Glucose 111.7 H Lactic Acid Calcium 7.82 L Total Bilirubin 0.51 AST 51.6 ALT 52.2 H Alkaline Phosphatase 106.3 Troponin I 0.107 Total Protein 5.32 L Albumin 2.52 L Globulin 2.80 Albumin/Globulin Ratio 0.90 09/02/22 12:54 WBC RBC Hgb Hct MCV MCH MCHC RDW Coeff of Bonnie Plt Count Immature Gran % (Auto) Neut % (Auto) Lymph % (Auto) [place] % (Auto) Eos % (Auto) Baso % (Auto) Neut # (Auto) Lymph # (Auto) [place] # (Auto) Eos # (Auto) Baso # (Auto) Immature Gran # (Auto) PT INR Sodium Potassium Chloride Carbon Dioxide Anion Gap BUN Creatinine Estimated GFR (MDRD) BUN/Creatinine Ratio Glucose Lactic Acid 1.23 Calcium Total Bilirubin AST ALT Alkaline Phosphatase Troponin I Total Protein Albumin Globulin Albumin/Globulin Ratio Orders Category Date Time Status EKG-(ED ONLY) Stat CARDIO 09/02/22 12:41 Completed BLOOD CULTURE Stat LAB 09/02/22 13:23 Received CBC W/ AUTO DIFF Stat LAB 09/02/22 12:54 Completed CMP [COMPREHENSIVE METABOLIC PANEL] Stat LAB 09/02/22 12:54 Completed COVID [SARS COV-2 RNA RAPID FAIZA] Stat LAB 09/02/22 13:48 Received LACTIC ACID Stat LAB 09/02/22 12:54 Completed PT WITH INR Stat LAB 09/02/22 12:54 Completed TROPONIN I Stat LAB 09/02/22 12:54 Completed URINALYSIS C & S IF INDICATED Stat LAB 09/02/22 12:41 Uncollected Piperacillin Sodium/Tazobactam [Zosyn 3.375 gm] 3.375 MEDS 09/02/22 13:12 Discontinued gm 0.9 % Sodium Chloride [Sodium Chloride 100Ml] 100 ml IV ONCE Sodium Chloride 0.9% [Sodium Chloride] 1,000 ml MEDS 09/02/22 12:41 Discontinued IV BOLUS Sodium Chloride 0.9% [Sodium Chloride] 1,000 ml MEDS 09/02/22 13:42 Active IV BOLUS CHEST, 1V AP ONLY Stat RADS 09/02/22 12:41 Completed Medications Generic Name Dose Route Start Last Admin Trade Name Freq PRN Reason Stop Dose Admin Sodium Chloride 1,000 mls @ 1,000 mls/hr 09/02/22 13:42 09/02/22 13:51 Sodium Chloride IV 09/02/22 14:41 1,000 mls/hr BOLUS STA Administration Discontinued Medications Generic Name Dose Route Start Last Admin Trade Name Freq PRN Reason Stop Dose Admin Sodium Chloride 1,000 mls @ 1,000 mls/hr 09/02/22 12:41 09/02/22 12:51 Sodium Chloride IV 09/02/22 13:40 1,000 mls/hr BOLUS STA Administration Piperacillin Sod/Tazobactam 100 mls @ 100 mls/hr 09/02/22 13:12 09/02/22 13:42 Sod 3.375 gm/ Sodium Chloride IV 09/02/22 14:11 100 mls/hr ONCE ONE Administration Vital Signs: Temp Pulse Resp BP Pulse Ox 09/02/22 12:22 98.0 F 62 18 85/41 L 96 Discharge Plan Discharge Patient Disposition: ADMITTED INPATIENT Discharge Problem: Pneumonia Prescriptions: No Action tamsulosin 0.4 mg capsule 0.4 mg PO DAILY Qty: 90 1RF metoprolol succinate 100 MG tablet extended release 24 hr 100 mg PO DAILY rosuvastatin [Crestor] 10 MG tablet 10 mg PO DAILY dexlansoprazole [Dexilant] 60 MG capsule,biphase delayed releas 60 mg PO DAILY sennosides [senna] 8.6 mg Tablet 17.2 mg PO DAILY acetaminophen 325 mg Tablet 325 mg PO Q6H PRN (Reason: Pain) donepezil [Aricept] 5 mg tablet 10 mg PO DAILY warfarin 4 mg Tablet 4 mg PO DAILY nitroglycerin 0.4 mg Tablet, Sublingual 0.4 mg sublingual PRN PRN (Reason: Angina) chlordiazepoxide-clidinium [Librax (with clidinium)] 5-2.5 mg Capsule 1 cap PO DAILY losartan [Cozaar] 25 mg Tablet 25 mg PO DAILY Qty: 30 1RF furosemide [Lasix] 20 mg Tablet 20 mg PO DAILY 30 Days Qty: 30 0RF potassium chloride 10 mEq Tablet Extended Release 10 meq PO DAILY 30 Days Qty: 30 0RF memantine [Namenda] 10 mg Tablet 10 mg PO QPM Qty: 7 0RF escitalopram oxalate [Lexapro] 10 mg Tablet 10 mg PO DAILY 30 Days Qty: 30 0RF Did you review [place] SENIOR NATIONAL ACCOUNT MANAGER for ALL controlled substances?: Not Applicable ED Provider: NU ARDON Condition: Stable Physician Progress Note: full tele admit d/w Dr Walden []
[2022-09-02 13:01] LABS: BASOPHILS % (AUTO) 0.1 % (0.0-3.0); EOSINOPHILS % (AUTO) 0.1 % (0.0-7.0); HEMOGLOBIN 10.6 g/dl (14.0-18.0); IMMATURE GRANULOCYTE # (AUTO) 0.1 (0.0-1.0); IMMATURE GRANULOCYTE % (AUTO) 0.4 % (0.0-5.0); LYMPHOCYTES % (AUTO) 6.7 (10.0-50.0); MEAN CORPUSCULAR HEMOGLOBIN 30.7 pg (27.0-31.0); MEAN CORPUSCULAR HGB CONC 34.2 (31.8-35.4); MEAN CORPUSCULAR VOLUME 89.9 fl (80.0-94.0); MONOCYTES # (AUTO) 1.3 K/uL (0.4-2.0); MONOCYTES % (AUTO) 8.7 (0-10); NEUTROPHILS # (AUTO) 12.9 K/ul (2.0-6.9); PLATELET COUNT 292 10^3/uL (140-440); RDW COEFFICIENT OF VARIATION 14.3 % (11.6-14.8); RED BLOOD COUNT 3.45 10^6/ul (4.70-6.10); WHITE BLOOD COUNT 15.32 K/ul (4.2-10.2)
--- NOTE | 2022-09-02 13:11 | DI ---
EXAM: CHEST ONE-VIEW HISTORY: Weakness COMPARISON: 07/30/2022 FINDINGS: Hyperinflation and chronic change present the pulmonary parenchyma. Vague opacity in the mid left lung is noted. Most likely this is an early inflammatory process. Cardiac silhouette is mo derately enlarged. Pacing device present soft tissues of the left chest. IMPRESSION: Vague opacity mid left lung suspicious for early pneumonia.
[2022-09-02] MEDS ORDERED: ZOSYN 3.375 GM 3.375 GM in SODIUM CHLORIDE 100ML 100 ML IV ONE (13:12)
[2022-09-02 13:13] LABS: ALANINE AMINOTRANSFERASE 52.2 U/L (0-50); ALBUMIN 2.52 g/dL (3.5-5.0); ALKALINE PHOSPHATASE 106.3 U/L (56-119); ASPARTATE AMINO TRANSFERASE 51.6 U/L (17-59); BILIRUBIN,TOTAL 0.51 mg/dL (0.2-1.3); BLOOD UREA NITROGEN 26.2 mg/dL (9-20); CALCIUM 7.82 mg/dL (8.4-10.2); CARBON DIOXIDE 26.4 mmol/L (22-30.0); CHLORIDE 100.8 mmol/L (98-107); GLUCOSE 111.7 mg/dL (74-106); POTASSIUM 3.85 mmol/L (3.5-5.1); TOTAL PROTEIN 5.32 g/dL (6.3-8.2)
[2022-09-02 13:24] LABS: TROPONIN I 0.107 ng/ml (0.0000-0.120)
[2022-09-02 13:33] LABS: PROTHROMBIN TIME 22.7 SEC (9.3-11.0)
[2022-09-02] MEDS ORDERED: TYLENOL PO PRN (14:31)
[2022-09-02] MEDS ORDERED: NITROSTAT SL PRN (14:36)
[2022-09-02 14:44] LABS: SARS COV-2 RNA RAPID NAAT NEGATIVE (NEGATIVE)
[2022-09-02] MEDS: SOLU-MEDROL 40 MG IVP SCH ×2 (16:16→20:23)
[2022-09-02] MEDS: SODIUM CHLORIDE 1,000 ML IV SCH (16:16)
[2022-09-02 17:32] VITALS: BMI 19.0
[2022-09-02] MEDS: NAMENDA PO SCH (17:46)
[2022-09-02] MEDS: ZOSYN 3.375 GM 3.375 GM in SODIUM CHLORIDE 100ML 100 ML IV SCH (18:40)
[2022-09-02] MEDS: DOXY-100 100 MG in SODIUM CHLORIDE 100ML 100 ML IV SCH (20:30)
[2022-09-03] MEDS: ZOSYN 3.375 GM 3.375 GM in SODIUM CHLORIDE 100ML 100 ML IV SCH ×4 (00:22→17:29)
[2022-09-03 05:46] LABS: ALANINE AMINOTRANSFERASE 58.2 U/L (0-50); ALBUMIN 2.69 g/dL (3.5-5.0); ALKALINE PHOSPHATASE 119.2 U/L (56-119); ASPARTATE AMINO TRANSFERASE 49.3 U/L (17-59); BILIRUBIN,TOTAL 0.34 mg/dL (0.2-1.3); BLOOD UREA NITROGEN 28.8 mg/dL (9-20); CALCIUM 8.13 mg/dL (8.4-10.2); CARBON DIOXIDE 24.1 mmol/L (22-30.0); CHLORIDE 107.3 mmol/L (98-107); CREATININE 0.85 mg/dL (0.60-1.10); GLUCOSE 166.2 mg/dL (74-106); POTASSIUM 4.24 mmol/L (3.5-5.1); SODIUM 135.5 mmol/L (134.5-145); TOTAL PROTEIN 5.65 g/dL (6.3-8.2)
[2022-09-03] MEDS: PROTONIX PO SCH (05:49)
[2022-09-03 06:13] LABS: HEMOGLOBIN 10.7 g/dl (14.0-18.0); IMMATURE GRANULOCYTE % (AUTO) 0.4 % (0.0-5.0); LYMPHOCYTES # (AUTO) 0.6 K/uL (0.60-3.4); MEAN CORPUSCULAR HEMOGLOBIN 30.1 pg (27.0-31.0); MEAN CORPUSCULAR HGB CONC 33.4 (31.8-35.4); MEAN CORPUSCULAR VOLUME 89.9 fl (80.0-94.0); MONOCYTES # (AUTO) 0.1 K/uL (0.4-2.0); MONOCYTES % (AUTO) 1.3 (0-10); NEUTROPHILS % (AUTO) 89.3 % (42.2-75.2); PLATELET COUNT 318 10^3/uL (140-440); RDW COEFFICIENT OF VARIATION 14.1 % (11.6-14.8); RED BLOOD COUNT 3.56 10^6/ul (4.70-6.10); WHITE BLOOD COUNT 6.75 K/ul (4.2-10.2)
[2022-09-03 06:27] LABS: PROTHROMBIN TIME 22.8 SEC (9.3-11.0)
[2022-09-03] MEDS: SOLU-MEDROL 40 MG IVP SCH ×3 (08:06→20:23)
[2022-09-03] MEDS: CRESTOR PO SCH (08:10)
[2022-09-03] MEDS: FLOMAX PO SCH (08:10)
[2022-09-03] MEDS: TOPROL XL PO SCH (08:11)
[2022-09-03] MEDS: LIBRAX 5/2.5 MG PO SCH (08:12)
[2022-09-03] MEDS: DOXY-100 100 MG in SODIUM CHLORIDE 100ML 100 ML IV SCH ×2 (08:13→20:47)
[2022-09-03] MEDS: COZAAR PO SCH (08:16)
[2022-09-03] MEDS: ARICEPT PO SCH (08:16)
[2022-09-03] MEDS: LEXAPRO PO SCH (08:16)
[2022-09-03] MEDS: SENNA PO SCH (08:16)
[2022-09-03] MEDS: MIRALAX PO SCH (08:17)
[2022-09-03] MEDS ORDERED: DEXLANSOPRAZOLE 60 MG PO SCH (09:00)
[2022-09-03] MEDS ORDERED: [UNRECOGNIZED DRUG - OTHER] PO SCH (09:00)
[2022-09-03] MEDS: SODIUM CHLORIDE 1,000 ML IV SCH (15:03)
[2022-09-03] MEDS: COUMADIN PO SCH (17:30)
[2022-09-03] MEDS: NAMENDA PO SCH (17:30)
[2022-09-03] MEDS ORDERED: LIDOCAINE 1% 20 ML MDV ID ONE (22:16)
[2022-09-04] MEDS: ZOSYN 3.375 GM 3.375 GM in SODIUM CHLORIDE 100ML 100 ML IV SCH ×4 (00:27→14:05)
[2022-09-04 05:39] LABS: BASOPHILS % (AUTO) 0.1 % (0.0-3.0); HEMATOCRIT 32.7 % (42.0-52.0); HEMOGLOBIN 10.8 g/dl (14.0-18.0); IMMATURE GRANULOCYTE # (AUTO) 0.1 (0.0-1.0); IMMATURE GRANULOCYTE % (AUTO) 0.6 % (0.0-5.0); LYMPHOCYTES # (AUTO) 0.8 K/uL (0.60-3.4); LYMPHOCYTES % (AUTO) 6.9 (10.0-50.0); MEAN CORPUSCULAR HEMOGLOBIN 29.9 pg (27.0-31.0); MEAN CORPUSCULAR VOLUME 90.6 fl (80.0-94.0); MONOCYTES # (AUTO) 0.3 K/uL (0.4-2.0); NEUTROPHILS # (AUTO) 9.7 K/ul (2.0-6.9); NEUTROPHILS % (AUTO) 89.4 % (42.2-75.2); PLATELET COUNT 350 10^3/uL (140-440); RDW COEFFICIENT OF VARIATION 14.1 % (11.6-14.8); RED BLOOD COUNT 3.61 10^6/ul (4.70-6.10); WHITE BLOOD COUNT 10.83 K/ul (4.2-10.2)
[2022-09-04 05:43] LABS: ALANINE AMINOTRANSFERASE 82.8 U/L (0-50); ALBUMIN 2.71 g/dL (3.5-5.0); ALKALINE PHOSPHATASE 117.5 U/L (56-119); ASPARTATE AMINO TRANSFERASE 71.6 U/L (17-59); BILIRUBIN,TOTAL 0.25 mg/dL (0.2-1.3); CALCIUM 8.56 mg/dL (8.4-10.2); CARBON DIOXIDE 23.3 mmol/L (22-30.0); CHLORIDE 106.7 mmol/L (98-107); CREATININE 0.99 mg/dL (0.60-1.10); GLUCOSE 151.6 mg/dL (74-106); POTASSIUM 4.06 mmol/L (3.5-5.1); SODIUM 134.9 mmol/L (134.5-145); TOTAL PROTEIN 5.57 g/dL (6.3-8.2)
[2022-09-04 05:49] LABS: PROTHROMBIN TIME 23.3 SEC (9.3-11.0)
[2022-09-04] MEDS: PROTONIX PO SCH (06:01)
[2022-09-04] MEDS: SOLU-MEDROL 40 MG IVP SCH ×2 (08:36→14:04)
[2022-09-04] MEDS: MIRALAX PO SCH (08:36)
[2022-09-04] MEDS: SENNA PO SCH (08:36)
[2022-09-04] MEDS: DOXY-100 100 MG in SODIUM CHLORIDE 100ML 100 ML IV SCH (08:36)
[2022-09-04] MEDS: COZAAR PO SCH (08:37)
[2022-09-04] MEDS: CRESTOR PO SCH (08:37)
[2022-09-04] MEDS: ARICEPT PO SCH (08:37)
[2022-09-04] MEDS: TOPROL XL PO SCH (08:37)
[2022-09-04] MEDS: LIBRAX 5/2.5 MG PO SCH (08:37)
[2022-09-04] MEDS: FLOMAX PO SCH (08:37)
[2022-09-04] MEDS: LEXAPRO PO SCH (08:37)
--- NOTE | 2022-09-04 10:35 | HP ---
DATE OF SERVICE: 09/02/22 REASON FOR HOSPITALIZATION: 81 year old white male has been running fever in the half-way for the past two days. The fever was 101.4. He was advised to be sent to the emergency room at [facility] where patient was found to have evidence of urinary tract infection and possibility of pneumonia. UA is completely abnormal and going to send for culture and sensitivity. MEDICAL/SURGICAL HISTORY: Patient has history of pacemaker Coronary artery disease with stent Atrial fibrillation Dementia Reflux disease Gastrectomy Back surgery Colon resection For a long time the patient was on narcotics and on pain management with shot in the back every three months. MEDICATIONS: Metoprolol Rosuvastatin Warfarin Lasix Potassium REVIEW OF SYSTEMS: CONSTITUTIONAL: Patient is confused and unable to answer any questions sensibly. He seems to be sleepy. HEENT: Eyes: No visual changes. No eye pain. No eye discharge. ENT: No runny nose. No epistaxis. No sinus pain. No sore throat. No odynophagia. No ear pain. No congestion. RESPIRATORY: No cough, no congestion. No hemoptysis. No shortness of breath. CARDIOVASCULAR: No angina symptoms. No CHF symptoms. No atypical chest pain for CAD. No palpitations. No PND. No orthopnea. GASTROINTESTINAL: No abdominal pain. No nausea or vomiting. No diarrhea or constipation. No hematemesis. No hematochezia. GENITOURINARY: No urgency. No frequency. No dysuria. No hematuria. No obstructive symptoms. No discharge. No pain. No significant abnormal bleeding. MUSCULOSKELETAL: No musculoskeletal pain. No joint swelling. No arthritis. NEUROLOGICAL: No headache. No neck pain. No syncope. No seizures. No dizziness. PSYCHIATRIC: Not anxious. No depression. No suicidal thoughts. No homicidal thoughts. SKIN: No rash. No lesions. No wounds. ENDOCRINE: No unexplained weight loss. No weight gain. HEMATOLOGIC/LYMPHATIC: No anemia. No purpura. No petechiae. No prolonged or excessive bleeding. No palpable lymph nodes. ALLERGIES: None PHYSICAL EXAMINATION: GENERAL: Confused, alert and recognized me. VITAL SIGNS: Temperature 97, pulse 60, respiratory rate 16, blood pressure 100/40, pulse ox 97% HEENT: Face is symmetrical. No lymphadenopathy. No rash. Head normocephalic, atraumatic. Eyes: Extraocular muscles are intact. Pupils are equal, round and reactive to light and accommodation. Ears: No lesions. Nose appeared normal. Throat: No exudate or erythema. NECK: Supple. LUNGS: Decreased breath sounds but clear. HEART: S1, S2. Grade 1/6 systolic murmur. ABDOMEN: Soft. Bowel sounds active. EXTREMITIES: No pedal edema. Moving all extremities. NEUROLOGIC: No focal deficit. Cranial nerves II through XII are grossly intact. No headache, no double vision or headache. SKIN: Not dry. Intact. Turgor - normal. LYMPHATIC: No palpable lymph nodes/no lymphedema. MUSCULOSKELETAL: Normal joints with no swelling. Muscle tone is normal. LABS: Hemoglobin 10.6, hematocrit 31, WBC 15,000, normal differential, creatinine 1, BUN 26, potassium 3.8, INR is 2.2 which is acceptable. Cardiac markers negative. Chest x-ray showed possibility of pneumonia. ASSESSMENT: 1. UTI WITH DEHYDRATION 2. POSSIBILITY OF PNEUMONIA 3. HISTORY OF CHF 4. CORONARY ARTERY DISEASE WITH STENT 5. STATUS POST GASTRECTOMY 6. DEMENTIA, ADVANCED 7. HISTORY OF HYPEPRTENSION 8. DYSLIPIDEMIA 9. ATRIAL FIBRILLATION PLAN: 1. Continue most of his home medications 2. Add IV fluids 3. Prednisone 40 mg IV TID 4. Patient is on Zolsyn 5. Routine telemetry 6. Daily CBC, CMP Code Status: DNR TIME SPENT: More than 75 minutes. MTDD
[2022-09-04] MEDS: NAMENDA PO SCH (17:38)
[2022-09-04] MEDS: COUMADIN PO SCH (17:39)
[2022-09-04] MEDS: DOXYCYCLINE HYCLATE PO SCH (21:15)
[2022-09-04] MEDS: CIPRO PO SCH (21:15)
[2022-09-05 05:45] LABS: BASOPHILS % (AUTO) 0.1 % (0.0-3.0); HEMOGLOBIN 11.2 g/dl (14.0-18.0); IMMATURE GRANULOCYTE # (AUTO) 0.1 (0.0-1.0); IMMATURE GRANULOCYTE % (AUTO) 0.7 % (0.0-5.0); LYMPHOCYTES % (AUTO) 7.5 (10.0-50.0); MEAN CORPUSCULAR HEMOGLOBIN 30.2 pg (27.0-31.0); MEAN CORPUSCULAR HGB CONC 32.9 (31.8-35.4); MEAN CORPUSCULAR VOLUME 91.6 fl (80.0-94.0); MONOCYTES # (AUTO) 0.9 K/uL (0.4-2.0); MONOCYTES % (AUTO) 6.7 (0-10); NEUTROPHILS # (AUTO) 11.6 K/ul (2.0-6.9); PLATELET COUNT 357 10^3/uL (140-440); RED BLOOD COUNT 3.71 10^6/ul (4.70-6.10); WHITE BLOOD COUNT 13.68 K/ul (4.2-10.2)
[2022-09-05] MEDS: CIPRO PO SCH (05:50)
[2022-09-05] MEDS: PROTONIX PO SCH (05:50)
[2022-09-05 05:57] LABS: ALANINE AMINOTRANSFERASE 149.3 U/L (0-50); ALBUMIN 2.59 g/dL (3.5-5.0); ALKALINE PHOSPHATASE 125.6 U/L (56-119); ASPARTATE AMINO TRANSFERASE 119.2 U/L (17-59); BILIRUBIN,TOTAL 0.17 mg/dL (0.2-1.3); BLOOD UREA NITROGEN 34.7 mg/dL (9-20); CALCIUM 8.54 mg/dL (8.4-10.2); CARBON DIOXIDE 26.4 mmol/L (22-30.0); CHLORIDE 105.4 mmol/L (98-107); CREATININE 0.87 mg/dL (0.60-1.10); GLUCOSE 127.3 mg/dL (74-106); POTASSIUM 4.44 mmol/L (3.5-5.1); SODIUM 132.9 mmol/L (134.5-145); TOTAL PROTEIN 5.36 g/dL (6.3-8.2)
[2022-09-05 06:10] LABS: PROTHROMBIN TIME 25.4 SEC (9.3-11.0)
[2022-09-05] MEDS ORDERED: DECADRON IM SCH (09:00)
[2022-09-05] MEDS: MIRALAX PO SCH (09:13)
[2022-09-05] MEDS: SENNA PO SCH (09:15)
[2022-09-05] MEDS: TOPROL XL PO SCH (09:15)
[2022-09-05] MEDS: LIBRAX 5/2.5 MG PO SCH (09:15)
[2022-09-05] MEDS: FLOMAX PO SCH (09:16)
[2022-09-05] MEDS: CRESTOR PO SCH (09:16)
[2022-09-05] MEDS: COZAAR PO SCH (09:17)
[2022-09-05] MEDS: ARICEPT PO SCH (09:17)
[2022-09-05] MEDS: LEXAPRO PO SCH (09:17)
[2022-09-05] MEDS: DOXYCYCLINE HYCLATE PO SCH (09:19)
[2022-09-05] MEDS: BACTRIM DS 800/160 MG PO SCH ×2 (13:36→20:57)
[2022-09-05] MEDS: NAMENDA PO SCH (16:46)
[2022-09-05] MEDS: COUMADIN PO SCH (16:46)
[2022-09-06 05:42] LABS: BASOPHILS % (AUTO) 0.1 % (0.0-3.0); HEMOGLOBIN 11.7 g/dl (14.0-18.0); IMMATURE GRANULOCYTE # (AUTO) 0.1 (0.0-1.0); IMMATURE GRANULOCYTE % (AUTO) 0.9 % (0.0-5.0); LYMPHOCYTES # (AUTO) 1.1 K/uL (0.60-3.4); LYMPHOCYTES % (AUTO) 9.7 (10.0-50.0); MEAN CORPUSCULAR HEMOGLOBIN 29.8 pg (27.0-31.0); MEAN CORPUSCULAR HGB CONC 32.5 (31.8-35.4); MEAN CORPUSCULAR VOLUME 91.8 fl (80.0-94.0); MONOCYTES # (AUTO) 0.9 K/uL (0.4-2.0); MONOCYTES % (AUTO) 7.8 (0-10); NEUTROPHILS # (AUTO) 9.5 K/ul (2.0-6.9); NEUTROPHILS % (AUTO) 81.5 % (42.2-75.2); PLATELET COUNT 348 10^3/uL (140-440); RDW COEFFICIENT OF VARIATION 14.2 % (11.6-14.8); RED BLOOD COUNT 3.92 10^6/ul (4.70-6.10); WHITE BLOOD COUNT 11.66 K/ul (4.2-10.2)
[2022-09-06 06:01] LABS: ALANINE AMINOTRANSFERASE 143.8 U/L (0-50); ALBUMIN 2.59 g/dL (3.5-5.0); ASPARTATE AMINO TRANSFERASE 80.4 U/L (17-59); BILIRUBIN,TOTAL 0.16 mg/dL (0.2-1.3); BLOOD UREA NITROGEN 32.9 mg/dL (9-20); CALCIUM 8.24 mg/dL (8.4-10.2); CARBON DIOXIDE 23.9 mmol/L (22-30.0); CHLORIDE 108.3 mmol/L (98-107); CREATININE 0.95 mg/dL (0.60-1.10); GLUCOSE 138.5 mg/dL (74-106); POTASSIUM 4.45 mmol/L (3.5-5.1); SODIUM 133.8 mmol/L (134.5-145); TOTAL PROTEIN 5.36 g/dL (6.3-8.2)
[2022-09-06] MEDS: PROTONIX PO SCH (06:07)
[2022-09-06 06:22] LABS: PROTHROMBIN TIME 30.1 SEC (9.3-11.0)
[2022-09-06] MEDS ORDERED: INVANZ IM ONE (08:07)
[2022-09-06] MEDS ORDERED: LIDOCAINE HCL 1% SDV IM STA (08:07)
[2022-09-06] MEDS ORDERED: LIDOCAINE HCL 1% SDV IM ONE (08:09)
--- NOTE | 2022-09-06 09:04 | PCM.PROG ---
Attending Provider: ATTENDING PROVIDER: Dr. BASIA KILLIAN MD This patient is seen with Catrachita Menendez, Nurse Practitioner. DATE OF SERVICE: 09/06/22 SUBJECTIVE: This 82 year old /WHITE M was hospitalized 09/02/22. The patient is resting comfortably. He is oriented to person this morning. INR is 3, will hold Coumadin. REVIEW OF SYSTEMS: CONSTITUTIONAL: Weakness. No night sweats. No fatigue, malaise, lethargy. No fever or chills. HEENT: Eyes: No visual changes. No eye pain. No eye discharge. ENT: No runny nose. No epistaxis. No sinus pain. No odynophagia. No congestion. RESPIRATORY: No cough, no congestion. No hemoptysis. No shortness of breath. CARDIOVASCULAR: No angina symptoms. No CHF symptoms. No atypical chest pain for CAD. No palpitations. No orthopnea.. GASTROINTESTINAL: No abdominal pain. No nausea or vomiting. No diarrhea or constipation. No hematemesis. No hematochezia. GENITOURINARY: No urgency. No frequency. No dysuria. No hematuria. No obstruc tive symptoms. No discharge. No pain. No significant abnormal bleeding. MUSCULOSKELETAL: No musculoskeletal pain; no joint swelling. NEUROLOGICAL: Awake, alert, intermittent confusion. No headache. No neck pain. No syncope. No seizures. No dizziness. PSYCHIATRIC: Not anxious. No depression. No suicidal thoughts. No homicidal thoughts. SKIN: No rash. No lesions. No wounds. ENDOCRINE: No unexplained weight loss. No weight gain. HEMATOLOGIC/LYMPHATIC: No anemia. No purpura. No petechiae. No prolonged or excessive bleeding. No palpable lymph nodes. PHYSICAL EXAMINATION: GENERAL: The patient is awake, alert and oriented, lying/sitting in bed in no distress. VITAL SIGNS: Temperature 96.9 F, Pulse 60, Respiratory Rate 18, BP 118/59, Pulse Ox 99% HEENT: Head normocephalic, atraumatic. Eyes: Extraocular muscles are intact. Pupils are equal, round and reactive to light and accommodation. Ears: No lesions. Nose appeared normal. Throat: No exudate or erythema. NECK: Supple. No JVD, no carotid bruit. No lymphadenopathy or thyromegaly. LUNGS: Diminished breath sounds. Clear to auscultation. Percussion note normal. Chest symmetrical. HEART: S1, S2, no S3. No murmurs. No cyanosis or clubbing. No ascites. Pulses: Dorsalis pedis and posterior tibial pulses +1 to +2 both sides. ABDOMEN: Soft. Non-tender. Bowel sounds active. No CVA tenderness. No mass felt. EXTREMITIES: No edema. Full range of motion of all extremities, equal. NEUROLOGIC: No focal deficit. Cranial nerves II through XII are grossly intact. No headache. No double vision. SKIN: Not dry. Intact. Turgor-normal. LYMPHATIC: No palpable lymph nodes/no lymphedema. MUSCULOSKELETAL: Normal joints with no swelling. Muscle tone is normal. LAB REVIEW: 09/06/22 05:34 09/06/22 05:34 09/06/22 05:34: PT 30.1 H, INR 3.05 09/06/22 05:34: Sodium 133.8 L, Potassium 4.45, Chloride 108.3 H, Carbon Dioxide 23.9, Anion Gap 6.05, BUN 32.9 H, Creatinine 0.95, Estimated GFR (MDRD) 76.00, BUN/Creatinine Ratio 34.63, Glucose 138.5 H, Calcium 8.24 L, Total Bilirubin 0.16 L, AST 80.4 H D, ALT 143.8 H, Alkaline Phosphatase 130.0 H, Total Protein 5.36 L, Albumin 2.59 L, Globulin 2.77, Albumin/Globulin Ratio 0.93 09/06/22 05:34: WBC 11.66 H, RBC 3.92 L, Hgb 11.7 L, Hct 36.0 L, MCV 91.8, MCH 29.8, MCHC 32.5, RDW Coeff of Bonnie 14.2, Plt Count 348, Immature Gran % (Auto) 0.9, Neut % (Auto) 81.5 H, Lymph % (Auto) 9.7 L, [place] % (Auto) 7.8, Eos % (Auto) 0.0, Baso % (Auto) 0.1, Neut # (Auto) 9.5 H, Lymph # (Auto) 1.1, [place] # (Auto) 0.9, Eos # (Auto) 0.0, Baso # (Auto) 0.0, Immature Gran # (Auto) 0.1 ASSESSMENT: Please see below. 1. UTI, positive for ESBL. 2. Acute pneumonitis. 3. COPD. 4. Dementia with Alzheimer's and behavioral disturbance. PLAN: 1. Hold Coumadin. 2. Invanz 1 gm IM today. 3. Stop Decadron. 4. Add Prednisone 10 mg daily. Plan and coordination of the patient's care discussed in the presence of Storage Management Consultant and nurse. CONDITION: Stable TIME SPENT: 35 MINUTES SCRIBED BY: FIDEL ROMERO Trimming Machine Operator scribed while in presence of service performed by Catrachita Menendez APRN on 09/06/22 ([id number])
[2022-09-06] MEDS: SENNA PO SCH (09:38)
[2022-09-06] MEDS: LEXAPRO PO SCH (09:39)
[2022-09-06] MEDS: BACTRIM DS 800/160 MG PO SCH ×2 (09:39→20:22)
[2022-09-06] MEDS: CRESTOR PO SCH (09:39)
[2022-09-06] MEDS: COZAAR PO SCH (09:39)
[2022-09-06] MEDS: TOPROL XL PO SCH (09:40)
[2022-09-06] MEDS: ARICEPT PO SCH (09:40)
[2022-09-06] MEDS: FLOMAX PO SCH (09:40)
[2022-09-06] MEDS: LIBRAX 5/2.5 MG PO SCH (09:40)
[2022-09-06] MEDS: PREDNISONE PO SCH (09:40)
[2022-09-06] MEDS: MIRALAX PO SCH (09:41)
[2022-09-06] MEDS ORDERED: SODIUM CHLORIDE 1,000 ML IV SCH (11:30)
--- NOTE | 2022-09-06 16:31 | PN ---
DATE OF SERVICE: 09/03/22 SUBJECTIVE: 81 year old white male hospitalized with chills, poor appetite and confusion. Patient's condition seems to have improved and he looks a lot better. His appetite is improving; he cleaned up his plate at lunch. He wants something more to eat. Patient has no UTI or symptoms. Patient doesn't cough and doesn't have any pneumonia-type of symptoms. REVIEW OF SYSTEMS: CONSTITUTIONAL: Confusion. He is oriented to person but not to place and time. He repeats the same thing talking about playing golf. HEENT: Eyes: No visual changes. No eye pain. No eye discharge. ENT: No runny nose. No epistaxis. No sinus pain. No sore throat. No odynophagia. No congestion. RESPIRATORY: No cough, no congestion. No hemoptysis. No shortness of breath. CARDIOVASCULAR: No angina symptoms. No CHF symptoms. No atypical chest pain for CAD. No palpitations. No PND. No orthopnea. GASTROINTESTINAL: No abdominal pain. No nausea or vomiting. No diarrhea or constipation. No hematemesis. No hematochezia. GENITOURINARY: No urgency. No frequency. No dysuria. No hematuria. No obstructive symptoms. No discharge. No pain. No significant abnormal bleeding. MUSCULOSKELETAL: No musculoskeletal pain; no joint swelling. NEUROLOGICAL: No headache. No neck pain. No syncope. No seizures. No dizziness. PSYCHIATRIC: Not anxious. No depression. No suicidal thoughts. No homicidal thoughts. SKIN: No rash. No lesions. No wounds. ENDOCRINE: No unexplained weight loss. No weight gain. HEMATOLOGIC/LYMPHATIC: No anemia. No purpura. No petechiae. No prolonged or excessive bleeding. No palpable lymph nodes. PHYSICAL EXAMINATION: GENERAL: The patient is , lying/sitting in bed in no distress. VITAL SIGNS: Temperature 97.2, pulse 60, respiratory rate 20, blood pressure 92/46, pulse ox 96% on room air. HEENT: Head normocephalic, atraumatic. Eyes: Extraocular muscles are intact. Pupils are equal, round and reactive to light and accommodation. Ears: No lesions. Nose appeared normal. Throat: No exudate or erythema. NECK: Supple. LUNGS: Decreased breath sounds but clear. HEART: S1, S2, no S3. ABDOMEN: Soft. Bowel sounds active. EXTREMITIES: No edema. Full range of motion of all extremities, equal. NEUROLOGIC: No focal deficit. Cranial nerves II through XII are grossly intact. No headache. No double vision. SKIN: Not dry. Intact. Turgor - better. LYMPHATIC: No palpable lymph nodes/no lymphedema. MUSCULOSKELETAL: Normal joints with no swelling. Muscle tone is normal. LABS: Hemoglobin 10.7, hematocrit 32, WBC 6,700, normal differential, creatinine 0.8, BUN 28, potassium 4.2 ASSESSMENT: 1. UTI seems to be under control 2. Pneumonia seems to be under control 3. Dementia, mental status seems to have improved overall 4. His skin turgor is better Patient had a rhythm strip which showed nearly 15 beats per monitor; otherwise condition is stable. Diagnosis: Guarded TIME SPENT: More than 35 minutes. Plan and coordination of the patient's care discussed in the presence of nurse. CHRISS
--- NOTE | 2022-09-06 16:47 | PN ---
DATE OF SERVICE: 09/04/22 SUBJECTIVE: 81 year old white male hospitalized with possibility of pneumonia. He had a fever of 101 on admission. Patient's condition has improved. He is afebrile and more alert and looks a lot better. His hydration status seems to have improved. REVIEW OF SYSTEMS: CONSTITUTIONAL: Patient is confused. He recognized me. HEENT: Eyes: No visual changes. No eye pain. No eye discharge. ENT: No runny nose. No epistaxis. No sinus pain. No sore throat. No odynophagia. No congestion. RESPIRATORY: No cough, no congestion. No hemoptysis. No shortness of breath. CARDIOVASCULAR: No chest pain. No PND. No orthopnea. No palpitations. GASTROINTESTINAL: No abdominal pain. No nausea or vomiting. No diarrhea or constipation. No hematemesis. No hematochezia. GENITOURINARY: No urgency. No frequency. No dysuria. No hematuria. No obstructive symptoms. No discharge. No pain. No significant abnormal bleeding. MUSCULOSKELETAL: No musculoskeletal pain; no joint swelling. NEUROLOGICAL: No headache. No neck pain. No syncope. No seizures. No dizziness. PSYCHIATRIC: Not anxious. No depression. No suicidal thoughts. No homicidal thoughts. SKIN: No rash. No lesions. No wounds. ENDOCRINE: No unexplained weight loss. No weight gain. HEMATOLOGIC/LYMPHATIC: No anemia. No purpura. No petechiae. No prolonged or excessive bleeding. No palpable lymph nodes. PHYSICAL EXAMINATION: GENERAL: The patient is in no distress. VITAL SIGNS: Temperature 98, pulse 63, respiratory rate 18, blood pressure 115/67, pulse ox 97% HEENT: Head normocephalic, atraumatic. Eyes: Extraocular muscles are intact. Pupils are equal, round and reactive to light and accommodation. Ears: No lesions. Nose appeared normal. Throat: No exudate or erythema. NECK: Supple. LUNGS: Decreased breath sounds. HEART: S1, S2. Grade 2/6 systolic murmur. ABDOMEN: Soft. EXTREMITIES: No pedal edema. NEUROLOGIC: No focal deficit. Cranial nerves II through XII are grossly intact. No headache. No double vision. SKIN: Not dry. Intact. Turgor - normal. LYMPHATIC: No palpable lymph nodes/no lymphedema. MUSCULOSKELETAL: Normal joints with no swelling. Muscle tone is normal. LABS: Hemoglobin 10.8, hematocrit 32, WBC 10,000, normal differential, creatinine 0.9, BUN 28, potassium 4 ASSESSMENT: 1. UTI seems to be controlled. Patient had gram negative rods growing from the urine culture. 2. Pneumonia, he doesn't have any symptoms 3. Dementia, seems to be well advanced PLAN: 1. Cipro 500 twice a day 2. 1 cc Decadron IM daily, morning 3. Continue IV antibiotics 4. Doxycycline 100 BID daily Patient has pulled out IV a couple of times and also he is to wear the Holter monitor which was ordered for episode of V tach which was 15 beats. Patient's INR is acceptable. Patient is extremely forgetful. I had seen him an hour prior and talked about a lot of things but he doesn't remember that I was there an hour ago. He practically says the same things all over again and no idea of my previous visits. TIME SPENT: More than 35 minutes. Plan and coordination of the patient's care discussed in the presence of nurse. CHRISS
--- NOTE | 2022-09-06 16:58 | PN ---
DATE OF SERVICE: 09/05/22 SUBJECTIVE: 81 year old white male hospitalized with UTI and possibility of pneumonia. Patient's culture grew ESBL and we changed his antibiotics to Bactrim BID. Patient will be off Omnicef and back to Doxycycline. REVIEW OF SYSTEMS: CONSTITUTIONAL: He seems to know me but confused about the time and place. HEENT: Eyes: No visual changes. No eye pain. No eye discharge. ENT: No runny nose. No epistaxis. No sinus pain. No sore throat. No odynophagia. No congestion. RESPIRATORY: No cough, no congestion. No hemoptysis. No shortness of breath. CARDIOVASCULAR: No chest pain. No palpitations. No PND. No orthopnea. GASTROINTESTINAL: No abdominal pain. No nausea or vomiting. No diarrhea or constipation. No hematemesis. No hematochezia. GENITOURINARY: No urgency. No frequency. No dysuria. No hematuria. No obstructive symptoms. No discharge. No pain. No significant abnormal bleeding. MUSCULOSKELETAL: No musculoskeletal pain; no joint swelling. NEUROLOGICAL: No headache. No neck pain. No syncope. No seizures. No dizziness. PSYCHIATRIC: Not anxious. No depression. No suicidal thoughts. No homicidal thoughts. SKIN: No rash. No lesions. No wounds. ENDOCRINE: No unexplained weight loss. No weight gain. HEMATOLOGIC/LYMPHATIC: No anemia. No purpura. No petechiae. No prolonged or excessive bleeding. No palpable lymph nodes. PHYSICAL EXAMINATION: GENERAL: The patient is in no distress. VITAL SIGNS: Temperature 96.9, pulse 63, respiratory rate 18, blood pressure 125/66, pulse ox 95% HEENT: Head normocephalic, atraumatic. Eyes: Extraocular muscles are intact. Pupils are equal, round and reactive to light and accommodation. Ears: No lesions. Nose appeared normal. Throat: No exudate or erythema. NECK: Supple. LUNGS: Decreased breath sounds but clear. HEART: S1, S2, no S3. ABDOMEN: Soft. EXTREMITIES: No pedal edema. NEUROLOGIC: No focal deficit. Cranial nerves II through XII are grossly intact. No headache. No double vision. SKIN: Not dry. Intact. Turgor - normal. LYMPHATIC: No palpable lymph nodes/no lymphedema. MUSCULOSKELETAL: Normal joints with no swelling. Muscle tone is normal. Patient's status has improved. He looks more alert but confused. He told everybody that his birthday and my birthday are together. I saw him twice but couldn't remember the first time I saw him. ASSESSMENT: UTI seems to be under control PLAN: Change to Bactrim BID I don't think the patient never had pneumonia, but in any case, Bactrim should take care of it. He already has been treated with Zosyn, Doxycycline and lately he got a couple of days of Omnicef and Doxy PO. Patient's condition is otherwise stable. Code Status: DNR TIME SPENT: More than 35 minutes. Plan and coordination of the patient's care discussed in the presence of nurse. CHRISS
[2022-09-06] MEDS: NAMENDA PO SCH (20:22)
[2022-09-07 05:22] LABS: BASOPHILS % (AUTO) 0.2 % (0.0-3.0); EOSINOPHILS % (AUTO) 0.2 % (0.0-7.0); HEMATOCRIT 33.9 % (42.0-52.0); HEMOGLOBIN 11.2 g/dl (14.0-18.0); IMMATURE GRANULOCYTE # (AUTO) 0.2 (0.0-1.0); IMMATURE GRANULOCYTE % (AUTO) 1.7 % (0.0-5.0); LYMPHOCYTES # (AUTO) 1.4 K/uL (0.60-3.4); LYMPHOCYTES % (AUTO) 10.8 (10.0-50.0); MEAN CORPUSCULAR HEMOGLOBIN 30.2 pg (27.0-31.0); MEAN CORPUSCULAR VOLUME 91.4 fl (80.0-94.0); MONOCYTES # (AUTO) 1.1 K/uL (0.4-2.0); MONOCYTES % (AUTO) 8.4 (0-10); NEUTROPHILS % (AUTO) 78.7 % (42.2-75.2); PLATELET COUNT 319 10^3/uL (140-440); RDW COEFFICIENT OF VARIATION 14.2 % (11.6-14.8); RED BLOOD COUNT 3.71 10^6/ul (4.70-6.10); WHITE BLOOD COUNT 12.64 K/ul (4.2-10.2)
[2022-09-07 05:38] LABS: ALANINE AMINOTRANSFERASE 141.3 U/L (0-50); ALBUMIN 2.46 g/dL (3.5-5.0); ALKALINE PHOSPHATASE 132.1 U/L (56-119); ASPARTATE AMINO TRANSFERASE 74.1 U/L (17-59); BILIRUBIN,TOTAL 0.21 mg/dL (0.2-1.3); BLOOD UREA NITROGEN 34.9 mg/dL (9-20); CALCIUM 7.96 mg/dL (8.4-10.2); CARBON DIOXIDE 24.2 mmol/L (22-30.0); CHLORIDE 106.8 mmol/L (98-107); GLUCOSE 86.4 mg/dL (74-106); POTASSIUM 4.41 mmol/L (3.5-5.1); SODIUM 133.5 mmol/L (134.5-145); TOTAL PROTEIN 5.11 g/dL (6.3-8.2)
[2022-09-07] MEDS: PROTONIX PO SCH (05:53)
[2022-09-07 07:46] LABS: PROTHROMBIN TIME 32.2 SEC (9.3-11.0)
[2022-09-07] MEDS ORDERED: INVANZ IM ONE (07:57)
[2022-09-07] MEDS ORDERED: LIDOCAINE HCL 1% SDV IM ONE (07:58)
[2022-09-07] MEDS: TOPROL XL PO SCH (08:01)
[2022-09-07] MEDS ORDERED: TOPROL XL PO ONE (08:02)
[2022-09-07] MEDS: MIRALAX PO SCH (09:17)
[2022-09-07] MEDS: SENNA PO SCH (09:18)
[2022-09-07] MEDS: PREDNISONE PO SCH (09:18)
[2022-09-07] MEDS: LIBRAX 5/2.5 MG PO SCH (09:18)
[2022-09-07] MEDS: COZAAR PO SCH (09:18)
[2022-09-07] MEDS: ARICEPT PO SCH (09:19)
[2022-09-07] MEDS: BACTRIM DS 800/160 MG PO SCH ×2 (09:19→21:30)
[2022-09-07] MEDS: FLOMAX PO SCH (09:19)
[2022-09-07] MEDS: LEXAPRO PO SCH (09:19)
[2022-09-07] MEDS: CRESTOR PO SCH (09:19)
--- NOTE | 2022-09-07 10:11 | PCM.PROG ---
Attending Provider: ATTENDING PROVIDER: Dr. BASIA KILLIAN MD This patient is seen with Catrachita Menendez, Nurse Practitioner. DATE OF SERVICE: 09/07/22 SUBJECTIVE: This 82 year old /WHITE M was hospitalized 09/02/22. The patient had a spell of weakness yesterday after getting up out of bed with therapy, likely orthostatic hypotension. We attempted to give IV fluids and patient refused. INR still elevated today. Will continue to hold Coumadin. Will give 1 gm Invanz IM today. Discussed with the patient hospice referral and he is agreeable. Will discuss with POA. He does not want anymore invasive treatment and expresses he would like to remain comfortable. REVIEW OF SYSTEMS: CONSTITUTIONAL: Weakness. No night sweats. No fatigue, malaise, lethargy. No fever or chills. HEENT: Eyes: No visual changes. No eye pain. No eye discharge. ENT: No runny nose. No epistaxis. No sinus pain. No odynophagia. No congestion. RESPIRATORY: No cough, no congestion. No hemoptysis. No shortness of breath. CARDIOVASCULAR: No angina symptoms. No CHF symptoms. No atypical chest pain for CAD. No palpitations. No orthopnea.. GASTROINTESTINAL: No abdominal pain. No nausea or vomiting. No diarrhea or constipation. No hematemesis. No hematochezia. GENITOURINARY: No urgency. No frequency. No dysuria. No hematuria. No obstructive symptoms. No discharge. No pain. No significant abnormal bleeding. MUSCULOSKELETAL: No musculoskeletal pain; no joint swelling. NEUROLOGICAL: Awake, alert, oriented to time, place and person. No headache. No neck pain. No syncope. No seizures. No dizziness. PSYCHIATRIC: Not anxious. No depression. No suicidal thoughts. No homicidal thoughts. SKIN: No rash. No lesions. No wounds. ENDOCRINE: No unexplained weight loss. No weight gain. HEMATOLOGIC/LYMPHATIC: No anemia. No purpura. No petechiae. No prolonged or excessive bleeding. No palpable lymph nodes. PHYSICAL EXAMINATION: GENERAL: The patient is awake, alert and oriented, lying/sitting in bed in no distress. VITAL SIGNS: Temperature 97.1 F, Pulse 64, Respiratory Rate 19, BP 104/56, Pulse Ox 97% HEENT: Head normocephalic, atraumatic. Eyes: Extraocular muscles are intact. Pupils are equal, round and reactive to light and accommodation. Ears: No lesions. Nose appeared normal. Throat: No exudate or erythema. NECK: Supple. No JVD, no carotid bruit. No lymphadenopathy or thyromegaly. LUNGS: Diminished breath sounds. Clear to auscultation. Percussion note normal. Chest symmetrical. HEART: S1, S2, no S3. No murmurs. No cyanosis or clubbing. No ascites. Pulses: Dorsalis pedis and posterior tibial pulses +1 to +2 both sides. ABDOMEN: Soft. Non-tender. Bowel sounds active. No CVA tenderness. No mass felt. EXTREMITIES: No edema. Full range of motion of all extremities, equal. NEUROLOGIC: No focal deficit. Cranial nerves II through XII are grossly intact. No headache. No double vision. SKIN: Not dry. Intact. Turgor-normal. LYMPHATIC: No palpable lymph nodes/no lymphedema. MUSCULOSKELETAL: Normal joints with no swelling. Muscle tone is normal. LAB REVIEW: 09/07/22 05:16 09/07/22 05:16 09/07/22 05:16: PT 32.2 H, INR 3.28 09/07/22 05:16: Sodium 133.5 L, Potassium 4.41, Chloride 106.8, Carbon Dioxide 24.2, Anion Gap 6.91, BUN 34.9 H, Creatinine 1.00, Estimated GFR (MDRD) 71.00, BUN/Creatinine Ratio 34.90, Glucose 86.4 D, Calcium 7.96 L, Total Bilirubin 0.21, AST 74.1 H, ALT 141.3 H, Alkaline Phosphatase 132.1 H, Total Protein 5.11 L, Albumin 2.46 L, Globulin 2.65, Albumin/Globulin Ratio 0.92 09/07/22 05:16: WBC 12.64 H, RBC 3.71 L, Hgb 11.2 L, Hct 33.9 L, MCV 91.4, MCH 30.2, MCHC 33.0, RDW Coeff of Bonnie 14.2, Plt Count 319, Immature Gran % (Auto) 1.7, Neut % (Auto) 78.7 H, Lymph % (Auto) 10.8, [place] % (Auto) 8.4, Eos % (Auto) 0.2, Baso % (Auto) 0.2, Neut # (Auto) 10.0 H, Lymph # (Auto) 1.4, [place] # (Auto) 1.1, Eos # (Auto) 0.0, Baso # (Auto) 0.0, Immature Gran # (Auto) 0.2 ASSESSMENT: Please see below. 1. UTI positive ESBL 2. Hypotension 3. Left lower lobe pneumonia 4. Severe PAD PLAN: 1. 1 gm Invanz IM today. 2. Will discuss with POA, return to [facility], possible hospice referral. 3. Metoprolol 50, 1/2 dose of Metoprolol. Plan and coordination of the patient's care discussed in the presence of Paint Stripper and nurse. CONDITION: Stable TIME SPENT: 35 MINUTES SCRIBED BY: FIDEL ROMERO Circular Sawyer Stone scribed while in presence of service performed by Catrachita Menendez APRN on 09/07/22 ([id number])
[2022-09-07] MEDS: LOMOTIL PO PRN ×2 (11:24→17:36)
[2022-09-07] MEDS: NYSTATIN CREAM TP SCH ×3 (12:33→21:30)
[2022-09-07] MEDS ORDERED: TYLENOL PO PRN (16:43)
[2022-09-07] MEDS ORDERED: ATROPINE SULFATE PFS IVP PRN (16:43)
[2022-09-07] MEDS ORDERED: NITROSTAT SL PRN (16:43)
[2022-09-07] MEDS: NAMENDA PO SCH (17:36)
[2022-09-08 05:03] LABS: BASOPHILS % (AUTO) 0.2 % (0.0-3.0); EOSINOPHILS # (AUTO) 0.1 K/ul (0.0-0.7); EOSINOPHILS % (AUTO) 0.6 % (0.0-7.0); HEMATOCRIT 33.1 % (42.0-52.0); IMMATURE GRANULOCYTE # (AUTO) 0.2 (0.0-1.0); IMMATURE GRANULOCYTE % (AUTO) 1.8 % (0.0-5.0); LYMPHOCYTES # (AUTO) 1.5 K/uL (0.60-3.4); LYMPHOCYTES % (AUTO) 13.6 (10.0-50.0); MEAN CORPUSCULAR HEMOGLOBIN 30.2 pg (27.0-31.0); MEAN CORPUSCULAR HGB CONC 33.2 (31.8-35.4); MEAN CORPUSCULAR VOLUME 90.9 fl (80.0-94.0); MONOCYTES # (AUTO) 0.8 K/uL (0.4-2.0); MONOCYTES % (AUTO) 7.2 (0-10); NEUTROPHILS # (AUTO) 8.3 K/ul (2.0-6.9); NEUTROPHILS % (AUTO) 76.6 % (42.2-75.2); PLATELET COUNT 282 10^3/uL (140-440); RDW COEFFICIENT OF VARIATION 14.5 % (11.6-14.8); RED BLOOD COUNT 3.64 10^6/ul (4.70-6.10); WHITE BLOOD COUNT 10.88 K/ul (4.2-10.2)
[2022-09-08 05:13] LABS: PROTHROMBIN TIME 23.3 SEC (9.3-11.0)
[2022-09-08 05:15] LABS: ALBUMIN 2.42 g/dL (3.5-5.0); ALKALINE PHOSPHATASE 117.1 U/L (56-119); ASPARTATE AMINO TRANSFERASE 52.2 U/L (17-59); BILIRUBIN,TOTAL 0.19 mg/dL (0.2-1.3); BLOOD UREA NITROGEN 43.7 mg/dL (9-20); CALCIUM 7.85 mg/dL (8.4-10.2); CARBON DIOXIDE 24.1 mmol/L (22-30.0); CHLORIDE 104.7 mmol/L (98-107); CREATININE 1.09 mg/dL (0.60-1.10); POTASSIUM 4.69 mmol/L (3.5-5.1); SODIUM 130.9 mmol/L (134.5-145); TOTAL PROTEIN 4.92 g/dL (6.3-8.2)
[2022-09-08] MEDS: PROTONIX PO SCH (05:34)
[2022-09-08] MEDS: MIRALAX PO SCH (09:23)
[2022-09-08] MEDS: SENNA PO SCH (09:25)
[2022-09-08] MEDS: LEXAPRO PO SCH (09:25)
[2022-09-08] MEDS: COZAAR PO SCH (09:25)
[2022-09-08] MEDS: BACTRIM DS 800/160 MG PO SCH (09:26)
[2022-09-08] MEDS: ARICEPT PO SCH (09:26)
[2022-09-08] MEDS: FLOMAX PO SCH (09:26)
[2022-09-08] MEDS: TOPROL XL PO SCH (09:26)
[2022-09-08] MEDS: CRESTOR PO SCH (09:27)
[2022-09-08] MEDS: LIBRAX 5/2.5 MG PO SCH (09:27)
[2022-09-08] MEDS: PREDNISONE PO SCH (09:28)
[2022-09-08] MEDS: NYSTATIN CREAM TP SCH ×4 (09:29→20:28)
[2022-09-08] MEDS ORDERED: KEPPRA PO ONE (12:00)
[2022-09-08] MEDS: NAMENDA PO SCH (16:45)
[2022-09-08] MEDS: KEPPRA PO SCH (20:28)
[2022-09-09 04:59] LABS: BASOPHILS % (AUTO) 0.2 % (0.0-3.0); EOSINOPHILS # (AUTO) 0.1 K/ul (0.0-0.7); EOSINOPHILS % (AUTO) 0.6 % (0.0-7.0); HEMATOCRIT 33.6 % (42.0-52.0); HEMOGLOBIN 11.1 g/dl (14.0-18.0); IMMATURE GRANULOCYTE # (AUTO) 0.2 (0.0-1.0); IMMATURE GRANULOCYTE % (AUTO) 2.2 % (0.0-5.0); LYMPHOCYTES # (AUTO) 1.3 K/uL (0.60-3.4); LYMPHOCYTES % (AUTO) 13.1 (10.0-50.0); MEAN CORPUSCULAR HEMOGLOBIN 30.2 pg (27.0-31.0); MEAN CORPUSCULAR VOLUME 91.6 fl (80.0-94.0); MONOCYTES # (AUTO) 0.8 K/uL (0.4-2.0); NEUTROPHILS # (AUTO) 7.5 K/ul (2.0-6.9); NEUTROPHILS % (AUTO) 75.9 % (42.2-75.2); PLATELET COUNT 263 10^3/uL (140-440); RDW COEFFICIENT OF VARIATION 14.6 % (11.6-14.8); RED BLOOD COUNT 3.67 10^6/ul (4.70-6.10); WHITE BLOOD COUNT 9.84 K/ul (4.2-10.2)
[2022-09-09 05:15] LABS: ALBUMIN 2.57 g/dL (3.5-5.0); ALKALINE PHOSPHATASE 137.7 U/L (56-119); ASPARTATE AMINO TRANSFERASE 44.7 U/L (17-59); BILIRUBIN,TOTAL 0.21 mg/dL (0.2-1.3); BLOOD UREA NITROGEN 42.7 mg/dL (9-20); CALCIUM 7.99 mg/dL (8.4-10.2); CARBON DIOXIDE 27.1 mmol/L (22-30.0); CHLORIDE 104.3 mmol/L (98-107); CREATININE 1.08 mg/dL (0.60-1.10); GLUCOSE 103.6 mg/dL (74-106); POTASSIUM 4.72 mmol/L (3.5-5.1); SODIUM 132.3 mmol/L (134.5-145); TOTAL PROTEIN 5.11 g/dL (6.3-8.2)
[2022-09-09 05:19] LABS: PROTHROMBIN TIME 16.8 SEC (9.3-11.0)
[2022-09-09 05:22] VITALS: BP 109/60; TEMP 97.5
[2022-09-09] MEDS: PROTONIX PO SCH (05:43)
--- NOTE | 2022-09-09 08:45 | PCM.PROG ---
Attending Provider: ATTENDING PROVIDER: Dr. BASIA KILLIAN MD This patient is seen with Catrachita Menendez, Nurse Practitioner. DATE OF SERVICE: 09/09/22 SUBJECTIVE: This 82 year old /WHITE M was hospitalized 09/02/22. The patient is resting comfortably. Labs are stable. Dr. Killian started on Keppra yesterday for seizure-like episodes. Plan is for him to be discharged back to [facility] will pick him up there. REVIEW OF SYSTEMS: CONSTITUTIONAL: Weakness, intermittent confusion. No night sweats. No fatigue, malaise, lethargy. No fever or chills. HEENT: Eyes: No visual changes. No eye pain. No eye discharge. ENT: No runny nose. No epistaxis. No sinus pain. No odynophagia. No congestion. RESPIRATORY: No cough, no congestion. No hemoptysis. No shortness of breath. CARDIOVASCULAR: No angina symptoms. No CHF symptoms. No atypical chest pain for CAD. No palpitations. No orthopnea.. GASTROINTESTINAL: No abdominal pain. No nausea or vomiting. No diarrhea or constipation. No hematemesis. No hematochezia. GENITOURINARY: No urgency. No frequency. No dysuria. No hematuria. No obstructive symptoms. No discharge. No pain. No significant abnormal bleeding. MUSCULOSKELETAL: No musculoskeletal pain; no joint swelling. NEUROLOGICAL: Awake, alert, oriented to time, place and person. No headache. No neck pain. No syncope. No seizures. No dizziness. PSYCHIATRIC: Not anxious. No depression. No suicidal thoughts. No homicidal thoughts. SKIN: No rash. No lesions. No wounds. ENDOCRINE: No unexplained weight loss. No weight gain. HEMATOLOGIC/LYMPHATIC: No anemia. No purpura. No petechiae. No prolonged or excessive bleeding. No palpable lymph nodes. PHYSICAL EXAMINATION: GENERAL: The patient is awake, alert and oriented to person, lying/sitting in bed in no distress. VITAL SIGNS: Temperature 97.5 F, Pulse 67, Respiratory Rate 18, BP 109/60, Pulse Ox 98% HEENT: Head normocephalic, atraumatic. Eyes: Extraocular muscles are intact. Pupils are equal, round and reactive to light and accommodation. Ears: No lesions. Nose appeared normal. Throat: No exudate or erythema. NECK: Supple. No JVD, no carotid bruit. No lymphadenopathy or thyromegaly. LUNGS: Diminished breath sounds. Clear to auscultation. Percussion note normal. Chest symmetrical. HEART: S1, S2, no S3. No murmurs. No cyanosis or clubbing. No ascites. Pulses: Dorsalis pedis and posterior tibial pulses +1 to +2 both sides. ABDOMEN: Soft. Non-tender. Bowel sounds active. No CVA tenderness. No mass felt. EXTREMITIES: No edema. Full range of motion of all extremities, equal. NEUROLOGIC: No focal deficit. Cranial nerves II through XII are grossly intact. No headache. No double vision. SKIN: Not dry. Intact. Turgor-normal. LYMPHATIC: No palpable lymph nodes/no lymphedema. MUSCULOSKELETAL: Normal joints with no swelling. Muscle tone is normal. LAB REVIEW: 09/09/22 04:54 09/09/22 04:54 09/09/22 04:54: Sodium 132.3 L, Potassium 4.72, Chloride 104.3, Carbon Dioxide 27.1, Anion Gap 5.62, BUN 42.7 H, Creatinine 1.08, Estimated GFR (MDRD) 65.00, BUN/Creatinine Ratio 39.53, Glucose 103.6, Calcium 7.99 L, Total Bilirubin 0.21, AST 44.7, ALT 101.0 H, Alkaline Phosphatase 137.7 H, Total Protein 5.11 L, Albumin 2.57 L, Globulin 2.54, Albumin/Globulin Ratio 1.01 09/09/22 04:54: WBC 9.84, RBC 3.67 L, Hgb 11.1 L, Hct 33.6 L, MCV 91.6, MCH 30.2, MCHC 33.0, RDW Coeff of Bonnie 14.6, Plt Count 263, Immature Gran % (Auto) 2.2, Neut % (Auto) 75.9 H, Lymph % (Auto) 13.1, Kent % (Auto) 8.0, Eos % (Auto) 0.6, Baso % (Auto) 0.2, Neut # (Auto) 7.5 H, Lymph # (Auto) 1.3, Kent # (Auto) 0.8, Eos # (Auto) 0.1, Baso # (Auto) 0.0, Immature Gran # (Auto) 0.2 09/09/22 04:54: PT 16.8 H D, INR 1.66 ASSESSMENT: Please see below. 1. UTI, POSSIBLE FOR ESBL 2. ACUTE PNEUMONITIS 3. 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 Continue Coumadin 2. Possible discharge today Plan and coordination of the patient's care discussed in the presence of Night Auditor and nurse. CONDITION: Stable TIME SPENT: 35 MINUTES SCRIBED BY: FIDEL ROMERO Management Advisor scribed while in presence of service performed by Catrachita Menendez APRN on 09/09/22 ([id number])
[2022-09-09] MEDS ORDERED: BACTRIM DS 800/160 MG PO SCH (09:00)
[2022-09-09] MEDS: SENNA PO SCH (09:10)
[2022-09-09] MEDS: FLOMAX PO SCH (09:10)
[2022-09-09] MEDS: LIBRAX 5/2.5 MG PO SCH (09:10)
[2022-09-09] MEDS: MIRALAX PO SCH (09:10)
[2022-09-09] MEDS: ARICEPT PO SCH (09:10)
[2022-09-09] MEDS: LEXAPRO PO SCH (09:10)
[2022-09-09] MEDS: KEPPRA PO SCH (09:11)
[2022-09-09] MEDS: PREDNISONE PO SCH (09:11)
[2022-09-09] MEDS: TOPROL XL PO SCH (09:11)
[2022-09-09] MEDS: COZAAR PO SCH (09:11)
[2022-09-09] MEDS: CRESTOR PO SCH (09:11)
[2022-09-09] MEDS: NYSTATIN CREAM TP SCH (09:12)
--- NOTE | 2022-09-10 11:44 | PN ---
DATE OF SERVICE: 09/08/22 SUBJECTIVE: 82-year-old white male hospitalized with left lower lobe pneumonia, UTI. The patient's condition has improved. His appetite has improved. He recognizes me but he doesn't know the time of day or what the day is today. He is confused. Again, I had seen him in the morning and the second time he doesn't remember what we talked about and doesn't even remember that I saw him first time. He is talking about things like he played golf yesterday, etc. According to the nursing staff, the patient is having spells where he is having maybe seizure type of activity. The patient has already been started on Depokate for that. It looks like atypical seizures. It could be related to cardiac arrhythmias but very difficult to document during the time of her episode. The patient's vitals have been practically normal with systolic blood pressure close to 100. REVIEW OF SYSTEMS: CONSTITUTIONAL: No night sweats. No fatigue, malaise, lethargy. No fever or chills. HEENT: Eyes: No visual changes. No eye pain. No eye discharge. ENT: No runny nose. No epistaxis. No sinus pain. No sore throat. No odynophagia. No congestion. RESPIRATORY: No cough, no congestion. No hemoptysis. No shortness of breath. CARDIOVASCULAR: No angina symptoms. No CHF symptoms. No atypical chest pain for CAD. No palpitations. No PND. No orthopnea. GASTROINTESTINAL: No abdominal pain. No nausea or vomiting. No diarrhea or constipation. No hematemesis. No hematochezia. GENITOURINARY: No urgency. No frequency. No dysuria. No hematuria. No obstructive symptoms. No discharge. No pain. No significant abnormal bleeding. MUSCULOSKELETAL: Moving all extremities. No musculoskeletal pain; no joint swelling. NEUROLOGICAL: The patient is confused. No headache. No neck pain. No syncope. No seizures. No dizziness. PSYCHIATRIC: Not anxious. No depression. No suicidal thoughts. No homicidal thoughts. SKIN: No rash. No lesions. No wounds. ENDOCRINE: No unexplained weight loss. No weight gain. HEMATOLOGIC/LYMPHATIC: No anemia. No purpura. No petechiae. No prolonged or excessive bleeding. No palpable lymph nodes. PHYSICAL EXAMINATION: VITAL SIGNS: Temperature 96.5, pulse 62, respiratory rate 18, blood pressure 105/60, pulse ox 96% on room air. HEENT: Head normocephalic, atraumatic. Eyes: Extraocular muscles are intact. Pupils are equal, round and reactive to light and accommodation. Ears: No lesions. Nose appeared normal. Throat: No exudate or erythema. NECK: Supple. No JVD, no carotid bruit. No lymphadenopathy or thyromegaly. LUNGS: Decreased breath sounds, good air entry. Clear to auscultation. Percussion note normal. Chest symmetrical. HEART: S1, S2, no S3. No murmurs. No cyanosis or clubbing. No ascites. Pulses: Dorsalis pedis and posterior tibial pulses +1 to +2 bilaterally. ABDOMEN: Soft. Nontender. Bowel sounds active. No CVA tenderness. No mass felt. EXTREMITIES: No pedal edema. Full range of motion of all extremities, equal. NEUROLOGIC: No focal deficit. Cranial nerves II through XII are grossly intact. No headache. No double vision. SKIN: Not dry. Intact. Turgor - normal. LYMPHATIC: No palpable lymph nodes/no lymphedema. MUSCULOSKELETAL: Normal joints with no swelling. Muscle tone is normal. LABS: Hemoglobin 11, hematocrit 23, WBC 13,000, normal differential. Creatinine 1, BUN 43, potassium 4.6. ASSESSMENT: 1. Dementia, worsening. 2. Left lower pneumonia seems to be resolving. 3. The patient's UTI seems to be under control. 4. Seizure type of activity which is less than one minute, smacking of the mouth, loss of speech. PLAN: 1. Continue antibiotics. 2. Will start the patient on Depokate 1000 mg p.o. the first dose then 500 mg b.i.d. 3. The patient is already referred to hospice. Discussed with power of estate attorney for health, Juan Donovan. Also talked with his , Bisi, who is a nurse. CONDITION: Stable. PROGNOSIS: Poor. TIME SPENT: More than 35 minutes. Plan and coordination of the patient's care discussed in the presence of nurse. CHRISS
--- NOTE | 2022-09-10 11:57 | PN ---
DATE OF SERVICE: 09/09/22 SUBJECTIVE: The patient was examined 09/09/22 with nurse practitioner. He is alert but confused. There was no seizure activity noted. Cardiovascular status stable. The patient is going to be discharged to hospice. The patient is stable. TIME SPENT: More than 35 minutes. Plan and coordination of the patient's care discussed in the presence of nurse. CHRISS
--- NOTE | 2022-09-10 12:00 | PN ---
CODING FOR BILLING 09/02/22 ADMISSION DAY LEVEL 5 09/03/22 INTERMEDIATE 09/04/22 INTERMEDIATE 09/05/22 INTERMEDIATE 09/06/22 INTERMEDIATE 09/07/22 INTERMEDIATE 09/08/22 INTERMEDIATE 09/09/22 FINAL DAY "D" IN DISCHARGE MTDD
--- NOTE | 2022-09-10 12:26 | HOLTER ---
PATIENT INFORMATION AND COMMENTS Attending Physician: DR. BASIA KILLIAN Indications: BRADYCARDIA __ Patient Medications: CRESTOR, METOPROLOL, WARFARIN, COZAAR, LEXAPRO, LASIX, NAMENDA, TAMSULOSIN, ARICEPT __ Pre-procedure Summary: Protocol: Standard Heart Rate Started: 09/03/2022 Minimum: N/A Weight: 160 LBS Ended: 09/04/2022 Maximum: N/A Height: 72" Duration: 7 HOURS Average: N/A _ INTERPRETATIONS/OBSERVATIONS: 1. BASIC RHYTHM: PACEMAKER, UNDERLYING RHYTHM A-FIB 2. INFREQUENT PVC'S 3. NO PAUSES GREATER THAN 2.0 SECONDS 4. PATIENT TOOK OFF HOLTER--REFUSED HOLTER, D/C'd AFTER 7 HOURS MTDD
== END 2022-09-09 14:12 | DRG 194 ==
LOC: ED 12:20 → MEDSURG A 15:10
PROVIDERS: ADMIT Internal Medicine; ATTEND Internal Medicine
DX: Z95.828 Presence of other vascular implants and grafts; Z79.01 Long term (current) use of anticoagulants; Z95.0 Presence of cardiac pacemaker; Z90.3 Acquired absence of stomach [part of]; I50.9 Heart failure, unspecified; F03.90 Unspecified dementia, unspecified severity, without behavioral disturbance, psychotic disturbance, mood disturbance, and anxiety; I25.810 Atherosclerosis of coronary artery bypass graft(s) without angina pectoris; I48.91 Unspecified atrial fibrillation; N39.0 Urinary tract infection, site not specified; K21.9 Gastro-esophageal reflux disease without esophagitis; I95.9 Hypotension, unspecified; J18.9 Pneumonia, unspecified organism; Z66 Do not resuscitate; E78.5 Hyperlipidemia, unspecified; E86.0 Dehydration; R50.9 Fever, unspecified; R41.82 Altered mental status, unspecified; N18.2 Chronic kidney disease, stage 2 (mild); I10 Essential (primary) hypertension; Z20.822 Contact with and (suspected) exposure to COVID-19